=== PATIENT | male | born 1965 | race Caucasian/White ===

== ENCOUNTER → 2016-07-02 | Outpatient (CLI) | payer OTHER ==
--- NOTE | 2016-07-02 11:35 | XR ---
EXAMINATION TYPE: XR chest 2V DATE OF EXAM: 07/02/2016 11:11 AM COMPARISON: Prior chest x-ray June 19, 2014. HISTORY: Chest tightness and pain for 3 days. TECHNIQUE: Frontal and lateral views of the chest are obtained. FINDINGS: There is no focal air space opacity, pleural effusion, or pneumothorax seen. The cardiac silhouette size is within normal limits. The osseous structures are intact. IMPRESSION: No acute process. No significant change from prior.
--- NOTE | 2016-07-02 12:15 | ECHOS ---
DATE OF SERVICE: 07/02/2016 AGE: 50Y SEX: M HT: 73" WT: 234 lbs. Protocol Rolan: Others: Stage: Dur. of Exercise: 10 minutes *Heart Rate Blood Pressure *Rest: 70 Rest: 113/86 * *Max. Achieved: 154 Maximum BP: 158/99 85% PMHR: 100% PMHR: *METS: 10.8 INDICATIONS: MEDICATIONS: See list. CLINICAL INFORMATION: Chest pain, family history of coronary artery disease. Resting ECG shows sinus rhythm, rate of 70 beats per minute. CO interval of 0.16, QRS 0.08, repolarization changes are noted in the inferior leads. Utilizing a standard Rolan protocol, a symptom limited treadmill test was performed. Patient exercised for total of 10 minutes, attained a peak heart rate of 154 per minute which is approximately 90% predicted heart rate without any chest pain or pressure or ST segment deviations indicative of ischemia. Repolarization changes have resolved. Baseline images shows normal thickening and contractility. Post exercise images showed improved contractibility and thickening consistent with normal stress echocardiogram. The patient did not report any symptoms throughout the study. HIRED HELP IMPRESSION: 1. Normal stress echocardiogram. 2. Patient has an average level of cardiopulmonary fitness as indicated by O2 max and METs. 3. Patient attained peak metabolic activity equivalent to his 11 METS. 4. Patient did not report any symptoms throughout the study.
== END ==
LOC: RADNMMAIN 10:53
PROVIDERS: ATTEND Physician Assistant
DX: R07.9 Chest pain, unspecified (principal)
CPT/HCPCS: 71020; 93017; 93350

== ENCOUNTER → 2017-12-16 | Outpatient (CLI) | payer OTHER ==
--- NOTE | 2017-12-16 18:23 | XR ---
EXAMINATION TYPE: XR thoracic spine complete DATE OF EXAM: 12/16/2017 COMPARISON: Chest x-ray 07/02/2016 HISTORY: Back pain TECHNIQUE: 3 views FINDINGS: Thoracic vertebra have fairly normal spacing and alignment. Posterior element are intact. I see no compression fracture. There is no paraspinal mass. There is mild spurring of the endplates. IMPRESSION: Mild spurring. No fracture. No change.
== END | disposition home or self-care (01) ==
LOC: RADXRMAIN 17:06
PROVIDERS: ATTEND Physician Assistant
DX: M46.04 Spinal enthesopathy, thoracic region (principal)
CPT/HCPCS: 72072

== ENCOUNTER 2018-07-24 09:57 | Emergency (ER) | payer OTHER ==
[2018-07-24 10:04] VITALS: RESP 18
[2018-07-24] MEDS ORDERED: SODIUM CHLORIDE 0.9% 2,000 ML IV ONE (10:26)
--- NOTE | 2018-07-24 10:31 | ED ---
General Adult HPI - General Chief complaint: Neuro Symptoms/Deficit Stated complaint: Visual disturbance Time Seen by Provider: 07/24/18 10:08 Source: patient, family Mode of arrival: ambulatory Limitations: no limitations - History of Present Illness Initial comments: Patient is a 52-year-old male who presents with a chief complaint of dizziness, headache, blurry vision. Patient states his symptoms started about 7 this morning while at work. He did not identify an inciting incident. There are no aggravating or alleviating factors. Patient says his headache is in the right parietal part of his head, it is rated 6 out of 10, not the worst headache he has ever had, onset was gradual. Patient states that the time he has been constant since onset. - Related Data Home Medications Medication Instructions Recorded Confirmed Ibuprofen [Motrin] 800 mg PO TID PRN 07/24/18 07/24/18 Allergies Allergy/AdvReac Type Severity Reaction Status Date / Time No Known Allergies Allergy Verified 07/24/18 10:31 Review of Systems ROS Statement: Those systems with pertinent positive or pertinent negative responses have been documented in the HPI. ROS Other: All systems not noted in ROS Statement are negative. Constitutional: Reports: weakness Eyes: Reports: vision change Neurological: Reports: headache Past Medical History Past Medical History: Chest Pain / Angina, Hyperlipidemia, Osteoarthritis (OA) Additional Past Medical History / Comment(s): migraines, lt heel spur, forgetfullness History of Any Multi-Drug Resistant Organisms: None Reported Past Surgical History: Heart Catheterization, Orthopedic Surgery Additional Past Surgical History / Comment(s): sinus sx, rt knee arthroscopy,vasectomy,heart cath 2011 clear Past Anesthesia/Blood Transfusion Reactions: No Reported Reaction Past Psychological History: No Psychological Hx Reported Smoking Status: Never smoker Past Alcohol Use History: Rare Past Drug Use History: None Reported - Past Family History Mother Family Medical History: No Reported History General Exam Limitations: no limitations General appearance: alert, in no apparent distress Head exam: Present: atraumatic, normocephalic Eye exam: Present: normal appearance, PERRL, EOMI ENT exam: Present: mucous membranes dry Neck exam: Present: normal inspection Respiratory exam: Present: normal lung sounds bilaterally. Absent: respiratory distress, wheezes Cardiovascular Exam: Present: regular rate, normal rhythm, other (Patient resting heart rate is in the low 70s, when patient was asked to stand up, his heart rate elevated to the low 90s. Patient is orthostatic positive) GI/Abdominal exam: Present: soft, tenderness (Patient mild tenderness in the suprapubic region). Absent: distended Rectal exam: Present: deferred Extremities exam: Present: normal inspection Back exam: Present: normal inspection Neurological exam: Present: alert, oriented X3, CN II-XII intact, other (Patient is neurovascularly intact, and a stroke scale of 0, patient is a little unsteady when he stands up, Romberg negative) Psychiatric exam: Present: normal affect, normal mood Skin exam: Present: warm, dry, intact Course Vital Signs 07/24/18 07/24/18 10:01 11:38 Temperature 98.3 F Pulse Rate 74 62 Respiratory 18 18 Rate Blood Pressure 161/82 126/89 O2 Sat by Pulse 96 98 Oximetry Medical Decision Making - Medical Decision Making Patient presents with a chief complaint of dizziness and headache. On initial evaluation, vitals are stable, patient is in no acute distress. Patient noted to be orthostatic on exam. He will be evaluated with EKG, basic labs including cardiac enzymes, and computed tomography scan of the head without contrast and computed tomography scan of the head and neck with contrast. Patient given 2 L of IV fluid. We'll hold aspirin until computed tomography scan is back. Doubt subarachnoid hemorrhage given presentation, considered CVA no fever or dehydration at this time. EKG performed at 10:43 AM shows normal sinus rhythm with a rate of 60 bpm, segments are within normal limits, no acute signs of ischemia present. 1:05 PM Evaluation of this patient is unremarkable. Computed tomography scan without contrast are unremarkable. Reevaluation, patient's headache is now 2 out of 10, his symptoms have improved with 2 L of IV fluid, he is no longer orthostatic on exam. Repeat neuro exam is stable, at age stroke scale remains at 0. At this time, patient feeling well enough to go home. Patient was instructed to continue hydrating himself orally. Follow up with primary care 1-2 days, return to the ED if symptoms worsen or change. - Lab Data Result diagrams: 07/24/18 10:25 07/24/18 10:25 Lab Results 07/24/18 07/24/18 07/24/18 Range/Units 10:25 10:25 10:25 WBC 6.9 (3.8-10.6) k/uL RBC 5.49 (4.30-5.90) m/uL Hgb 16.6 (13.0-17.5) gm/dL Hct 49.5 (39.0-53.0) % MCV 90.2 (80.0-100.0) fL MCH 30.3 (25.0-35.0) pg MCHC 33.6 (31.0-37.0) g/dL RDW 12.3 (11.5-15.5) % Plt Count 259 (150-450) k/uL Neutrophils % 67 % Lymphocytes % 24 % Monocytes % 5 % Eosinophils % 2 % Basophils % 0 % Neutrophils # 4.7 (1.3-7.7) k/uL Lymphocytes # 1.7 (1.0-4.8) k/uL Monocytes # 0.3 (0-1.0) k/uL Eosinophils # 0.2 (0-0.7) k/uL Basophils # 0.0 (0-0.2) k/uL VBG pH 7.40 (7.31-7.41) VBG pCO2 35 L (37-51) mmHg VBG HCO3 21 L (24-28) mmol/L Carbon Monoxide, Quant 1.6 (<10.0) % Sodium (137-145) mmol/L Potassium (3.5-5.1) mmol/L Chloride (98-107) mmol/L Carbon Dioxide (22-30) mmol/L Anion Gap mmol/L BUN (9-20) mg/dL Creatinine (0.66-1.25) mg/dL Est GFR (CKD-EPI)AfAm (>60 ml/min/1.73 sqM) Est GFR (CKD-EPI)NonAf (>60 ml/min/1.73 sqM) Glucose (74-99) mg/dL Calcium (8.4-10.2) mg/dL Total Bilirubin (0.2-1.3) mg/dL AST (17-59) U/L ALT (21-72) U/L Alkaline Phosphatase (38-126) U/L Troponin I (0.000-0.034) ng/mL NT-Pro-B Natriuret Pep pg/mL Total Protein (6.3-8.2) g/dL Albumin (3.5-5.0) g/dL Lipase (23-300) U/L Urine Color Urine Appearance (Clear) Urine pH (5.0-8.0) Ur Specific [place] (1.001-1.035) Urine Protein (Negative) Urine Glucose (UA) (Negative) Urine Ketones (Negative) Urine Blood (Negative) Urine Nitrite (Negative) Urine Bilirubin (Negative) Urine Urobilinogen (<2.0) mg/dL Ur Leukocyte Esterase (Negative) Urine Opiates Screen (NotDetected) Ur Oxycodone Screen (NotDetected) Urine Methadone Screen (NotDetected) Ur Propoxyphene Screen (NotDetected) Ur Barbiturates Screen (NotDetected) U Tricyclic Antidepress (NotDetected) Ur Phencyclidine Scrn (NotDetected) Ur Amphetamines Screen (NotDetected) U Methamphetamines Scrn (NotDetected) U Benzodiazepines Scrn (NotDetected) Urine Cocaine Screen (NotDetected) U Marijuana (THC) Screen (NotDetected) 07/24/18 07/24/18 07/24/18 Range/Units 10:25 10:25 10:25 WBC (3.8-10.6) k/uL RBC (4.30-5.90) m/uL Hgb (13.0-17.5) gm/dL Hct (39.0-53.0) % MCV (80.0-100.0) fL MCH (25.0-35.0) pg MCHC (31.0-37.0) g/dL RDW (11.5-15.5) % Plt Count (150-450) k/uL Neutrophils % % Lymphocytes % % Monocytes % % Eosinophils % % Basophils % % Neutrophils # (1.3-7.7) k/uL Lymphocytes # (1.0-4.8) k/uL Monocytes # (0-1.0) k/uL Eosinophils # (0-0.7) k/uL Basophils # (0-0.2) k/uL VBG pH (7.31-7.41) VBG pCO2 (37-51) mmHg VBG HCO3 (24-28) mmol/L Carbon Monoxide, Quant (<10.0) % Sodium 140 (137-145) mmol/L Potassium 4.7 (3.5-5.1) mmol/L Chloride 109 H (98-107) mmol/L Carbon Dioxide 24 (22-30) mmol/L Anion Gap 7 mmol/L BUN 18 (9-20) mg/dL Creatinine 0.98 (0.66-1.25) mg/dL Est GFR (CKD-EPI)AfAm >90 (>60 ml/min/1.73 sqM) Est GFR (CKD-EPI)NonAf 90 (>60 ml/min/1.73 sqM) Glucose 90 (74-99) mg/dL Calcium 9.7 (8.4-10.2) mg/dL Total Bilirubin 1.2 (0.2-1.3) mg/dL AST 33 (17-59) U/L ALT 41 (21-72) U/L Alkaline Phosphatase 84 (38-126) U/L Troponin I <0.012 (0.000-0.034) ng/mL NT-Pro-B Natriuret Pep 88 pg/mL Total Protein 7.6 (6.3-8.2) g/dL Albumin 4.5 (3.5-5.0) g/dL Lipase 103 (23-300) U/L Urine Color Urine Appearance (Clear) Urine pH (5.0-8.0) Ur Specific [place] (1.001-1.035) Urine Protein (Negative) Urine Glucose (UA) (Negative) Urine Ketones (Negative) Urine Blood (Negative) Urine Nitrite (Negative) Urine Bilirubin (Negative) Urine Urobilinogen (<2.0) mg/dL Ur Leukocyte Esterase (Negative) Urine Opiates Screen (NotDetected) Ur Oxycodone Screen (NotDetected) Urine Methadone Screen (NotDetected) Ur Propoxyphene Screen (NotDetected) Ur Barbiturates Screen (NotDetected) U Tricyclic Antidepress (NotDetected) Ur Phencyclidine Scrn (NotDetected) Ur Amphetamines Screen (NotDetected) U Methamphetamines Scrn (NotDetected) U Benzodiazepines Scrn (NotDetected) Urine Cocaine Screen (NotDetected) U Marijuana (THC) Screen (NotDetected) 07/24/18 Range/Units 10:38 WBC (3.8-10.6) k/uL RBC (4.30-5.90) m/uL Hgb (13.0-17.5) gm/dL Hct (39.0-53.0) % MCV (80.0-100.0) fL MCH (25.0-35.0) pg MCHC (31.0-37.0) g/dL RDW (11.5-15.5) % Plt Count (150-450) k/uL Neutrophils % % Lymphocytes % % Monocytes % % Eosinophils % % Basophils % % Neutrophils # (1.3-7.7) k/uL Lymphocytes # (1.0-4.8) k/uL Monocytes # (0-1.0) k/uL Eosinophils # (0-0.7) k/uL Basophils # (0-0.2) k/uL VBG pH (7.31-7.41) VBG pCO2 (37-51) mmHg VBG HCO3 (24-28) mmol/L Carbon Monoxide, Quant (<10.0) % Sodium (137-145) mmol/L Potassium (3.5-5.1) mmol/L Chloride (98-107) mmol/L Carbon Dioxide (22-30) mmol/L Anion Gap mmol/L BUN (9-20) mg/dL Creatinine (0.66-1.25) mg/dL Est GFR (CKD-EPI)AfAm (>60 ml/min/1.73 sqM) Est GFR (CKD-EPI)NonAf (>60 ml/min/1.73 sqM) Glucose (74-99) mg/dL Calcium (8.4-10.2) mg/dL Total Bilirubin (0.2-1.3) mg/dL AST (17-59) U/L ALT (21-72) U/L Alkaline Phosphatase (38-126) U/L Troponin I (0.000-0.034) ng/mL NT-Pro-B Natriuret Pep pg/mL Total Protein (6.3-8.2) g/dL Albumin (3.5-5.0) g/dL Lipase (23-300) U/L Urine Color Light Yellow Urine Appearance Clear (Clear) Urine pH 6.0 (5.0-8.0) Ur Specific [place] 1.009 (1.001-1.035) Urine Protein Negative (Negative) Urine Glucose (UA) Negative (Negative) Urine Ketones Negative (Negative) Urine Blood Negative (Negative) Urine Nitrite Negative (Negative) Urine Bilirubin Negative (Negative) Urine Urobilinogen <2.0 (<2.0) mg/dL Ur Leukocyte Esterase Negative (Negative) Urine Opiates Screen Not Detected (NotDetected) Ur Oxycodone Screen Not Detected (NotDetected) Urine Methadone Screen Not Detected (NotDetected) Ur Propoxyphene Screen Not Detected (NotDetected) Ur Barbiturates Screen Not Detected (NotDetected) U Tricyclic Antidepress Not Detected (NotDetected) Ur Phencyclidine Scrn Not Detected (NotDetected) Ur Amphetamines Screen Not Detected (NotDetected) U Methamphetamines Scrn Not Detected (NotDetected) U Benzodiazepines Scrn Not Detected (NotDetected) Urine Cocaine Screen Not Detected (NotDetected) U Marijuana (THC) Screen Not Detected (NotDetected) Disposition Clinical Impression: Dehydration, Dizziness Disposition: HOME SELF-CARE Condition: Good Is patient prescribed a controlled substance at d/c from ED?: No Referrals: Edward Bahena MD [Primary Care Provider] - 1-2 days
[2018-07-24 10:44] LABS: VBG PH 7.4 (7.31-7.41)
[2018-07-24 10:46] LABS: Basophils % (A) 0 %; Eosinophils # (A) 0.2 k/uL (0-0.7); Eosinophils % (A) 2 %; HCT 49.5 % (39.0-53.0); HGB 16.6 gm/dL (13.0-17.5); Lymphocytes # (A) 1.7 k/uL (1.0-4.8); Lymphocytes % (A) 24 %; MCH 30.3 pg (25.0-35.0); MCHC 33.6 g/dL (31.0-37.0); MCV 90.2 fL (80.0-100.0); Mean Platelet Volume 7.2; Monocytes # (A) 0.3 k/uL (0-1.0); Monocytes % (A) 5 %; Neutrophils # (A) 4.7 k/uL (1.3-7.7); Neutrophils % (A) 67 %; Platelet Count 259 k/uL (150-450); RBC 5.49 m/uL (4.30-5.90); RDW 12.3 % (11.5-15.5); WBC 6.9 k/uL (3.8-10.6)
[2018-07-24 10:53] LABS: Appearance,Urine Clear (Clear); Bilirubin,Urine Negative (Negative); Blood,Urine Negative (Negative); Color,Urine Light Yellow; Glucose,Urine (UA) Negative (Negative); Ketones,Urine Negative (Negative); Leukocyte Esterase,Urine Negative (Negative); Nitrite,Urine Negative (Negative); Protein,Urine Negative (Negative); Specific Gravity,Urine 1.009 (1.001-1.035); Urobilinogen,Urine <2.0 mg/dL (<2.0)
[2018-07-24 10:59] LABS: ALT 41 U/L (21-72); AST 33 U/L (17-59); Albumin 4.5 g/dL (3.5-5.0); Alkaline Phosphatase 84 U/L (38-126); Anion Gap 7 mmol/L; Blood Urea Nitrogen 18 mg/dL (9-20); Calcium 9.7 mg/dL (8.4-10.2); Carbon Dioxide 24 mmol/L (22-30); Chloride 109 mmol/L (98-107); Glucose 90 mg/dL (74-99); Lipase 103 U/L (23-300); Potassium 4.7 mmol/L (3.5-5.1); Sodium 140 mmol/L (137-145); Total Bilirubin 1.2 mg/dL (0.2-1.3); Total Protein 7.6 g/dL (6.3-8.2)
[2018-07-24 11:16] LABS: Amphetamine Screen,Urine Not Detected (NotDetected); Barbiturate Screen,Urine Not Detected (NotDetected); Benzodiazepines Screen,Urine Not Detected (NotDetected); Cocaine Screen,Urine Not Detected (NotDetected); Methadone Screen, Urine Not Detected (NotDetected); Opiate Screen,Urine Not Detected (NotDetected); Oxycodone Screen, Urine Not Detected (NotDetected); Phencyclidine Screen,Urine Not Detected (NotDetected); Tricyclic Antidepressant,Urine Not Detected (NotDetected); Urn Cannabinoid Scrn Not Detected (NotDetected)
--- NOTE | 2018-07-24 11:20 | CT ---
EXAMINATION TYPE: CT brain wo con DATE OF EXAM: 07/24/2018 COMPARISON: None INDICATION: visual disturbance DLP: 1183 mGycm, Automated exposure control for dose reduction was used. CONTRAST: None CT of the brain is performed utilizing 3 mm thick sections through the posterior fossa and 3 mm thick sections through the remaining calvarium. Study is performed within 24 hours of arrival to the hosp [facility]. No abnormal hyperdensity is present to suggest an acute intracranial hemorrhage. No mass lesion is evident. No acute infarcts are evident. Ventricles and sulci are appropriate for the patient age. Mucosal thickening is within scattered ethmoid air cells. Remaining paranasal sinuses and mastoid air cells are clear. IMPRESSIONS: 1. No acute intracranial process. 2. Mucosal thickening within scattered ethmoid air cells
[2018-07-24] MEDS ORDERED: KETOROLAC 30 MG/ML 1 ML VIAL IVP STA (11:31)
[2018-07-24] MEDS ORDERED: ASPIRIN 81 MG PO STA (11:31)
--- NOTE | 2018-07-24 11:44 | CT ---
EXAMINATION TYPE: CT angio head neck DATE OF EXAM: 07/24/2018 HISTORY: visual disturbance COMPARISON: None CT DLP: 536.4 mGycm. Automated Exposure Control for Dose Reduction was Utilized. TECHNIQUE: CTA scan of the neck is performed with IV Contrast, patient injected with 50 mL of Isovue 370, axial images are obtained, coronal and sagittal reformatted images are reviewed. Three-D recons tructed images are created on an independent workstation and reviewed. FINDINGS: Carotid/Vascular Structures: There is a three-vessel arch. Left vertebral artery is more prominent th an the right and may be dominant. The common carotid arteries bifurcate normally into internal and ex ternal carotid arteries. The internal carotid arteries are patent to the skull base. No stenosis at t he internal carotid arterial origins are evident. [place]: Internal carotid arteries bifurcate into A1 and M1 segments. Middle cerebral artery branches and A2 segments appear normal. Anterior communicating artery is patent. Left posterior communicating artery appears patent. Right po sterior communicating artery may be absent. Other: Portions of the neck within the [id number] appear normal. Subglottic airway is normal. Port ion of the thyroid visualized is normal. Some minimal compressive atelectasis within the dependent po rtions of the lung apices. IMPRESSION: 1. No carotid bifurcation stenosis is noted. 2. [place] appears within normal limits.
[2018-07-24 13:32] VITALS: BP 120/89; PULSE 70; TEMP 98.1
== END 2018-07-24 13:45 | disposition home or self-care (01) ==
LOC: EC 09:57
DX: E86.0 Dehydration (principal); M19.90 Unspecified osteoarthritis, unspecified site; Z95.818 Presence of other cardiac implants and grafts
CPT/HCPCS: 99284; 96374; 96361 ×2; 36415; 93005; 83880; 80053; 82375; 82803; 83690; 84484; 85025; 81003; 80306; 70496; 70450; 70498; J1885; Q9967

== ENCOUNTER → 2019-05-04 | Outpatient (CLI) | payer OTHER ==
--- NOTE | 2019-05-04 10:14 | XR ---
EXAMINATION TYPE: XR foot complete RT DATE OF EXAM: 05/04/2019 CLINICAL HISTORY: Lateral right fifth digit pain for 3 weeks with no known injury TECHNIQUE: Frontal, lateral, and oblique images of the right foot are obtained. COMPARISON: None FINDINGS: There is no acute fracture/dislocation evident in the right foot. There is very mild corti willow thickening that is subtly seen on the frontal view of the lateral cortex of the proximal fifth me tatarsal. There is a small plantar heel spur. Few calcifications are incidentally noted along the rik eus. These could relate to tendinopathy or prior injury. The joint spaces in the right foot appear al igned. Osseous proliferative change and subchondral cystic formation with joint space narrowing of op posing surface sclerosis are seen of the first metatarsal phalangeal joint. The overlying soft tissue appears unremarkable. IMPRESSION: 1. Minimal cortical thickening of the proximal fifth metatarsal could relate to stress injury/stress reaction. MRI could evaluate for bone marrow edema. 2. Moderate arthropathy of the first metatarsophalangeal joint.
== END | disposition home or self-care (01) ==
LOC: RADXRMAIN 09:46
PROVIDERS: ATTEND Nurse Practitioner Family
DX: M12.871 Other specific arthropathies, not elsewhere classified, right ankle and foot (principal); M89.371 Hypertrophy of bone, right ankle and foot

== ENCOUNTER 2019-05-14 10:01 | Observation (INO) | payer OTHER ==
[2019-05-14] MEDS ORDERED: NITROGLYCERIN SL TABS 0.4 MG TAB SUBLINGUAL STA ×2 (10:23)
[2019-05-14] MEDS ORDERED: ASPIRIN 81 MG PO STA (10:23)
--- NOTE | 2019-05-14 10:27 | ED ---
Chest Pain HPI - General Chief Complaint: Chest Pain Stated Complaint: chest pain Time Seen by Provider: 05/14/19 10:14 Source: patient Mode of arrival: ambulatory Limitations: no limitations - History of Present Illness Initial Comments: Patient is a 53-year-old male with history of anxiety and acid reflux presenting to emergency Department with a chief complaint of chest pain. Patient states he developed sudden shortness of breath about 3 hours prior to arrival. Patient states he went to his primary care immediately and developed low, midsternal, epigastric chest pain without any radiation to the neck or left shoulder.. States the chest pain is not related to exertion. States the chest pain is not reproducible with palpation. Does report some lightheadedness prior to ED arrival. Denies any dizziness, blurry vision, nausea, vomiting or diaphoretic episodes. Does report feeling sweaty more usual about a week ago but nothing since. Patient is a smoker. He is a borderline hypertensive but no medications. Denies dyslipidemia. Denies family history of early cardiac related . White states they currently have a lot going on in her family which could be exacerbating his anxiety symptoms. Patient does not take any psychiatric medications. - Related Data Home Medications Medication Instructions Recorded Confirmed Celecoxib [CeleBREX] 200 mg PO HS 05/14/19 05/14/19 Allergies Allergy/AdvReac Type Severity Reaction Status Date / Time No Known Allergies Allergy Verified 05/14/19 11:37 Review of Systems ROS Statement: Those systems with pertinent positive or pertinent negative responses have been documented in the HPI. ROS Other: All systems not noted in ROS Statement are negative. EKG Findings - EKG Comments: EKG Findings:: Sinus bradycardia. Ventricular rate 54, RI 172, QRS 96, QTC 396. Past Medical History Past Medical History: Chest Pain / Angina, Hyperlipidemia, Osteoarthritis (OA) Additional Past Medical History / Comment(s): migraines, lt heel spur,forgetfullness History of Any Multi-Drug Resistant Organisms: None Reported Past Surgical History: Heart Catheterization, Orthopedic Surgery Additional Past Surgical History / Comment(s): sinus sx, rt knee arthro scopy,vasectomy,heart cath 2011 clear plantar fascitis Past Anesthesia/Blood Transfusion Reactions: No Reported Reaction Past Psychological History: No Psychological Hx Reported Smoking Status: Never smoker Past Alcohol Use History: Rare Past Drug Use History: None Reported - Past Family History Mother Family Medical History: No Reported History General Exam Limitations: no limitations General appearance: alert, anxious Head exam: Present: atraumatic, normocephalic, normal inspection Eye exam: Present: normal appearance, PERRL, EOMI Pupils: Present: normal accommodation ENT exam: Present: normal exam Neck exam: Present: normal inspection, full ROM Respiratory exam: Present: normal lung sounds bilaterally. Absent: wheezes, rales, decreased breath sounds Cardiovascular Exam: Present: regular rate, normal rhythm, normal heart sounds GI/Abdominal exam: Present: soft, tenderness (Mild epigastric tenderness with palpation.). Absent: distended Extremities exam: Present: normal inspection, full ROM, normal capillary refill, other (+2 ulnar and radial pulses bilaterally.) Back exam: Present: normal inspection, full ROM Neurological exam: Present: alert, oriented X3 Psychiatric exam: Present: normal affect, anxious Skin exam: Present: warm, dry, intact, normal color Course Vital Signs 05/14/19 05/14/19 05/14/19 10:06 10:47 11:12 Temperature 98.1 F Pulse Rate 63 56 L 70 Pulse Rate [ 67 Bilateral [place] ] Respiratory 18 16 16 Rate Blood Pressure 137/63 138/95 127/72 O2 Sat by Pulse 98 97 100 Oximetry 05/14/19 12:17 Temperature Pulse Rate 72 Pulse Rate [ Bilateral [place] ] Respiratory 14 Rate Blood Pressure 121/70 O2 Sat by Pulse 100 Oximetry Chest Pain MDM - Differential Diagnosis ACS - MDM Patient is 53-year-old male with history of GERD and anxiety presenting to emergency with a chief complaint of chest pain. Initially started with shortness of breath and which later developed to chest pain. On exam patient does appear to have reproducible epigastric abdominal pain. Patient does use chewing tobacco, borderline hypertensive but no dyslipidemia. EKG shows sinus bradycardia. Initial troponins are unremarkable. She was given nitro and aspirin the ED with no significant improvement in symptoms. Patient will be admitted for serial troponins. I spoke with Nuvia MARS for Dr. Bahena who will accept the patient. Case discussed with Dr. Gatica. Cardiology consult. Disposition Clinical Impression: Chest pain, Shortness of breath Disposition: ADMITTED IP TO THIS [facility] Condition: Stable Instructions (If sedation given, give patient instructions): Chest Pain (ED) Additional Instructions: Patient will be admitted Is patient prescribed a controlled substance at d/c from ED?: No Referrals: Edward Bahena MD [Primary Care Provider] - 1-2 days Time of Disposition: 13:22
[2019-05-14 10:53] LABS: Basophils % (A) 0 %; Eosinophils # (A) 0.1 k/uL (0-0.7); Eosinophils % (A) 2 %; HCT 45.3 % (39.0-53.0); HGB 15.6 gm/dL (13.0-17.5); Lymphocytes # (A) 1.7 k/uL (1.0-4.8); Lymphocytes % (A) 25 %; MCHC 34.4 g/dL (31.0-37.0); Mean Platelet Volume 8.3; Monocytes # (A) 0.3 k/uL (0-1.0); Monocytes % (A) 5 %; Neutrophils # (A) 4.3 k/uL (1.3-7.7); Neutrophils % (A) 66 %; Platelet Count 251 k/uL (150-450); RBC 5.03 m/uL (4.30-5.90); RDW 11.9 % (11.5-15.5); WBC 6.5 k/uL (3.8-10.6)
[2019-05-14 10:57] LABS: ALT 35 U/L (4-49); AST 35 U/L (17-59); African American GFR (CKD) >90 (>60 ml/min/1.73 sqM); Albumin 4.4 g/dL (3.5-5.0); Alkaline Phosphatase 84 U/L (38-126); Anion Gap 8 mmol/L; Blood Urea Nitrogen 19 mg/dL (9-20); Calcium 9.8 mg/dL (8.4-10.2); Carbon Dioxide 22 mmol/L (22-30); Chloride 107 mmol/L (98-107); Glucose 97 mg/dL (74-99); Non-African American GFR(CKD) >90 (>60 ml/min/1.73 sqM); Sodium 137 mmol/L (137-145); Total Bilirubin 1.4 mg/dL (0.2-1.3); Total Protein 7.5 g/dL (6.3-8.2)
[2019-05-14 11:03] LABS: INR 0.9 (<1.2); Partial Thromboplastin Time 24.7 sec (22.0-30.0); Prothrombin Time 9.9 sec (9.0-12.0)
[2019-05-14] MEDS ORDERED: NITROGLYCERIN SL TABS 0.4 MG TAB SUBLINGUAL PRN (13:22)
--- NOTE | 2019-05-14 16:14 | P.HPIM ---
History of Present Illness A 53-year-old pleasant male patient presented to his primary care facility complaining of chest pain with shortness of breath, he states he started having palpitations approximately 4 days ago which resolved on its own, he reports mild palpitations last night, and while he was driving his work he did experience some chest tightness accompanied with shortness of breath the provider instructed him to go to the emergency department to have a cardiac workup. He presented to the emergency department with ongoing complaints of shortness of breath and chest pain denied radiation, he is admitted to the hospital for cardiac workup and cardiology consult. He currently is resting in bed with eyes closed is arouse to verbal command, states the chest pain still continues as pressure at times. Review of Systems Cardiovascular: Reports chest pain, Reports dyspnea on exertion, Reports palpitations Musculoskeletal: right: foot pain (Ongoing wears a brace ) Past Medical History Past Medical History: Chest Pain / Angina, Hyperlipidemia, Osteoarthritis (OA) Additional Past Medical History / Comment(s): migraines, lt heel spur, brace for right foot d/t tendon damage History of Any Multi-Drug Resistant Organisms: None Reported Past Surgical History: Heart Catheterization, Orthopedic Surgery Additional Past Surgical History / Comment(s): sinus sx, rt knee arthroscopy,vasectomy,heart cath 2012 clear, plantar fascitis sx Past Anesthesia/Blood Transfusion Reactions: No Reported Reaction Past Psychological History: Anxiety Smoking Status: Never smoker Past Alcohol Use History: Rare Additional Past Alcohol Use History / Comment(s): has chewed tobacco since age 14, Past Drug Use History: None Reported - Past Family History Mother Family Medical History: No Reported History Medications and Allergies Home Medications Medication Instructions Recorded Confirmed Type Celecoxib [CeleBREX] 200 mg PO HS 05/14/19 05/14/19 History Allergies Allergy/AdvReac Type Severity Reaction Status Date / Time No Known Allergies Allergy Verified 05/14/19 11:37 Physical Exam Vitals: Vital Signs Temp Pulse Pulse Pulse Resp BP BP 05/14/19 14:30 98.2 F 58 L 14 151/90 05/14/19 14:00 62 20 146/93 05/14/19 13:00 60 23 132/94 05/14/19 12:17 72 14 121/70 05/14/19 12:00 56 L 20 124/91 05/14/19 11:12 70 16 127/72 05/14/19 11:00 79 20 138/95 05/14/19 10:47 56 L 67 16 138/95 05/14/19 10:20 60 20 05/14/19 10:06 98.1 F 63 18 137/63 Pulse Ox 05/14/19 14:30 99 05/14/19 14:00 99 05/14/19 13:00 99 05/14/19 12:17 100 05/14/19 12:00 98 05/14/19 11:12 100 05/14/19 11:00 94 L 05/14/19 10:47 97 05/14/19 10:20 98 05/14/19 10:06 98 Intake and Output 05/14/19 05/14/19 05/14/19 06:59 14:59 22:59 Other: Weight 104.326 kg - Constitutional General appearance: mild distress - EENT Eyes: EOMI, PERRLA - Neck Neck: normal ROM - Respiratory Respiratory: bilateral: CTA - Cardiovascular Rhythm: regular - Gastrointestinal General gastrointestinal: normal bowel sounds, soft - Psychiatric Psychiatric: A&O x's 3, appropriate affect, intact judgment & insight Results CBC & Chem 7: 05/14/19 10:28 05/14/19 10:28 Labs: Abnormal Lab Results - Last 24 Hours (Table) 05/14/19 Range/Units 10:28 Total Bilirubin 1.4 H (0.2-1.3) mg/dL Thrombosis Risk Factor Assmnt - Choose All That Apply Each Factor Represents 1 point: Age 41-60 years, Obesity (BMI >25) Other Risk Factors: No Thrombosis Risk Factor Assessment Total Risk Factor Score: 2 Thrombosis Risk Factor Assessment Level: Low Risk Assessment and Plan Plan: Assessment: Chest pain possible unstable angina History of anxiety History of osteoarthritis Plan: Continue cardiology consultation and recommendations Continue continuous cardiac monitoring
[2019-05-14] MEDS ORDERED: MELOXICAM 7.5 MG TAB PO SCH (21:00)
--- NOTE | 2019-05-15 00:10 | CONS ---
CONSULTATION CHIEF COMPLAINT: Chest pain. This is a 53-year-old gentleman with no significant past medical history who presented to hospital complaining of chest discomfort. His chest discomfort has been going on for the last 4 days and is associated with palpitations last night. He is under a lot of stress. Chest discomfort is mild intensity and related to exertion and unassociated with diaphoresis. An EKG did not reveal ischemic changes. 2 sets of cardiac enzymes have been negative. The patient appears comfortable at rest and at the time of my evaluation is free of cardiac symptoms. PAST MEDICAL HISTORY: Negative for hypertension, diabetes or dyslipidemia. MEDICATIONS: Include aspirin, Mobic. ALLERGIES: There are no known drug allergies. FAMILY HISTORY: Negative for premature coronary artery disease. SOCIAL HISTORY: Negative for smoking, EtOH abuse or drug abuse. REVIEW OF SYSTEMS: HEENT is unremarkable. Cardiac as described above. Respiratory negative. GI negative. GENITOURINARY negative. Allergy/Immunology: None. Skin negative. Musculoskeletal negative. Endocrine negative. Constitutional negative. Oncological negative. TELEPHONE COIN BOX COLLECTOR negative. Rest of the system review is not relevant. EXAM: Comfortable at rest. Vital signs are stable. There is no jugular venous distention. Carotid upstroke is normal. There is no bruit. Chest exam reveals good air entry bilaterally. Heart exam reveals first and second heart sounds. No gallop. No murmur. No rub. Abdomen is soft, nontender. Exam of extremities did not reveal any edema. Peripheral pulses are felt. EKG does not reveal ischemic changes and cardiac enzymes have been negative. ASSESSMENT: 1. Precordial chest pain. 2. Palpitations. PLAN: Patient's chest discomfort is atypical. I will obtain a stress echo and echocardiogram tomorrow morning. If this workup is negative, he can be discharged home and outpatient followup arranged through my office MMODL / IJN: [id number] /
[2019-05-15 08:35] LABS: Cholesterol 164 mg/dL (<200); HDL Cholesterol 53 mg/dL (40-60); LDL Cholesterol,Calculated 98 mg/dL (0-99); Triglycerides 66 mg/dL (<150)
--- NOTE | 2019-05-15 08:45 | XR ---
EXAMINATION TYPE: XR chest 2V DATE OF EXAM: 05/14/2019 COMPARISON: 07/02/2016 HISTORY: Chest pain TECHNIQUE: Frontal and lateral views of the chest are obtained. FINDINGS: New platelike left basilar subsegmental atelectasis. There is no focal air space opacity, pleural effusion, or pneumothorax seen. The cardiac silhouette size is within normal limits. The o sseous structures are intact. Mild multilevel degenerative change of the spine. IMPRESSION: New platelike left basilar subsegmental atelectasis, otherwise no acute cardiopulmonary process.
[2019-05-15] MEDS ORDERED: ASPIRIN 325 MG TAB PO SCH (09:00)
--- NOTE | 2019-05-15 11:00 | ECHOF ---
Referral Reason:cp MEASUREMENTS -------- HEIGHT: 180.3 cm WEIGHT: 104.3 kg BP: 110/70 RVIDd: 3.2 cm (< 3.3) IVSd: 1.3 cm (0.6 - 1.1) LVIDd: 5.1 cm (3.9 - 5.3) LVPWd: 1.2 cm (0.6 - 1.1) IVSs: 1.5 cm LVIDs: 3.4 cm LVPWs: 1.7 cm LAESV Index (A-L): 23.93 ml/m Ao Diam: 4.1 cm (2.0 - 3.7) AV Cusp: 2.4 cm (1.5 - 2.6) LA Diam: 3.1 cm (2.7 - 3.8) MV EXCURSION: 14.924 mm (> 18.000) MV EF SLOPE: 92 mm/s (70 - 150) EPSS: 1.4 cm MV E [place]: 0.79 m/s MV DecT: 258 ms MV A [place]: 0.58 m/s MV E/A Ratio: 1.37 AR PHT: 449 ms RAP: 5.00 mmHg RVSP: 19.65 mmHg TAPSE: 23.60 mm FINDINGS -------- Resting bradycardia (HR<60bpm). This was a technically adequate study. The left ventricular size is normal. There is mild concentric left ventricular hypertrophy. Overa ll left ventricular systolic function is low-normal with, an EF between 50 - 55 %. The diastolic fi lling pattern is normal for the age of the patient 9.05. The right ventricle is normal in size. The right ventricular systolic function is normal. The left atrial size is normal. Normal LA size by volume 22+/-6 ml/m2. The right atrial size is normal. The aortic valve is trileaflet and appears structurally normal. Trace amount of aortic regurgitatio n. The mitral valve is normal. The mitral valve leaflets are mildly thickened. There is trace mitral regurgitation. The tricuspid valve appears structurally normal. Mild tricuspid regurgitation present. Right vent ricular systolic pressure is normal at < 35 mmHg. There is no pulmonic regurgitation present. The aortic root is dilated measuring 4.1 cm. Normal inferior vena cava with normal inspiratory collapse consistent with estimated right atrial pre ssure of 5 mmHg. There is no pericardial effusion. CONCLUSIONS -------- 1. Resting bradycardia (HR<60bpm). 2. This was a technically adequate study. 3. The left ventricular size is normal. 4. There is mild concentric left ventricular hypertrophy. 5. Overall left ventricular systolic function is low-normal with, an EF between 50 - 55 %. 6. The diastolic filling pattern is normal for the age of the patient 9.05 7. The right ventricle is normal in size. 8. The right ventricular systolic function is normal. 9. The left atrial size is normal. 10. Normal LA size by volume 22+/-6 ml/m2. 11. The right atrial size is normal. 12. The aortic valve is trileaflet and appears structurally normal. 13. Trace amount of aortic regurgitation. 14. The mitral valve is normal. 15. The mitral valve leaflets are mildly thickened. 16. There is trace mitral regurgitation. 17. The tricuspid valve appears structurally normal. 18. Mild tricuspid regurgitation present. 19. Right ventricular systolic pressure is normal at < 35 mmHg. 20. There is no pulmonic regurgitation present. 21. The aortic root is dilated measuring 4.1 cm. 22. Normal inferior vena cava with normal inspiratory collapse consistent with estimated right atrial pressure of 5 mmHg. 23. There is no pericardial effusion. BREAD SUPERVISOR: Gloria Feliz RDCS
--- NOTE | 2019-05-15 11:37 | P.PN ---
Subjective This is a pleasant 53-year-old male with no significant past medical history. He underwent stress echocardiogram today that was negative for stress- induced ischemia. Echocardiogram reveals preserved LV systolic function with ejection fraction 50-55%. Blood pressure 138/83 heart rate 63 afebrile maintaining oxygen saturation on room air. Laboratory data reviewed, CBC unremarkable, cardiac enzymes negative 3, LDL 98. Telemetry tracings unremarkable. No arrhythmia. GENERAL: Well-appearing, well-nourished and in no acute distress. NECK: Supple without JVD or thyromegaly. LUNGS: Breath sounds clear to auscultation bilaterally. Respiration equal and unlabored. No wheezes, rales or rhonchi. HEART: Regular rate and rhythm without murmurs, rubs or gallops. S1 and S2 heard. EXTREMITIES: Normal range of motion, no edema. No clubbing or cyanosis. Peripheral pulses intact. ASSESSMENT Chest pain, atypical for angina. Palpitations PLAN Stable for discharge from a cardiac perspective. Follow-up in the office with Dr. Coates in 2 weeks. Nurse Practitioner note has been reviewed, I agree with a documented findings and plan of care. Patient was seen and examined. Objective - Vital Signs Vital signs: Vital Signs Temp 97.8 F 05/15/19 08:45 Pulse 53 L 05/15/19 08:45 Resp 16 05/15/19 08:45 BP 138/83 05/15/19 08:45 Pulse Ox 99 05/15/19 08:45 Intake & Output 05/14/19 05/15/19 05/15/19 18:59 06:59 18:59 Weight 104.326 kg 104.33 kg Other: Voiding Method Toilet Toilet # Voids 1 - Labs CBC & Chem 7: 05/14/19 10:28 05/14/19 10:28
--- NOTE | 2019-05-15 11:44 | ECHOS ---
STRESS ECHOCARDIOGRAM INDICATIONS: Chest pain. MEDICATIONS: Celebrex. BASELINE HEART RATE: 52 BASELINE BLOOD PRESSURE: 130/85 MAXIMUM HEART RATE: 174 MAXIMUM BLOOD PRESSURE: 165/107 85% MPHR: 143 100% MPHR: 168 METS: 12.1 MAXIMUM STAGE REACHED: IV TOTAL EXERCISE TIME: 10:58 CLINICAL INFORMATION: Baseline EKG shows sinus rhythm, normal axis, normal intervals. Patient exercised on Rolan protocol for a total of 11 minutes, achieving 12 METS; 100% of predicted maximal heart rate without chest pain or diagnostic ST-segment depression. Baseline echo shows normal left ventricular size, wall motion and systolic function. Post-exercise there are normal hyperdynamic response of all segments of myocardium noted. CONCLUSION: 1. Good exercise tolerance. 2. Negative stress test by EKG criteria. 3. Negative stress echo. MMODL / IJN: [id number] /
--- NOTE | 2019-05-15 12:28 | P.DS ---
Providers Date of admission: 05/14/19 13:19 Expected date of discharge: 05/15/19 Attending physician: Edward Bahena Consults: 05/14/19 13:22 Consult Physician Urgent Consulting Provider: Malcolm Grewal Consult Reason/Comments: Chest pain, shortness of breath, MA rule out Do you want consulting provider notified?: Yes Primary care physician: Edward Bahena Hospital Course: This pleasant 53-year-old male with having increased shortness of breath and chest pain was sent to the emergency department after seeing primary care physician, consultation by cardiology, stress echo and echocardiogram reviewed, clear to cardiology for discharge home with follow-up in 2 weeks. Assessment: Chest pain atypical for angina Palpitations History of anxiety History of osteoarthritis Plan: Discharge home Follow up with Dr. Edward Bahena in 1-2 days Follow-up with Dr. Coates in 2 weeks Patient Condition at Discharge: Stable Plan - Discharge Summary Discharge Rx Participant: No New Discharge Prescriptions: Continue Celecoxib [CeleBREX] 200 mg PO HS Discharge Medication List Celecoxib [CeleBREX] 200 mg PO HS 05/14/19 [History] Follow up Appointment(s)/Referral(s): Edward Bahena MD [Primary Care Provider] - 1-2 days Patient Instructions/Handouts: Chest Pain (ED) Activity/Diet/Wound Care/Special Instructions: Patient will be admitted
[2019-05-15 12:45] VITALS: BP 129/79; PULSE 71; RESP 19; TEMP 98
== END 2019-05-15 14:25 | disposition home or self-care (01) ==
LOC: EC 10:01 → 1SOBS 13:19
PROVIDERS: ADMIT Family Medicine; ATTEND Family Medicine
DX: R07.89 Other chest pain (principal); R06.02 Shortness of breath; R10.13 Epigastric pain; R00.2 Palpitations; R42 Dizziness and giddiness; K21.9 Gastro-esophageal reflux disease without esophagitis; F41.9 Anxiety disorder, unspecified; F17.220 Nicotine dependence, chewing tobacco, uncomplicated; R03.0 Elevated blood-pressure reading, without diagnosis of hypertension; E78.5 Hyperlipidemia, unspecified; M19.90 Unspecified osteoarthritis, unspecified site; R00.1 Bradycardia, unspecified; Z79.899 Other long term (current) drug therapy
CPT/HCPCS: 99285; 36415; 93005; 93306; 93351; 85379; 80061; 80053; 83735; 84484; 85025; 85610; 85730; 71046; G0378 ×2

== ENCOUNTER → 2020-03-12 | Outpatient (CLI) | payer OTHER | END | disposition home or self-care (01) | LOC: LABWHC1 16:25 | PROVIDERS: ATTEND Otolaryngology | DX: Z53.9 Procedure and treatment not carried out, unspecified reason (principal) ==

== ENCOUNTER → 2020-03-12 | Outpatient (CLI) | payer OTHER ==
--- NOTE | 2020-03-13 04:59 | CT ---
EXAMINATION TYPE: CT sinus w con DATE OF EXAM: 03/12/2020 COMPARISON: None HISTORY: 54-year-old male Chronic sinusitis, anosmia. CT DLP: 697.6 mGycm Automated exposure control for dose reduction was used. TECHNIQUE: Postcontrast axial views of the paranasal sinuses were obtained after administration of 10 0 mL Isovue 300 IV contrast. Coronal reconstructions performed. FINDINGS: PARANASAL SINUSES: There is moderate mucosal thickening throughout the ethmoid air cells. Small 7 mm polyp or mucosal retention cyst along the anterior wall of the right sphenoid sinus. Sphen oid sinuses otherwise well pneumatized. Frontal sinuses are clear. There is mild to moderate mucosal thickening along the floors of the maxillary sinuses but with a lar ge 2.7 cm polyp or mucosal retention cyst along the floor the right maxillary sinus. There is no air-fluid level. Reactive nadia- osteogenesis is not seen. There is no destruction of the osseous howard of the paranasal sinuses. THE NASAL CAVITY: There is mucosal thickening at the right maxillary infundibulum. The left osteomeatal complex is miller nt. No abnormal opacification seen extending into the olfactory recesses. Slightly undulating nasal septum. Possible 1 cm extra-axial lesion along the left side of the anterior falx on axial image 70 and coron al image 35. Dominant left vertebral artery. Visualized mastoid air cells and middle ear cavities are clear. Reformatted images confirm above findings. IMPRESSION: 1. Mild to moderate mucosal thickening along the floors of the maxillary sinuses along with a 2.7 cm polyp or mucosal retention cyst along the floor of the right maxillary sinus. 2. Moderate mucosal thickening throughout the ethmoid air cells. 3. Incidental: Possible 1 cm extra-axial lesion along the left side of the anterior falx, possible me ningioma. MRI brain without and with contrast can further evaluate.
== END | disposition home or self-care (01) ==
LOC: RADCTMAIN 16:01
PROVIDERS: ATTEND Otolaryngology
DX: J34.89 Other specified disorders of nose and nasal sinuses (principal)
CPT/HCPCS: 70487; Q9967

== ENCOUNTER 2020-05-15 06:45 | Day surgery (SDC) | payer OTHER ==
[2020-05-12 08:43] VITALS: BMI 30.3
[~2020-05-15 06:45] MED LIST: DEXAMETHASONE SOD PHOSPHATE 4 MG/ML 1 ML VIAL IV ONE; DEXAMETHASONE SOD PHOSPHATE 4 MG/ML 1 ML VIAL IV PRN; FAMOTIDINE 20 MG/2 ML VIAL IV PRN; LACTATED RINGERS 1,000 ML IV SCH; LIDOCAINE 1% (10MG/ML) FOR IV START INTRADERMA PRN; ONDANSETRON 4 MG/2 ML VIAL IVP ONE; ONDANSETRON 4 MG/2 ML VIAL IVP PRN; OXYMETAZOLINE 0.05% NASL SPRAY 1 SPRAY BOTTLE EA NOSTRIL PRN
[2020-05-15 07:28] VITALS: RESP 16
[2020-05-15] MEDS ORDERED: NEOSTIGMINE 1 MG/ML 10 ML VIAL ONE (08:33)
[2020-05-15] MEDS ORDERED: GLYCOPYRROLATE 0.2 MG/ML 2 ML VIAL ONE (08:33)
[2020-05-15] MEDS ORDERED: MIDAZOLAM 2 MG/2 ML VIAL ONE (08:33)
[2020-05-15] MEDS ORDERED: PROPOFOL 10 MG/ML 20 ML VIAL IV ONE (08:33)
[2020-05-15] MEDS ORDERED: ROCURONIUM 10 MG/ML (5 ML VIAL) IV ONE (08:33)
[2020-05-15] MEDS ORDERED: HYDROmorphone (PF) 1 MG/ML ONE (08:33)
[2020-05-15] MEDS ORDERED: SUCCINYLCHOLINE CHLORIDE VIAL 200 MG/10 ML VIAL IV ONE (08:33)
[2020-05-15] MEDS ORDERED: LIDOCAINE 1% INJ 10MG/ML (20 ML MDV) ONE (08:33)
[2020-05-15] MEDS ORDERED: ePHEDrine SULFATE/0.9% NACL/PF 50 MG/5 ML SYRINGE IV ONE (08:33)
[2020-05-15] MEDS ORDERED: fentaNYL (PF) 50 MCG/ML 2 ML AMP ONE (08:33)
[2020-05-15] MEDS ORDERED: WATER FOR INJECTION, STERILE 10 ML VIAL IV ONE (08:33)
[2020-05-15] MEDS ORDERED: DEXAMETHASONE SOD PHOSPHATE 10 MG/ML 1 ML VIAL ONE (08:33)
[2020-05-15] MEDS ORDERED: LIDOCAINE 1%-EPI 1:100,000 20 ML VIAL SUBMUCOSAL ONE ×2 (09:05)
[2020-05-15] MEDS ORDERED: BACITRACIN ZINC 500 UNIT/GM OINT 28.4 GM TUBE TOPICAL ONE (09:06)
[2020-05-15] MEDS ORDERED: EPINEPHrine 1 MG/ML (MDV) 30 ML VIAL TOPICAL ONE ×3 (09:06)
[2020-05-15] MEDS ORDERED: BUPIVACAIN-EPI 0.5%-1:200,000 30 ML VIAL SQ ONE ×2 (09:06)
[2020-05-15] MEDS ORDERED: FLUORESCEIN STRIPS 1 MG STRIP MISCELLANE ONE (09:06)
[2020-05-15 10:19] VITALS: TEMP 98.1
[2020-05-15] MEDS ORDERED: ONDANSETRON 4 MG/2 ML VIAL IVP ONE (10:40)
--- NOTE | 2020-05-15 10:42 | P.OP ---
Date of Procedure: 05/15/20 Preoperative Diagnosis: Chronic maxillary and ethmoid sinusitis with maxillary sinus cysts and polyps Hypertrophy of inferior nasal turbinates Deviated nasal septum Postoperative Diagnosis: Same Procedure(s) Performed: Septoplasty Bilateral submucosal resection of the inferior nasal turbinates with outfracturing compression Bilateral functional endoscopic sinus surgery with total ethmoidectomy and maxillary antrostomies with removal of diseased tissue Anesthesia: YELENA Surgeon: Sammy Johnston Estimated Blood Loss (ml): 20 Pathology: other (Sinonasal) Condition: stable Disposition: PACU Indications for Procedure: Is patient is had chronic sinusitis along with persistent nasal obstruction constant postnasal drainage facial pain and pressure and anosmia. He has failed medical therapy. CAT scan evaluation shows chronic maxillary and ethmoid sinusitis with cysts and or polyps of the maxillary sinuses along with a deviated nasal septum and left septal spur and large obstructive inferior turbinates. All risks, benefits, and alternative therapies were discussed. Consent was obtained and all questions were answered. Operative Findings: Patient had a deviated nasal septum with a large left septal spur that was removed patient also had chronic maxillary and ethmoid sinusitis with cysts and or polypoid material in the maxillary sinuses and ethmoid sinuses. Sammy pus was removed from the ethmoid and maxillary sinuses bilaterally. Description of Procedure: This patient was taken to the operative room and placed in the supine position. A general inhalation anesthetic was administered to the patient by the department of anesthesia with a functioning IV line in place. The patient was monitored throughout the entire case by the department of anesthesia. The eyes were taped shut for protection. The patient was placed in a slight reverse Trendelenburg position. The patient had previously utilize Afrin nasal spray preoperatively. The nose was evaluated and the septum lateral nasal wall and inferior turbinates were injected with lidocaine 1% with epinephrine 1 100,000 bilaterally. Approximately 10 minutes were allowed wait for full vasoconstrictive effects to take place. At this point a caudal incision was made over the caudal portion of the left septum down to the mucoperichondrium. A mucoperichondrial flap was elevated on the left side and dissection was carried with use of tunnels posteriorly. We then made a crossover incision through the cartilage to the contralateral side and for the mucoperichondrial flap development was performed to the extent of visualization on the contralateral side. After the cartilage was freed with use of several crosshatching incisions and removal of some redundant strips of septal cartilage, the septum was straightened and placed back in the midline. The septum was sutured fixated to the ovarian groove. Excellent straightening occurred and the septum was visibly straight. Incision was closed with a 40 rapid Vicryl. We utilized a running nonlocking fashion for closure of the incision. A quilting stitch was used to reapproximate the septal flaps with use of a 40 rapid Vicryl. We then entered the nose with a 0 and 30 Bass kaylan endoscope. Previous to this we did inject the lateral nasal wall and middle turbinate and uncinate process with lidocaine 1% with epinephrine 1 100,000. Approximately 10 minutes were allowed wait for full vasoconstrictive effects to take place. With use of a microdebrider and a pediatric backbiter, we took down the uncinate process bilaterally. We then opened the maxillary sinuses bilaterally. We utilized a microdebrider for this and entered the maxillary sinuses and removed diseased tissue. This was done bilaterally. After the maxillary sinuses were opened and the diseased tissue was removed . We removed bilateral maxillary sinus polyps and cysts, after the maxillary sinuses were opened and all diseased tissue removed, we entered the ethmoid bulla and with use of a microdebrider and up- biting boss and Andrew, we followed the fovea frontalis through the basal lamella and into the posterior ethmoid air cells and did a total ethmoidectomy. We removed the anterior ethmoid air cells with use of a microdebrider and up- biting boss. After all the anterior ethmoid air cells were removed we did the same in the posterior ethmoid. A total ethmoidectomy was completed in that fashion with removal of all the anterior and posterior ethmoid air cells and diseased tissue. I'll ethmoid septations were removed both anteriorly and posteriorly. Ethmoid sinuses were opened totally. Xerogel was inserted and minimal bleeding was encountered. We reinspected the skull base there is no signs of any orbital penetration or signs of any intracranial penetration. The sugical site was reinspected after the xerogel was placed and no bleeding was seen. Intranasal splints were inserted and fixated at the end of the case. We utilized Paige nasal splints. There will be removed and the patient returns to the office. Attention was then paid to the inferior turbinates. The bilateral inferior turbinates were hypertrophic and obstructive. We entered the anterior portion of the inferior turbinates with use of a microdebrider. We remove bone and submucosal elements with use of a microdebrider bilaterally. The inferior turbinates underwent a submucosal resection with removal of submucosal tissue and bone. We obtained a much better and normal in size for breathing. The inferior turbinates were then outfractured and compressed with a Boyes nasal elevator. Excellent airway was obtained and was symmetric bilaterally. No bleeding was encountered.
[2020-05-15] MEDS ORDERED: HYDROmorphone 0.5 MG/0.5 ML SYRINGE IVP ONE (10:43)
[2020-05-15] MEDS ORDERED: KETOROLAC 15 MG/ML 1 ML VIAL IVP ONE (10:55)
[2020-05-15 12:18] VITALS: BP 127/75; PULSE 64
== END 2020-05-15 12:18 | disposition home or self-care (01) ==
LOC: OR 06:45
PROVIDERS: ATTEND Otolaryngology
DX: J32.0 Chronic maxillary sinusitis (principal); J32.2 Chronic ethmoidal sinusitis; J33.8 Other polyp of sinus; J34.1 Cyst and mucocele of nose and nasal sinus; J34.89 Other specified disorders of nose and nasal sinuses; J34.2 Deviated nasal septum; J34.3 Hypertrophy of nasal turbinates; Z83.49 Family history of other endocrine, nutritional and metabolic diseases; Z98.890 Other specified postprocedural states; Z82.49 Family history of ischemic heart disease and other diseases of the circulatory system; Z84.89 Family history of other specified conditions; Z91.048 Other nonmedicinal substance allergy status; Z79.1 Long term (current) use of non-steroidal anti-inflammatories (NSAID); Z79.899 Other long term (current) drug therapy; F17.290 Nicotine dependence, other tobacco product, uncomplicated
CPT/HCPCS: 30520; 31267; 31255; 30140; 88305; 88300; J0171; J2250; J0330; J1100 ×2; J2710; J2405; J0690; J2001; J3010; J1170 ×2; J1885; J2704

== ENCOUNTER 2020-05-15 20:07 | Emergency (ER) | payer OTHER ==
[2020-05-15 20:13] VITALS: RESP 18
[2020-05-15] MEDS ORDERED: ONDANSETRON ODT 4 MG TAB PO STA (21:21)
--- NOTE | 2020-05-15 21:26 | ED ---
ENT HPI - General Chief complaint: ENT Stated complaint: High BP post op Time Seen by Provider: 05/15/20 21:11 Source: patient Mode of arrival: ambulatory Limitations: no limitations - History of Present Illness Initial comments: 54-year-old male presents to emergency Department with a chief complaint of bleeding. Patient states Dr. Abdi performed repair his septum about 12 hours today. Patient reports after she was discharged, he continues to have epistaxis. States he contacted the physician again who increased his dose of pain medication. Patient reports she continues to have the epistaxis. He also reports swallowing and spitting out quite a bit of blood. He does report some hypertensive nauseous and lightheaded at the same time. He reports the pain is not getting any better. He denies any chest pain or shortness of breath. - Related Data Home Medications Medication Instructions Recorded Confirmed Allergy Pill (Unk Name) 1 tab PO DAILY 05/12/20 05/15/20 Cholecalciferol [Vitamin D3 (25 50 mcg PO DAILY 05/12/20 05/15/20 Mcg = 1000 Iu)] Rx Nasal [place] (Unk. Name) 1 dose NASAL DAILY 05/12/20 05/15/20 Previous Rx's Medication Instructions Recorded Amoxicillin/Potassium Clav 1 each PO Q12HR #20 tab 05/15/20 [Augmentin 875-125 Tablet] Meloxicam [Mobic] 15 mg PO DAILY #10 tab 05/15/20 Ondansetron Odt [Zofran Odt] 4 mg PO Q8HR PRN #14 tab 05/15/20 amLODIPine [Norvasc] 10 mg PO DAILY #7 tablet 05/15/20 oxyCODONE-APAP 5-325MG [Percocet 1 - 2 each PO Q6HR PRN #24 tab 05/15/20 5-325 mg] predniSONE [Deltasone] 20 mg PO DIRECTED #5 tab 05/15/20 Allergies Allergy/AdvReac Type Severity Reaction Status Date / Time No Known Allergies Allergy Verified 05/15/20 07:24 Review of Systems ROS Statement: Those systems with pertinent positive or pertinent negative responses have been documented in the HPI. ROS Other: All systems not noted in ROS Statement are negative. Past Medical History Past Medical History: Chest Pain / Angina, Hyperlipidemia, Osteoarthritis (OA) Additional Past Medical History / Comment(s): migraines, lt heel spur, environmental allergies History of Any Multi-Drug Resistant Organisms: None Reported Past Surgical History: Heart Catheterization, Orthopedic Surgery Additional Past Surgical History / Comment(s): sinus sx, rt knee arthroscopy,vasectomy,heart cath 2012 clear, plantar fascitis sx Past Anesthesia/Blood Transfusion Reactions: No Reported Reaction Past Psychological History: Anxiety Smoking Status: Never smoker Past Alcohol Use History: None Reported Past Drug Use History: None Reported - Past Family History Mother Family Medical History: No Reported History General Exam Limitations: no limitations General appearance: alert, in no apparent distress Head exam: Present: atraumatic, normocephalic, normal inspection Eye exam: Present: normal appearance, PERRL, EOMI Pupils: Present: normal accommodation ENT exam: Present: normal exam, mucous membranes moist, TM's normal bilaterally, normal external ear exam. Absent: normal oropharynx (Bleeding noted from bilateral nares. Residual blood noted in the posterior pharynx.) Neck exam: Present: normal inspection, full ROM. Absent: tenderness Respiratory exam: Present: normal lung sounds bilaterally. Absent: respiratory distress Cardiovascular Exam: Present: regular rate, normal rhythm, normal heart sounds Extremities exam: Present: normal inspection, full ROM. Absent: tenderness Back exam: Present: normal inspection, full ROM. Absent: tenderness Neurological exam: Present: alert, oriented X3 Psychiatric exam: Present: normal affect, normal mood Skin exam: Present: warm, dry, intact, normal color Course Vital Signs 05/15/20 05/15/20 05/15/20 20:08 21:40 22:20 Temperature 97.5 F L Pulse Rate 89 Respiratory 18 Rate Blood Pressure 146/105 174/104 145/90 O2 Sat by Pulse 94 L Oximetry 05/15/20 05/15/20 22:40 23:07 Temperature Pulse Rate Respiratory Rate Blood Pressure 130/78 129/83 O2 Sat by Pulse Oximetry Medical Decision Making - Medical Decision Making 54-year-old male presents to emergency Department with a chief complaint of nose bleed. On physical examination, residual blood in the posterior pharynx. He has bilateral epistaxis. Patient has profuse bleeding from the nostrils. He was initially slightly hypertensive. This appeared to increase throughout the hospital stay. Patient does report whitecoat syndrome. I spoke with who suggested we bring her blood pressure down before doing anything else. Dr. Abdi then called the nurse, Manuela, and advised the patient can be started on nitro paste and Norvasc. Patient will be discharged with 7 days of 10 mg of Norvasc daily. Patient will see Dr. Abdi over the next few days. Patient was also given analgesics and antiemetics. On reevaluation, patient does report improvement of symptoms. Dr. minaya who recommended discharge if systolic is under 130. He'll be discharged with an outpatient follow-up. Return parameters discussed the patient was understanding and agreeable. Case discussed with Disposition Clinical Impression: Postsurgical epistaxis Disposition: HOME SELF-CARE Condition: Stable Instructions (If sedation given, give patient instructions): Nosebleed (ED) Additional Instructions: Please return to the Emergency Department if symptoms worsen or any other concerns. Prescriptions: amLODIPine [Norvasc] 10 mg PO DAILY #7 tablet Ondansetron Odt [Zofran Odt] 4 mg PO Q8HR PRN #14 tab PRN Reason: Nausea Is patient prescribed a controlled substance at d/c from ED?: No Referrals: Edward Bahena MD [Primary Care Provider] - 1-2 days Time of Disposition: 23:26
[2020-05-15] MEDS ORDERED: cloNIDine HCL 0.1 MG TAB PO STA (21:46)
[2020-05-15] MEDS ORDERED: NITROGLYCERIN OINT 1 INCH/GM PACKET TOPICAL STA (21:51)
[2020-05-15] MEDS ORDERED: HYDROmorphone 1 MG/ML 1 ML SYRINGE IM STA (22:05)
[2020-05-15] MEDS ORDERED: amLODIPine 10 MG TAB PO STA (23:18)
[2020-05-15] MEDS ORDERED: ONDANSETRON 4 MG ODT STARTER PACK 2 TAB BTL PO STA (23:19)
[2020-05-16 00:13] VITALS: BP 112/70; PULSE 76; TEMP 97.9
== END 2020-05-16 00:07 | disposition home or self-care (01) ==
LOC: EC 20:07
DX: R04.0 Epistaxis (principal); E78.5 Hyperlipidemia, unspecified; I10 Essential (primary) hypertension; M19.90 Unspecified osteoarthritis, unspecified site; F41.9 Anxiety disorder, unspecified; Z79.1 Long term (current) use of non-steroidal anti-inflammatories (NSAID); Z79.52 Long term (current) use of systemic steroids; Z79.899 Other long term (current) drug therapy
CPT/HCPCS: 99283; 96372; J1170; S0119

== ENCOUNTER → 2020-08-28 | Outpatient (CLI) | payer BC ==
--- NOTE | 2020-08-28 16:05 | XR ---
EXAMINATION TYPE: XR knee complete RT DATE OF EXAM: 08/28/2020 CLINICAL HISTORY: Knee pain TECHNIQUE: Three views of the right knee are obtained. COMPARISON: None. FINDINGS: There is no acute fracture/dislocation evident in right knee. There is mild osteophytosis of the medial and patellofemoral compartments. Knee joint effusion is seen. IMPRESSION: 1. Bipartite patella. 2. Medial and patellofemoral compartment osteophytosis.
== END | disposition home or self-care (01) ==
LOC: RADXRMAIN 15:18
PROVIDERS: ATTEND Nurse Practitioner
DX: Q74.1 Congenital malformation of knee (principal); Q78.9 Osteochondrodysplasia, unspecified

== ENCOUNTER 2020-12-02 21:52 | Emergency (ER) | payer BC ==
--- NOTE | 2020-12-02 22:54 | XR ---
EXAMINATION TYPE: XR knee complete LT DATE OF EXAM: 12/02/2020 COMPARISON: NONE HISTORY: Knee pain TECHNIQUE: 3 views FINDINGS: I see no fracture nor dislocation. There is mild spurring of the femoral and tibial condyle s. There is no definite joint effusion. There is some fragmentation at the tibial tubercle. IMPRESSION: Mild osteoarthritis. 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 No acute bony abnormal ity.
[2020-12-02] MEDS ORDERED: KETOROLAC 15 MG/ML 1 ML VIAL IM STA (23:06)
--- NOTE | 2020-12-02 23:08 | ED ---
General Adult HPI - General Chief complaint: Extremity Injury, Lower Stated complaint: Left Knee pain Time Seen by Provider: 12/02/20 22:40 Source: patient, RN notes reviewed Mode of arrival: wheelchair Limitations: no limitations - History of Present Illness Initial comments: 55-year-old male presents to the emergency room for chief complaint of left knee pain. Patient reports that he was walking to his barn earlier today and he felt a pop in his left knee. States his knee gave out. CT has been painful ever since. It has been painful to bear weight on. He has been using crutches. He called his orthopedic physician as this happened around 4:00 PM and they recommended he come to the emergency room for evaluation rather than follow-up in the office.Patient has no other complaints at this time including shortness of breath, chest pain, abdominal pain, nausea or vomiting, headache, or visual changes. - Related Data Home Medications Medication Instructions Recorded Confirmed Allergy Pill (Unk Name) 1 tab PO DAILY 05/12/20 05/15/20 Cholecalciferol [Vitamin D3 (25 50 mcg PO DAILY 05/12/20 05/15/20 Mcg = 1000 Iu)] Rx Nasal [place] (Unk. Name) 1 dose NASAL DAILY 05/12/20 05/15/20 Previous Rx's Medication Instructions Recorded Amoxicillin/Potassium Clav 1 each PO Q12HR #20 tab 05/15/20 [Augmentin 875-125 Tablet] Meloxicam [Mobic] 15 mg PO DAILY #10 tab 05/15/20 Ondansetron Odt [Zofran Odt] 4 mg PO Q8HR PRN #14 tab 05/15/20 amLODIPine [Norvasc] 10 mg PO DAILY #7 tablet 05/15/20 oxyCODONE-APAP 5-325MG [Percocet 1 - 2 each PO Q6HR PRN #24 tab 05/15/20 5-325 mg] predniSONE [Deltasone] 20 mg PO DIRECTED #5 tab 05/15/20 Allergies Allergy/AdvReac Type Severity Reaction Status Date / Time No Known Allergies Allergy Verified 12/02/20 22:37 Review of Systems ROS Statement: Those systems with pertinent positive or pertinent negative responses have been documented in the HPI. ROS Other: All systems not noted in ROS Statement are negative. Past Medical History Past Medical History: Chest Pain / Angina, Hyperlipidemia, Osteoarthritis (OA) Additional Past Medical History / Comment(s): migraines, lt heel spur, environmental allergies History of Any Multi-Drug Resistant Organisms: None Reported Past Surgical History: Heart Catheterization, Orthopedic Surgery Additional Past Surgical History / Comment(s): sinus sx, rt knee arthroscopy,vasectomy,heart cath 2011 clear, plantar fascitis sx Past Anesthesia/Blood Transfusion Reactions: No Reported Reaction Past Psychological History: Anxiety Smoking Status: Never smoker Past Alcohol Use History: None Reported Past Drug Use History: None Reported - Past Family History Mother Family Medical History: No Reported History General Exam Limitations: no limitations General appearance: alert, in no apparent distress Head exam: Present: atraumatic Eye exam: Present: normal appearance, PERRL, EOMI. Absent: scleral icterus, conjunctival injection ENT exam: Present: normal exam, mucous membranes moist Neck exam: Present: normal inspection, full ROM. Absent: tenderness Respiratory exam: Present: normal lung sounds bilaterally. Absent: respiratory distress, wheezes Cardiovascular Exam: Present: regular rate, normal rhythm, normal heart sounds Extremities exam: Present: tenderness (Generalized tenderness of the left knee), normal capillary refill (Capillary refill less than 2 seconds, DP pulse 2+ left lower extremity). Absent: full ROM (90 flexion of the left knee, extension to neutral position), joint swelling (No significant edema of the left knee) Course Vital Signs 12/02/20 22:33 Temperature 98.2 F Pulse Rate 72 Respiratory 18 Rate Blood Pressure 136/85 O2 Sat by Pulse 98 Oximetry Medical Decision Making - Medical Decision Making Vitals are stable. Patient is well-appearing. Patient presents for pain after he felt a pop in his knee. Neurovascular status intact. Knee x-ray reveals mild osteoarthritis with old tibial tubercle cold osteochondrosis. No acute bony abnormality. Knee immobilizer applied. Patient already has crutches. He is established with an orthopedic surgeon whom he will follow up with. Will likely require an MRI. He will return here for any worsening symptoms. Disposition Clinical Impression: Knee pain, left Disposition: HOME SELF-CARE Condition: Good Instructions (If sedation given, give patient instructions): Knee Pain (ED) Additional Instructions: Alternate Motrin and Tylenol for pain. Rest ice and elevate the left knee. Please follow-up with your doctor in one to 2 days. Return to the emergency room for any worsening symptoms. Is patient prescribed a controlled substance at d/c from ED?: No Referrals: Edward Bahena MD [Primary Care Provider] - 1-2 days Irvin Duarte MD [STAFF PHYSICIAN] - 1-2 days Time of Disposition: 23:09
[2020-12-02 23:30] VITALS: BP 140/86; PULSE 82; RESP 20; TEMP 98.4
== END 2020-12-02 23:29 | disposition home or self-care (01) ==
LOC: EC 21:52
DX: M25.562 Pain in left knee (principal); E78.5 Hyperlipidemia, unspecified; G43.909 Migraine, unspecified, not intractable, without status migrainosus; F41.9 Anxiety disorder, unspecified
CPT/HCPCS: 73562; 99283; 96372; L1830 ×2; J1885

== ENCOUNTER → 2020-12-12 | Outpatient (CLI) | payer BC ==
--- NOTE | 2020-12-13 04:53 | MR ---
EXAMINATION TYPE: MR knee LT wo con DATE OF EXAM: 12/12/2020 COMPARISON: 04/05/2013 HISTORY: Chronic left knee pain, recently getting worse. Multiplanar multiecho imaging of the left knee without contrast. There is mild knee joint effusion. Patella is intact. The anterior posterior cruciate ligaments are i ntact. Collateral ligaments are intact. There is large horizontal tear through the posterior horn of the medial meniscus extending to the inf erior surface. There is horizontal tear of the anterior horn of the lateral meniscus extending to the inferior surface. There is popliteal cyst measuring 4 x 1 cm. There is no evidence of a fracture. I see no focal bone destruction. There is some spurring of the fe moral and tibial condyles. IMPRESSION: There is tear in the anterior horn of the lateral meniscus and posterior horn of the medial meniscus also present on old exam and not significantly progressed. Knee joint effusion increased slightly compared to old exam.
== END | disposition home or self-care (01) ==
LOC: RADMRIMAIN 18:55
PROVIDERS: ATTEND Orthopaedic Surgery
DX: M23.322 Other meniscus derangements, posterior horn of medial meniscus, left knee (principal); M23.342 Other meniscus derangements, anterior horn of lateral meniscus, left knee

== ENCOUNTER 2020-12-31 11:12 | Day surgery (SDC) | payer BC ==
--- NOTE | 2020-12-29 09:36 | HP ---
HISTORY AND PHYSICAL CHIEF COMPLAINT: Left knee pain. HISTORY OF PRESENT ILLNESS: The patient is a 55-year-old male who presents with left knee pain after a recent twisting injury at home. He notes diffuse left knee pain along with swelling and giving out ever since. He has been wearing a knee immobilizer and using crutches. Initially he was evaluated in the emergency room for this. Currently he has off work because of his knee pain. PAST MEDICAL HISTORY: Negative. PAST SURGICAL HISTORY: Negative. CURRENT MEDICATIONS: Ibuprofen and Tylenol. ALLERGIES: HE DENIES DRUG ALLERGIES. FAMILY HISTORY: Significant for heart disease, cancer and hypertension. SOCIAL HISTORY: Significant for previous tobacco use and social alcohol use. REVIEW OF SYSTEMS: Sixteen-point review of systems otherwise reviewed and is noncontributory. PHYSICAL EXAMINATION: The patient is approximately 6 feet 1 inch, 230 pounds of endomorphic habitus. HEENT exam is nonfocal. Neck is supple. He has painless passive motion of the left hip. Straight-leg raise is negative. Active motion of the left knee minus 16 to 118 degrees of flexion. He has a moderate effusion. He is tender about the medial joint line. Collaterals are stable. Steven is negative. Marlo's elicits medial pain. His distal neurovascular exam appears intact in the left lower extremity. MRI report 12/12/2020 of the left knee shows evidence of a posteromedial meniscal tear in addition to anterolateral meniscal tear. IMPRESSION: Left knee symptomatic medial meniscal tear. RECOMMENDATIONS: I talked to the patient at length regarding his condition and treatment options. At this point he is having significant pain and mechanical symptoms after this acute injury despite attempted initial conservative measures. After thorough discussion, he opted to proceed with surgery. We will plan to proceed with left knee arthroscopy with probable partial medial meniscectomy. We will likely perform that as an outpatient procedure. Risks and benefits were discussed at length in layman's terms. MMODL / IJN: [id number] /
[2020-12-29 15:43] VITALS: BMI 31.5
[~2020-12-31 11:12] MED LIST changes: -DEXAMETHASONE SOD PHOSPHATE 4 MG/ML 1 ML VIAL IV ONE; -DEXAMETHASONE SOD PHOSPHATE 4 MG/ML 1 ML VIAL IV PRN; -FAMOTIDINE 20 MG/2 ML VIAL IV PRN; -ONDANSETRON 4 MG/2 ML VIAL IVP ONE; -ONDANSETRON 4 MG/2 ML VIAL IVP PRN; -OXYMETAZOLINE 0.05% NASL SPRAY 1 SPRAY BOTTLE EA NOSTRIL PRN
[2020-12-31] MEDS ORDERED: ONDANSETRON 4 MG/2 ML VIAL ONE (12:12)
[2020-12-31] MEDS ORDERED: DEXAMETHASONE SOD PHOSPHATE 4 MG/ML 1 ML VIAL IVP ONE (12:15)
[2020-12-31] MEDS ORDERED: ONDANSETRON 4 MG/2 ML VIAL IVP ONE (12:16)
[2020-12-31] MEDS ORDERED: LIDOCAINE 1% INJ 10MG/ML (20 ML MDV) ONE (13:00)
[2020-12-31] MEDS ORDERED: PROPOFOL 10 MG/ML 20 ML VIAL IV ONE (13:00)
[2020-12-31] MEDS ORDERED: SUCCINYLCHOLINE CHLORIDE VIAL 200 MG/10 ML VIAL IV ONE (13:00)
[2020-12-31] MEDS ORDERED: HYDROmorphone (PF) 1 MG/ML ONE (13:00)
[2020-12-31] MEDS ORDERED: KETOROLAC 15 MG/ML 1 ML VIAL ONE (13:00)
[2020-12-31] MEDS ORDERED: MIDAZOLAM 2 MG/2 ML VIAL ONE (13:00)
[2020-12-31] MEDS ORDERED: fentaNYL (PF) 50 MCG/ML 2 ML AMP ONE (13:00)
[2020-12-31] MEDS ORDERED: EPINEPHrine (PF) 1 ML in SODIUM CHLORIDE 0.9% IRRIGATIO 3,000 ML IRRIGATION ONE ×4 (13:27)
[2020-12-31] MEDS ORDERED: LACTATED RINGERS 1,000 ML IV ONE (13:44)
--- NOTE | 2020-12-31 14:00 | P.OP ---
Date of Procedure: 12/31/20 Preoperative Diagnosis: Left knee internal derangement Postoperative Diagnosis: Left knee posterior medial meniscal tear/grade 34 chondral injury lateral patella facet with 1 x 1 cm loose body Procedure(s) Performed: Left knee arthroscopic partial medial meniscectomy/lateral patellar chondrectomy/loose body removal 1 x 1 cm Anesthesia: YELENA Surgeon: Irvin Duarte Estimated Blood Loss (ml): 10 Pathology: none sent Condition: stable Disposition: PACU Indications for Procedure: The patient's a 55-year-old male who presents with progressive left knee pain and mechanical symptoms after previous twisting injury despite conservative measures. A discussion of the risks and benefits of operative intervention versus continued conservative measures was made with patient. He opted proceed with surgery. Operative risks to include infection, neurovascular injury, development of blood clots, possible incomplete resolution of symptoms, possible worsening symptoms and need for subsequent procedures was discussed. Informed consent was obtained. Operative Findings: As below Description of Procedure: The patient was brought to the operating room, and after induction of general anesthesia examined the left knee. Collaterals were stable, Steven was negative, and posterior drawer was negative. The left lower extremity was prepped and draped in a normal fashion. A superior lateral portal was made through a 3 mm skin incision superior and lateral to the patella. This was used for outflow. A lateral portal was made through a 5 mm vertical skin incision lateral to the patella tendon above the joint line. Diagnostic arthroscopy was performed. On inspection of the medial compartment, and oblique tear involving the posterior most aspect the medial meniscus was noted in the white-red junction. This was debrided back to stable base with straight baskets and a motorized shaver. Corresponding grade 2 chondral changes were noted involving the lateral distal portion of the medial femoral condyle. On inspection of the notch, the anterior cruciate ligament appeared to be intact. On inspection of the lateral compartment, no significant meniscal or cartilage pathology was noted. On inspection of the patellofemoral articulation, there was grade 3-4 chondral changes diffusely involving the femoral trochlea and lateral patellar facet. There was a large chondral fragment that was attached to the lateral patella and was loose. This was removed with a grasper and this measured 1 x 1 cm. The chondral surface was contoured with a motorized shaver.. The gutters were clear debris. The knee was then thoroughly irrigated. The portals were closed with Steri-Strips. A sterile dressing was applied in addition to a compression stocking. The patient was awoken from general anesthesia and transferred to recovery room in good condition. Blood loss was estimated at 10 mL. No complications were incurred.
[2020-12-31 14:10] VITALS: TEMP 96.8
[2020-12-31 14:19] VITALS: RESP 16
[2020-12-31] MEDS: HYDROmorphone 0.5 MG/0.5 ML SYRINGE IVP PRN ×2 (14:24→14:39)
[2020-12-31 15:36] VITALS: BP 121/84; PULSE 64
== END 2020-12-31 16:07 | disposition home or self-care (01) ==
LOC: OR 11:12
PROVIDERS: ATTEND Orthopaedic Surgery
DX: M23.204 Derangement of unspecified medial meniscus due to old tear or injury, left knee (principal); M23.42 Loose body in knee, left knee; S83.32XA Tear of articular cartilage of left knee, current, initial encounter; X58.XXXA Exposure to other specified factors, initial encounter; Z82.49 Family history of ischemic heart disease and other diseases of the circulatory system; Z80.9 Family history of malignant neoplasm, unspecified; Z87.891 Personal history of nicotine dependence; F17.220 Nicotine dependence, chewing tobacco, uncomplicated; Z98.890 Other specified postprocedural states; Z79.1 Long term (current) use of non-steroidal anti-inflammatories (NSAID); Z79.899 Other long term (current) drug therapy
CPT/HCPCS: 29881; J2250; J0330; J1100; J0690; J2405; J0171; J2001; J3010; J1170 ×2; J1885; J2704

== ENCOUNTER → 2021-11-24 | Outpatient (CLI) | payer BC ==
--- NOTE | 2021-11-24 16:26 | US ---
EXAMINATION TYPE: US venous doppler duplex LE DATE OF EXAM: 11/24/2021 3:54 PM COMPARISON: NONE CLINICAL HISTORY: M79.605 PAIN IN LEFT LEG. Left leg pain. No redness. No swelling. SIDE PERFORMED: Bilateral TECHNIQUE: The lower extremity deep venous system is examined utilizing real time linear array sonog armen with graded compression, doppler sonography and color-flow sonography. VESSELS IMAGED: Common Femoral Vein Deep Femoral Vein Greater Saphenous Vein * Femoral Vein Popliteal Vein Small Saphenous Vein * Proximal Calf Veins (* superficial vessels) There is normal flow, compressibility, vascular waveforms. Right Leg: Negative for DVT Left Leg: Negative for DVT IMPRESSION: No evident deep venous thrombosis within the lower extremities from the level of the knee s centrally
== END | disposition home or self-care (01) ==
LOC: RADUSWWP 14:58
PROVIDERS: ATTEND Family Medicine
DX: M79.605 Pain in left leg (principal)
CPT/HCPCS: 93970

== ENCOUNTER 2022-01-13 11:52 | Observation (INO) | payer BC ==
[2022-01-13] MEDS ORDERED: SODIUM CHLORIDE 0.9% 1,000 ML IV STA (12:03)
[2022-01-13] MEDS ORDERED: KETOROLAC 15 MG/ML 1 ML VIAL IVP STA (12:04)
[2022-01-13] MEDS ORDERED: LORazepam 2 MG/ML INJ IV STA (12:04)
[2022-01-13] MEDS ORDERED: NITROGLYCERIN OINT 1 INCH/GM PACKET TOPICAL STA (12:22)
[2022-01-13] MEDS ORDERED: ASPIRIN 81 MG PO STA (12:22)
[2022-01-13 12:35] LABS: Basophils % (A) 0 %; Eosinophils # (A) 0.3 k/uL (0-0.7); Eosinophils % (A) 4 %; HCT 42.3 % (39.0-53.0); HGB 15.2 gm/dL (13.0-17.5); Lymphocytes # (A) 1.6 k/uL (1.0-4.8); Lymphocytes % (A) 23 %; MCH 32.5 pg (25.0-35.0); MCHC 35.9 g/dL (31.0-37.0); MCV 90.5 fL (80.0-100.0); Mean Platelet Volume 8.6; Monocytes # (A) 0.3 k/uL (0-1.0); Monocytes % (A) 4 %; Neutrophils # (A) 4.7 k/uL (1.3-7.7); Neutrophils % (A) 67 %; Platelet Count 224 k/uL (150-450); RBC 4.68 m/uL (4.30-5.90); RDW 12.5 % (11.5-15.5); WBC 6.9 k/uL (3.8-10.6)
--- NOTE | 2022-01-13 12:43 | ED ---
General Adult HPI - General Chief complaint: Chest Pain Stated complaint: sob, chest pain Time Seen by Provider: 01/13/22 12:10 Source: patient, RN notes reviewed, old records reviewed Mode of arrival: wheelchair Limitations: no limitations - History of Present Illness Initial comments: This is a 56-year-old male who presents emergency Department complaining of chest pain. Patient states it started 8:30 this morning. Patient states heart rates 145 beats a minute that time. Patient states she has a history of atrial fibrillation but is not on any thinners. Patient states at about 11:30 became diaphoretic and very short of breath. Patient states remains short of breath with some chest pain not as bad as it was earlier. Patient states she does not feel like he has any palpitations currently. Patient denies any fever chills or cough per patient denies any abdominal pain patient denies any nausea vomiting diarrhea. Patient denies any radiation of the pain. Patient denies lightheadedness dizziness or near syncopal episode. Patient denies headache patient denies numbness weakness. Patient denies any swelling to his legs and does complain of some soreness in the right However he had ultrasound done recently of both calves and they were negative. - Related Data Home Medications Medication Instructions Recorded Confirmed Amoxic-Pot Clav 875-125Mg 1 tab PO BID 01/13/22 01/13/22 [Augmentin 875-125] Aspirin EC [Ecotrin Low Dose] 81 mg PO DAILY 01/13/22 01/13/22 Cholecalciferol [Vitamin D3 (25 25 mcg PO DAILY 01/13/22 01/13/22 Mcg = 1000 Iu)] Fexofenadine HCl [Lorri Allergy] 180 mg PO DAILY 01/13/22 01/13/22 Fluticasone Nasal [place] [Flonase 2 spray EA NOSTRIL DAILY 01/13/22 01/13/22 Nasal [place]] Multivitamins, Thera [Multivitamin 1 tab PO DAILY 01/13/22 01/13/22 (formulary)] Previous Rx's Medication Instructions Recorded Metoprolol Tartrate [Lopressor] 25 mg PO BID 30 Days #60 tab 04/20/21 Allergies Allergy/AdvReac Type Severity Reaction Status Date / Time No Known Allergies Allergy Verified 01/13/22 14:09 Review of Systems ROS Statement: Those systems with pertinent positive or pertinent negative responses have been documented in the HPI. ROS Other: All systems not noted in ROS Statement are negative. Past Medical History Past Medical History: Atrial Fibrillation Additional Past Medical History / Comment(s): migraines, lt heel spur, environmental allergies History of Any Multi-Drug Resistant Organisms: None Reported Past Surgical History: Heart Catheterization, Orthopedic Surgery Additional Past Surgical History / Comment(s): sinus sx, rt knee arthroscopy,vasectomy,heart cath 2011 clear, plantar fascitis sx Past Anesthesia/Blood Transfusion Reactions: No Reported Reaction Past Psychological History: Anxiety Smoking Status: Light tobacco smoker Past Alcohol Use History: Occasional Past Drug Use History: None Reported - Past Family History Mother Family Medical History: No Reported History Father Family Medical History: Myocardial Infarction ([place]) Additional Family Medical History / Comment(s): Enlarged heart, silent [place] General Exam - General Exam Comments Initial Comments: GENERAL: Patient is well-developed and well-nourished. Patient is nontoxic and well- hydrated and is in mild distress. ENT: Neck is soft and supple. No significant lymphadenopathy is noted. Oropharynx is clear. Moist mucous membranes. Neck has full range of motion without eliciting any pain. EYES: The sclera were anicteric and conjunctiva were pink and moist. Extraocular movements were intact and pupils were equal round and reactive to light. Eyelids were unremarkable. PULMONARY: Unlabored respirations. Good breath sounds bilaterally. No audible rales rhonchi or wheezing was noted. CARDIOVASCULAR: There is a regular rate and rhythm without any murmurs gallops or rubs. ABDOMEN: Soft and nontender with normal bowel sounds. SKIN: Skin is clear with no lesions or rashes and otherwise unremarkable. NEUROLOGIC: Patient is alert and oriented x3. Cranial nerves II through XII are grossly intact. Motor and sensory are also intact. Normal speech, volume and content. Symmetrical smile. MUSCULOSKELETAL: Normal extremities with adequate strength and full range of motion. Right calf tenderness mild LYMPHATICS: No significant lymphadenopathy is noted PSYCHIATRIC: Normal psychiatric evaluation. Limitations: no limitations Course Vital Signs 01/13/22 01/13/22 01/13/22 11:53 12:36 13:43 Temperature 97.2 F L Pulse Rate 73 63 54 L Respiratory 16 12 22 Rate Blood Pressure 131/93 120/83 135/96 O2 Sat by Pulse 99 96 98 Oximetry 11/09/22 15:12 Temperature Pulse Rate 55 L Respiratory 21 Rate Blood Pressure 130/91 O2 Sat by Pulse 97 Oximetry Medical Decision Making - Medical Decision Making I interpreted the EKG. EKG shows sinus rhythm with occasional PVC at 61 bpm AR interval is 170 QRS is 105 Q-T intervals 3-4 QTC is 387. Patient's EKG shows no ST segment elevation or depression. She has an occasional PVC. Chest x-ray was interpreted by myself. Chest x-ray shows no acute abnormality. I will back and reevaluated the patient he states he had very slight chest pain at this time about a 2 out of 10 and is difficult to breathing had resolved. I spoke with the [facility] and they agreed to accept the patient I admitted the patient wrote admitting orders. - Lab Data Result diagrams: 01/13/22 19:32 01/13/22 12:21 Lab Results 01/13/22 01/13/22 01/13/22 Range/Units 12:21 12:21 12:21 WBC 6.9 (3.8-10.6) k/uL RBC 4.68 (4.30-5.90) m/uL Hgb 15.2 (13.0-17.5) gm/dL Hct 42.3 (39.0-53.0) % MCV 90.5 (80.0-100.0) fL MCH 32.5 (25.0-35.0) pg MCHC 35.9 (31.0-37.0) g/dL RDW 12.5 (11.5-15.5) % Plt Count 224 (150-450) k/uL MPV 8.6 Neutrophils % 67 % Lymphocytes % 23 % Monocytes % 4 % Eosinophils % 4 % Basophils % 0 % Neutrophils # 4.7 (1.3-7.7) k/uL Lymphocytes # 1.6 (1.0-4.8) k/uL Monocytes # 0.3 (0-1.0) k/uL Eosinophils # 0.3 (0-0.7) k/uL Basophils # 0.0 (0-0.2) k/uL PT 10.2 (9.0-12.0) sec INR 0.9 (<1.2) APTT 25.4 (22.0-30.0) sec D-Dimer 0.19 (<0.60) mg/L FEU Sodium 138 (137-145) mmol/L Potassium 4.0 (3.5-5.1) mmol/L Chloride 109 H (98-107) mmol/L Carbon Dioxide 23 (22-30) mmol/L Anion Gap 6 mmol/L BUN 18 (9-20) mg/dL Creatinine 0.99 (0.66-1.25) mg/dL Est GFR (CKD-EPI)AfAm >90 (>60 ml/min/1.73 sqM) Est GFR (CKD-EPI)NonAf 85 (>60 ml/min/1.73 sqM) Glucose 112 H (74-99) mg/dL Calcium 8.8 (8.4-10.2) mg/dL Magnesium 1.9 (1.6-2.3) mg/dL Total Bilirubin 1.4 H (0.2-1.3) mg/dL AST 35 (17-59) U/L ALT 46 (4-49) U/L Alkaline Phosphatase 90 (38-126) U/L Troponin I (0.000-0.034) ng/mL NT-Pro-B Natriuret Pep pg/mL Total Protein 6.7 (6.3-8.2) g/dL Albumin 4.1 (3.5-5.0) g/dL Lipase 172 (23-300) U/L 01/13/22 01/13/22 Range/Units 12:21 12:21 WBC (3.8-10.6) k/uL RBC (4.30-5.90) m/uL Hgb (13.0-17.5) gm/dL Hct (39.0-53.0) % MCV (80.0-100.0) fL MCH (25.0-35.0) pg MCHC (31.0-37.0) g/dL RDW (11.5-15.5) % Plt Count (150-450) k/uL MPV Neutrophils % % Lymphocytes % % Monocytes % % Eosinophils % % Basophils % % Neutrophils # (1.3-7.7) k/uL Lymphocytes # (1.0-4.8) k/uL Monocytes # (0-1.0) k/uL Eosinophils # (0-0.7) k/uL Basophils # (0-0.2) k/uL PT (9.0-12.0) sec INR (<1.2) APTT (22.0-30.0) sec D-Dimer (<0.60) mg/L FEU Sodium (137-145) mmol/L Potassium (3.5-5.1) mmol/L Chloride (98-107) mmol/L Carbon Dioxide (22-30) mmol/L Anion Gap mmol/L BUN (9-20) mg/dL Creatinine (0.66-1.25) mg/dL Est GFR (CKD-EPI)AfAm (>60 ml/min/1.73 sqM) Est GFR (CKD-EPI)NonAf (>60 ml/min/1.73 sqM) Glucose (74-99) mg/dL Calcium (8.4-10.2) mg/dL Magnesium (1.6-2.3) mg/dL Total Bilirubin (0.2-1.3) mg/dL AST (17-59) U/L ALT (4-49) U/L Alkaline Phosphatase (38-126) U/L Troponin I <0.012 (0.000-0.034) ng/mL NT-Pro-B Natriuret Pep 69 pg/mL Total Protein (6.3-8.2) g/dL Albumin (3.5-5.0) g/dL Lipase (23-300) U/L Disposition Clinical Impression: Chest pain Disposition: ADMITTED IP TO THIS [facility] Time of Disposition: 13:28
[2022-01-13 12:49] LABS: ALT 46 U/L (4-49); AST 35 U/L (17-59); African American GFR (CKD) >90 (>60 ml/min/1.73 sqM); Albumin 4.1 g/dL (3.5-5.0); Alkaline Phosphatase 90 U/L (38-126); Anion Gap 6 mmol/L; Blood Urea Nitrogen 18 mg/dL (9-20); Calcium 8.8 mg/dL (8.4-10.2); Carbon Dioxide 23 mmol/L (22-30); Chloride 109 mmol/L (98-107); Glucose 112 mg/dL (74-99); Lipase 172 U/L (23-300); Magnesium 1.9 mg/dL (1.6-2.3); Non-African American GFR(CKD) 85 (>60 ml/min/1.73 sqM); Sodium 138 mmol/L (137-145); Total Bilirubin 1.4 mg/dL (0.2-1.3); Total Protein 6.7 g/dL (6.3-8.2)
--- NOTE | 2022-01-13 12:55 | XR ---
EXAMINATION TYPE: XR chest 2V DATE OF EXAM: 01/13/2022 COMPARISON: Chest x-ray April 20, 2021 HISTORY: Chest pain. TECHNIQUE: Frontal and lateral views of the chest are obtained. FINDINGS: There is no suspicious focal air space opacity, pleural effusion, or pneumothorax seen. T he cardiac silhouette size is stable and within normal limits. The osseous structures are intact. O verlying EKG leads redemonstrated. IMPRESSION: No acute process. No significant change from prior.
[2022-01-13 13:03] LABS: INR 0.9 (<1.2); Partial Thromboplastin Time 25.4 sec (22.0-30.0); Prothrombin Time 10.2 sec (9.0-12.0)
[2022-01-13] MEDS ORDERED: NITROGLYCERIN SL TABS 0.4 MG TAB SUBLINGUAL PRN (13:28)
[2022-01-13] MEDS ORDERED: DILTIAZEM DRIP BOLUS FROM BAG 1 MG SOLN IV ONE (17:43)
[2022-01-13] MEDS ORDERED: DILTIAZEM 125 MG in SODIUM CHLORIDE 0.9% 100 ML IV SCH (17:45)
[2022-01-13] MEDS ORDERED: HEPARIN SODIUM 1,000 UN/ML (10ML VL) IV PRN (17:53)
[2022-01-13] MEDS ORDERED: HEPARIN SODIUM 1,000 UN/ML (10ML VL) IV ONE (17:53)
[2022-01-13] MEDS: HEPARIN SOD,PORK IN 0.45% NACL 25,000 UNIT in 0.45% NACL 1 250ML.BAG IV SCH (18:16)
[2022-01-13] MEDS: NITROGLYCERIN OINT 1 INCH/GM PACKET TOPICAL SCH ×2 (18:24→23:55)
[2022-01-13 20:04] LABS: Basophils % (A) 1 %; Eosinophils # (A) 0.4 k/uL (0-0.7); Eosinophils % (A) 5 %; HCT 43.7 % (39.0-53.0); HGB 15.2 gm/dL (13.0-17.5); Lymphocytes # (A) 2.1 k/uL (1.0-4.8); Lymphocytes % (A) 29 %; MCH 31.9 pg (25.0-35.0); MCHC 34.8 g/dL (31.0-37.0); MCV 91.8 fL (80.0-100.0); Monocytes # (A) 0.3 k/uL (0-1.0); Monocytes % (A) 5 %; Neutrophils # (A) 4.2 k/uL (1.3-7.7); Neutrophils % (A) 58 %; Platelet Count 218 k/uL (150-450); RBC 4.76 m/uL (4.30-5.90); RDW 12.5 % (11.5-15.5); WBC 7.2 k/uL (3.8-10.6)
[2022-01-13 20:09] LABS: Partial Thromboplastin Time 71.9 sec (22.0-30.0); Prothrombin Time 10.6 sec (9.0-12.0)
[2022-01-13] MEDS: ACETAMINOPHEN TAB 325 MG TAB PO PRN (20:33)
[2022-01-13] MEDS: METOPROLOL TARTRATE 25 MG TAB PO SCH (20:34)
[2022-01-14] MEDS: NITROGLYCERIN OINT 1 INCH/GM PACKET TOPICAL SCH (06:06)
[2022-01-14 06:28] LABS: Partial Thromboplastin Time 43.2 sec (22.0-30.0); Prothrombin Time 10.7 sec (9.0-12.0)
[2022-01-14 08:52] LABS: Basophils # (A) 0.03 X 10*3/uL (0.00-0.10); Basophils % (A) 0.5 %; Eosinophils % (A) 3.3 %; HCT 41.3 % (39.6-50.0); HGB 14.3 g/dL (13.0-17.0); Immature Grans, Automated 0.7 %; Lymphocytes # (A) 1.77 X 10*3/uL (0.90-5.00); Lymphocytes % (A) 29.2 %; MCH 31.1 pg (27.0-32.0); MCHC 34.6 g/dL (32.0-37.0); MCV 89.8 fL (80.0-97.0); Monocytes # (A) 0.48 X 10*3/uL (0.20-1.00); Monocytes % (A) 7.9 %; NRBC Per 100 WBC 0 /100 WBCS (0.0-0.0); Neutrophils # (A) 3.55 X 10*3/uL (1.80-7.70); Neutrophils % (A) 58.4 %; Platelet Count 241 X 10*3/uL (140-440); RDW 12.5 % (11.5-14.5); WBC 6.07 X 10*3/uL (4.50-10.00)
[2022-01-14] MEDS ORDERED: ASPIRIN 325 MG TAB PO SCH (09:00)
[2022-01-14 09:20] LABS: LDL Cholesterol,Calculated 86.4 mg/dL (0.0-131.0); VLDL Calculation 13.32 mg/dL (5.00-40.00)
--- NOTE | 2022-01-14 09:35 | P.CRDCN ---
History of Present Illness Consult date: 01/14/22 History of present illness: HISTORY OF PRESENT ILLNESS: This is a 56-year-old male with a past medical history significant for paroxysmal atrial fibrillation. Patient follows in the office with Dr. Coates. We have been asked to see the patient in consultation for chest pain. Patient examined at the bedside. Patient presented to the hospital with a chief complaint of chest pain and palpitations. The patient was found to be in A. fib with RVR. He was started on IV Cardizem. He has since converted to sinus mechanism. He states his chest pain has since resolved once his heart went back into a normal rhythm. He does complain of a headache this morning. The patient did have a Lexiscan stress test performed in the office in June 2021 which was negative for ischemia but revealed an ejection fraction 45% * EKG reveals A. fib with RVR. * Chest xray negative for acute process * Laboratory data: WBC 6.07. Hemoglobin 14.3. Platelet count 241. D-dimer 0.19. Sodium 138. Potassium 4.0. BUN 18. Creatinine 0.99. Troponin negative 3 * Current home cardiac medications include aspirin 81 mg daily and metoprolol tartrate 25 mg twice a day * Most recent echocardiogram obtained in April 2021 revealed ejection fraction 50-55%, trace MR, trace TR REVIEW OF SYSTEMS: At the time of my exam: CONSTITUTIONAL: Denies fever or chills. HEENT: Denies blurred vision, vision changes, or eye pain. Denies hemoptysis CARDIOVASCULAR: Denies chest pain. Denies orthopnea. Denies PND. Denies palpitations RESPIRATORY: Denies shortness of breath. GASTROINTESTINAL: Denies abdominal pain. Denies nausea or vomiting. HEMATOLOGIC: Denies bleeding disorders. GENITOURINARY: Denies any blood in urine. SKIN: Denies pruitis. Denies rash. PHYSICAL EXAM: VITAL SIGNS: Reviewed. GENERAL: Well-developed in no acute distress. HEENT: Head is normocephalic. Pupils are equal, round. Sclerae anicteric. Mucous membranes of the mouth are moist. Neck supple. No JVD or thyromegaly LUNGS: Respirations even and unlabored. Lungs essentially clear to auscultation bilaterally. HEART: Regular rate and rhythm. S1 and S2 heard. ABDOMEN: Soft. Nondistended. Nontender. EXTREMITIES: Normal range of motion. No clubbing or cyanosis. Peripheral pulses intact. No lower extremity edema NEUROLOGIC: Awake and alert. Oriented x 3. ASSESSMENT: Chest pain, troponins negative 3 Paroxysmal atrial fibrillation with RVR, currently maintaining sinus mechanism PLAN: An acute coronary event has been ruled out Continue current dose of metoprolol Continue IV heparin Await results of 2-D echo. If patient has a cardiomyopathy present, we will transition to oral anticoagulation, otherwise patient may continue with aspirin 81 mg daily Further recommendations pending patient's course Nurse practitioner note has been reviewed by physician. Signing provider agrees with the documented findings, assessment, and plan of care. Past Medical History Past Medical History: Atrial Fibrillation Additional Past Medical History / Comment(s): migraines, lt heel spur, environmental allergies History of Any Multi-Drug Resistant Organisms: None Reported Past Surgical History: Heart Catheterization, Orthopedic Surgery Additional Past Surgical History / Comment(s): sinus sx, rt knee arthroscopy,vasectomy,heart cath 2011 clear, plantar fascitis sx Past Anesthesia/Blood Transfusion Reactions: No Reported Reaction Past Psychological History: Anxiety Smoking Status: Light tobacco smoker Past Alcohol Use History: Occasional Past Drug Use History: None Reported - Past Family History Father Family Medical History: Myocardial Infarction ([place]) Additional Family Medical History / Comment(s): Enlarged heart, silent [place] Mother Family Medical History: No Reported History Additional Family Medical History / Comment(s): Depression Medications and Allergies Home Medications Medication Instructions Recorded Confirmed Type Metoprolol Tartrate [Lopressor] 25 mg PO BID 30 Days #60 tab 04/20/21 01/13/22 Rx Amoxic-Pot Clav 875-125Mg 1 tab PO BID 01/13/22 01/13/22 History [Augmentin 875-125] Aspirin EC [Ecotrin Low Dose] 81 mg PO DAILY 01/13/22 01/13/22 History Cholecalciferol [Vitamin D3 (25 25 mcg PO DAILY 01/13/22 01/13/22 History Mcg = 1000 Iu)] Fexofenadine HCl [Lorri Allergy] 180 mg PO DAILY 01/13/22 01/13/22 History Fluticasone Nasal [place] [Flonase 2 spray EA NOSTRIL DAILY 01/13/22 01/13/22 History Nasal [place]] Multivitamins, Thera [Multivitamin 1 tab PO DAILY 01/13/22 01/13/22 History (formulary)] Allergies Allergy/AdvReac Type Severity Reaction Status Date / Time No Known Allergies Allergy Verified 01/13/22 14:09 Physical Exam Vitals: Vital Signs Temp Pulse Pulse Pulse Pulse Resp BP 01/14/22 07:50 97.8 F 50 L 17 01/14/22 00:09 97.8 F 49 L 16 01/13/22 18:55 97.8 F 94 16 01/13/22 18:30 119 H 01/13/22 18:20 109 H 01/13/22 18:15 112 H 01/13/22 18:10 142 H 01/13/22 18:05 136 H 01/13/22 16:42 97.8 F 51 L 18 01/13/22 15:12 55 L 21 130/91 01/13/22 13:43 54 L 22 135/96 01/13/22 12:36 63 12 120/83 01/13/22 11:53 97.2 F L 73 16 131/93 BP Pulse Ox 01/14/22 07:50 113/76 98 01/14/22 00:09 98/65 95 01/13/22 18:55 154/91 95 01/13/22 18:30 142/98 01/13/22 18:20 128/82 01/13/22 18:15 130/95 01/13/22 18:10 123/85 01/13/22 18:05 128/92 01/13/22 16:42 137/80 97 01/13/22 15:12 97 01/13/22 13:43 98 01/13/22 12:36 96 01/13/22 11:53 99 Intake and Output 01/13/22 01/14/22 01/14/22 22:59 06:59 14:59 Intake Total 240 153.241 Balance 240 153.241 Intake: Intake, IV Titration 153.241 Amount Heparin Sod,Pork in 0.45% 153.241 NaCl 25,000 unit In 0.45 % NaCl 1 250ml.bag @ 12 UNITS/KG/HR 13.608 mls/hr IV .[id number] [facility] Rx#: [id number] Oral 240 Other: # Voids 1 1 Weight 113.398 kg Results 01/14/22 05:59 01/13/22 12:21 Cardiac Enzymes 01/13/22 01/13/22 01/13/22 Range/Units 12:21 12:21 14:42 AST 35 (17-59) U/L Troponin I <0.012 <0.012 (0.000-0.034) ng/mL 01/13/22 Range/Units 17:20 AST (17-59) U/L Troponin I <0.012 (0.000-0.034) ng/mL Coagulation 01/13/22 01/13/22 01/14/22 Range/Units 12:21 19:32 05:59 PT 10.2 10.6 10.7 (9.0-12.0) sec APTT 25.4 71.9 H 43.2 H (22.0-30.0) sec Lipids 01/14/22 Range/Units 05:59 Triglycerides 66.60 (0.00-149.00) mg/dL Cholesterol 143.00 (0.00-200.00) mg/dL HDL Cholesterol 43.30 (40.00-60.00) mg/dL Cholesterol/HDL Ratio 3.30 Ratio CBC 01/13/22 01/13/22 01/14/22 Range/Units 12:21 19:32 05:59 WBC 6.9 7.2 6.07 (3.8-10.6) k/uL RBC 4.68 4.76 4.60 (4.30-5.90) m/uL Hgb 15.2 15.2 14.3 (13.0-17.5) gm/dL Hct 42.3 43.7 41.3 (39.0-53.0) % Plt Count 224 218 241 (150-450) k/uL Comprehensive Metabolic Panel 01/13/22 Range/Units 12:21 Sodium 138 (137-145) mmol/L Potassium 4.0 (3.5-5.1) mmol/L Chloride 109 H (98-107) mmol/L Carbon Dioxide 23 (22-30) mmol/L BUN 18 (9-20) mg/dL Creatinine 0.99 (0.66-1.25) mg/dL Glucose 112 H (74-99) mg/dL Calcium 8.8 (8.4-10.2) mg/dL AST 35 (17-59) U/L ALT 46 (4-49) U/L Alkaline Phosphatase 90 (38-126) U/L Total Protein 6.7 (6.3-8.2) g/dL Albumin 4.1 (3.5-5.0) g/dL Current Medications Generic Name Dose Route Start Last Admin Trade Name Ervin PRN Reason Stop Dose Admin Acetaminophen 650 mg 01/13/22 20:09 01/13/22 20:33 Acetaminophen Tab 325 Mg Tab PO 650 mg Q4HR PRN Administration Fever and/ or Mild Pain Heparin Sodium (Porcine) 0 unit 01/13/22 17:53 01/14/22 06:39 Heparin Sodium 1,000 Un/Ml (10ml Vl) IV 2,800 unit PER PROTOCOL PRN Administration Low PTT Protocol Heparin Sodium/Sodium Chloride 250 mls @ 13.608 mls/hr 01/13/22 18:00 01/14/22 06:38 25,000 unit/ Sodium Chloride IV 12 units/kg/hr .[id number] DAHLIA 13.608 mls/hr Titration Protocol 12 UNITS/KG/HR Metoprolol Tartrate 25 mg 01/13/22 21:00 01/13/22 20:34 Metoprolol Tartrate 25 Mg Tab PO 25 mg BID DAHLIA Administration Nitroglycerin 0.4 mg 01/13/22 13:28 Nitroglycerin Sl Tabs 0.4 Mg Tab SUBLINGUAL Q5M PRN Chest Pain Intake and Output 01/13/22 01/14/22 01/14/22 22:59 06:59 14:59 Intake Total 240 153.241 Balance 240 153.241 Intake: Intake, IV Titration 153.241 Amount Heparin Sod,Pork in 0.45% 153.241 NaCl 25,000 unit In 0.45 % NaCl 1 250ml.bag @ 12 UNITS/KG/HR 13.608 mls/hr IV .[id number] [facility] Rx#: [id number] Oral 240 Other: # Voids 1 1 Weight 113.398 kg 01/14/22 05:59 01/13/22 12:21
[2022-01-14] MEDS: METOPROLOL TARTRATE 25 MG TAB PO SCH ×2 (11:12→20:17)
--- NOTE | 2022-01-14 12:03 | CA ---
Transthoracic Echo Report Name: Gabriele Noaln Age: 56 Gender: M : 1965 Exam Date: 01/14/2022 07:40 Exam Location: [facility] Ht (in): 73 Wt (lb): 250 Ordering Physician: Evy Chandra Attending/Referring Phys: [id number], Corazon Patternmaker Sample Adelaide Acuña RDCS Procedure CPT: Indications: LV function, CP Cardiac Hx: Technical Quality: Contrast 1: Total Dose (mL): Contrast 2: Total Dose (mL): MEASUREMENTS (Male / Female) Normal Values 2D ECHO LV Diastolic Diameter PLAX 5.0 cm 4.2 - 5.9 / 3.9 - 5.3 cm LV Systolic Diameter PLAX 3.5 cm IVS Diastolic Thickness 1.3 cm 0.6 - 1.0 / 0.6 - 0.9 cm LVPW Diastolic Thickness 1.4 cm 0.6 - 1.0 / 0.6 - 0.9 cm LV Relative Wall Thickness 0.5 RV Internal Dim ED PLAX 4.0 cm LA Volume 61.5 cm??? 18 - 58 / 22 - 52 cm??? M-MODE Aortic Root Diameter MM 3.4 cm LA Systolic Diameter MM 3.6 cm LA Ao Ratio MM 1.1 AV Cusp Separation MM 2.5 cm DOPPLER AV Peak Velocity 168.1 cm/s AV Peak Gradient 11.3 mmHg AV Mean Velocity 114.2 cm/s AV Mean Gradient 5.9 mmHg AV Velocity Time Integral 37.4 cm LVOT Peak Velocity 92.8 cm/s LVOT Peak Gradient 3.4 mmHg LVOT Velocity Time Integral 21.9 cm MV Area PHT 2.9 cm??? Mitral E Point Velocity 90.1 cm/s Mitral A Point Velocity 47.1 cm/s Mitral E to A Ratio 1.9 MV Deceleration Time 263.6 ms MV E' Velocity 10.3 cm/s Mitral E to MV E' Ratio 8.7 TR Peak Velocity 218.2 cm/s TR Peak Gradient 19.0 mmHg Right Ventricular Systolic Press 22.9 mmHg FINDINGS Left Ventricle Mildly increased left ventricular wall thickness. Mildly impaired LV function was EF between 45-50% Right Ventricle Moderate right ventricular dilatation. Right ventricular systolic pressure within normal limits. Right Atrium Moderate right atrial dilatation. Left Atrium Mildly increased left atrial volume. Mitral Valve Structurally normal mitral valve. Mild mitral regurgitation. Aortic Valve No aortic valve stenosis or regurgitation. Tricuspid Valve Structurally normal tricuspid valve. Mild tricuspid regurgitation. Pulmonic Valve Trace pulmonic regurgitation. Pericardium No pericardial effusion. Aorta Normal size aortic root and proximal ascending aorta. CONCLUSIONS Mildly impaired LV systolic function was EF between 45-50% Previewed by: Dr. Jhonathan Barroso MD (Electronically Signed) Final Date: 14 January 2022 12:03
[2022-01-14] MEDS: HEPARIN SOD,PORK IN 0.45% NACL 25,000 UNIT in 0.45% NACL 1 250ML.BAG IV SCH (13:47)
[2022-01-14] MEDS: ACETAMINOPHEN TAB 325 MG TAB PO PRN (13:50)
[2022-01-14] MEDS: APIXABAN 5 MG TAB PO SCH (20:17)
--- NOTE | 2022-01-14 22:38 | P.HPIM ---
History of Present Illness H&P Date: 01/13/22 Chief Complaint: Chest pain Patient is a 56-year-old male with a known history of paroxysmal atrial fibrillation diagnosed in April 2021, migraine headaches, history of cardiac catheterization and anxiety and light tobacco smoker presents to ER with complaints of chest pain/tightness. Patient states that his symptoms started about 815 today morning and has been worsening. Pain is 7 out of 10 in severity. Mid retrosternal. No radiation of the pain. Patient also noted that his smart watch showing his heart rate is beating at 145. Currently on 15 he has been having shortness of breath and clammy skin and felt dizzy. Called ambulance and was brought to the hospital. However is denied any cough or sputum production. No fever no chills. No recent illnesses. Denied any leg swelling. Patient had lower extremity pain and recently duplex scan showed negative for DVT. Chest x-ray showed no acute process. No significant change from prior. EKG showed atrial fibrillation with rapid regular rate. Lab data WC 6.9 hemoglobin 15.1 platelets 224 D-dimer 0.19 Sodium 138 potassium 4.0 chloride 109 bicarb is 23 BUN 18 and creatinine 0.99 and blood sugar is 112 and total bilirubin level is 1.4 [place] is not elevated and troponin x3 negative and proBNP 69. Lipase level is 172. Review of Systems Constitutional: Patient denies any fever or chills . no Generalized weakness. Abdomen: Patient denied any nausea or vomiting or abd. pain Cardiovascular: Patient does complain of chest pain/tightness and shortness of breath. Palpitations and dizziness. No leg swelling.. Respiratory: patient denied any cough . no sputum production. No shortness of breath Neurologic: Patient denied any numbness or tingling headache. Musculoskeletal: Patient denies any complaints of joint swelling or deformity. Skin: Negative Psychiatric: Negative Endocrine: No heat or cold intolerance. No recent weight gain. Genitourinary: No dysuria or hematuria. All other 14 point ROS negative except the above Past Medical History Past Medical History: Atrial Fibrillation Additional Past Medical History / Comment(s): migraines, lt heel spur, environmental allergies History of Any Multi-Drug Resistant Organisms: None Reported Past Surgical History: Heart Catheterization, Orthopedic Surgery Additional Past Surgical History / Comment(s): sinus sx, rt knee arthroscopy,vasectomy,heart cath 2011 clear, plantar fascitis sx Past Anesthesia/Blood Transfusion Reactions: No Reported Reaction Past Psychological History: Anxiety Smoking Status: Light tobacco smoker Past Alcohol Use History: Occasional Past Drug Use History: None Reported - Past Family History Father Family Medical History: Myocardial Infarction ([place]) Additional Family Medical History / Comment(s): Enlarged heart, silent [place] Mother Family Medical History: No Reported History Additional Family Medical History / Comment(s): Depression Medications and Allergies Home Medications Medication Instructions Recorded Confirmed Type Metoprolol Tartrate [Lopressor] 25 mg PO BID 30 Days #60 tab 04/20/21 01/13/22 Rx Cholecalciferol [Vitamin D3 (25 25 mcg PO DAILY 01/13/22 01/13/22 History Mcg = 1000 Iu)] Fluticasone Nasal [place] [Flonase 2 spray EA NOSTRIL DAILY 01/13/22 01/13/22 History Nasal [place]] Multivitamins, Thera [Multivitamin 1 tab PO DAILY 01/13/22 01/13/22 History (formulary)] Apixaban [Eliquis] 5 mg PO BID #60 tab 01/14/22 Rx Allergies Allergy/AdvReac Type Severity Reaction Status Date / Time No Known Allergies Allergy Verified 01/13/22 14:09 Physical Exam Vitals: Vital Signs Temp Pulse Pulse Pulse Resp BP BP 01/13/22 18:55 97.8 F 94 16 154/91 01/13/22 18:30 119 H 142/98 01/13/22 18:20 109 H 128/82 01/13/22 18:15 112 H 130/95 01/13/22 18:10 142 H 123/85 01/13/22 18:05 136 H 128/92 01/13/22 16:42 97.8 F 51 L 18 137/80 01/13/22 15:12 55 L 21 130/91 01/13/22 13:43 54 L 22 135/96 01/13/22 12:36 63 12 120/83 01/13/22 11:53 97.2 F L 73 16 131/93 Pulse Ox 01/13/22 18:55 95 01/13/22 18:30 01/13/22 18:20 01/13/22 18:15 01/13/22 18:10 01/13/22 18:05 01/13/22 16:42 97 01/13/22 15:12 97 01/13/22 13:43 98 01/13/22 12:36 96 01/13/22 11:53 99 Intake and Output 01/13/22 01/13/22 01/14/22 14:59 22:59 06:59 Intake Total 240 78.019 Balance 240 78.019 Intake: Intake, IV Titration 78.019 Amount Heparin Sod,Pork in 0.45% 78.019 NaCl 25,000 unit In 0.45 % NaCl 1 250ml.bag @ 12 UNITS/KG/HR 13.608 mls/hr IV .[id number] DAHLIA Rx#: [id number] Oral 240 Other: # Voids 1 Weight 113.398 kg 113.398 kg PHYSICAL EXAMINATION: Patient is lying in the bed comfortably, no acute distress, awake alert and oriented.. HEENT: Normocephalic. Neck is supple. Pupils reactive. Nostrils clear. Oral cavity is moist. Neck reveals no JVD, carotid bruits, or thyromegaly. CHEST EXAMINATION: Trachea is central. Symmetrical expansion. Lung cortés clear to auscultation and percussion. CARDIAC: Normal S1, S2 with no gallops. No murmurs, irregularly irregular rhythm. ABDOMEN: Soft. Bowel sounds present. Nontender. No organomegaly. No abdominal bruits. Extremities: reveal no edema. No clubbing or cyanosis Neurologically awake, alert, oriented x3 with well-coordinated movements. No focal deficits noted Skin: No rash or skin lesions. Psychiatric: Coperative. Nonsuicidal, Musculoskeletal: No joint swelling or deformity. Normal range of motion. Results CBC & Chem 7: 01/14/22 05:59 01/13/22 12:21 Labs: Abnormal Lab Results - Last 24 Hours (Table) 01/13/22 01/13/22 Range/Units 12:21 19:32 APTT 71.9 H (22.0-30.0) sec Chloride 109 H (98-107) mmol/L Glucose 112 H (74-99) mg/dL Total Bilirubin 1.4 H (0.2-1.3) mg/dL Thrombosis Risk Factor Assmnt - DVT/VTE Prophylaxis DVT/VTE Prophylaxis: Pharmacologic Prophylaxis ordered - Choose All That Apply Any of the Below Risk Factors Present?: Yes Each Factor Represents 1 point: Age 41-60 years, Obesity (BMI >25) Other Risk Factors: No Other congenital or acquired thrombophilia - If yes, enter type in comment: No Thrombosis Risk Factor Assessment Total Risk Factor Score: 2 Thrombosis Risk Factor Assessment Level: Low Risk Assessment and Plan Assessment: Paroxysmal atrial fibrillation with rapid ventricular rate. Chest tightness and dizziness likely secondary to above. Rule out ACS. History of migraine headaches Anxiety Light tobacco use/chewing DVT prophylaxis Plan: Patient will be continued on telemetry monitoring. Troponin x2 negative. Started on Cardizem drip and will be started back on metoprolol 25 mg twice daily. Cardiology was consulted. Continue to follow closely. Time with Patient: Greater than 30
--- NOTE | 2022-01-14 22:42 | P.PN ---
Subjective Progress Note Date: 01/14/22 Patient is a 56-year-old male with a known history of paroxysmal atrial fibrillation diagnosed in April 2021, migraine headaches, history of cardiac catheterization and anxiety and light tobacco smoker presents to ER with complaints of chest pain/tightness. Patient states that his symptoms started about 815 today morning and has been worsening. Pain is 7 out of 10 in severity. Mid retrosternal. No radiation of the pain. Patient also noted that his smart watch showing his heart rate is beating at 145. Currently on 15 he has been having shortness of breath and clammy skin and felt dizzy. Called ambulance and was brought to the hospital. However is denied any cough or sputum production. No fever no chills. No recent illnesses. Denied any leg swelling. Patient had lower extremity pain and recently duplex scan showed negative for DVT. Chest x-ray showed no acute process. No significant change from prior. EKG showed atrial fibrillation with rapid regular rate. Lab data WC 6.9 hemoglobin 15.1 platelets 224 D-dimer 0.19 Sodium 138 potassium 4.0 chloride 109 bicarb is 23 BUN 18 and creatinine 0.99 and blood sugar is 112 and total bilirubin level is 1.4 [place] is not elevated and troponin x3 negative and proBNP 69. Lipase level is 172. 01/14/2022 Patient is currently resting in bed. Awake alert and oriented x3. No complaints of chest pain or shortness of breath. Clinically improved. Currently maintaining sinus rhythm. No nausea vomiting abdominal pain or diarrhea. Pat ient was continued on heparin drip. Cardizem drip has been discontinued. Currently on metoprolol 25 mg twice daily. 2D echocardiogram showed mildly reduced left ventricular function with ejection fraction 45 to 50%. Right ventricle is moderately dilated with retroantral systolic pressure within normal limits. Laboratory data showed WBC 6.0 hemoglobin 14.3 and platelets 241 LDL 86.4 total cholesterol 143 and HDL 43.3. Current medications reviewed. Objective - Vital Signs Vital signs: Vital Signs Temp 98.1 F 01/14/22 19:13 Pulse 64 01/14/22 19:13 Resp 18 01/14/22 19:13 BP 117/70 01/14/22 19:13 Pulse Ox 97 01/14/22 19:13 FiO2 Intake & Output 01/14/22 01/14/22 01/15/22 06:59 18:59 06:59 Intake Total 153.241 332.759 Balance 153.241 332.759 Intake: Intake, IV Titration 153.241 96.759 Amount Heparin Sod,Pork in 0.45% 153.241 96.759 NaCl 25,000 unit In 0.45 % NaCl 1 250ml.bag @ 12 UNITS/KG/HR 13.608 mls/hr IV .[id number] DAHLIA Rx#: [id number] Oral 236 Other: # Voids 1 1 - Exam PHYSICAL EXAMINATION: Patient is lying in the bed comfortably, no acute distress, awake alert and oriented.. HEENT: Normocephalic. Neck is supple. Pupils reactive. Nostrils clear. Oral cavi ty is moist. Neck reveals no JVD, carotid bruits, or thyromegaly. CHEST EXAMINATION: Trachea is central. Symmetrical expansion. Lung cortés clear to auscultation and percussion. CARDIAC: Normal S1, S2 with no gallops. No murmurs ABDOMEN: Soft. Bowel sounds present. Nontender. No organomegaly. No abdominal bruits. Extremities: reveal no edema. No clubbing or cyanosis Neurologically awake, alert, oriented x3 with well-coordinated movements. No focal deficits noted Skin: No rash or skin lesions. Psychiatric: Coperative. Nonsuicidal, Musculoskeletal: No joint swelling or deformity. Normal range of motion. - Labs CBC & Chem 7: 01/14/22 05:59 01/13/22 12:21 Labs: Abnormal Lab Results - Last 24 Hours (Table) 01/14/22 01/14/22 Range/Units 05:59 11:51 APTT 43.2 H 60.7 H (22.0-30.0) sec Assessment and Plan Assessment: Paroxysmal atrial fibrillation with rapid ventricular rate. Chest tightness and dizziness likely secondary to above. Ruled out ACS. History of migraine headaches Anxiety Light tobacco use/chewing DVT prophylaxis Plan: Patient is being continued on telemetry monitoring. Serial EKG and troponin x3 negative. ACS ruled out. Patient was initially on heparin drip and Cardizem drip which has been discontinued. Patient was started on metoprolol and heart rate is controlled now. 2D echocardiogram showed slightly impaired (pulm function. Ejection fraction 45 to 50%. Patient was started on anticoagulation with Eliquis. Cardiology is on board. Time with Patient: Greater than 30
[2022-01-15 07:41] VITALS: BP 137/81; PULSE 52; RESP 18; TEMP 97.7
--- NOTE | 2022-01-15 09:42 | P.PN ---
Subjective Progress Note Date: 01/15/22 HISTORY OF PRESENT ILLNESS: This is a 56-year-old male with a past medical history significant for paroxysmal atrial fibrillation. Patient follows in the office with Dr. Coates. We have been asked to see the patient in consultation for chest pain. Patient examined at the bedside. Patient presented to the hospital with a chief complaint of chest pain and palpitations. The patient was found to be in A. fib with RVR. He was started on IV Cardizem. He has since converted to sinus mechanism. He states his chest pain has since resolved once his heart went back into a normal rhythm. He does complain of a headache this morning. The patient did have a Lexiscan stress test performed in the office in June 2021 which was negative for ischemia but revealed an ejection fraction 45% * EKG reveals A. fib with RVR. * Chest xray negative for acute process * Laboratory data: WBC 6.07. Hemoglobin 14.3. Platelet count 241. D-dimer 0.19. Sodium 138. Potassium 4.0. BUN 18. Creatinine 0.99. Troponin negative 3 * Current home cardiac medications include aspirin 81 mg daily and metoprolol tartrate 25 mg twice a day * Most recent echocardiogram obtained in April 2021 revealed ejection fraction 50-55%, trace MR, trace TR Addendum entered and electronically signed by Evy Chandra NP-C 01/14/22 14:07: Echo completed revealing EF 45-50% Discussed with Dr. Barroso. Will add Eliquis 5mg BID and discontinue IV heparin Case management consulted for insurance copay Continue to monitor patient until tomorrow. Anticipate discharge tomorrow 01/15/2022 Patient examined this morning. He is sitting up in the chair. Patient denies chest pain or pressure. He denies shortness of breath. Vital signs are stable. Telemetry revealed sinus mechanism. PHYSICAL EXAM: VITAL SIGNS: Reviewed. GENERAL: Well-developed in no acute distress. HEENT: Head is normocephalic. Pupils are equal, round. Sclerae anicteric. Mucous membranes of the mouth are moist. Neck supple. No JVD or thyromegaly LUNGS: Respirations even and unlabored. Lungs essentially clear to auscultation bilaterally. HEART: Regular rate and rhythm. S1 and S2 heard. ABDOMEN: Soft. Nondistended. Nontender. EXTREMITIES: Normal range of motion. No clubbing or cyanosis. Peripheral pulses intact. No lower extremity edema NEUROLOGIC: Awake and alert. Oriented x 3. ASSESSMENT: Chest pain, troponins negative 3 Paroxysmal atrial fibrillation with RVR, currently maintaining sinus mechanism PLAN: Continue current cardiac medications Patient is stable for discharge home today from a cardiac standpoint He is to follow up on an outpatient basis with Dr. Coates Nurse practitioner note has been reviewed by physician. Signing provider agrees with the documented findings, assessment, and plan of care. Objective - Vital Signs Vital signs: Vital Signs Temp 97.7 F 01/15/22 07:10 Pulse 52 L 01/15/22 07:10 Resp 18 01/15/22 07:10 BP 137/81 01/15/22 07:10 Pulse Ox 97 01/15/22 07:10 FiO2 Intake & Output 01/14/22 01/15/22 01/15/22 18:59 06:59 18:59 Intake Total 332.759 480 Balance 332.759 480 Intake: Intake, IV Titration 96.759 Amount Heparin Sod,Pork in 0.45% 96.759 NaCl 25,000 unit In 0.45 % NaCl 1 250ml.bag @ 12 UNITS/KG/HR 13.608 mls/hr IV .[id number] DAHLIA Rx#: [id number] Oral 236 480 Other: Voiding Method Toilet # Voids 1 1 - Labs CBC & Chem 7: 01/14/22 05:59 01/13/22 12:21 Labs: Abnormal Lab Results - Last 24 Hours (Table) 01/14/22 Range/Units 11:51 APTT 60.7 H (22.0-30.0) sec
[2022-01-15] MEDS: APIXABAN 5 MG TAB PO SCH (11:02)
[2022-01-15] MEDS: METOPROLOL TARTRATE 25 MG TAB PO SCH (11:02)
== END 2022-01-15 11:09 | disposition home or self-care (01) ==
LOC: EC 11:52 → 6NMEDSUR 13:33
PROVIDERS: ADMIT Internal Medicine; ATTEND Internal Medicine
DX: R07.89 Other chest pain (principal); I48.0 Paroxysmal atrial fibrillation; F41.9 Anxiety disorder, unspecified; F17.200 Nicotine dependence, unspecified, uncomplicated; I08.1 Rheumatic disorders of both mitral and tricuspid valves; I37.1 Nonrheumatic pulmonary valve insufficiency; Z79.82 Long term (current) use of aspirin; Z79.899 Other long term (current) drug therapy; Z98.52 Vasectomy status; Z82.49 Family history of ischemic heart disease and other diseases of the circulatory system; Z81.8 Family history of other mental and behavioral disorders; Z79.01 Long term (current) use of anticoagulants
CPT/HCPCS: 96376 ×2; 96365; 96375; 99285; 36415; 93005; 93306; 85379; 83880; 80061; 80053; 83690; 83735; 84484; 85025 ×2; 85610 ×2; 85730 ×2; 71046; G0378 ×3; J1644 ×4

== ENCOUNTER 2023-01-07 19:06 | Emergency (ER) | payer BC ==
[2023-01-07 19:24] VITALS: TEMP 98.2
[2023-01-07] MEDS ORDERED: DILTIAZEM DRIP BOLUS FROM BAG 1 MG SOLN IV ONE (19:29)
[2023-01-07] MEDS ORDERED: METOPROLOL TARTRATE 5 MG/5 ML VIAL IVP STA (19:29)
[2023-01-07] MEDS ORDERED: SODIUM CHLORIDE 0.9% 1,000 ML IV STA (19:29)
[2023-01-07] MEDS ORDERED: DILTIAZEM 125 MG in SODIUM CHLORIDE 0.9% 100 ML IV SCH (19:30)
--- NOTE | 2023-01-07 19:31 | ED ---
Chest Pain HPI - General Chief Complaint: Chest Pain Stated Complaint: abd ekg,afib,vomiting Time Seen by Provider: 01/07/23 19:28 Source: patient, RN notes reviewed, old records reviewed Mode of arrival: wheelchair Limitations: no limitations - History of Present Illness Initial Comments: This is a 57-year-old male to the emergency room today for evaluation. Patient Dese for evaluation regards to some chest pain shortness of breath. Patient sent in by his primary care for evaluation of persistent chest pain shortness of breath with known history of A. fib and current history of atrial fibrillation. Patient is in A. fib with RVR known at his family doctor's office and known here in the ER. Patient states he feels like his heart is racing with palpitations, patient did recently increase home medication for rate control MD Complaint: chest pain, other (Atrial fibrillation with elevated heart rate) -: month(s) Onset: during rest, during exertion Pain Location: substernal, left chest Pain Radiation: LUE Severity: moderate Severity scale (1-10): 4 Quality: tightness, heaviness Consistency: constant Improves With: nothing Worsens With: nothing Context: recent illness Anginal Symptoms: nausea, vomiting Other Symptoms: palpitations Treatments Prior to Arrival: none - Related Data Home Medications Medication Instructions Recorded Confirmed Cholecalciferol [Vitamin D3 (25 50 mcg PO DAILY 01/13/22 01/08/23 Mcg = 1000 Iu)] Fluticasone Nasal [place] [Flonase 2 spray EA NOSTRIL DAILY 01/13/22 01/08/23 Nasal [place]] Aspirin EC [Ecotrin Low Dose] 81 mg PO DAILY 01/07/23 01/08/23 Loratadine [Claritin] 10 mg PO DAILY 01/07/23 01/08/23 Multivitamin [Multivitamins Adult 2 tab PO DAILY 01/07/23 01/08/23 Gummies] Metoprolol Tartrate [Lopressor] 50 mg PO BID 01/08/23 01/08/23 Allergies Allergy/AdvReac Type Severity Reaction Status Date / Time No Known Allergies Allergy Verified 01/08/23 12:26 Review of Systems ROS Statement: Those systems with pertinent positive or pertinent negative responses have been documented in the HPI. ROS Other: All systems not noted in ROS Statement are negative. EKG Findings - EKG Comments: EKG Findings:: EKG is A. fib with RVR 133 QRS 90 QTC 391 - EKG Results: EKG: interpreted by ARIANA Past Medical History Past Medical History: Atrial Fibrillation Additional Past Medical History / Comment(s): migraines, lt heel spur, environmental allergies History of Any Multi-Drug Resistant Organisms: None Reported Past Surgical History: Heart Catheterization, Orthopedic Surgery Additional Past Surgical History / Comment(s): sinus sx, rt knee arthroscopy,vasectomy,heart cath 2012 clear, plantar fascitis sx Past Anesthesia/Blood Transfusion Reactions: No Reported Reaction Past Psychological History: Anxiety Smoking Status: Light tobacco smoker Past Alcohol Use History: Occasional Past Drug Use History: None Reported - Past Family History Father Family Medical History: Myocardial Infarction ([place]) Additional Family Medical History / Comment(s): Enlarged heart, silent [place] Mother Family Medical History: No Reported History Additional Family Medical History / Comment(s): Depression General Exam Limitations: no limitations General appearance: alert, in no apparent distress, anxious Head exam: Present: atraumatic, normocephalic, normal inspection Eye exam: Present: normal appearance, PERRL, EOMI. Absent: scleral icterus, conjunctival injection, periorbital swelling ENT exam: Present: normal exam, mucous membranes moist Neck exam: Present: normal inspection. Absent: tenderness, meningismus, lymphad enopathy Respiratory exam: Present: normal lung sounds bilaterally. Absent: respiratory distress, wheezes, rales, rhonchi, stridor Cardiovascular Exam: Present: tachycardia, irregular rhythm, normal heart sounds. Absent: systolic murmur, diastolic murmur, rubs, gallop, clicks GI/Abdominal exam: Present: soft, normal bowel sounds. Absent: distended, tenderness, guarding, rebound, rigid Extremities exam: Present: normal inspection, full ROM, normal capillary refill. Absent: tenderness, pedal edema, joint swelling, calf tenderness Back exam: Present: normal inspection Neurological exam: Present: alert, oriented X3, CN II-XII intact Psychiatric exam: Present: normal affect, normal mood Skin exam: Present: warm, dry, intact, normal color. Absent: rash Course Vital Signs 01/07/23 01/07/23 01/07/23 19:14 19:30 20:30 Temperature 98.2 F Pulse Rate 122 H 140 H 71 Respiratory 16 18 18 Rate Blood Pressure 127/90 116/68 122/92 O2 Sat by Pulse 98 98 98 Oximetry 01/07/23 21:30 Temperature Pulse Rate 93 Respiratory 18 Rate Blood Pressure 115/98 O2 Sat by Pulse 98 Oximetry - Reevaluation(s) Reevaluation #1: 01/07/23 20:53 Medical records reviewed Reevaluation #2: 01/07/23 20:53 Symptoms are improving Reevaluation #3: 01/07/23 20:53 Patient informed of results questions answered Reevaluation #4: 01/07/23 20:53 Was pt. sent in by a medical professional or institution ([facility], [employer], urgent care, hospital, or [facility]...) When possible be specific @ -no Did you speak to anyone other than the patient for history (EMS, parent, family, police, friend...)? What history was obtained from this source @ -no Did you review nursing and triage notes (agree or disagree)? Why? @ -agree Are old charts reviewed (outside hosp., previous admission, EMS record, old EKG, old radiological studies, urgent care reports/EKG's, [facility] records)? Report findings @ -yes Differential Diagnosis (chest pain, altered mental status, abdominal pain women, abdominal pain men, vaginal bleeding, weakness, fever, dyspnea, syncope, headache, dizziness, GI bleed, back pain, seizure, CVA, palpatations, mental health, musculoskeletal)? @ -prior EKG interpreted by me (3pts min.). @ -yes X-rays interpreted by me (1pt min.). @ -yes CT interpreted by me (1pt min.). @ -no U/S interpreted by me (1pt. min.). @ -no What testing was considered but not performed or refused? (CT, X-rays, U/S, labs)? Why? @ -none What meds were considered but not given or refused? Why? @ -none Did you discuss the management of the patient with other professionals (professionals i.e. [facility], [employer], lab, RT, psych nurse, social work professor, retail product demo specialist, teacher, light armored reconnaissance officer, behavioral health case manager)? Give summary @ -no Was smoking cessation discussed for >3mins.? @ -no Was critical care preformed (if so, how long)? @ -yes31 Were there social determinants of health that impacted care today? How? (Homelessness, low income, unemployed, alcoholism, drug addiction, transportation, low edu. Level, literacy, decrease access to med. care, prison, rehab)? @ -none Was there de-escalation of care discussed even if they declined (Discuss DNR or withdrawal of care, Hospice)? DNR status @ -no What co-morbidities impacted this encounter? (DM, HTN, Smoking, COPD, CAD, Cancer, CVA, ARF, Chemo, Hep., AIDS, mental health diagnosis, sleep apnea, morbid obesity)? @ -none Was patient admitted / discharged? Hospital course, mention meds given and route, prescriptions, significant lab abnormalities, going to OR and other pertinent info. @ - 37 male to the emergency department for evaluation of an of postconcussive symptoms and persistent dizziness after head injury. They have no acute findings are patient's symptoms aside from concussion here in the ER. Patient given symptomatic therapy feels improved and can be discharged home Discharge Undiagnosed new problem with uncertain prognosis? @ -no Drug Therapy requiring intensive monitoring for toxicity (Heparin, Nitro, Insulin, Cardizem)? @ -no Were any procedures done? @ -no Diagnosis/symptom? @ -Chest pain, H a fibrillation with RVR Acute, or Chronic, or Acute on Chronic? @ -Acute Uncomplicated (without systemic symptoms) or Complicated (systemic symptoms)? @ -Complicated Side effects of treatment? @ -no Exacerbation, Progression, or Severe Exacerbation? @ -exacerbation Poses a threat to life or bodily function? How? (Chest pain, [place], [place], pneumonia, PE, COPD, DKA, ARF, appy, cholecystitis, CVA, Diverticulitis, Homicidal, Suicidal, threat to staff... and all critical care pts) @ -yes with arrhythmia and chest pain Reevaluation #5: Differential Chest Pain: Stable Angina, Unstable Angina, STEMI, NSTEMI Aortic Dissection, Pneumothorax, Musculoskeletal, Esophageal Spasm GERD, Cholecystitis, Pancreatitis, Zoster, this is not meant to be an all-inclusive list. Differential Palpitations Ventricular arrhythmias, atrial arrhythmias, myocardial infarction, anemia, thyrotoxicosis, electrolyte imbalance, hypokalemia, pulmonary embolism, pulmonary disease, drugs, alcohol, anxiety, stress.... This is not meant to be an all-inclusive list. Chest Pain MDM - MDM 57 male with A. fib with RVR and chest pain. Symptoms are resolved here in the ER he does feel improved now prefers discharged home Disposition Clinical Impression: Atrial fibrillation with RVR, Chest pain Disposition: HOME SELF-CARE Condition: Good Instructions (If sedation given, give patient instructions): A-fib (Atrial Fibrillation) (ED) Is patient prescribed a controlled substance at d/c from ED?: No Referrals: Edward Bahena MD [Primary Care Provider] - 1-2 days Time of Disposition: 21:30
[2023-01-07 20:26] LABS: Partial Thromboplastin Time 24.9 sec (22.0-30.0); Prothrombin Time 10.7 sec (10.0-12.5)
[2023-01-07 20:28] LABS: Basophils % (A) 0 %; Eosinophils # (A) 0.2 k/uL (0-0.7); Eosinophils % (A) 2 %; HCT 47.2 % (39.0-53.0); HGB 16.1 gm/dL (13.0-17.5); Lymphocytes # (A) 2.4 k/uL (1.0-4.8); Lymphocytes % (A) 25 %; MCH 32.5 pg (25.0-35.0); MCHC 34.1 g/dL (31.0-37.0); MCV 95.4 fL (80.0-100.0); Mean Platelet Volume 8.8; Monocytes # (A) 0.5 k/uL (0-1.0); Monocytes % (A) 6 %; Neutrophils # (A) 6.1 k/uL (1.3-7.7); Neutrophils % (A) 65 %; Platelet Count 245 k/uL (150-450); RBC 4.95 m/uL (4.30-5.90); RDW 12.4 % (11.5-15.5); WBC 9.3 k/uL (3.8-10.6)
--- NOTE | 2023-01-07 20:36 | XR ---
EXAMINATION TYPE: XR chest 2V DATE OF EXAM: 01/07/2023 8:18 PM CLINICAL INDICATION:Male, 57 years old with history of Weakness; COMPARISON: Chest radiographs from 01/13/2022. TECHNIQUE: XR chest 2V Frontal and lateral views of the chest. FINDINGS: Lungs/Pleura: There is no evidence of pleural effusion, focal consolidation, or pneumothorax. Pulmonary vascularity: Unremarkable. Heart/mediastinum: Cardiomediastinal silhouette is unremarkable. Musculoskeletal: No acute osseous pathology. IMPRESSION: No acute cardiopulmonary disease/process.
[2023-01-07 20:57] LABS: ALT 76 U/L (4-49); AST 42 U/L (17-59); African American GFR (CKD) 82 (>60 ml/min/1.73 sqM); Albumin 4.4 g/dL (3.5-5.0); Alkaline Phosphatase 103 U/L (38-126); Anion Gap 13 mmol/L; Blood Urea Nitrogen 20 mg/dL (9-20); Calcium 9.6 mg/dL (8.4-10.2); Carbon Dioxide 19 mmol/L (22-30); Chloride 107 mmol/L (98-107); Glucose 91 mg/dL (74-99); Non-African American GFR(CKD) 71 (>60 ml/min/1.73 sqM); Phosphorus 4.2 mg/dL (2.5-4.5); Potassium 4.5 mmol/L (3.5-5.1); Sodium 139 mmol/L (137-145); Total Bilirubin 1.6 mg/dL (0.2-1.3); Total Protein 7.2 g/dL (6.3-8.2)
[2023-01-07 21:05] LABS: NT-Pro-B-Type Natriuretic Pept 2170 pg/mL
[2023-01-07 21:47] VITALS: BP 115/98; PULSE 93; RESP 18
== END 2023-01-07 21:45 | disposition home or self-care (01) ==
LOC: EC 19:06
DX: I48.20 Chronic atrial fibrillation, unspecified (principal); F17.200 Nicotine dependence, unspecified, uncomplicated; Z86.59 Personal history of other mental and behavioral disorders; Z79.82 Long term (current) use of aspirin
CPT/HCPCS: 36415; 71046; 80053; 83735; 83880; 84100; 84484; 85025; 85610; 85730; 93005; 96365; 96366; 96375; 99291

== ENCOUNTER 2023-01-08 06:08 | Inpatient (IN) | payer BC ==
[2023-01-08] MEDS ORDERED: DILTIAZEM DRIP BOLUS FROM BAG 1 MG SOLN IV ONE (06:38)
--- NOTE | 2023-01-08 06:55 | XR ---
EXAMINATION TYPE: XR chest 2V DATE OF EXAM: 01/08/2023 COMPARISON: Chest x-ray one day earlier. HISTORY: Chest pain. TECHNIQUE: Frontal and lateral views of the chest are obtained. FINDINGS: There is no suspicious new focal air space opacity, pleural effusion, or pneumothorax seen . The cardiac silhouette size is stable and upper limits of normal. The osseous structures are int act. Overlying EKG leads are redemonstrated. IMPRESSION: No acute process. No significant change from prior.
--- NOTE | 2023-01-08 06:57 | ED ---
Chest Pain HPI - General Chief Complaint: Chest Pain Stated Complaint: Chest Pain, SOB Time Seen by Provider: 01/08/23 06:17 Source: patient, family, RN notes reviewed Mode of arrival: wheelchair Limitations: no limitations - History of Present Illness Initial Comments: 57 show male presents emergency Department with chief complaint of chest pain, palpitations. Patient was here yesterday for age fibrillation he was given medications and improved. Went home Home and took his metoprolol but states that he is now developed worsening symptoms. She denies any fevers or chills no history of PE or DVT denies any anticoagulants he states he takes aspirin. - Related Data Home Medications Medication Instructions Recorded Confirmed Cholecalciferol [Vitamin D3 (25 50 mcg PO DAILY 01/13/22 01/07/23 Mcg = 1000 Iu)] Fluticasone Nasal [place] [Flonase 2 spray EA NOSTRIL DAILY 01/13/22 01/07/23 Nasal [place]] Aspirin EC [Ecotrin Low Dose] 81 mg PO DAILY 01/07/23 01/07/23 Loratadine [Claritin] 10 mg PO DAILY 01/07/23 01/07/23 Multivitamin [Multivitamins Adult 2 tab PO DAILY 01/07/23 01/07/23 Gummies] Previous Rx's Medication Instructions Recorded Metoprolol Tartrate [Lopressor] 25 mg PO BID 30 Days #60 tab 04/20/21 Allergies Allergy/AdvReac Type Severity Reaction Status Date / Time No Known Allergies Allergy Verified 01/08/23 06:13 Review of Systems ROS Statement: Those systems with pertinent positive or pertinent negative responses have been documented in the HPI. ROS Other: All systems not noted in ROS Statement are negative. EKG Findings - EKG Comments: EKG Findings:: EKG performed at 6:23 A. fib with RVR rate of 117 QRS 97 QT/QTC 350/419 Past Medical History Past Medical History: Atrial Fibrillation Additional Past Medical History / Comment(s): migraines, lt heel spur, environmental allergies History of Any Multi-Drug Resistant Organisms: None Reported Past Surgical History: Heart Catheterization, Orthopedic Surgery Additional Past Surgical History / Comment(s): sinus sx, rt knee arthroscopy,vasectomy,heart cath 2011 clear, plantar fascitis sx Past Anesthesia/Blood Transfusion Reactions: No Reported Reaction Past Psychological History: Anxiety Smoking Status: Light tobacco smoker Past Alcohol Use History: Occasional Past Drug Use History: None Reported - Past Family History Father Family Medical History: Myocardial Infarction (DC) Additional Family Medical History / Comment(s): Enlarged heart, silent DC Mother Family Medical History: No Reported History Additional Family Medical History / Comment(s): Depression General Exam Limitations: no limitations General appearance: alert, in no apparent distress Head exam: Present: atraumatic, normocephalic, normal inspection Eye exam: Present: normal appearance, PERRL, EOMI. Absent: scleral icterus, conjunctival injection, periorbital swelling ENT exam: Present: normal exam, normal oropharynx, mucous membranes moist Neck exam: Present: normal inspection, full ROM. Absent: tenderness, meningismus, lymphadenopathy Respiratory exam: Present: normal lung sounds bilaterally. Absent: respiratory distress, wheezes, rales, rhonchi, stridor Cardiovascular Exam: Present: tachycardia, irregular rhythm, normal heart sounds. Absent: normal rhythm, systolic murmur, diastolic murmur, rubs, gallop, clicks GI/Abdominal exam: Present: soft, normal bowel sounds. Absent: distended, tenderness, guarding, rebound, rigid Course Vital Signs 01/08/23 01/08/23 01/08/23 06:13 07:12 07:59 Temperature 98.4 F Pulse Rate 115 H 117 H 95 Respiratory 18 18 18 Rate Blood Pressure 129/98 118/95 131/59 O2 Sat by Pulse 98 94 L 93 L Oximetry Chest Pain MDM - MDM Was pt. sent in by a medical professional or institution (, PA, ADULT LITERACY INSTRUCTOR, urgent care, hospital, or snf...) When possible be specific @ -no Did you speak to anyone other than the patient for history (EMS, parent, family, police, friend...)? What history was obtained from this source @ -No Did you review nursing and triage notes (agree or disagree)? Why? @ -I reviewed and agree with nursing and triage notes Were old charts reviewed (outside hosp., previous admission, EMS record, old EKG, old radiological studies, urgent care reports/EKG's, snf records)? Report findings @ -Review laboratory studies from yesterday Differential Diagnosis (chest pain, altered mental status, abdominal pain women, abdominal pain men, vaginal bleeding, weakness, fever, dyspnea, syncope, headache, dizziness, GI bleed, back pain, seizure, CVA, palpatations, mental health, musculoskeletal)? @ -Differential Chest Pain: Stable Angina, Unstable Angina, STEMI, NSTEMI Aortic Dissection, Pneumothorax, Musculoskeletal, Esophageal Spasm GERD, Cholecystitis, Pancreatitis, Zoster, this is not meant to be an all-inclusive list. le EKG interpreted by me (3pts min.). @ -As above X-rays interpreted by me (1pt min.). @ -[Chest x-ray shows no acute cardiopulmonary process CT interpreted by me (1pt min.). @ -None done U/S interpreted by me (1pt. min.). @ -None done What testing was considered but not performed or refused? (CT, X-rays, U/S, labs)? Why? @ -None What meds were considered but not given or refused? Why? @ -None Did you discuss the management of the patient with other professionals (professionals i.e. , PA, ADULT LITERACY INSTRUCTOR, lab, RT, psych nurse, social economist, estimating manager, teacher, investment officer, corrections caseworker)? Give summary @ -Dr. Kelly for admission for A. fib, chest pain Was smoking cessation discussed for >3mins.? @ -No Was critical care preformed (if so, how long)? @ -35 minutes Were there social determinants of health that impacted care today? How? (Homelessness, low income, unemployed, alcoholism, drug addiction, transportation, low edu. Level, literacy, decrease access to med. care, residential, rehab)? @ -No Was there de-escalation of care discussed even if they declined (Discuss DNR or withdrawal of care, Hospice)? DNR status @ -No What co-morbidities impacted this encounter? (DM, HTN, Smoking, COPD, CAD, Cancer, CVA, ARF, Chemo, Hep., AIDS, mental health diagnosis, sleep apnea, morbid obesity)? @ -A. fib Was patient admitted / discharged? Hospital course, mention meds given and route, prescriptions, significant lab abnormalities, going to OR and other pertinent info. @ -[Admitted the patient found to be in A. fib, RVR, chest pain patient's initial troponin is negative. Patient was started on Cardizem, given aspirin. Patient is not on any anticoagulants or started on heparin. Patient will be admitted for cardiology evaluation, repeat troponin Undiagnosed new problem with uncertain prognosis? @ -No Drug Therapy requiring intensive monitoring for toxicity (Heparin, Nitro, Insulin, Cardizem)? @ -Burn, Cardizem Were any procedures done? @ -No Diagnosis/symptom? @ -Chest pain, A. fib RVR Acute, or Chronic, or Acute on Chronic? @ -Acute Uncomplicated (without systemic symptoms) or Complicated (systemic symptoms)? @ -Complicated Side effects of treatment? @ -No Exacerbation, Progression, or Severe Exacerbation? @ -No Poses a threat to life or bodily function? How? (Chest pain, [place], DC, pneumonia, PE, COPD, DKA, ARF, appy, cholecystitis, CVA, Diverticulitis, Homicidal, Suicidal, threat to staff... and all critical care pts) @ -[yes patient has chest pain concerning for ACS Critical Care Time Critical Care Time: Yes Total Critical Care Time: 35 Disposition Clinical Impression: Atrial fibrillation with RVR, Chest pain Disposition: ADMITTED IP TO THIS HOSP Condition: Fair Referrals: Edward Bahena MD [Primary Care Provider] - 1-2 days Time of Disposition: 09:45
[2023-01-08 07:03] LABS: Basophils % (A) 0 %; Eosinophils # (A) 0.2 k/uL (0-0.7); Eosinophils % (A) 3 %; HCT 43.5 % (39.0-53.0); HGB 14.7 gm/dL (13.0-17.5); Lymphocytes # (A) 1.5 k/uL (1.0-4.8); Lymphocytes % (A) 22 %; MCH 31.8 pg (25.0-35.0); MCHC 33.8 g/dL (31.0-37.0); MCV 94.1 fL (80.0-100.0); Monocytes # (A) 0.4 k/uL (0-1.0); Monocytes % (A) 5 %; Neutrophils # (A) 4.9 k/uL (1.3-7.7); Neutrophils % (A) 69 %; Platelet Count 240 k/uL (150-450); RBC 4.63 m/uL (4.30-5.90); RDW 12.8 % (11.5-15.5); WBC 7.1 k/uL (3.8-10.6)
[2023-01-08] MEDS: DILTIAZEM 125 MG in SODIUM CHLORIDE 0.9% 100 ML IV SCH (07:09)
[2023-01-08 07:17] LABS: Partial Thromboplastin Time 25.2 sec (22.0-30.0)
[2023-01-08 08:57] LABS: ALT 75 U/L (4-49); AST 50 U/L (17-59); African American GFR (CKD) >90 (>60 ml/min/1.73 sqM); Albumin 3.8 g/dL (3.5-5.0); Alkaline Phosphatase 77 U/L (38-126); Anion Gap 10 mmol/L; Blood Urea Nitrogen 16 mg/dL (9-20); Calcium 9.2 mg/dL (8.4-10.2); Carbon Dioxide 20 mmol/L (22-30); Chloride 107 mmol/L (98-107); Glucose 99 mg/dL (74-99); Magnesium 1.9 mg/dL (1.6-2.3); Non-African American GFR(CKD) 89 (>60 ml/min/1.73 sqM); Potassium 4.4 mmol/L (3.5-5.1); Sodium 137 mmol/L (137-145); Total Protein 6.7 g/dL (6.3-8.2)
[2023-01-08 09:04] LABS: NT-Pro-B-Type Natriuretic Pept 1930 pg/mL
[2023-01-08] MEDS ORDERED: ASPIRIN 81 MG PO STA (10:11)
[2023-01-08] MEDS ORDERED: HEPARIN SODIUM 1,000 UN/ML (10ML VL) IV PRN (10:11)
[2023-01-08] MEDS ORDERED: HEPARIN SODIUM 1,000 UN/ML (10ML VL) IV ONE (10:11)
[2023-01-08] MEDS ORDERED: HEPARIN SOD,PORK IN 0.45% NACL 25,000 UNIT in 0.45% NACL 1 250ML.BAG IV SCH (10:30)
--- NOTE | 2023-01-08 13:04 | P.HPIM ---
History of Present Illness H&P Date: 01/08/23 History of present illness; patient is a 57-year-old gentleman with past medical history significant for atrial fibrillation who presented to the ER for palpitation. Patient was seen yesterday for similar complaint at this time he was found to have A. fib with RVR, patient was given IV Cardizem push and his heart rate improved and was discharged on increased dose of Lopressor. Patient stated that overnight he was woken up again with complaint of chest pressure and palpitation. Chest pressure was central location, nonradiating, no aggravating or relieving factors associated with chest pain. Patient was complaining of palpitation or shortness of breath. Denies any nausea or vomiting. Because of these complaints he came back to the ER and was found to be in A. fib with RVR. Initial lab work done in the ER showed WBC 7.1, hemoglobin 14.7, platelet count 240, sodium 137 potassium 4.4, BUN 16, creatinine 0.96, AST 50, ALT 75, troponin 0.012 proBNP 1930 EKG done in the ER heart rate 117, QRS 97, no P waves seen, no T-wave inversion, no ST segment elevation or depression patient was admitted to medicine service REVIEW OF SYSTEMS: CONSTITUTIONAL: No fever, no malaise, no fatigue. HEENT: No recent visual problems or hearing problems. Denied any sore throat. CARDIOVASCULAR: As mentioned above PULMONARY: As mentioned above GASTROINTESTINAL: No diarrhea, no nausea, no vomiting, no abdominal pain. NEUROLOGICAL: No headaches, no weakness, no numbness. HEMATOLOGICAL: Denies any bleeding or petechiae. GENITOURINARY: Denies any burning micturition, frequency, or urgency. MUSCULOSKELETAL/RHEUMATOLOGICAL: Denies any joint pain, swelling, or any muscle pain. ENDOCRINE: Denies any polyuria or polydipsia. The rest of the 14-point review of systems is negative. PHYSICAL EXAMINATION: GENERAL: The patient is alert and oriented x3, not in any acute distress. Well developed, well nourished. HEENT: Pupils are round and equally reacting to light. EOMI. No scleral icterus. No conjunctival pallor. Normocephalic, atraumatic. No pharyngeal erythema. No thyromegaly. CARDIOVASCULAR: S1 and S2 present. No murmurs, rubs, or gallops. Tachycardia, irregular in rate and rhythm PULMONARY: Chest is clear to auscultation, no wheezing or crackles. ABDOMEN: Soft, nontender, nondistended, normoactive bowel sounds. No palpable organomegaly. MUSCULOSKELETAL: No joint swelling or deformity. EXTREMITIES: No cyanosis, clubbing, or pedal edema. NEUROLOGICAL: Gross neurological examination did not reveal any focal deficits. SKIN: No rashes. Assessment and plan A. fib with RVR Chest pain Monitor vital signs Monitor CBC Monitor CMP Continue telemetry monitoring Trend troponin Continue IV Cardizem drip Continue pharmacy dose heparin Ordered 2-D echo Consult cardiology Labs and medication were reviewed.. Continue same treatment. Continue with symptomatic treatment. Resume home medication. Monitor labs and vitals. DVT and GI prophylaxis. Further recommendations as per clinical course of the patient Dictation was produced using [employer] dictation software. please excuse any grammatical, word or spelling errors. Past Medical History Past Medical History: Atrial Fibrillation Additional Past Medical History / Comment(s): migraines, lt heel spur, environmental allergies History of Any Multi-Drug Resistant Organisms: None Reported Past Surgical History: Heart Catheterization, Orthopedic Surgery Additional Past Surgical History / Comment(s): sinus sx, rt knee arthroscopy,vasectomy,heart cath 2011 clear, plantar fascitis sx Past Anesthesia/Blood Transfusion Reactions: No Reported Reaction Past Psychological History: Anxiety Smoking Status: Light tobacco smoker Past Alcohol Use History: Occasional Past Drug Use History: None Reported - Past Family History Father Family Medical History: Myocardial Infarction (DC) Additional Family Medical History / Comment(s): Enlarged heart, silent DC Mother Family Medical History: No Reported History Additional Family Medical History / Comment(s): Depression Medications and Allergies Home Medications Medication Instructions Recorded Confirmed Type Cholecalciferol [Vitamin D3 (25 50 mcg PO DAILY 01/13/22 01/08/23 History Mcg = 1000 Iu)] Fluticasone Nasal [place] [Flonase 2 spray EA NOSTRIL DAILY 01/13/22 01/08/23 History Nasal [place]] Aspirin EC [Ecotrin Low Dose] 81 mg PO DAILY 01/07/23 01/08/23 History Loratadine [Claritin] 10 mg PO DAILY 01/07/23 01/08/23 History Multivitamin [Multivitamins Adult 2 tab PO DAILY 01/07/23 01/08/23 History Gummies] Metoprolol Tartrate [Lopressor] 50 mg PO BID 01/08/23 01/08/23 History Allergies Allergy/AdvReac Type Severity Reaction Status Date / Time No Known Allergies Allergy Verified 01/08/23 12:26 Physical Exam Vitals: Vital Signs Temp Pulse Resp BP Pulse Ox 01/08/23 12:50 98.6 F 126 H 18 117/87 95 01/08/23 10:55 98 18 120/94 96 01/08/23 07:59 95 18 131/59 93 L 01/08/23 07:12 117 H 18 118/95 94 L 01/08/23 06:13 98.4 F 115 H 18 129/98 98 Intake and Output 01/07/23 01/08/23 01/08/23 22:59 06:59 14:59 Other: Weight 113.398 kg Results CBC & Chem 7: 01/08/23 06:45 01/08/23 06:45 Labs: Abnormal Lab Results - Last 24 Hours (Table) 01/08/23 Range/Units 06:45 Carbon Dioxide 20 L (22-30) mmol/L Total Bilirubin 2.0 H (0.2-1.3) mg/dL ALT 75 H (4-49) U/L
--- NOTE | 2023-01-08 13:39 | P.CRDCN ---
History of Present Illness Consult date: 01/08/23 History of present illness: History of Present Illness: The patient is a 57-year-old male with a known history of paroxysmal atrial fibrillation who presented with symptoms of weakness, chest tightness and worsening dyspnea. He has been having no symptoms for few weeks, was seen in the emergency room recently and was in atrial fibrillation subsequently returned to the hospital again with the same symptoms. He does not feel the palpitations on a regular basis. He has been followed by Dr. Coates in the past. He has not been very active physically. He has no clear PND, orthopnea or peripheral edema. He has a history of obstructive sleep apnea but has not been using his CPAP. He drinks alcohol couple times a week but probably more recently. He has rare palpitations. He chews tobacco. He has no history of hypertension or diabetes. He has missed some of his beta [place] according to him. He has underwent an MPI in the past and according to him he had no evidence of ischemic findings. His left ventricle systolic function has been preserved. Medications: Metoprolol 50 mg twice a day, aspirin Review of Systems: Respiratory: He has dyspnea on exertion but no recent wheezing GI: No nausea or vomiting . No history of peptic ulcer disease. No recent GI bleed. : No hematuria or dysuria. Nervous System: No stroke or seizure. Physical Examination: 57-year-old male, alert and oriented no apparent distress,Blood pressure 120/90, Heart rate 9 he Head: Normocephalic. Eyes: Sclerae nonicteric. Neck: Good carotid upstroke, no bruit, no jugular venous distention. Lungs: Clear to auscultation. Heart: Irregular rate and rhythm, S1-S2, no S3, no rub. No murmur. Abdomen: Soft nontender, positive bowel sounds no organomegaly. Extremities: No edema, intact distal pulses. Labs: Troponin less than 0.0123. BUN 16, creatinine 0.96. Potassium 4.4. NT proBNP 1930. EKG: Atrial fibrillation with nonspecific ST-T wave changes Impression: 1. Atrial fibrillation, [id number] score is 0, it appears to be more permanent at this time. The patient does not feel the arrhythmia. It was paroxysmal in the past. 2. Chronic tobacco use 3. Alcohol intake 4. Questionable compliance 5. History of obstructive sleep apnea not using CPAP 6. Symptoms of chest discomfort but no evidence to suggest acute coronary syndrome Plan: 1. Add anticoagulation for now 2. Obtain an echocardiogram with Doppler 3. IV Lasix 1 4. Continue beta [place] 5. Smoking and alcohol cessation 6. Depending on his progress further recommendations will be made. Past Medical History Past Medical History: Atrial Fibrillation Additional Past Medical History / Comment(s): migraines, lt heel spur, enviro nmental allergies History of Any Multi-Drug Resistant Organisms: None Reported Past Surgical History: Heart Catheterization, Orthopedic Surgery Additional Past Surgical History / Comment(s): sinus sx, rt knee arthroscopy,vasectomy,heart cath 2011 clear, plantar fascitis sx Past Anesthesia/Blood Transfusion Reactions: No Reported Reaction Past Psychological History: Anxiety Smoking Status: Light tobacco smoker Past Alcohol Use History: Occasional Past Drug Use History: None Reported - Past Family History Father Family Medical History: Myocardial Infarction (MS) Additional Family Medical History / Comment(s): Enlarged heart, silent [place] Mother Family Medical History: No Reported History Additional Family Medical History / Comment(s): Depression Medications and Allergies Home Medications Medication Instructions Recorded Confirmed Type Cholecalciferol [Vitamin D3 (25 50 mcg PO DAILY 01/13/22 01/08/23 History Mcg = 1000 Iu)] Fluticasone Nasal [place] [Flonase 2 spray EA NOSTRIL DAILY 01/13/22 01/08/23 History Nasal [place]] Aspirin EC [Ecotrin Low Dose] 81 mg PO DAILY 01/07/23 01/08/23 History Loratadine [Claritin] 10 mg PO DAILY 01/07/23 01/08/23 History Multivitamin [Multivitamins Adult 2 tab PO DAILY 01/07/23 01/08/23 History Gummies] Metoprolol Tartrate [Lopressor] 50 mg PO BID 01/08/23 01/08/23 History Allergies Allergy/AdvReac Type Severity Reaction Status Date / Time No Known Allergies Allergy Verified 01/08/23 12:26 Physical Exam Vitals: Vital Signs Temp Pulse Resp BP Pulse Ox 01/08/23 12:50 98.6 F 126 H 18 117/87 95 01/08/23 10:55 98 18 120/94 96 01/08/23 07:59 95 18 131/59 93 L 01/08/23 07:12 117 H 18 118/95 94 L 01/08/23 06:13 98.4 F 115 H 18 129/98 98 Intake and Output 01/07/23 01/08/23 01/08/23 22:59 06:59 14:59 Other: Weight 113.398 kg Results 01/08/23 06:45 01/08/23 06:45 Cardiac Enzymes 01/08/23 01/08/23 01/08/23 Range/Units 06:45 06:45 10:51 AST 50 (17-59) U/L Troponin I <0.012 <0.012 (0.000-0.034) ng/mL Coagulation 01/08/23 Range/Units 06:45 PT 11.0 (10.0-12.5) sec APTT 25.2 (22.0-30.0) sec CBC 01/08/23 Range/Units 06:45 WBC 7.1 (3.8-10.6) k/uL RBC 4.63 (4.30-5.90) m/uL Hgb 14.7 (13.0-17.5) gm/dL Hct 43.5 (39.0-53.0) % Plt Count 240 (150-450) k/uL Comprehensive Metabolic Panel 01/08/23 Range/Units 06:45 Sodium 137 (137-145) mmol/L Potassium 4.4 (3.5-5.1) mmol/L Chloride 107 (98-107) mmol/L Carbon Dioxide 20 L (22-30) mmol/L BUN 16 (9-20) mg/dL Creatinine 0.96 (0.66-1.25) mg/dL Glucose 99 (74-99) mg/dL Calcium 9.2 (8.4-10.2) mg/dL AST 50 (17-59) U/L ALT 75 H (4-49) U/L Alkaline Phosphatase 77 (38-126) U/L Total Protein 6.7 (6.3-8.2) g/dL Albumin 3.8 (3.5-5.0) g/dL Current Medications Generic Name Dose Route Start Last Admin Trade Name Freq PRN Reason Stop Dose Admin Aspirin 81 mg 01/09/23 09:00 Aspirin 81 Mg PO DAILY DAHLIA Cholecalciferol 50 mcg 01/09/23 09:00 Cholecalciferol 25 Mcg (1000 Iu) Tablet PO DAILY DAHLIA Fluticasone Propionate 2 spray 01/09/23 09:00 Fluticasone 50mcg/[place] Nasal 16gm EA NOSTRIL DAILY DAHLIA Heparin Sodium (Porcine) 0 unit 01/08/23 10:11 Heparin Sodium 1,000 Un/Ml (10ml Vl) IV Q6HR PRN Low PTT Protocol Diltiazem HCl 125 mg/ Sodium 125 mls @ 5 mls/hr 01/08/23 07:00 01/08/23 07:09 Chloride IV 5 mg/hr .Q24H DAHLIA 5 mls/hr Administration 5 MG/HR Heparin Sodium/Sodium Chloride 250 mls @ 10.001 mls/hr 01/08/23 10:30 01/08/23 10:52 25,000 unit/ Sodium Chloride IV 8.819 units/kg/hr .Q24H DAHLIA 10.001 mls/hr Administration Protocol 8.819 UNITS/KG/HR Loratadine 10 mg 01/09/23 09:00 Loratadine 10 Mg Tab PO DAILY DAHLIA Metoprolol Tartrate 50 mg 01/08/23 21:00 Metoprolol Tartrate 50 Mg Tab PO BID DAHLIA Nitroglycerin 0.4 mg 01/08/23 10:11 Nitroglycerin Sl Tabs 0.4 Mg Tab SUBLINGUAL Q5M PRN Chest Pain Intake and Output 01/07/23 01/08/23 01/08/23 22:59 06:59 14:59 Other: Weight 113.398 kg 01/08/23 06:45 01/08/23 06:45
[2023-01-08] MEDS ORDERED: FUROSEMIDE 10 MG/ML 2 ML VIAL IV ONE (14:00)
[2023-01-08] MEDS: APIXABAN 5 MG TAB PO SCH ×2 (14:17→19:56)
[2023-01-08] MEDS: ACETAMINOPHEN TAB 325 MG TAB PO PRN ×2 (16:34→23:47)
[2023-01-08] MEDS: NITROGLYCERIN SL TABS 0.4 MG TAB SUBLINGUAL PRN (16:34)
[2023-01-08] MEDS: METOPROLOL TARTRATE 50 MG TAB PO SCH (19:56)
--- NOTE | 2023-01-09 00:51 | CA ---
Transthoracic Echo Report Name: Gabriele Nolan Age: 57 Gender: M : 1965 Exam Date: 01/08/2023 16:38 Exam Location: [facility] Ht (in): 73 Wt (lb): 250 Ordering Physician: Syed Kelly MD Attending/Referring Phys: [employer] Specialist Adelaide Acuña RDCS Procedure CPT: Indications: palpitations Cardiac Hx: Technical Quality: Fair Contrast 1: Total Dose (mL): Contrast 2: Total Dose (mL): MEASUREMENTS (Male / Female) Normal Values 2D ECHO LV Diastolic Diameter PLAX 5.3 cm 4.2 - 5.9 / 3.9 - 5.3 cm LV Systolic Diameter PLAX 3.6 cm IVS Diastolic Thickness 1.3 cm 0.6 - 1.0 / 0.6 - 0.9 cm LVPW Diastolic Thickness 1.3 cm 0.6 - 1.0 / 0.6 - 0.9 cm LV Relative Wall Thickness 0.5 RV Internal Dim ED PLAX 3.5 cm LA Volume 80.1 cm??? 18 - 58 / 22 - 52 cm??? LA Volume Index 32.7 cm???/m??? 16 - 28 cm???/m??? M-MODE Aortic Root Diameter MM 4.0 cm LA Systolic Diameter MM 4.2 cm LA Ao Ratio MM 1.0 AV Cusp Separation MM 2.3 cm DOPPLER AV Peak Velocity 130.1 cm/s AV Peak Gradient 6.8 mmHg AV Mean Velocity 103.7 cm/s AV Mean Gradient 4.6 mmHg AV Velocity Time Integral 22.9 cm LVOT Peak Velocity 101.0 cm/s LVOT Peak Gradient 4.1 mmHg LVOT Velocity Time Integral 18.7 cm MV E' Velocity 8.5 cm/s FINDINGS Left Ventricle Mildly increased left ventricular wall thickness. Left ventricular cavity size normal. Reduced global left ventricular systolic function. Left ventricular ejection fraction is estimated at 40-45 %. Right Ventricle Mild right ventricular dilatation. Right ventricular systolic pressure within normal limits. Right Atrium Mild right atrial dilatation. Left Atrium Mildly increased left atrial volume. Mildly increased left atrial area. Mitral Valve Structurally normal mitral valve. Mild mitral regurgitation. Aortic Valve Trileaflet aortic valve. No aortic valve stenosis or regurgitation. Tricuspid Valve Structurally normal tricuspid valve. Trace tricuspid regurgitation. Pulmonic Valve Structurally normal pulmonic valve. Pericardium No pericardial effusion. Aorta Normal size aortic root and proximal ascending aorta. CONCLUSIONS 1. Moderately impaired left ventricular systolic function with global hypokinesis 2. Mild mitral regurgitation Previewed by: Dr. Kodi Metzger MD (Electronically Signed) Final Date: 09 January 2023 00:51
[2023-01-09 05:25] LABS: HCT 42.5 % (39.0-53.0); HGB 14.2 gm/dL (13.0-17.5); MCH 31.9 pg (25.0-35.0); MCHC 33.4 g/dL (31.0-37.0); MCV 95.2 fL (80.0-100.0); Mean Platelet Volume 8.4; Platelet Count 221 k/uL (150-450); RBC 4.46 m/uL (4.30-5.90); RDW 12.4 % (11.5-15.5); WBC 5.9 k/uL (3.8-10.6)
[2023-01-09 05:31] LABS: ALT 61 U/L (4-49); AST 31 U/L (17-59); African American GFR (CKD) >90 (>60 ml/min/1.73 sqM); Albumin 3.5 g/dL (3.5-5.0); Alkaline Phosphatase 74 U/L (38-126); Anion Gap 8 mmol/L; Blood Urea Nitrogen 18 mg/dL (9-20); Calcium 8.8 mg/dL (8.4-10.2); Carbon Dioxide 22 mmol/L (22-30); Chloride 107 mmol/L (98-107); Glucose 92 mg/dL (74-99); Non-African American GFR(CKD) 90 (>60 ml/min/1.73 sqM); Potassium 4.1 mmol/L (3.5-5.1); Sodium 137 mmol/L (137-145); Total Bilirubin 1.4 mg/dL (0.2-1.3); Total Protein 6.2 g/dL (6.3-8.2)
[2023-01-09] MEDS: DILTIAZEM 125 MG in SODIUM CHLORIDE 0.9% 100 ML IV SCH (06:16)
[2023-01-09] MEDS: METOPROLOL TARTRATE 50 MG TAB PO SCH ×2 (08:48→20:03)
[2023-01-09] MEDS: CHOLECALCIFEROL 25 MCG (1000 IU) TABLET PO SCH (08:48)
[2023-01-09] MEDS: ASPIRIN 81 MG PO SCH (08:48)
[2023-01-09] MEDS: LORATADINE 10 MG TAB PO SCH (08:48)
[2023-01-09] MEDS: APIXABAN 5 MG TAB PO SCH ×2 (08:48→20:03)
[2023-01-09] MEDS: ACETAMINOPHEN TAB 325 MG TAB PO PRN (08:49)
[2023-01-09] MEDS: NITROGLYCERIN SL TABS 0.4 MG TAB SUBLINGUAL PRN (08:50)
[2023-01-09] MEDS ORDERED: ASPIRIN 325 MG TAB PO SCH (09:00)
[2023-01-09] MEDS: FLUTICASONE 50MCG/SPRAY NASAL 16GM EA NOSTRIL SCH (12:09)
--- NOTE | 2023-01-09 13:01 | P.PN ---
Subjective Progress Note Date: 01/09/23 PROGRESS NOTE The patient is a 57-year-old male with a known history of paroxysmal atrial fibrillation who presented with symptoms of weakness, chest tightness and worsening dyspnea. He has been having no symptoms for few weeks, was seen in the emergency room recently and was in atrial fibrillation subsequently returned to the hospital again with the same symptoms. He does not feel the palpitations on a regular basis. He has been followed by Dr. Coates in the past. He has not been very active physically. He has no clear PND, orthopnea or peripheral edema. He has a history of obstructive sleep apnea but has not been using his CPAP. He drinks alcohol couple times a week but probably more recently. He has rare palpitations. He chews tobacco. He has no history of hypertension or diabetes. He has missed some of his beta [place]in according to him. He has underwent an MPI in the past and according to him he had no evidence of ischemic findings. His left ventricle systolic function has been preserved. January 09: The patient feels better today his breathing is better. He denies any chest discomfort, dizziness or palpitations. He continues to be in atrial fibrillation with better ventricular rate. He denies any nausea or vomiting. His echocardiogram showed a moderately impaired systolic function. He had an MPI in June 2021 that reported an ejection fraction of 45% with no ischemia. Medications: IV Cardizem, metoprolol 50 mg twice a day, Eliquis 5 mg twice a day PHYSICAL EXAMINATION: Blood pressure 123/80 heart rate 70 LUNGS: Clear to auscultation HEART: Irregular rate and rhythm, S1, S2. No S3. No systolic murmur ABDOMEN: Soft, nontender, no organomegaly EXTREMETIES: No edema LAB: Troponin less than 0.0123, potassium 4.1, BUN 18, creatinine 0.95. TSH 1.22 IMPRESSION: 1. Atrial fibrillation, rate under better control, risk score of 1 2. Cardiomyopathy, no evidence of acute ischemia 3. Prior history of tobacco use PLAN: 1. Stop IV Cardizem 2. Add low dose JUAN PABLO inhibitor 3. Increase physical activity 4. Continue anticoagulation 5. If stable probable discharge home tomorrow and if he remains in atrial fibrillation evaluate for rhythm control with cardioversion. Objective - Vital Signs Vital signs: Vital Signs Temp 98.1 F 01/09/23 11:35 Pulse 78 01/09/23 11:35 Resp 18 01/09/23 11:35 BP 102/75 01/09/23 11:35 Pulse Ox 95 01/09/23 11:35 FiO2 Intake & Output 01/08/23 01/09/23 01/09/23 19:59 06:59 18:59 Intake Total 426 Output Total 700 Balance -274 Weight Intake: IV 10 Invasive Line 1 10 Intake, IV Titration Amount Diltiazem 125 mg In Sodium Chloride 0.9% 100 ml @ 5 MG/HR 5 mls/hr IV .Q24H [facility] Rx#:[id number] Heparin Sod,Pork in 0.45% NaCl 25,000 unit In 0.45 % NaCl 1 250ml.bag @ 8. 819 UNITS/KG/HR 10.001 mls/hr IV .Q24H [facility] Rx#: [id number] Oral 416 Output: Urine 700 Other: Voiding Method Urinal # Voids 1 # Bowel Movements - Labs CBC & Chem 7: 01/09/23 04:58 01/09/23 04:58 Labs: Abnormal Lab Results - Last 24 Hours (Table) 01/09/23 Range/Units 04:58 Total Bilirubin 1.4 H (0.2-1.3) mg/dL ALT 61 H (4-49) U/L Total Protein 6.2 L (6.3-8.2) g/dL
[2023-01-09 13:34] LABS: Chol/HDL Ratio 2.84 Ratio; LDL Cholesterol,Calculated 78.5 mg/dL (0.0-131.0)
--- NOTE | 2023-01-09 13:44 | P.PN ---
Subjective Progress Note Date: 01/09/23 patient is a 57-year-old gentleman with past medical history significant for atrial fibrillation who presented to the ER for palpitation. Patient was seen yesterday for similar complaint at this time he was found to have A. fib with RVR, patient was given IV Cardizem push and his heart rate improved and was discharged on increased dose of Lopressor. Patient stated that overnight he was woken up again with complaint of chest pressure and palpitation. Chest pressure was central location, nonradiating, no aggravating or relieving factors associated with chest pain. Patient was complaining of palpitation or shortness of breath. Denies any nausea or vomiting. Because of these complaints he came back to the ER and was found to be in A. fib with RVR. Initial lab work done in the ER showed WBC 7.1, hemoglobin 14.7, platelet count 240, sodium 137 potassium 4.4, BUN 16, creatinine 0.96, AST 50, ALT 75, troponin 0.012 proBNP 1930 EKG done in the ER heart rate 117, QRS 97, no P waves seen, no T-wave inversion, no ST segment elevation or depression patient was admitted to medicine service 01/09. Patient seen and examined. Denies any palpitations. No further episodes of shortness of breath. Does complain of chest pain on and off. Vital signs stable REVIEW OF SYSTEMS: CONSTITUTIONAL: No fever, no malaise,. CARDIOVASCULAR: No chest pain, no palpitations, no syncope. PULMONARY: No shortness of breath, no cough, GASTROINTESTINAL: No diarrhea, no nausea, no vomiting, no abdominal pain. NEUROLOGICAL: No headaches, no weakness, PHYSICAL EXAMINATION: GENERAL: The patient is alert and oriented x3, not in any acute distress. Well developed, well nourished. HEENT: Pupils are round and equally reacting to light. EOMI. No scleral icterus. No conjunctival pallor. Normocephalic, atraumatic. No pharyngeal erythema. No thyromegaly. CARDIOVASCULAR: S1 and S2 present. No murmurs, rubs, or gallops. PULMONARY: Chest is clear to auscultation, no wheezing or crackles. ABDOMEN: Soft, nontender, nondistended, normoactive bowel sounds. No palpable organomegaly. MUSCULOSKELETAL: No joint swelling or deformity. EXTREMITIES: No cyanosis, clubbing, or pedal edema. NEUROLOGICAL: Gross neurological examination did not reveal any focal deficits. SKIN: No rashes. Assessment and plan A. fib with RVR Chest pain Chronic tobacco use Alcohol intake Questionable compliance History of obstructive sleep apnea not using CPAP Monitor vital signs Monitor CBC Monitor CMP Continue telemetry monitoring Trend troponin DC Cardizem Continue Eliquis Ordered 2-D echo Continue Lopressor Cardiology following Labs and medication were reviewed.. Continue same treatment. Continue with symptomatic treatment. Resume home medication. Monitor labs and vitals. DVT and GI prophylaxis. Further recommendations as per clinical course of the patient Dictation was produced using [employer] dictation software. please excuse any grammatical, word or spelling errors. Objective - Vital Signs Vital signs: Vital Signs Temp 98.0 F 01/09/23 08:39 Pulse 98 01/09/23 08:39 Resp 18 01/09/23 08:39 BP 123/80 01/09/23 08:39 Pulse Ox 94 L 01/09/23 08:39 FiO2 Intake & Output 01/08/23 01/09/23 01/09/23 19:59 06:59 18:59 Intake Total 426 Output Total Balance 426 Weight Intake: IV 10 Invasive Line 1 10 Intake, IV Titration Amount Diltiazem 125 mg In Sodium Chloride 0.9% 100 ml @ 5 MG/HR 5 mls/hr IV .Q24H [facility] Rx#:[id number] Heparin Sod,Pork in 0.45% NaCl 25,000 unit In 0.45 % NaCl 1 250ml.bag @ 8. 819 UNITS/KG/HR 10.001 mls/hr IV .Q24H [facility] Rx#: [id number] Oral 416 Output: Urine Other: Voiding Method # Bowel Movements - Labs CBC & Chem 7: 01/09/23 04:58 01/09/23 04:58 Labs: Abnormal Lab Results - Last 24 Hours (Table) 01/09/23 Range/Units 04:58 Total Bilirubin 1.4 H (0.2-1.3) mg/dL ALT 61 H (4-49) U/L Total Protein 6.2 L (6.3-8.2) g/dL
[2023-01-10] MEDS: CHOLECALCIFEROL 25 MCG (1000 IU) TABLET PO SCH (09:06)
[2023-01-10] MEDS: ASPIRIN 81 MG PO SCH (09:06)
[2023-01-10] MEDS: METOPROLOL TARTRATE 50 MG TAB PO SCH ×3 (09:07→21:01)
[2023-01-10] MEDS: FLUTICASONE 50MCG/SPRAY NASAL 16GM EA NOSTRIL SCH (09:07)
[2023-01-10] MEDS: APIXABAN 5 MG TAB PO SCH (09:07)
[2023-01-10] MEDS: LORATADINE 10 MG TAB PO SCH (09:07)
--- NOTE | 2023-01-10 12:06 | P.PN ---
Subjective Progress Note Date: 01/10/23 patient is a 57-year-old gentleman with past medical history significant for atrial fibrillation who presented to the ER for palpitation. Patient was seen yesterday for similar complaint at this time he was found to have A. fib with RVR, patient was given IV Cardizem push and his heart rate improved and was discharged on increased dose of Lopressor. Patient stated that overnight he was woken up again with complaint of chest pressure and palpitation. Chest pressure was central location, nonradiating, no aggravating or relieving factors associated with chest pain. Patient was complaining of palpitation or shortness of breath. Denies any nausea or vomiting. Because of these complaints he came back to the ER and was found to be in A. fib with RVR. Initial lab work done in the ER showed WBC 7.1, hemoglobin 14.7, platelet count 240, sodium 137 potassium 4.4, BUN 16, creatinine 0.96, AST 50, ALT 75, troponin 0.012 proBNP 1930 EKG done in the ER heart rate 117, QRS 97, no P waves seen, no T-wave inversion, no ST segment elevation or depression patient was admitted to medicine service 01/09. Patient seen and examined. Denies any palpitations. No further episodes of shortness of breath. Does complain of chest pain on and off. Vital signs stable 01/10. Patient seen and examined. Still having shortness of breath on exertion. Complaining of palpitations. REVIEW OF SYSTEMS: CONSTITUTIONAL: No fever, no malaise,. CARDIOVASCULAR: No chest pain, no palpitations, no syncope. PULMONARY: No shortness of breath, no cough, GASTROINTESTINAL: No diarrhea, no nausea, no vomiting, no abdominal pain. NEUROLOGICAL: No headaches, no weakness, PHYSICAL EXAMINATION: GENERAL: The patient is alert and oriented x3, not in any acute distress. Well developed, well nourished. HEENT: Pupils are round and equally reacting to light. EOMI. No scleral icterus. No conjunctival pallor. Normocephalic, atraumatic. No pharyngeal erythema. No thyromegaly. CARDIOVASCULAR: S1 and S2 present. No murmurs, rubs, or gallops. PULMONARY: Chest is clear to auscultation, no wheezing or crackles. ABDOMEN: Soft, nontender, nondistended, normoactive bowel sounds. No palpable organomegaly. MUSCULOSKELETAL: No joint swelling or deformity. EXTREMITIES: No cyanosis, clubbing, or pedal edema. NEUROLOGICAL: Gross neurological examination did not reveal any focal deficits. SKIN: No rashes. Assessment and plan A. fib with RVR Chest pain Chronic tobacco use Alcohol intake Questionable compliance History of obstructive sleep apnea not using CPAP Monitor vital signs Monitor CBC Monitor CMP Continue telemetry monitoring Trend troponin Continue Eliquis and Lopressor Ordered 2-D echo Cardiology following Labs and medication were reviewed.. Continue same treatment. Continue with symptomatic treatment. Resume home medication. Monitor labs and vitals. DVT and GI prophylaxis. Further recommendations as per clinical course of the benedict carrizalse Dictation was produced using [employer] dictation software. please excuse any grammatical, word or spelling errors. Objective - Vital Signs Vital signs: Vital Signs Temp 97.8 F 01/10/23 04:10 Pulse 90 01/10/23 04:10 Resp 16 01/10/23 04:10 BP 117/74 01/10/23 04:10 Pulse Ox 98 01/10/23 04:10 FiO2 Intake & Output 01/09/23 01/10/23 01/10/23 18:59 06:59 18:59 Intake Total 941 240 Output Total 1750 1775 Balance -809 -1775 240 Intake: IV 10 Invasive Line 1 10 Intake, IV Titration 35 Amount Diltiazem 125 mg In 35 Sodium Chloride 0.9% 100 ml @ 5 MG/HR 5 mls/hr IV .Q24H [facility] Rx#:[id number] Oral 896 240 Output: Urine 1750 1775 Other: Voiding Method Urinal Urinal # Voids 1 2 - Labs CBC & Chem 7: 01/09/23 04:58 01/09/23 04:58
--- NOTE | 2023-01-10 13:36 | CDI ---
Documentation Clarification Form Date: From: Smiley Morin Phone: [phone] Admit Date: 01/08/2023 11:28:00 AM Patient Name: Gabriele Nolan Visit Number: [id number] Discharge Date: ATTENTION: The Clinical Documentation Specialists (CDI) and [facility] Coding Staff appreciate your assistance in clarifying documentation. Please respond to the clarification below the line at the bottom and electronically sign. The CDI & [facility] Coding staff will review the response and follow-up if needed. Please note: Queries are made part of the Legal Health Record. If you have any questions, please contact the author of this message via ITS. Dr. Syed Kelly Your patient has chest pressure, shortness of breath and impaired left ventricular systolic function. Based on this information and the findings below, is there an additional diagnosis that is clinically appropriate for this patient? Patient history/risk factors: "57-year-old gentleman with past medical history significant for atrial fibrillation who presented to the ER for palpitation. Patient was seen yesterday for similar complaint at this time he was found to have A. fib with RVR, patient was given IV Cardizem push and his heart rate improved and was discharged on increased dose of Lopressor. Patient stated that overnight he was woken up again with complaint of chest pressure and palpitation." - Per H&P on 01/08 Clinical Indicators: "His left ventricle systolic function has been preserved." "Extremities: No edema, intact distal pulses." - Per Cardiology Note on 01/08 BNP: 1930 01/08 Echocardiogram Results: 01/08 "CONCLUSIONS 1.Moderately impaired left ventricular systolic function with global hypokinesis" Treatment: Per Cardiology Note on 01/08 "1. Add anticoagulation for now 2. Obtain an echocardiogram with Doppler 3. IV Lasix 1 4. Continue beta austin" Is there an additional diagnosis that is clinically appropriate for this patient? [ ] Chronic Systolic Heart Failure (reduced EF) [ ] Acute on Chronic Systolic Heart Failure (reduced EF) [ ] No additional diagnosis/Not clinically significant [ ] Other, please specify [ ] Unable to determine MTDD
--- NOTE | 2023-01-10 13:46 | P.PN ---
Subjective Progress Note Date: 01/10/23 PROGRESS NOTE The patient is a 57-year-old male with a known history of paroxysmal atrial fibrillation who presented with symptoms of weakness, chest tightness and worsening dyspnea. He has been having no symptoms for few weeks, was seen in the emergency room recently and was in atrial fibrillation subsequently returned to the hospital again with the same symptoms. He does not feel the palpitations on a regular basis. He has been followed by Dr. Coates in the past. He has not been very active physically. He has no clear PND, orthopnea or peripheral edema. He has a history of obstructive sleep apnea but has not been using his CPAP. He drinks alcohol couple times a week but probably more recently. He has rare palpitations. He chews tobacco. He has no history of hypertension or diabetes. He has missed some of his beta [place] according to him. He has underwent an MPI in the past and according to him he had no evidence of ischemic findings. His left ventricle systolic function has been preserved. January 09: The patient feels better today his breathing is better. He denies any chest discomfort, dizziness or palpitations. He continues to be in atrial fibrillation with better ventricular rate. He denies any nausea or vomiting. His echocardiogram showed a moderately impaired systolic function. He had an MPI in June 2021 that reported an ejection fraction of 45% with no ischemia. Medications: IV Cardizem, metoprolol 50 mg twice a day, Eliquis 5 mg twice a day 01/10 Patient is seen today in follow-up. He states he has not been using his CPAP as it has not been working for the past 2 months. Patient remains in atrial fibrillation at a rate of 7790s, blood pressure 117/74. He is maintained on eliquis 5 mg twice daily and Lopressor 50 mg twice daily. Also lisinopril has been added on this hospitalization. PHYSICAL EXAMINATION: LUNGS: Clear to auscultation HEART: Irregular rate and rhythm, S1, S2. No S3. No systolic murmur ABDOMEN: Soft, nontender, no organomegaly EXTREMETIES: No edema IMPRESSION: 1. Atrial fibrillation, rate under better control, risk score of 1 2. Cardiomyopathy, no evidence of acute ischemia 3. Prior history of tobacco use PLAN: Continue current cardiac medications Continue eliquis Plan to continue anticoagulation and if he remains in atrial fibrillation evaluate for rhythm control with cardioversion as an outpatient. Nurse practitioner note has been reviewed, I agree with the documented findings and plan of care. Patient was seen and examined. Objective - Vital Signs Vital signs: Vital Signs Temp 98.0 F 01/10/23 08:00 Pulse 76 01/10/23 08:00 Resp 16 01/10/23 08:00 BP 103/59 01/10/23 08:00 Pulse Ox 95 01/10/23 08:00 FiO2 Intake & Output 01/09/23 01/10/23 01/10/23 18:59 06:59 18:59 Intake Total 941 240 Output Total 1750 1775 1000 Balance -217 -5132 -976 Intake: IV 10 Invasive Line 1 10 Intake, IV Titration 35 Amount Diltiazem 125 mg In 35 Sodium Chloride 0.9% 100 ml @ 5 MG/HR 5 mls/hr IV .Q24H [facility] Rx#:[id number] Oral 896 240 Output: Urine 1750 1775 1000 Other: Voiding Method Urinal Urinal Urinal # Voids 1 2 - Labs CBC & Chem 7: 01/09/23 04:58 01/09/23 04:58
[2023-01-10 15:41] VITALS: BMI 33.0
[2023-01-11] MEDS: LORATADINE 10 MG TAB PO SCH (08:19)
[2023-01-11] MEDS: CHOLECALCIFEROL 25 MCG (1000 IU) TABLET PO SCH (08:19)
[2023-01-11] MEDS: METOPROLOL TARTRATE 50 MG TAB PO SCH ×3 (08:19→20:25)
[2023-01-11] MEDS: FLUTICASONE 50MCG/SPRAY NASAL 16GM EA NOSTRIL SCH (08:19)
[2023-01-11] MEDS: ASPIRIN 81 MG PO SCH (08:20)
[2023-01-11] MEDS ORDERED: NITROGLYCERIN SL TABS 0.4 MG TAB SUBLINGUAL PRN (12:20)
[2023-01-11] MEDS ORDERED: ASPIRIN 325 MG TAB PO STA (12:20)
[2023-01-11] MEDS ORDERED: ALPRAZolam 0.25 MG TAB PO PRN (12:20)
[2023-01-11] MEDS ORDERED: ALPRAZolam 0.5 MG TAB PO PRN (12:20)
[2023-01-11] MEDS ORDERED: ATORVASTATIN 80 MG TAB PO STA (12:20)
[2023-01-11] MEDS ORDERED: HEPARIN SODIUM 1,000 UN/ML (10ML VL) IV ONE (12:55)
[2023-01-11] MEDS ORDERED: HEPARIN SODIUM 1,000 UN/ML (10ML VL) IV PRN (12:55)
[2023-01-11] MEDS ORDERED: HEPARIN SOD,PORK IN 0.45% NACL 25,000 UNIT in 0.45% NACL 1 250ML.BAG IV SCH (13:30)
--- NOTE | 2023-01-11 13:58 | P.PN ---
Subjective Progress Note Date: 01/11/23 PROGRESS NOTE The patient is a 57-year-old male with a known history of paroxysmal atrial fibrillation who presented with symptoms of weakness, chest tightness and worsening dyspnea. He has been having no symptoms for few weeks, was seen in the emergency room recently and was in atrial fibrillation subsequently returned to the hospital again with the same symptoms. He does not feel the palpitations on a regular basis. He has been followed by Dr. Coates in the past. He has not been very active physically. He has no clear PND, orthopnea or peripheral edema. He has a history of obstructive sleep apnea but has not been using his CPAP. He drinks alcohol couple times a week but probably more recently. He has rare palpitations. He chews tobacco. He has no history of hypertension or diabetes. He has missed some of his beta [place]in according to him. He has underwent an MPI in the past and according to him he had no evidence of ischemic findings. His left ventricle systolic function has been preserved. January 09: The patient feels better today his breathing is better. He denies any chest discomfort, dizziness or palpitations. He continues to be in atrial fibrillation with better ventricular rate. He denies any nausea or vomiting. His echocardiogram showed a moderately impaired systolic function. He had an MPI in June 2021 that reported an ejection fraction of 45% with no ischemia. Medications: IV Cardizem, metoprolol 50 mg twice a day, Eliquis 5 mg twice a day 01/10 Patient is seen today in follow-up. He states he has not been using his CPAP as it has not been working for the past 2 months. Patient remains in atrial fibrillation at a rate of 7790s, blood pressure 117/74. He is maintained on eliquis 5 mg twice daily and Lopressor 50 mg twice daily. Also lisinopril has been added on this hospitalization. 01/11 Patient had episode of chest pain #2/3. This occurred early this morning with some movement in bed. He didn't want take any nitroglycerin due to causing headache in the past. Patient remains in atrial fibrillation and heart rate is between 59 and 73. Blood pressure 109/72, pulse ox 96% on 3 L nasal cannula. Patient last received eliquis yesterday morning. Unclear why this was discontinued. We'll plan to start the patient on heparin drip and scheduled for cardiac catheterization tomorrow. PHYSICAL EXAMINATION: LUNGS: Clear to auscultation HEART: Irregular rate and rhythm, S1, S2. No S3. No systolic murmur ABDOMEN: Soft, nontender, no organomegaly EXTREMETIES: No edema IMPRESSION: 1. Atrial fibrillation, rate under better control, risk score of 1 2. Cardiomyopathy, no evidence of acute ischemia 3. Prior history of tobacco use PLAN: Continue current cardiac medications Start patient on heparin drip Schedule patient for cardiac catheterization tomorrow with Dr. Sara Moraes will be resumed following procedure Plan to continue anticoagulation and if he remains in atrial fibrillation evaluate for rhythm control with cardioversion as an outpatient. Nurse practitioner note has been reviewed, I agree with the documented findings and plan of care. Patient was seen and examined. Objective - Vital Signs Vital signs: Vital Signs Temp 98.1 F 01/11/23 11:15 Pulse 73 01/11/23 11:15 Resp 18 01/11/23 11:15 BP 109/72 01/11/23 11:15 Pulse Ox 96 01/11/23 11:15 FiO2 Intake & Output 01/10/23 01/11/23 01/11/23 18:59 06:59 18:59 Intake Total 838 120 Output Total 1000 900 900 Balance -162 -900 -780 Weight 113.398 kg Intake: Oral 838 120 Output: Urine 1000 900 900 Other: Voiding Method Urinal Urinal # Voids 3 - Labs CBC & Chem 7: 01/09/23 04:58 01/09/23 04:58
--- NOTE | 2023-01-11 15:02 | P.PN ---
Subjective Progress Note Date: 01/11/23 Stage LVI gentleman who has a two-year history of atrial fibrillation was anticoagulated and on metoprolol patient however due to insurance issues he had not been taking his medication over the last 90 days. He recently obtained health insurance and was reestablished with a PCP in to see Dr. Bahena who felt patient had EKG changes and sent him in for evaluation. Came in with atrial fibrillation with rapid ventricular rate on admission he was treated with IV Cardizem currently now on oral metoprolol. He remains in A. fib however his heart rate is well-controlled in the 50s to 70s. He does report episode of chest pain overnight states that it was midsternal and had shortness of breath while lying flat. He states that the oxygen did help his chest pain was not given nitro as this has caused a headache in the past. Echocardiogram showing an EF of 40-45% with global hypokinesis. Mild MR. Review of Systems Constitutional: Denied any fatigue denied any fever. Cardio vascular: denied any chest pain, palpitations Gastrointestinal: denied any nausea, vomiting, diarrhea Pulmonary: Denied any shortness of breath cough Neurologic denied any new focal deficits All inpatient medications were reviewed and appropriate changes in these medications as dictated in the interval history and assessment and plan. PHYSICAL EXAMINATION: GENERAL: The patient is alert and oriented x3, not in any acute distress. Well developed, well nourished. On 2 L of oxygen HEENT: Pupils are round and equally reacting to light. EOMI. No scleral icterus. No conjunctival pallor. Normocephalic, atraumatic. No pharyngeal erythema. No thyromegaly. CARDIOVASCULAR: S1 and S2 present. No murmurs, rubs, or gallops. PULMONARY: Chest is clear to auscultation, no wheezing or crackles. ABDOMEN: Soft, nontender, nondistended, normoactive bowel sounds. No palpable organomegaly. MUSCULOSKELETAL: No joint swelling or deformity. EXTREMITIES: No cyanosis, clubbing, or pedal edema. NEUROLOGICAL: Gross neurological examination did not reveal any focal deficits. SKIN: No rashes. Assessment Fibrillation with rapid ventricular rate now rate controlled anticoagulated with eliquis Chest pain concern for ACS Cardiomyopathy felt nonischemic with EF 40-45%. Chronic tobacco use Alcohol use disorder Medication noncompliance due to insurance issues History of obstructive sleep apnea not using CPAP GI prophylaxis DVT prophylaxis Plan Cardiology planning for cardiac catheterization, IV heparin started will resume eliquis after procedure tomorrow Possible cardioversion outpatient. The impression and plan of care has been dictated by Misty Cunningham, Nurse Practitioner as directed. Dr. Helen MD I have performed a history and physical examination and medical decision making of this patient, discussed the same with the dictator, and agree with the dictators assessment and plan as written, documented as a scribe. Based on total visit time, I have performed more than 50% of this visit. Objective - Vital Signs Vital signs: Vital Signs Temp 98.1 F 01/11/23 11:15 Pulse 73 01/11/23 14:10 Resp 18 01/11/23 11:15 BP 109/72 01/11/23 11:15 Pulse Ox 96 01/11/23 11:15 FiO2 Intake & Output 01/10/23 01/11/23 01/11/23 18:59 06:59 18:59 Intake Total 838 120 Output Total 1000 900 900 Balance -162 -900 -780 Weight 113.398 kg Intake: Oral 838 120 Output: Urine 1000 900 900 Other: Voiding Method Urinal Urinal # Voids 3 - Labs CBC & Chem 7: 01/09/23 04:58 01/09/23 04:58 Assessment and Plan Time with Patient: Less than 30
[2023-01-11 16:45] VITALS: RESP 16
[2023-01-12] MEDS ORDERED: ATORVASTATIN 80 MG TAB PO ONE (06:00)
[2023-01-12] MEDS: FLUTICASONE 50MCG/SPRAY NASAL 16GM EA NOSTRIL SCH (06:40)
[2023-01-12] MEDS: CHOLECALCIFEROL 25 MCG (1000 IU) TABLET PO SCH (06:40)
[2023-01-12] MEDS: METOPROLOL TARTRATE 50 MG TAB PO SCH ×2 (06:42→16:28)
[2023-01-12] MEDS: LORATADINE 10 MG TAB PO SCH (06:42)
[2023-01-12] MEDS: ASPIRIN 81 MG PO SCH (06:42)
[2023-01-12] MEDS ORDERED: HEPARIN SODIUM,PORCINE 10,000 UNIT in SODIUM CHLORIDE 0.9% 1,000 ML IRRIGATION PRN (07:00)
[2023-01-12] MEDS ORDERED: HEPARIN SODIUM,PORCINE (1 ML) 2,500 UNIT in SODIUM CHLORIDE 0.9% 250 ML IRRIGATION PRN (07:00)
[2023-01-12] MEDS ORDERED: ASPIRIN 325 MG TAB PO ONE (08:00)
[2023-01-12] MEDS ORDERED: ASPIRIN 325 MG TAB PO STA (08:42)
[2023-01-12] MEDS ORDERED: ATORVASTATIN 80 MG TAB PO STA ×2 (08:42→09:17)
[2023-01-12] MEDS ORDERED: IV FLUID CONTINUATION 1,000 ML IV ONE (10:00)
[2023-01-12] MEDS ORDERED: fentaNYL (PF) 50 MCG/ML 2 ML AMP IVP ONE (10:03)
[2023-01-12] MEDS ORDERED: MIDAZOLAM 2 MG/2 ML VIAL IVP ONE (10:03)
[2023-01-12] MEDS ORDERED: LIDOCAINE 1% INJ 10MG/ML (30 ML VIAL-PF) SQ ONE (10:03)
[2023-01-12] MEDS: VERAPAMIL SYRINGE (5 MG/10 ML) INTRAARTER ONE ×2 (10:10→10:26)
[2023-01-12] MEDS ORDERED: HEPARIN SODIUM 1,000 UN/ML (10ML VL) IV ONE (10:16)
[2023-01-12] MEDS ORDERED: IOPAMIDOL-370 100ML BTL INJ ONE (10:32)
[2023-01-12 10:41] VITALS: TEMP 97.8
--- NOTE | 2023-01-12 10:55 | CC ---
CARDIAC CATHETERIZATION REPORT INDICATIONS: Unstable angina. PROCEDURE NOTE: After obtaining informed consent, left heart catheterization and coronary angiogram were performed via the right radial artery using standard Roney catheters. The patient tolerated the procedure well without any obvious immediate complications. The patient received verapamil and heparin per protocol. Right radial artery access was obtained using Seldinger technique. A 6-Hungarian sheath was placed. Catheters and wires were floated into the ascending aorta under fluoroscopic guidance. The patient received moderate conscious sedation. Total sedation time was 28 minutes. FINDINGS: 1. Central aortic pressure 100/70 mm. 2. Left ventriculogram: Left ventriculogram is not performed. ANGIOGRAPHIC DATA: 1. Right coronary artery: Right coronary artery is a nondominant vessel and is free of significant stenosis. 2. Left main coronary artery is a normal-sized vessel and is free of disease. It divides into left anterior descending coronary artery and circumflex coronary artery, LAD, and its branches. 3. Circumflex coronary artery and its branches are free of significant stenosis. CONCLUSIONS: Normal coronary arteries. PLAN: The patient's chest discomfort is probably noncardiac in origin and his management is going to be in the form of risk factor modification and optimal medical therapy. The patient is in atrial fibrillation and we will anticoagulate him for the next 3 weeks and cardiovert him after that. MMODL / IJN: [id number] /
[2023-01-12] MEDS ORDERED: RX INFO: IV CONTRAST WAS GIVEN 1 EACH MISC MISCELLANE PRN (11:55)
[2023-01-12] MEDS ORDERED: APIXABAN 5 MG TAB PO SCH (12:00)
[2023-01-12 17:11] VITALS: BP 100/66; PULSE 65
--- NOTE | 2023-01-16 08:47 | P.DS ---
Providers Date of admission: 01/08/23 11:28 Attending physician: Syed Kelly MD Consults: 01/08/23 10:11 Consult Physician Urgent Consulting Provider: Jhonathan Barroso Consult Reason/Comments: afib, chest pain Do you want consulting provider notified?: Yes Primary care physician: Edward Bahena Hospital Course: Final Diagnosis Atrial Fibrillation with rapid ventricular rate now rate controlled anticoagulated with eliquis Chest pain likely due to the a.fib cardiac cath was clear. Cardiomyopathy felt nonischemic with EF 40-45%. Chronic tobacco use Alcohol use disorder Medication noncompliance due to insurance issues History of obstructive sleep apnea uses CPAP at HS. Full Code Discharge Disposition Patient is stable for discharge home has been cleared by cardiology. Patient can discharge home later today once recovered without incident from the TR band removal. Instructed to Avoid use of the right wrist for one week including lifting more than 5 lbs. NO driving for 3 days. Work note has been given ok to return to work Tuesday. Patient discharged on eliquis 5 mg BID. Hospital Course This is a 57 year old gentleman who has a two-year history of paroxysmal atrial fibrillation was anticoagulated and on metoprolol patient however due to insurance issues he had not been taking his medication over the last 90 days. He has been having symptoms for few weeks, was seen in the emergency room recently and was in atrial fibrillation subsequently returned to the hospital again with the same symptoms. He does not feel the palpitations on a regular basis. He has been followed by Dr. Coates in the past. He recently obtained health insurance and was reestablished with a PCP in to see Dr. Bahena who felt patient had EKG changes and sent him in for evaluation. Came in with atrial fibrillation with rapid ventricular rate on admission he was treated with IV Cardizem currently now on oral metoprolol. He remains in A. fib however his heart rate is well-controlled in the 50s to 70s. He does report episode of chest pain overnight states that it was midsternal and had shortness of breath while lying flat. He states that the oxygen did help his chest pain was not given nitro as this has caused a headache in the past. Echocardiogram showing an EF of 40-45% with global hypokinesis. Mild MR. He states he has not been using his CPAP as it has not been working for the past 2 months. Patient un derwent cardiac catheterization which reveals no blockages. He was cleared for discharge home after recovery from cardiac cath. No reports of chest pain, no shortness of breath. Lungs are clear, S1 S2 auscultated. Hemodynamically he is stable. Please see medication reconciliation for a list of current medications. Thank you for allowing us to participate in the care of this patient. The impression and plan of care has been dictated by Misty Cunningham, Nurse Practitioner as directed. Dr. Helen MD I have performed a history and physical examination and medical decision making of this patient, discussed the same with the dictator, and agree with the dictators assessment and plan as written, documented as a scribe. Based on total visit time, I have performed more than 50% of this visit. Patient Condition at Discharge: Fair Plan - Discharge Summary Discharge Rx Participant: No New Discharge Prescriptions: New Apixaban [Eliquis] 5 mg PO BID #180 tab lisinopriL [Zestril] 2.5 mg PO DAILY #90 tab Continue Cholecalciferol [Vitamin D3 (25 Mcg = 1000 Iu)] 50 mcg PO DAILY Multivitamin [Multivitamins Adult Gummies] 2 tab PO DAILY Metoprolol Tartrate [Lopressor] 50 mg PO BID Fluticasone Nasal [place] [Flonase Nasal [place]] 2 spray EA NOSTRIL DAILY Loratadine [Claritin] 10 mg PO DAILY Aspirin EC [Ecotrin Low Dose] 81 mg PO DAILY Discharge Medication List Cholecalciferol [Vitamin D3 (25 Mcg = 1000 Iu)] 50 mcg PO DAILY 01/13/22 [History] Fluticasone Nasal [place] [Flonase Nasal [place]] 2 spray EA NOSTRIL DAILY 01/13/22 [History] Aspirin EC [Ecotrin Low Dose] 81 mg PO DAILY 01/07/23 [History] Loratadine [Claritin] 10 mg PO DAILY 01/07/23 [History] Multivitamin [Multivitamins Adult Gummies] 2 tab PO DAILY 01/07/23 [History] Metoprolol Tartrate [Lopressor] 50 mg PO BID 01/08/23 [History] Apixaban [Eliquis] 5 mg PO BID #180 tab 01/12/23 [Rx] lisinopriL [Zestril] 2.5 mg PO DAILY #90 tab 01/12/23 [Rx] Follow up Appointment(s)/Referral(s): Edward Bahena MD [Primary Care Provider] - 01/14/23 11:20 am Best Coates MD [STAFF PHYSICIAN] - 3 Weeks (unable to reach office, will have patient call to make appointment tomorrow) Patient Instructions/Handouts: *Surgery [facility] - After Heart Catheterization - Screen Stretcher Instructions Activity/Diet/Wound Care/Special Instructions: Avoid use of the right wrist for one week Patient is cleared from cardiology to return to work on Tuesday. Discharge/Stand Alone Forms: Work/Release Restrictions Form, Work/School Release / Restrict Discharge Disposition: HOME SELF-CARE
--- NOTE | 2023-01-24 10:22 | CDI ---
Documentation Clarification Form Date: 01/10/2023 01:36:00 PM From: Smiley Morin Phone: [phone] Admit Date: 01/08/2023 11:28:00 AM Patient Name: Gabriele Nolan Visit Number: [id number] Discharge Date: 01/12/2023 04:58:00 PM ATTENTION: The Clinical Documentation Specialists (CDI) and [facility] Coding Staff appreciate your assistance in clarifying documentation. Please respond to the clarification below the line at the bottom and electronically sign. The CDI & [facility] Coding staff will review the response and follow-up if needed. Please note: Queries are made part of the Legal Health Record. If you have any questions, please contact the author of this message via ITS. Dr. Syed Kelly Your patient has chest pressure, shortness of breath and impaired left ventricular systolic function. Based on this information and the findings below, is there an additional diagnosis that is clinically appropriate for this patient? Patient history/risk factors: "57-year-old gentleman with past medical history significant for atrial fibrillation who presented to the ER for palpitation. Patient was seen yesterday for similar complaint at this time he was found to have A. fib with RVR, patient was given IV Cardizem push and his heart rate improved and was discharged on increased dose of Lopressor. Patient stated that overnight he was woken up again with complaint of chest pressure and palpitation." - Per H&P on 01/08 Clinical Indicators: "His left ventricle systolic function has been preserved." "Extremities: No edema, intact distal pulses." - Per Cardiology Note on 01/08 BNP: 1930 01/08 Echocardiogram Results: 01/08 "CONCLUSIONS 1.Moderately impaired left ventricular systolic function with global hypokinesis" Treatment: Per Cardiology Note on 01/08 "1. Add anticoagulation for now 2. Obtain an echocardiogram with Doppler 3. IV Lasix 1 4. Continue beta [place]" Is there an additional diagnosis that is clinically appropriate for this patient? [ ] Chronic Systolic Heart Failure (reduced EF) [x ] Acute on Chronic Systolic Heart Failure (reduced EF) [ ] No additional diagnosis/Not clinically significant [ ] Other, please specify [ ] Unable to determine MTDD
== END 2023-01-12 16:58 | disposition home or self-care (01) | DRG 286 ==
LOC: EC 06:08 → 3SCARD 11:28
PROVIDERS: ADMIT Internal Medicine; ATTEND Internal Medicine
PROC: B2111ZZ Fluoroscopy of Multiple Coronary Arteries using Low Osmolar Contrast (ICD-10-PCS; principal; 2023-01-12 09:00)
PROC: 4A023N7 Measurement of Cardiac Sampling and Pressure, Left Heart, Percutaneous Approach (ICD-10-PCS; principal; 2023-01-12 09:00)
DX: I48.0 Paroxysmal atrial fibrillation (principal); I50.23 Acute on chronic systolic (congestive) heart failure; I20.0 Unstable angina; F41.9 Anxiety disorder, unspecified; F17.200 Nicotine dependence, unspecified, uncomplicated; I42.8 Other cardiomyopathies; F17.220 Nicotine dependence, chewing tobacco, uncomplicated; F10.10 Alcohol abuse, uncomplicated; G47.33 Obstructive sleep apnea (adult) (pediatric); T44.7X6A Underdosing of beta-adrenoreceptor antagonists, initial encounter; Z91.199 Patient's noncompliance with other medical treatment and regimen due to unspecified reason; Z91.148 Patient's other noncompliance with medication regimen for other reason; Z79.899 Other long term (current) drug therapy; Z79.82 Long term (current) use of aspirin; Z71.41 Alcohol abuse counseling and surveillance of alcoholic; Z71.6 Tobacco abuse counseling
CPT/HCPCS: 36415; 71046; 80053; 80061; 83735; 83880; 84443; 84484; 85025; 85027; 85379; 85610; 85730; 93005; 93306; 93454; 94760; 96365; 96366; 96368; 99291

== ENCOUNTER 2023-02-10 05:57 | Day surgery (SDC) | payer BC ==
[2023-02-09 09:07] VITALS: BMI 33.0
[2023-02-10] MEDS ORDERED: DEXAMETHASONE SOD PHOSPHATE 4 MG/ML 1 ML VIAL IV ONE (06:18)
[2023-02-10] MEDS ORDERED: HYDROmorphone 0.5 MG/0.5 ML SYRINGE IVP PRN (06:18)
[2023-02-10] MEDS ORDERED: ONDANSETRON 4 MG/2 ML VIAL IVP ONE (06:18)
[2023-02-10] MEDS ORDERED: LACTATED RINGERS 1,000 ML IV SCH (06:18)
[2023-02-10] MEDS ORDERED: SODIUM CHLORIDE 0.9% 500 ML 500 ML IV ONE (06:42)
[2023-02-10] MEDS ORDERED: LIDOCAINE 1% INJ 10MG/ML (20 ML MDV) ONE (07:08)
[2023-02-10] MEDS ORDERED: PROPOFOL 10 MG/ML 20 ML VIAL IV ONE (07:08)
[2023-02-10 07:31] LABS: African American GFR (CKD) >90 (>60 ml/min/1.73 sqM); Anion Gap 11 mmol/L; Blood Urea Nitrogen 26 mg/dL (9-20); Calcium 9.1 mg/dL (8.4-10.2); Carbon Dioxide 19 mmol/L (22-30); Chloride 106 mmol/L (98-107); Glucose 101 mg/dL (74-99); Non-African American GFR(CKD) >90 (>60 ml/min/1.73 sqM); Sodium 136 mmol/L (137-145)
[2023-02-10 07:34] LABS: Potassium 4.7 mmol/L (3.5-5.1)
[2023-02-10 07:48] VITALS: TEMP 98
[2023-02-10] MEDS ORDERED: SODIUM CHLORIDE 0.9% 1,000 ML IV SCH (08:15)
--- NOTE | 2023-02-10 08:55 | ECHOT ---
TRANSESOPHAGEAL ECHOCARDIOGRAM INDICATIONS: Persistent atrial fibrillation to rule out intracardiac thrombus. PROCEDURE NOTE: After obtaining informed consent, transesophageal echocardiogram is performed in left lateral position using an Omniplane probe. Local and IV sedation were obtained by the bath solution maker. The patient tolerated the procedure well without any obvious immediate complications. FINDINGS: 1. There is no intracardiac thrombus within the left atrial appendage, left atrium, right atrium, right ventricle. 2. There is moderate biatrial enlargement. 3. Left ventricle appears dilated with diffuse global hypokinesis with severe LV systolic dysfunction with an ejection fraction of around 30%. Mitral valve is anatomically normal. There is mild central mitral regurgitation noted. 4. Aortic valve is a 3-leaflet valve. There is no evidence of regurgitation. There is mild tricuspid regurgitation. 5. Aortic root measures within normal limits. CONCLUSIONS: 1. Severe LV systolic dysfunction. 2. No intracardiac thrombus. 3. There is no evidence of [id number] shunt by color-flow Doppler or [id number] shunt by agitated saline contrast study. MMODL / IJN: [id number] /
[2023-02-10 09:00] VITALS: RESP 18
--- NOTE | 2023-02-10 09:14 | PCN ---
PROCEDURE NOTE CARDIOVERSION NOTE: INDICATIONS: Persistent atrial fibrillation. FINDINGS: After making sure that the patient does not have any intracardiac thrombus adequate anticoagulation with Eliquis, the patient underwent cardioversion with synchronized DC current of 150 joules. He converted to sinus rhythm following a single shock, reverted back into atrial fibrillation. We will make another attempt with 200 joules. RUSSELL / JEOVANNY: [id number] /
[2023-02-10 09:25] VITALS: PULSE 59
[2023-02-10 09:26] VITALS: BP 104/79
== END 2023-02-10 09:41 | disposition home or self-care (01) ==
LOC: OR 05:57
PROVIDERS: ATTEND Internal Medicine Cardiovascular Disease
DX: I08.1 Rheumatic disorders of both mitral and tricuspid valves (principal); I48.11 Longstanding persistent atrial fibrillation; E78.5 Hyperlipidemia, unspecified; G47.33 Obstructive sleep apnea (adult) (pediatric); F17.210 Nicotine dependence, cigarettes, uncomplicated; Z79.01 Long term (current) use of anticoagulants; Z79.899 Other long term (current) drug therapy
CPT/HCPCS: 93312; 93320; 93325; 92960; 80048; J2001; J2704

== ENCOUNTER → 2023-02-25 | Outpatient (CLI) | payer BC ==
[2023-02-25 15:55] LABS: HCT 48.8 % (39.6-50.0); HGB 16.4 g/dL (13.0-17.0); MCH 31.1 pg (27.0-32.0); MCHC 33.6 g/dL (32.0-37.0); MCV 92.6 FL (80.0-97.0); Mean Platelet Volume 11.2 FL (9.5-12.2); NRBC Per 100 WBC 0 X 10*3/uL (0.00-0.01); Platelet Count 307 X 10*3/uL (140-440); RBC 5.27 X 10*6/uL (4.40-5.60); WBC 6.83 X 10*3/uL (4.50-10.00)
[2023-02-25 16:32] LABS: BUN/Creat Ratio 19.17 Ratio (12.00-20.00); Chloride 106 mmol/L (96-109); Glucose 99 mg/dL (70-110); Potassium 5.2 mmol/L (3.5-5.5); Sodium 140 mmol/L (135-145)
[2023-02-25 16:33] LABS: ALT 73 U/L (10-49); AST 36 U/L (14-35); Albumin 4.5 g/dL (3.8-4.9); Albumin/Globulin Ratio 1.55 Ratio (1.60-3.17); Alkaline Phosphatase 105 U/L (41-126); Calcium 9.6 mg/dL (8.7-10.3); Carbon Dioxide 21.5 mmol/L (21.6-31.8); Globulin 2.9 g/dL (1.6-3.3); Total Bilirubin 1.1 mg/dL (0.3-1.2); Total Protein 7.4 g/dL (6.2-8.2)
== END | disposition home or self-care (01) ==
LOC: LABWHC1 09:46
PROVIDERS: ATTEND Internal Medicine Clinical Cardiac Electrophysiology
DX: I48.91 Unspecified atrial fibrillation (principal); I42.9 Cardiomyopathy, unspecified
CPT/HCPCS: 36415; 80053; 84443; 84481; 85027

== ENCOUNTER → 2023-03-24 | Outpatient (CLI) | payer BC ==
[2023-03-24 18:17] LABS: HGB 15.7 g/dL (13.0-17.0); MCH 31.1 pg (27.0-32.0); MCHC 34.1 g/dL (32.0-37.0); MCV 91.1 FL (80.0-97.0); Mean Platelet Volume 11.3 FL (9.5-12.2); NRBC Per 100 WBC 0 X 10*3/uL (0.00-0.01); Platelet Count 281 X 10*3/uL (140-440); RBC 5.05 X 10*6/uL (4.40-5.60); RDW 12.3 % (11.5-14.5); WBC 8.23 X 10*3/uL (4.50-10.00)
[2023-03-24 18:30] LABS: Blood Urea Nitrogen 20.9 mg/dL (9.0-27.0); Carbon Dioxide 22.4 mmol/L (21.6-31.8); Chloride 106 mmol/L (96-109); Potassium 4.4 mmol/L (3.5-5.5); Sodium 138 mmol/L (135-145)
== END | disposition home or self-care (01) ==
LOC: LABPAT 15:25
PROVIDERS: ATTEND Internal Medicine Clinical Cardiac Electrophysiology
DX: Z01.812 Encounter for preprocedural laboratory examination (principal); I42.9 Cardiomyopathy, unspecified; I48.19 Other persistent atrial fibrillation
CPT/HCPCS: 80051; 82565; 84520; 85027

== ENCOUNTER 2023-03-31 08:35 | Day surgery (SDC) | payer BC ==
[~2023-03-31 08:35] MED LIST changes: +HYDROmorphone 0.5 MG/0.5 ML SYRINGE IVP PRN; -LIDOCAINE 1% (10MG/ML) FOR IV START INTRADERMA PRN; +MIDAZOLAM 2 MG/2 ML VIAL IV PRN; +SODIUM CHLORIDE 0.9% 1,000 ML IV SCH
[2023-03-31] MEDS ORDERED: SODIUM CHLORIDE 0.9% 1,000 ML IV ONE ×2 (08:54→11:49)
[2023-03-31] MEDS ORDERED: ONDANSETRON 4 MG/2 ML VIAL ONE (11:49)
[2023-03-31] MEDS ORDERED: ETOMIDATE 2 MG/ML 10 ML VIAL ONE (11:49)
[2023-03-31] MEDS ORDERED: PROPOFOL 10 MG/ML 20 ML VIAL IV ONE (11:49)
[2023-03-31] MEDS ORDERED: SUCCINYLCHOLINE CHLORIDE 200 MG/10 ML VIAL IV ONE (11:49)
[2023-03-31] MEDS ORDERED: LIDOCAINE 1% INJ 10MG/ML (20 ML MDV) ONE ×2 (11:49→12:15)
[2023-03-31] MEDS ORDERED: fentaNYL (PF) 50 MCG/ML 2 ML AMP ONE (11:49)
[2023-03-31] MEDS ORDERED: MIDAZOLAM 2 MG/2 ML VIAL ONE (11:49)
[2023-03-31] MEDS ORDERED: HYDROmorphone (PF) 1 MG/ML ONE (11:49)
[2023-03-31] MEDS ORDERED: HEPARIN SODIUM,PORCINE 10,000 UNIT/ML 1 ML VIAL ONE (11:49)
[2023-03-31] MEDS ORDERED: PHENYLEPHRINE-0.9% NACL SYG 1,000 MCG/10 ML SYRINGE ONE (11:49)
[2023-03-31] MEDS ORDERED: HEPARIN SOD,PORK IN 0.45% NACL 25,000 UNIT in 0.45% NACL 1 250ML.BAG IV ONE (12:50)
[2023-03-31] MEDS ORDERED: LIDOCAINE 1% INJ 10MG/ML (20 ML MDV) SQ ONE (12:53)
[2023-03-31] MEDS ORDERED: IOPAMIDOL-370 100ML BTL INJ ONE (14:52)
[2023-03-31] MEDS ORDERED: ACETAMINOPHEN TAB 325 MG TAB PO PRN (15:01)
[2023-03-31] MEDS ORDERED: ACETAMINOPHEN IV (For NPO) 1,000 MG in EMPTY BAG 1 BAG IVPB ONE (15:01)
--- NOTE | 2023-03-31 15:25 | P.HPCAR ---
History of Present Illness This is Dr. Kate dictating an H/P on this patient The patient was interviewed and examined IMPRESSION / ASSESSMENT: Persistent symptomatic atrial fibrillation Failed medical treatment, immediate recurrence of atrial fibrillation following cardioversion Worsening congestive heart failure symptoms Progressive cardiomyopathy-nonischemic nature during atrial fibrillation Normal coronary arteries Normal TSH PLAN: Proceed with A-fib ablation with pulm vein isolation and linear ablation in the left atrium Continue Eliquis and heart failure medications HPI Patient continues to complain of shortness of breath tiredness and fatigue despite medical treatment for heart failure and atrial fibrillation He remains appropriately anticoagulated He has had no recent chest pain syncope loss of consciousness orthopnea PND He is able to lie flat in bed comfortably ROS: No fever chills or rigors, no cough, phlegm or expectoration, no nausea, vomiting or diarrhea, no hematuria, dysuria, no musculoskeletal complaints, no strokes or seizures, no skin lesions. EXAMINATION: Heart sounds are normal but irregular Breath sounds are clear no rhonchi no crackles Abdomen is soft No JVD No lower extremity edema No S3 gallop REVIEW OF LABS, ECG & MEDICAL DATA Medications reviewed heart failure medications reviewed Patient is on Eliquis Physical Exam Vitals: Vital Signs Temp 03/31/23 08:57 98.2 F Intake and Output 03/31/23 03/31/23 03/31/23 06:59 14:59 22:59 Intake Total 1481 Balance 1481 Intake: IV 1481 Other: Weight 113.1 kg Past Medical History Past Medical History: Atrial Fibrillation, GERD/Reflux, Hearing Disorder / Deafness, Osteoarthritis (OA), Sleep Apnea/CPAP/BIPAP Additional Past Medical History / Comment(s): PLEASE SEE DR. KATE'S H&P. SOB with exertion, migraines, environmental allergies, CPAP use, some hearing loss. History of Any Multi-Drug Resistant Organisms: None Reported Past Surgical History: Heart Catheterization, Orthopedic Surgery Additional Past Surgical History / Comment(s): Sinus surgery, right knee arthroscopy,vasectomy, left plantar fascitis surgery, CVN with TABITHA Past Anesthesia/Blood Transfusion Reactions: No Reported Reaction Smoking Status: Never smoker - Past Family History Father Family Medical History: AFIB, Myocardial Infarction (OR) Additional Family Medical History / Comment(s): Enlarged heart, silent OR. Mother Family Medical History: Osteoarthritis (OA) Additional Family Medical History / Comment(s): Depression. Physical Examination Vital Signs Temp 03/31/23 08:57 98.2 F Intake and Output 03/31/23 03/31/23 03/31/23 06:59 14:59 22:59 Intake Total 1481 Balance 1481 Intake: IV 1481 Other: Weight 113.1 kg Results Current Medications Generic Name Dose Route Start Last Admin Trade Name Freq PRN Reason Stop Dose Admin Acetaminophen 650 mg 03/31/23 15:01 Acetaminophen Tab 325 Mg Tab PO 04/30/23 15:02 Q6HR PRN Mild Pain (Scale 1 to 3) Apixaban 5 mg 03/31/23 21:00 Apixaban 5 Mg Tab PO 04/30/23 21:01 BID DAHLIA Protocol Hydromorphone HCl 0.5 mg 03/31/23 07:00 Hydromorphone 0.5 Mg/0.5 Ml Syringe IVP 03/31/23 23:00 Q5M PRN Phase 1 or 2 - Pain Control Acetaminophen 1,000 mg/ IV 100 mls @ 400 mls/hr 03/31/23 15:01 Solution IVPB 03/31/23 15:15 ONCE ONE Lisinopril 2.5 mg 04/01/23 09:00 Lisinopril 2.5 Mg Tab PO 05/01/23 09:01 QAM DAHLIA Metoprolol Succinate 50 mg 04/01/23 09:00 Metoprolol Succinate (Er) 50 Mg Tab.Er.24h PO 05/01/23 09:01 DAILY DAHLIA Midazolam HCl 2 mg 03/31/23 07:00 Midazolam 2 Mg/2 Ml Vial IV 03/31/23 23:00 ONCE PRN Pre-Op Anxiety Sodium Chloride 12 ml 03/31/23 15:01 Sodium Chloride 0.9% Flush 10 Ml Syringe IV 04/30/23 15:02 Q12HR PRN Line Flush Intake and Output 03/31/23 03/31/23 03/31/23 06:59 14:59 22:59 Intake Total 1481 Balance 1481 Intake: IV 1481 Other: Weight 113.1 kg Patient Weight 04/01/23 06:59 Weight 113.1 kg
--- NOTE | 2023-03-31 15:45 | P.EPPROC ---
- EP Procedure Note Electrophysiology Procedure Note: PROCEDURE A. fib ablation with PVI, limited ablation of the left atrial roof, ablation of the left atrial septum DIAGNOSIS Persistent atrial fibrillation, symptomatic, refractory to therapy, immediate recurrence of atrial fibrillation following cardioversion Symptoms of congestive heart failure with associated progressive cardiomyopathy of nonischemic nature RESULT No left atrial appendage mass seen on intracardiac echo Mildly thickened pericardium Left ventricular systolic dysfunction Left atrial enlargement with very large pulmonary veins with proximal branching pattern Successful A. fib ablation/pulmonary vein isolation of all veins using cryo- ablation Complete entrance block in all 4 veins confirmed No evidence for phrenic nerve injury Esophageal deflection YES, left-sided esophagus Very long left atrial roof ablation Very large left-sided veins greater than 28 mm in diameter requiring cryoablation along the antrum, Left atrial septal ablation Electrical cardioversion with a synchronized shock across the chest YES PROCEDURE DETAILS Written informed consent prior to procedure. Patient brought to the EP lab. General anesthesia given. Heparin administered. A city maintained above 300 seconds Both groins prepped and draped per protocol and venous sheaths placed. Esophagus intubated, circa catheter for temperature monitoring an endoscope for possible esophageal deflection. Phrenic nerve monitoring performed. Esophageal temperature monitoring performed. Esophageal deflection performed if circa catheter overlapping with the balloon or circa temperature less than 27.5C Intracardiac echocardiography performed. Pericardium evaluated. Left atrial appendage evaluated. Left atrium evaluated along with pulmonary veins Transseptal catheterization performed under fluoroscopic guidance and intracardiac echo guidance Cryoablation sheath exchanged, balloon catheter along with achieve catheter placed in the left atrium. Pulmonary veins isolated in the following sequence: Left superior pulmonary vein followed by left inferior pulmonary vein, followed by right inferior pulmonary vein and lastly right superior pulmonary vein. Phrenic nerve stimulation along with capture thresholds within the SVC and right superior pulmonary vein to identify the phrenic nerve proximity to the cryo- balloon. Pulmonary veins isolated and confirmed with entrance and exit block. Phrenic nerve integrity confirmed at the end of the procedure All 4 pulmonary veins were of large diameter. Each pulmonary vein had a proximal branching pattern and 2 lesions were delivered per vein In addition the septum was ablated separately The left-sided veins were particularly large and greater than 28 mm in diameter The cryoablation catheter had to be moved around in a roving fashion around the antrum outside the os of these veins for complete antral level ablation The patient had a very enlarged left atrium and the roofline that was made was very long but successful ablation was performed Ablation of the left atrial roof performed with sequential lesions from the left superior to the right superior pulmonary veins. Ablation of the electrograms confirmed Ablation of the left atrial septum performed with cannulation of the superior branch of the right inferior or the inferior branch of the right superior vein to achieve ablation of the posterior septum of the left atrium. Ablation of electrograms confirmed Electrical cardioversion performed for persistence of atrial fibrillation despite successful ablation. Diagnostic catheters for the high right atrium, His bundle, coronary sinus placed. LA and RA pressures recorded RA pressure: 20/12/12 LA pressure: 29/11/16 Diagnostic EP study with coronary sinus pacing and recording Baseline measurements: AH 80, HV 37 OK 146, QT 438 ms and QRS 116 ms After cardioversion patient's sinus cycle length was 921 ms with an AH of 80 ms and HV interval of 37 ms Venous sheaths were removed and hemostasis assured with a closure device. Patient extubated and transferred to recovery Increase procedural time During ablation multiple attempts had to be made to move the esophagus a safe distance of the from the pulmonary vein draining cryoablation, to avoid excessive thermal cooling of the esophagus This took extra time and effort to keep the esophagus a safe distance away from the cryoablation balloon. This was a particularly long case since each pulmonary vein required 2 separate ablations. To complete ablation anterolateral level The left-sided veins required even more ablations around the antrum, also to the os because of the size The roofline was particularly long given the size of the left atrium The superior pulmonary veins were difficult to isolate as well as the right inferior pulmonary vein, thick pulmonary venous pedicles Multiple attempts needed for successful cryoablation isolation of the pulmonary vein PROCEDURES PERFORMED Diagnostic EP study CS pacing and recording Left and right transseptal catheterization Catheter the mapping of the tachycardia Intracardiac echocardiography Pulmonary vein isolation with transseptal and comprehensive EPS, [id number] Extended procedure duration Left atrial roof line, +[id number] Linear ablation, left atrium, +[id number] Electrical cardioversion with a synchronized shock across the chest [id number]
[2023-03-31] MEDS: APIXABAN 5 MG TAB PO SCH (20:43)
[2023-04-01 01:40] VITALS: RESP 16
[2023-04-01] MEDS ORDERED: PANTOPRAZOLE 40 MG TABLET PO SCH (08:00)
--- NOTE | 2023-04-01 08:17 | P.DS ---
Providers Attending physician: Nick Kate Primary care physician: Edward Bahena [facility] Course: Patient is resting comfortably in bed. Yesterday he had some heartburn and chest discomfort but this has completely resolved He has no pleuritic chest pain no dizziness no lightheadedness he has been ambulating around the room and to the bathroom Mildly tender groins but no hematoma no swelling Heart sounds are normal no murmurs or gallop Breath sounds are clear Blood pressure 99/63 mmHg pulse rate in the 80s Heart sounds are normal breath sounds are clear Impression Persistent atrial fibrillation Nonischemic cardiomyopathy Status post A-fib ablation with PVI, left atrial septal ablation and left atrial roof ablation Enlarged left atrium with large pulmonary veins Evidence of pericardial thickening and small amount of exudate consistent with old, chronic pericarditis Suggest Discharge home today Continue anticoagulation lifelong Switch from short acting metoprolol to long-acting metoprolol 100 mg XL Sleep apnea assessment Follow-up with Dr. Nails in 1 week Detailed discussion with the patient and his regarding the do's and don'ts for the next 3 to 4 days Complete cessation from alcohol use Plan - Discharge Summary Discharge Rx Participant: No New Discharge Prescriptions: New Metoprolol Succinate [Toprol XL] 50 mg PO DAILY #90 tab Discontinued Metoprolol Tartrate [Lopressor] 50 mg PO TID No Action Cholecalciferol [Vitamin D3 (25 Mcg = 1000 Iu)] 50 mcg PO QAM Multivitamin [Multivitamins Adult Gummies] 2 tab PO QAM Apixaban [Eliquis] 5 mg PO BID #180 tab lisinopriL [Zestril] 2.5 mg PO QAM Fluticasone Nasal [place] [Flonase Nasal [place]] 2 spray EA NOSTRIL DAILY Loratadine [Claritin] 10 mg PO QAM Discharge Medication List Cholecalciferol [Vitamin D3 (25 Mcg = 1000 Iu)] 50 mcg PO QAM 01/13/22 [History] Fluticasone Nasal [place] [Flonase Nasal [place]] 2 spray EA NOSTRIL DAILY 01/13/22 [History] Loratadine [Claritin] 10 mg PO QAM 01/07/23 [History] Multivitamin [Multivitamins Adult Gummies] 2 tab PO QAM 01/07/23 [History] Apixaban [Eliquis] 5 mg PO BID #180 tab 01/12/23 [Rx] lisinopriL [Zestril] 2.5 mg PO QAM 03/23/23 [History] Metoprolol Succinate [Toprol XL] 50 mg PO DAILY #90 tab 03/31/23 [Rx] Follow up Appointment(s)/Referral(s): Best Coates MD [STAFF PHYSICIAN] - 1 Week Activity/Diet/Wound Care/Special Instructions: Post EP study - Ablation instructions 1. Keep access sites dry for 2 days. 2. No heavy lifting or straining for 2 days. 3. Avoid bending the hips repeatedly for 2 days. 4. You may go up and down stairs slowly Call if the following is noted 1. Bleeding, increasing swelling or pain at the access sites. 2. Increasing chest discomfort, especially upon taking a deep breath. 3. Increasing shortness of breath, at rest or with exertion. 4. Undue cough / phlegm 5. Difficulty or pain while swallowing. 6. Pain or change in color in the extremities. 7. Fever, chills, rigors. 8. Increasing headache or neurologic symptoms. 9. Dizziness, fainting, palpitations Discharge Disposition: HOME SELF-CARE
[2023-04-01 08:40] VITALS: TEMP 97.9
[2023-04-01] MEDS ORDERED: METOPROLOL SUCCINATE (ER) 100 MG TAB.ER.24H PO SCH (09:00)
[2023-04-01] MEDS ORDERED: METOPROLOL SUCCINATE (ER) 50 MG TAB.ER.24H PO SCH (09:00)
[2023-04-01] MEDS: APIXABAN 5 MG TAB PO SCH (10:09)
[2023-04-01 10:27] VITALS: BP 123/85; PULSE 95
== END 2023-04-01 13:50 | disposition home or self-care (01) ==
LOC: CATHEP 08:35 → 6NMEDSUR 14:52 → CATHEP 04-01 13:50
PROVIDERS: ATTEND Internal Medicine Clinical Cardiac Electrophysiology
DX: I48.19 Other persistent atrial fibrillation (principal); I50.9 Heart failure, unspecified; I42.8 Other cardiomyopathies; K21.9 Gastro-esophageal reflux disease without esophagitis; H91.90 Unspecified hearing loss, unspecified ear; M19.90 Unspecified osteoarthritis, unspecified site; G47.33 Obstructive sleep apnea (adult) (pediatric); G43.909 Migraine, unspecified, not intractable, without status migrainosus; Z96.651 Presence of right artificial knee joint; Z98.890 Other specified postprocedural states; Z82.49 Family history of ischemic heart disease and other diseases of the circulatory system; Z82.61 Family history of arthritis; Z79.01 Long term (current) use of anticoagulants; Z79.899 Other long term (current) drug therapy
CPT/HCPCS: 92960; 93656; 93657; 86900; 86901; 86850; C1894 ×2; C1769 ×3; C1760; C1730 ×2; C1759; C1893; C1733; C1766; J2250; J0330; J1644 ×2; J2405; J2001; J3010; J1170 ×2; J2704; Q9967; J2371

== ENCOUNTER 2023-04-06 08:06 | Observation (INO) | payer BC ==
[2023-04-06 08:54] LABS: Basophils % (A) 0 %; Eosinophils # (A) 0.2 k/uL (0-0.7); Eosinophils % (A) 3 %; HCT 46.2 % (39.0-53.0); HGB 15.8 gm/dL (13.0-17.5); Lymphocytes # (A) 1.9 k/uL (1.0-4.8); Lymphocytes % (A) 25 %; MCH 31.3 pg (25.0-35.0); MCHC 34.2 g/dL (31.0-37.0); MCV 91.6 fL (80.0-100.0); Monocytes # (A) 0.4 k/uL (0-1.0); Monocytes % (A) 5 %; Neutrophils # (A) 4.8 k/uL (1.3-7.7); Neutrophils % (A) 64 %; Platelet Count 232 k/uL (150-450); RBC 5.04 m/uL (4.30-5.90); RDW 12.6 % (11.5-15.5); WBC 7.5 k/uL (3.8-10.6)
--- NOTE | 2023-04-06 08:55 | ED ---
General Adult HPI - General Chief complaint: Shortness of Breath Stated complaint: SOB post op Time Seen by Provider: 04/06/23 08:13 Source: patient, RN notes reviewed Mode of arrival: ambulatory Limitations: no limitations - History of Present Illness Initial comments: This is a 57-year-old male presents emergency department chief complaint shortness of breath, left groin pain. Patient states he had an ablation on Tuesday. Patient states that he has a history of A-fib he is on blood thinners. Patient states he has increased pain to his left groin, swelling and bruising. Patient states he also been having increasing shortness of breath, left arm numbness. Patient denies any history of congestive heart failure. - Related Data Home Medications Medication Instructions Recorded Confirmed Cholecalciferol [Vitamin D3 (25 50 mcg PO DAILY 01/13/22 04/06/23 Mcg = 1000 Iu)] Fluticasone Nasal [place] [Flonase 2 spray EA NOSTRIL DAILY 01/13/22 04/06/23 Nasal [place]] Loratadine [Claritin] 10 mg PO DAILY 01/07/23 04/06/23 Multivitamin [Multivitamins Adult 2 tab PO DAILY 01/07/23 04/06/23 Gummies] lisinopriL [Zestril] 2.5 mg PO DAILY 03/23/23 04/06/23 Previous Rx's Medication Instructions Recorded Apixaban [Eliquis] 5 mg PO BID #180 tab 01/12/23 Metoprolol Succinate [Toprol XL] 50 mg PO DAILY #90 tab 03/31/23 Allergies Allergy/AdvReac Type Severity Reaction Status Date / Time environmental Allergy congestion Uncoded 04/06/23 13:11 Review of Systems ROS Statement: Those systems with pertinent positive or pertinent negative responses have been documented in the HPI. ROS Other: All systems not noted in ROS Statement are negative. Past Medical History Past Medical History: Atrial Fibrillation, GERD/Reflux, Hearing Disorder / Deafness, Osteoarthritis (OA), Sleep Apnea/CPAP/BIPAP Additional Past Medical History / Comment(s): PLEASE SEE DR. RUSS'S H&P. SOB with exertion, migraines, environmental allergies, CPAP use, some hearing loss. History of Any Multi-Drug Resistant Organisms: None Reported Past Surgical History: Heart Catheterization, Orthopedic Surgery Additional Past Surgical History / Comment(s): Sinus surgery, right knee arthroscopy,vasectomy, left plantar fascitis surgery, CVN with TABITHA Past Anesthesia/Blood Transfusion Reactions: No Reported Reaction Past Psychological History: No Psychological Hx Reported Smoking Status: Never smoker Past Alcohol Use History: Occasional Past Drug Use History: None Reported - Past Family History Father Family Medical History: AFIB, Myocardial Infarction ([place]) Additional Family Medical History / Comment(s): Enlarged heart, silent [place]. Mother Family Medical History: Osteoarthritis ([place]) Additional Family Medical History / Comment(s): Depression. General Exam - General Exam Comments Initial Comments: Visual Physical Exam Vital signs reviewed General: Well-appearing, nontoxic, no acute distress. Head: Normocephalic, atraumatic Eyes: PERRLA, EOMI ENT: Airway patent Chest: Nonlabored breathing Skin: No visual rash, normal skin tone Neuro: Alert and oriented 3 Musculoskeletal: No gross abnormalities Limitations: no limitations General appearance: alert, in no apparent distress Head exam: Present: atraumatic, normocephalic, normal inspection Eye exam: Present: normal appearance, PERRL, EOMI. Absent: scleral icterus, conjunctival injection, periorbital swelling ENT exam: Present: normal exam, mucous membranes moist Neck exam: Present: normal inspection. Absent: tenderness, meningismus, lymphadenopathy Respiratory exam: Present: normal lung sounds bilaterally. Absent: respiratory distress, wheezes, rales, rhonchi, stridor Cardiovascular Exam: Present: regular rate, normal rhythm, normal heart sounds. Absent: systolic murmur, diastolic murmur, rubs, gallop, clicks Extremities exam: Present: other (groin tendernesss, ecchymosis) Course Vital Signs 04/06/23 04/06/23 04/06/23 08:24 12:00 12:16 Temperature 98.6 F Pulse Rate 80 77 68 Respiratory 16 18 16 Rate Blood Pressure 133/95 142/105 125/68 O2 Sat by Pulse 97 97 98 Oximetry 04/06/23 13:00 Temperature Pulse Rate Respiratory 20 Rate Blood Pressure O2 Sat by Pulse Oximetry EKG Findings - EKG Comments: EKG Findings:: EKG performed at 8: 42 sinus rhythm with a rate of 78 NE 192 QRS 102 QT/QTc 385/418. EKG performed at 11: 54 sinus rhythm rate of 77 NE 194 QRS 102 QT/QTc 385/[address] elevation or depression. - EKG Results: EKG: interpreted by ARIANA Medical Decision Making - Medical Decision Making I completed the quick note portion of this chart signed Uriah Garcia PA-C Was pt. sent in by a medical professional or institution ([facility] Omalley, DYE RANGE OPERATOR, urgent care, hospital, or fdc...) When possible be specific @ -No Did you speak to anyone other than the patient for history (EMS, parent, family, police, friend...)? What history was obtained from this source @ -No Did you review nursing and triage notes (agree or disagree)? Why? @ -I reviewed and agree with nursing and triage notes Were old charts reviewed (outside hosp., previous admission, EMS record, old EKG, old radiological studies, urgent care reports/EKG's, fdc records)? Report findings @ -[Reviewed recent cardiology notes, laboratory studies Differential Diagnosis (chest pain, altered mental status, abdominal pain women, abdominal pain men, vaginal bleeding, weakness, fever, dyspnea, syncope, headache, dizziness, GI bleed, back pain, seizure, CVA, palpatations, mental he alth, musculoskeletal)? @ -Differential Dyspnea: Coronary syndrome, arrhythmia, tamponade, asthma, COPD, pulmonary embolism, pneumonia, pneumothorax, pulmonary effusion, anaphylaxis, diabetic ketoacidosis, flailed chest, pulmonary contusion, diaphragmatic rupture, anemia, neuromuscular, this is not meant to be an all-inclusive list. EKG interpreted by me (3pts min.). @ -As above X-rays interpreted by me (1pt min.). @ -Chest shows no acute cardiopulmonary process. CT interpreted by me (1pt min.). @ -None done U/S interpreted by me (1pt. min.). @ -[All Left Groin for Pseudoaneurysm Show Small Less Than 1 Cm Pseudoaneurysm What testing was considered but not performed or refused? (CT, X-rays, U/S, labs)? Why? @ -None What meds were considered but not given or refused? Why? @ -None Did you discuss the management of the patient with other professionals (professionals i.e. SINA Omalley, DYE RANGE OPERATOR, lab, RT, psych nurse, social services analyst, shrinker, teacher, safety and security officer, piano case maker)? Give summary @ -EMH for admission with cardiology consult Was smoking cessation discussed for >3mins.? @ -No Was critical care preformed (if so, how long)? @ -No Were there social determinants of health that impacted care today? How? (Homelessness, low income, unemployed, alcoholism, drug addiction, transportation, low edu. Level, literacy, decrease access to med. care, halfway, rehab)? @ -No Was there de-escalation of care discussed even if they declined (Discuss DNR or withdrawal of care, Hospice)? DNR status @ -No What co-morbidities impacted this encounter? (DM, HTN, Smoking, COPD, CAD, Cancer, CVA, ARF, Chemo, Hep., AIDS, mental health diagnosis, sleep apnea, morbid obesity)? @ -A-fib Was patient admitted / discharged? Hospital course, mention meds given and route, prescriptions, significant lab abnormalities, going to OR and other pertinent info. @ -[Admitted patient does have mildly elevated troponin this may be related to recent ablation. Patient is currently anticoagulated. Patient will have repeat troponin, evaluation by cardiology for pseudoaneurysm of left groin, elevated troponin and shortness of breath. Undiagnosed new problem with uncertain prognosis? @ -No Drug Therapy requiring intensive monitoring for toxicity (Heparin, Nitro, Insulin, Cardizem)? @ -No Were any procedures done? @ -No Diagnosis/symptom? @ -[Elevated troponin, status post lesion, pseudoaneurysm Acute, or Chronic, or Acute on Chronic? @ -Acute Uncomplicated (without systemic symptoms) or Complicated (systemic symptoms)? @ -[complicated Side effects of treatment? @ -No Exacerbation, Progression, or Severe Exacerbation? @ -No Poses a threat to life or bodily function? How? (Chest pain, [place], [place], pneumonia, PE, COPD, DKA, ARF, appy, cholecystitis, CVA, Diverticulitis, Homicidal, Suicidal, threat to staff... and all critical care pts) @ -[Yes possible ACS - Lab Data Result diagrams: 04/06/23 08:43 04/06/23 08:43 Lab Results 04/06/23 04/06/23 04/06/23 Range/Units 08:43 08:43 08:43 WBC 7.5 (3.8-10.6) k/uL RBC 5.04 (4.30-5.90) m/uL Hgb 15.8 (13.0-17.5) gm/dL Hct 46.2 (39.0-53.0) % MCV 91.6 (80.0-100.0) fL MCH 31.3 (25.0-35.0) pg MCHC 34.2 (31.0-37.0) g/dL RDW 12.6 (11.5-15.5) % Plt Count 232 (150-450) k/uL MPV 8.0 Neutrophils % 64 % Lymphocytes % 25 % Monocytes % 5 % Eosinophils % 3 % Basophils % 0 % Neutrophils # 4.8 (1.3-7.7) k/uL Lymphocytes # 1.9 (1.0-4.8) k/uL Monocytes # 0.4 (0-1.0) k/uL Eosinophils # 0.2 (0-0.7) k/uL Basophils # 0.0 (0-0.2) k/uL Sodium 137 (137-145) mmol/L Potassium 4.6 (3.5-5.1) mmol/L Chloride 108 H (98-107) mmol/L Carbon Dioxide 20 L (22-30) mmol/L Anion Gap 9 mmol/L BUN 18 (9-20) mg/dL Creatinine 0.72 (0.66-1.25) mg/dL Est GFR (CKD-EPI)AfAm >90 (>60 ml/min/1.73 sqM) Est GFR (CKD-EPI)NonAf >90 (>60 ml/min/1.73 sqM) Glucose 96 (74-99) mg/dL Calcium 9.5 (8.4-10.2) mg/dL Total Bilirubin 1.2 (0.2-1.3) mg/dL AST 40 (17-59) U/L ALT 59 H (4-49) U/L Alkaline Phosphatase 90 (38-126) U/L Troponin I 0.371 H* (0.000-0.034) ng/mL NT-Pro-B Natriuret Pep 766 pg/mL Total Protein 7.4 (6.3-8.2) g/dL Albumin 4.2 (3.5-5.0) g/dL Disposition Clinical Impression: Chest pain, Shortness of breath, Pseudoaneurysm Disposition: ADMITTED IP TO THIS HOSP Condition: Fair Time of Disposition: 12:21
[2023-04-06 09:05] LABS: ALT 59 U/L (4-49); AST 40 U/L (17-59); African American GFR (CKD) >90 (>60 ml/min/1.73 sqM); Albumin 4.2 g/dL (3.5-5.0); Alkaline Phosphatase 90 U/L (38-126); Anion Gap 9 mmol/L; Blood Urea Nitrogen 18 mg/dL (9-20); Calcium 9.5 mg/dL (8.4-10.2); Carbon Dioxide 20 mmol/L (22-30); Chloride 108 mmol/L (98-107); Glucose 96 mg/dL (74-99); Non-African American GFR(CKD) >90 (>60 ml/min/1.73 sqM); Potassium 4.6 mmol/L (3.5-5.1); Sodium 137 mmol/L (137-145); Total Bilirubin 1.2 mg/dL (0.2-1.3); Total Protein 7.4 g/dL (6.3-8.2)
[2023-04-06 09:13] LABS: NT-Pro-B-Type Natriuretic Pept 766 pg/mL
--- NOTE | 2023-04-06 10:09 | US ---
EXAMINATION TYPE: US lower ext pseudo artery LT DATE OF EXAM: 04/06/2023 COMPARISON: NONE CLINICAL INDICATION: Male, 57 years old with history of pain; Cath done 03/31 pain and brusing EXAM PERFORMED: Grayscale and color Doppler duplex imaging performed of the groin, post cardiac rony ter to assess for pseudoaneurysm. SIDE PERFORMED: Left Color and Waveform Doppler performed to assess for the presence of pseudoaneurysm; Is there ultrasound evidence of a pseudoaneurysm: Yes Is there evidence of AV shunting: no Is there a fluid collection present: no 1.0x0.8x0.5cm partially resolved pseudoanuerysm arising from the Superficial Femoral Artery. Neck shu sures 0.2cm IMPRESSION: Pseudoaneurysm As noted above
--- NOTE | 2023-04-06 11:07 | XR ---
EXAMINATION TYPE: XR chest 2V DATE OF EXAM: 04/06/2023 10:41 AM COMPARISON: Chest radiographs from 01/08/2023 TECHNIQUE: XR chest 2V Frontal and lateral views of the chest. CLINICAL INDICATION:Male, 57 years old with history of dyspnea; FINDINGS: Lungs/Pleura: There is no evidence of pleural effusion, focal consolidation, or pneumothorax. Pulmonary vascularity: Unremarkable. Heart/mediastinum: Cardiomediastinal silhouette is unremarkable. Musculoskeletal: No acute osseous pathology. IMPRESSION: No acute cardiopulmonary disease/process.
[2023-04-06] MEDS ORDERED: NITROGLYCERIN SL TABS 0.4 MG TAB SUBLINGUAL PRN (12:15)
[2023-04-06] MEDS ORDERED: NALOXONE 0.4 MG/ML 1 ML VIAL IVP PRN (13:10)
[2023-04-06] MEDS ORDERED: ONDANSETRON 4 MG/2 ML VIAL IVP PRN (13:10)
--- NOTE | 2023-04-06 13:33 | P.HPIM ---
History of Present Illness H&P Date: 04/06/23 Chief Complaint: Chest pain * 57-year-old gentleman past medical history significant for persistent atrial fibrillation, nonischemic cardiomyopathy, s/p atrial fibrillation, left atrial septal ablation, left atrial roof ablation done on March 31, 2023, presents to the emergency department with complaints of shortness of breath, chest pressure and groin pain. Patient states that ever since his ablation he has noticed increased pain in the left groin, swelling and bruising. Patient also complained of increased shortness of breath and left arm paresthesia. * Workup Obtained in ER included a chest x-ray which was negative * Patient had ultrasound Doppler done left lower extremity which showed pseudoaneurysm from superficial femoral artery measuring 1 x 0.8 x 0.5 cm. Neck measures 0.2 cm * Initial workup in ER included CBC which were essentially negative, serum chemi stry showed sodium of 137 potassium 4.6, dioxide 20 BUN 18 creatinine 0.72, troponin 0.371 AST of 40 ALT 59 * Patient admitted to medical floor with consultation to be obtained from cardiology REVIEW OF SYSTEMS: Left groin pain, shortness of breath CONSTITUTIONAL: No fever, no malaise, no fatigue. HEENT: No recent visual problems or hearing problems. Denied any sore throat. CARDIOVASCULAR: Left groin pain, shortness of breath PULMONARY: No shortness of breath, no cough, no hemoptysis. GASTROINTESTINAL: No diarrhea, no nausea, no vomiting, no abdominal pain. NEUROLOGICAL: No headaches, no weakness, no numbness. HEMATOLOGICAL: Denies any bleeding or petechiae. GENITOURINARY: Denies any burning micturition, frequency, or urgency. MUSCULOSKELETAL/RHEUMATOLOGICAL: Denies any joint pain, swelling, or any muscle pain. ENDOCRINE: Denies any polyuria or polydipsia. PHYSICAL EXAMINATION: GENERAL: The patient is alert and oriented x3, not in any acute distress. Well developed, well nourished. HEENT: Pupils are round and equally reacting to light. EOMI. No scleral icterus. No conjunctival pallor. Normocephalic, atraumatic. No pharyngeal erythema. No thyromegaly. CARDIOVASCULAR: S1 and S2 present. Left groin bruising noted PULMONARY: Chest is clear to auscultation, no wheezing or crackles. ABDOMEN: Soft, nontender, nondistended, normoactive bowel sounds. No palpable organomegaly. MUSCULOSKELETAL: No joint swelling or deformity. EXTREMITIES: No cyanosis, clubbing, or pedal edema. NEUROLOGICAL: Gross neurological examination did not reveal any focal deficits. SKIN: No rashes. Past Medical History Past Medical History: Atrial Fibrillation, GERD/Reflux, Hearing Disorder / Deafn ess, Osteoarthritis (OA), Sleep Apnea/CPAP/BIPAP Additional Past Medical History / Comment(s): PLEASE SEE DR. RUSS'S H&P. SOB with exertion, migraines, environmental allergies, CPAP use, some hearing loss. History of Any Multi-Drug Resistant Organisms: None Reported Past Surgical History: Heart Catheterization, Orthopedic Surgery Additional Past Surgical History / Comment(s): Sinus surgery, right knee arthroscopy,vasectomy, left plantar fascitis surgery, CVN with TABITHA Past Anesthesia/Blood Transfusion Reactions: No Reported Reaction Past Psychological History: No Psychological Hx Reported Smoking Status: Never smoker Past Alcohol Use History: Occasional Past Drug Use History: None Reported - Past Family History Father Family Medical History: AFIB, Myocardial Infarction ([place]) Additional Family Medical History / Comment(s): Enlarged heart, silent [place]. Mother Family Medical History: Osteoarthritis (OA) Additional Family Medical History / Comment(s): Depression. Medications and Allergies Home Medications Medication Instructions Recorded Confirmed Type Cholecalciferol [Vitamin D3 (25 50 mcg PO DAILY 01/13/22 04/06/23 History Mcg = 1000 Iu)] Fluticasone Nasal [place] [Flonase 2 spray EA NOSTRIL DAILY 01/13/22 04/06/23 History Nasal [place]] Loratadine [Claritin] 10 mg PO DAILY 01/07/23 04/06/23 History Multivitamin [Multivitamins Adult 2 tab PO DAILY 01/07/23 04/06/23 History Gummies] Apixaban [Eliquis] 5 mg PO BID #180 tab 01/12/23 04/06/23 Rx lisinopriL [Zestril] 2.5 mg PO DAILY 03/23/23 04/06/23 History Metoprolol Succinate [Toprol XL] 50 mg PO DAILY #90 tab 03/31/23 04/06/23 Rx Allergies Allergy/AdvReac Type Severity Reaction Status Date / Time environmental Allergy congestion Uncoded 04/06/23 13:11 Physical Exam Vitals: Vital Signs Temp Pulse Resp BP Pulse Ox 04/06/23 12:00 77 18 142/105 97 04/06/23 08:24 98.6 F 80 16 133/95 97 Intake and Output 04/05/23 04/06/23 04/06/23 22:59 06:59 14:59 Other: Weight 112.491 kg Results CBC & Chem 7: 04/06/23 08:43 04/06/23 08:43 Labs: Abnormal Lab Results - Last 24 Hours (Table) 04/06/23 04/06/23 Range/Units 08:43 08:43 Chloride 108 H (98-107) mmol/L Carbon Dioxide 20 L (22-30) mmol/L ALT 59 H (4-49) U/L Troponin I 0.371 H* (0.000-0.034) ng/mL Thrombosis Risk Factor Assmnt - DVT/VTE Prophylaxis DVT/VTE Prophylaxis: Pharmacologic Prophylaxis ordered, Mechanical Prophylaxis ordered Assessment and Plan Assessment: Assessment and plan * History of atrial fibrillation s/p ablation * Left femoral artery pseudoaneurysm s/p catheterization * History of hypertension * Elevated troponin likely secondary to atrial fibrillation * In regards to elevated troponin, follow-up troponin ordered nonspecific's s/p ablation, will consult cardiology continue medical management * In regards to left femoral artery pseudoaneurysm, ultrasound reviewed, appreciate input from cardiology * Regards to history of hypertension Home medications to be continued including lisinopril and metoprolol * CODE STATUS is full code Time with Patient: Greater than 30
[2023-04-06] MEDS ORDERED: MORPHINE SULFATE 2 MG/ML SYRINGE IVP PRN (13:34)
[2023-04-06] MEDS: METOPROLOL SUCCINATE (ER) 50 MG TAB.ER.24H PO SCH (13:51)
[2023-04-06] MEDS: ASPIRIN 81 MG PO STA (13:53)
[2023-04-06] MEDS: SODIUM CHLORIDE 0.9% 1,000 ML IV SCH (13:54)
[2023-04-06] MEDS: APIXABAN 5 MG TAB PO SCH (22:19)
[2023-04-07 07:32] LABS: African American GFR (CKD) >90 (>60 ml/min/1.73 sqM); Anion Gap 5 mmol/L; Blood Urea Nitrogen 18 mg/dL (9-20); Calcium 9.2 mg/dL (8.4-10.2); Carbon Dioxide 25 mmol/L (22-30); Chloride 106 mmol/L (98-107); Glucose 85 mg/dL (74-99); Non-African American GFR(CKD) >90 (>60 ml/min/1.73 sqM); Potassium 4.3 mmol/L (3.5-5.1); Sodium 136 mmol/L (137-145)
[2023-04-07] MEDS ORDERED: ASPIRIN 325 MG TAB PO SCH (09:00)
[2023-04-07] MEDS: LORATADINE 10 MG TAB PO SCH (09:02)
[2023-04-07] MEDS: MULTIVITAMINS, THERA 1 EACH TAB PO SCH (09:03)
[2023-04-07] MEDS: METOPROLOL SUCCINATE (ER) 50 MG TAB.ER.24H PO SCH (09:03)
[2023-04-07] MEDS: CHOLECALCIFEROL 25 MCG (1000 IU) TABLET PO SCH (09:03)
[2023-04-07] MEDS: FLUTICASONE 50MCG/SPRAY NASAL 16GM EA NOSTRIL SCH (09:07)
[2023-04-07 11:20] LABS: Chol/HDL Ratio 3.87 Ratio; LDL Cholesterol,Calculated 105.2 mg/dL (0.0-131.0)
--- NOTE | 2023-04-07 13:13 | P.PN ---
Subjective Progress Note Date: 04/07/23 * 57-year-old gentleman past medical history significant for persistent atrial fibrillation, nonischemic cardiomyopathy, s/p atrial fibrillation, left atrial septal ablation, left atrial roof ablation done on March 31, 2023, presents to the emergency department with complaints of shortness of breath, chest pressure and groin pain. Patient states that ever since his ablation he has noticed increased pain in the left groin, swelling and bruising. Patient also complained of increased shortness of breath and left arm paresthesia. * Workup Obtained in ER included a chest x-ray which was negative * Patient had ultrasound Doppler done left lower extremity which showed pseudoaneurysm from superficial femoral artery measuring 1 x 0.8 x 0.5 cm. Neck measures 0.2 cm * Initial workup in ER included CBC which were essentially negative, serum chemistry showed sodium of 137 potassium 4.6, dioxide 20 BUN 18 creatinine 0.72, troponin 0.371 AST of 40 ALT 59 * Patient admitted to medical floor with consultation to be obtained from cardiology * 04/07/2023: Patient seen and evaluated bedside, troponins reviewed remain flat, patient does complain of intermittent chest pain. Serum chemistry reviewed, REVIEW OF SYSTEMS: Left groin pain, shortness of breath improved CONSTITUTIONAL: No fever, no malaise, no fatigue. HEENT: No recent visual problems or hearing problems. Denied any sore throat. CARDIOVASCULAR: Left groin pain, shortness of breath improved PULMONARY: No shortness of breath, no cough, no hemoptysis. GASTROINTESTINAL: No diarrhea, no nausea, no vomiting, no abdominal pain. NEUROLOGICAL: No headaches, no weakness, no numbness. HEMATOLOGICAL: Denies any bleeding or petechiae. GENITOURINARY: Denies any burning micturition, frequency, or urgency. MUSCULOSKELETAL/RHEUMATOLOGICAL: Denies any joint pain, swelling, or any muscle pain. ENDOCRINE: Denies any polyuria or polydipsia. PHYSICAL EXAMINATION: GENERAL: The patient is alert and oriented x3, not in any acute distress. Well developed, well nourished. HEENT: Pupils are round and equally reacting to light. EOMI. No scleral icterus. No conjunctival pallor. Normocephalic, atraumatic. No pharyngeal erythema. No thyromegaly. CARDIOVASCULAR: S1 and S2 present. Left groin bruising noted PULMONARY: Chest is clear to auscultation, no wheezing or crackles. ABDOMEN: Soft, nontender, nondistended, normoactive bowel sounds. No palpable organomegaly. MUSCULOSKELETAL: No joint swelling or deformity. EXTREMITIES: No cyanosis, clubbing, or pedal edema. NEUROLOGICAL: Gross neurological examination did not reveal any focal deficits. SKIN: Bruising noted left groin Objective - Vital Signs Vital signs: Vital Signs Temp 97.8 F 04/07/23 12:54 Pulse 80 04/07/23 12:54 Resp 16 04/07/23 12:54 BP 116/78 04/07/23 12:54 Pulse Ox 93 L 04/07/23 12:54 FiO2 Intake & Output 04/06/23 04/07/23 04/07/23 18:59 06:59 18:59 Intake Total 0 Balance 0 Weight 112.491 kg 112.491 kg Intake: Oral 0 - Labs CBC & Chem 7: 04/06/23 08:43 04/07/23 06:43 Labs: Abnormal Lab Results - Last 24 Hours (Table) 04/06/23 04/06/23 04/07/23 Range/Units 14:18 19:41 06:43 Sodium 136 L (137-145) mmol/L Troponin I 0.438 H* 0.413 H* (0.000-0.034) ng/mL Assessment and Plan Assessment: Assessment and plan * History of atrial fibrillation s/p ablation * Left femoral artery pseudoaneurysm s/p catheterization * History of hypertension * Elevated troponin likely secondary to atrial fibrillation ablation * In regards to elevated troponin, follow-up troponin ordered nonspecific's s/p ablation, will consult cardiology continue medical management * In regards to left femoral artery pseudoaneurysm, ultrasound reviewed, appreciate input from cardiology, follow-up on H&H * Regards to history of hypertension Home medications to be continued including lisinopril and metoprolol * CODE STATUS is full code
--- NOTE | 2023-04-07 16:56 | CT ---
EXAMINATION TYPE: CT brain wo con CT DLP: 1124.8 mGycm, Automated exposure control for dose reduction was used. DATE OF EXAM: 04/07/2023 4:35 PM COMPARISON: 07/24/2018. CLINICAL INDICATION:Male, 57 years old with history of re: left arm numbness, c/o left arm numbness TECHNIQUE: Brain: Axial CT images of the brain were obtained with coronal and sagittal reformats created and rev iewed. Contrast used: None. Oral contrast used: None. FINDINGS: Brain: Extra-axial spaces: No abnormal extra-axial fluid collections. Ventricular system: Within normal limits Cerebral parenchyma: No acute intraparenchymal hemorrhage or mass effect. The english-white junction is well differentiated. Cerebellum: Unremarkable. Mass effect: No evidence of midline shift. Intracranial vasculature: Atherosclerotic calcifications of the intracranial vessels. Soft tissues: Normal. Calvarium/osseous structures: No depressed skull fracture. Paranasal sinuses and mastoid air cells: Mild scattered paranasal sinus disease. Postsurgical changes with antrostomy changes. Visualized orbits: Orbital contents are intact. IMPRESSION: No acute intracranial process.
--- NOTE | 2023-04-07 16:58 | P.CRDCN ---
History of Present Illness Consult date: 04/07/23 Consult reason: chest pain, other (Pseudoaneurysm) Chief complaint: Chest pain and left groin pain History of present illness: History of present illness: Patient is a pleasant 57-year-old male with significant past medical history of paroxysmal atrial fibrillation, and recent A-fib ablation who presented with complaints of chest pain and left groin pain. He does follow with Dr. Nails. He did undergo left heart catheterization 01/08/2023 which revealed normal coronary arteries. He then underwent A-fib ablation with Dr. Kate on 03/31/2023. He was discharged home the following day and noticed he had a bruise on his left groin and that was getting bigger. He did have shortness of breath and some chest pain. Over the past 2 days his left groin pain got worse. He did have 1 episode where he had left arm tingling x 1 hour with a left-sided headache. He denies any specific weakness during this time. Denies any history of stroke. Patient does have speech that is slow however family member reports that his speech is at baseline for him. Ultrasound does show pseudoaneurysm of the left femoral artery. He reports compliance with his Eliquis and has not missed any doses. EKG shows sinus rhythm with occasional supraventricular premature complexes, nonspecific T wave abnormalities, 72 bpm. He does have mild chest pain that comes and goes that he rates a 2/10, EKG is not classic for pericarditis. REVIEW OF SYSTEMS: No fever or chills. No cough or expectoration. No diaphoresis. Patient denies headache, dizziness, blurred vision, double vision. Patient denies any stomach discomfort. No nausea, vomiting. No hematochezia. No hematemesis. Denies any black stools or blood in his stools. Denies dysuria or hematuria. No muscle weakness or numbness. No chest pain or pressure. Reports left groin pain PHYSICAL EXAMINATION: This is a 57-year-old male in no apparent distress at the time of my examination. HEENT: Head is atraumatic, normocephalic. Pupils are equal, round. Sclerae anicteric. Conjunctivae are clear. Mucous membranes of the mouth are moist. Neck is supple. There is no jugular venous distention. No carotid bruit is heard. CHEST EXAMINATION: Lungs are clear to auscultation. No chest wall tenderness is noted on palpation or with deep breathing. HEART EXAMINATION: Heart regular rate and rhythm. S1, S2 heard. No murmurs, gallops or rub. ABDOMEN: Soft, nontender. Bowel sounds are heard. EXTREMITIES: 2+ peripheral pulses with no evidence of peripheral edema and no calf tenderness noted. Left groin with bruising and mild edema, tender on exam. NEUROLOGIC EXAMINATION: Patient is awake, alert and oriented x3. IMPRESSION AND PLAN: Atrial fibrillation, persistent, status post ablation currently in sinus rhythm Chronic tobacco use Chest pain Left arm paresthesias Left femoral pseudoaneurysm NSTEMI likely type II related to inflammation from procedure, normal coronary arteries on heart cath 2 months ago. PLAN: We will consult interventional radiology to evaluate treatment of femoral pseudoaneurysm. Will check head CT noncontrast given possible TIA symptom. Continue current regimen. We will continue to monitor. I am dictating on behalf of Dr. Satya Allen's history/physical and assessment/plan. Past Medical History Past Medical History: Atrial Fibrillation, GERD/Reflux, Hearing Disorder / Deafness, Osteoarthritis (OA), Sleep Apnea/CPAP/BIPAP Additional Past Medical History / Comment(s): PLEASE SEE DR. KATE'S H&P. SOB with exertion, migraines, environmental allergies, CPAP use, some hearing loss. History of Any Multi-Drug Resistant Organisms: None Reported Past Surgical History: Heart Catheterization, Orthopedic Surgery Additional Past Surgical History / Comment(s): Sinus surgery, right knee arthroscopy,vasectomy, left plantar fascitis surgery, CVN with TABITHA Past Anesthesia/Blood Transfusion Reactions: No Reported Reaction Past Psychological History: No Psychological Hx Reported Additional Psychological History / Comment(s): Pt resides with his spouse. He is independent. Smoking Status: Never smoker Past Alcohol Use History: Occasional Additional Past Alcohol Use History / Comment(s): Has chewed tobacco since age 14. Past Drug Use History: None Reported - Past Family History Father Family Medical History: AFIB, Myocardial Infarction ([place]) Additional Family Medical History / Comment(s): Enlarged heart, silent [place]. Mother Family Medical History: Osteoarthritis (OA) Additional Family Medical History / Comment(s): Depression. Medications and Allergies Home Medications Medication Instructions Recorded Confirmed Type Cholecalciferol [Vitamin D3 (25 50 mcg PO DAILY 01/13/22 04/06/23 History Mcg = 1000 Iu)] Fluticasone Nasal [place] [Flonase 2 spray EA NOSTRIL DAILY 01/13/22 04/06/23 History Nasal [place]] Loratadine [Claritin] 10 mg PO DAILY 01/07/23 04/06/23 History Multivitamin [Multivitamins Adult 2 tab PO DAILY 01/07/23 04/06/23 History Gummies] Apixaban [Eliquis] 5 mg PO BID #180 tab 01/12/23 04/06/23 Rx lisinopriL [Zestril] 2.5 mg PO DAILY 03/23/23 04/06/23 History Metoprolol Succinate [Toprol XL] 50 mg PO DAILY #90 tab 03/31/23 04/06/23 Rx Allergies Allergy/AdvReac Type Severity Reaction Status Date / Time environmental Allergy congestion Uncoded 04/06/23 13:11 Physical Exam Vitals: Vital Signs Temp Pulse Pulse Resp BP BP Pulse Ox 04/07/23 16:23 77 20 04/07/23 16:21 97.7 F 77 20 127/83 97 04/07/23 12:54 97.8 F 80 16 116/78 93 L 04/07/23 08:10 97.9 F 80 16 134/91 95 04/07/23 06:00 71 18 125/92 96 04/07/23 03:37 71 16 122/92 97 04/07/23 01:42 71 16 142/81 97 04/06/23 22:00 68 20 140/98 98 04/06/23 21:00 69 20 133/98 98 04/06/23 20:00 70 22 126/93 96 04/06/23 19:00 68 20 125/82 95 04/06/23 18:00 69 18 132/94 96 04/06/23 17:00 71 20 130/93 98 04/06/23 16:57 98.3 F Intake and Output 04/07/23 04/07/23 04/07/23 06:59 14:59 22:59 Intake Total 120 Balance 120 Intake: Oral 120 Other: Voiding Method Toilet # Bowel Movements 0 Weight 112.491 kg Results 04/06/23 08:43 04/07/23 06:43 Cardiac Enzymes 04/06/23 Range/Units 19:41 Troponin I 0.413 H* (0.000-0.034) ng/mL Lipids 04/07/23 Range/Units 06:43 Triglycerides 123.00 (0.00-149.00) mg/dL Cholesterol 175.00 (0.00-200.00) mg/dL HDL Cholesterol 45.20 (40.00-60.00) mg/dL Cholesterol/HDL Ratio 3.87 Ratio Comprehensive Metabolic Panel 04/07/23 Range/Units 06:43 Sodium 136 L (137-145) mmol/L Potassium 4.3 (3.5-5.1) mmol/L Chloride 106 (98-107) mmol/L Carbon Dioxide 25 (22-30) mmol/L BUN 18 (9-20) mg/dL Creatinine 0.83 (0.66-1.25) mg/dL Glucose 85 (74-99) mg/dL Calcium 9.2 (8.4-10.2) mg/dL Current Medications Generic Name Dose Route Start Last Admin Trade Name Freq PRN Reason Stop Dose Admin Acetaminophen 650 mg 04/06/23 13:10 Acetaminophen Tab 325 Mg Tab PO Q6HR PRN Mild Pain or Fever > 100.5 Apixaban 5 mg 04/06/23 21:00 04/07/23 09:02 Apixaban 5 Mg Tab PO 5 mg BID DAHLIA Administration Protocol Cholecalciferol 50 mcg 04/07/23 09:00 04/07/23 09:03 Cholecalciferol 25 Mcg (1000 Iu) Tablet PO 50 mcg DAILY DAHLIA Administration Fluticasone Propionate 2 spray 04/07/23 09:00 04/07/23 09:07 Fluticasone 50mcg/[place] Nasal 16gm EA NOSTRIL Not Given DAILY DAHLIA Sodium Chloride 1,000 mls @ 75 mls/hr 04/06/23 13:15 04/07/23 01:37 Saline 0.9% IV Not Given .[id number] DAHLIA Lisinopril 2.5 mg 04/07/23 09:00 04/07/23 09:02 Lisinopril 2.5 Mg Tab PO 2.5 mg DAILY DAHLIA Administration Loratadine 10 mg 04/07/23 09:00 04/07/23 09:02 Loratadine 10 Mg Tab PO 10 mg DAILY DAHLIA Administration Metoprolol Succinate 50 mg 04/07/23 09:00 04/07/23 09:03 Metoprolol Succinate (Er) 50 Mg Tab.Er.24h PO 50 mg DAILY DAHLIA Administration Morphine Sulfate 2 mg 04/06/23 13:34 Morphine Sulfate 2 Mg/Ml Syringe IVP Q4HR PRN Pain/Discomfort Multivitamins 1 each 04/07/23 09:00 04/07/23 09:03 Multivitamins, Thera 1 Each Tab PO 1 each DAILY DAHLIA Administration Naloxone HCl 0.2 mg 04/06/23 13:10 Naloxone 0.4 Mg/Ml 1 Ml Vial IVP Q2M PRN Opioid Reversal Nitroglycerin 0.4 mg 04/06/23 12:15 Nitroglycerin Sl Tabs 0.4 Mg Tab SUBLINGUAL Q5M PRN Chest Pain Ondansetron HCl 4 mg 04/06/23 13:10 Ondansetron 4 Mg/2 Ml Vial IVP Q8HR PRN Nausea And Vomiting Intake and Output 04/07/23 04/07/23 04/07/23 06:59 14:59 22:59 Intake Total 120 Balance 120 Intake: Oral 120 Other: Voiding Method Toilet # Bowel Movements 0 Weight 112.491 kg Patient Weight 04/08/23 06:59 Weight 112.491 kg 04/06/23 08:43 04/07/23 06:43
[2023-04-07] MEDS: ACETAMINOPHEN TAB 325 MG TAB PO PRN (20:22)
[2023-04-08 08:53] LABS: HCT 46.6 % (39.0-53.0); HGB 15.4 gm/dL (13.0-17.5); MCH 30.8 pg (25.0-35.0); MCV 93.5 fL (80.0-100.0); Mean Platelet Volume 8.1; Platelet Count 246 k/uL (150-450); RBC 4.98 m/uL (4.30-5.90); RDW 12.1 % (11.5-15.5); WBC 7.2 k/uL (3.8-10.6)
[2023-04-08 09:29] LABS: African American GFR (CKD) >90 (>60 ml/min/1.73 sqM); Anion Gap 5 mmol/L; Blood Urea Nitrogen 19 mg/dL (9-20); Calcium 9.1 mg/dL (8.4-10.2); Carbon Dioxide 26 mmol/L (22-30); Chloride 105 mmol/L (98-107); Glucose 115 mg/dL (74-99); Non-African American GFR(CKD) >90 (>60 ml/min/1.73 sqM); Potassium 4.7 mmol/L (3.5-5.1); Sodium 136 mmol/L (137-145)
--- NOTE | 2023-04-08 11:50 | P.PN ---
Subjective Progress Note Date: 04/08/23 * 57-year-old gentleman past medical history significant for persistent atrial fibrillation, nonischemic cardiomyopathy, s/p atrial fibrillation, left atrial septal ablation, left atrial roof ablation done on March 31, 2023, presents to the emergency department with complaints of shortness of breath, chest pressure and groin pain. Patient states that ever since his ablation he has noticed increased pain in the left groin, swelling and bruising. Patient also complained of increased shortness of breath and left arm paresthesia. * Workup Obtained in ER included a chest x-ray which was negative * Patient had ultrasound Doppler done left lower extremity which showed pseudoaneurysm from superficial femoral artery measuring 1 x 0.8 x 0.5 cm. Neck measures 0.2 cm * Initial workup in ER included CBC which were essentially negative, serum chemistry showed sodium of 137 potassium 4.6, dioxide 20 BUN 18 creatinine 0.72, troponin 0.371 AST of 40 ALT 59 * Patient admitted to medical floor with consultation to be obtained from cardiology * 04/07/2023: Patient seen and evaluated bedside, troponins reviewed remain flat, patient does complain of intermittent chest pain. Serum chemistry reviewed, * 04/08/2023: Patient seen and evaluated bedside, left groin bruise remained stable, denies of paresthesia. CT head negative, waiting for IR evaluation REVIEW OF SYSTEMS: Left groin pain, shortness of breath improved CONSTITUTIONAL: No fever, no malaise, no fatigue. HEENT: No recent visual problems or hearing problems. Denied any sore throat. CARDIOVASCULAR: Left groin pain, shortness of breath improved PULMONARY: No shortness of breath, no cough, no hemoptysis. GASTROINTESTINAL: No diarrhea, no nausea, no vomiting, no abdominal pain. NEUROLOGICAL: No headaches, no weakness, no numbness. HEMATOLOGICAL: Denies any bleeding or petechiae. GENITOURINARY: Denies any burning micturition, frequency, or urgency. MUSCULOSKELETAL/RHEUMATOLOGICAL: Denies any joint pain, swelling, or any muscle pain. ENDOCRINE: Denies any polyuria or polydipsia. PHYSICAL EXAMINATION: GENERAL: The patient is alert and oriented x3, not in any acute distress. Well developed, well nourished. HEENT: Pupils are round and equally reacting to light. EOMI. No scleral icterus. No conjunctival pallor. Normocephalic, atraumatic. No pharyngeal erythema. No thyromegaly. CARDIOVASCULAR: S1 and S2 present. Left groin bruising noted PULMONARY: Chest is clear to auscultation, no wheezing or crackles. ABDOMEN: Soft, nontender, nondistended, normoactive bowel sounds. No palpable organomegaly. MUSCULOSKELETAL: No joint swelling or deformity. EXTREMITIES: No cyanosis, clubbing, or pedal edema. NEUROLOGICAL: Gross neurological examination did not reveal any focal deficits. SKIN: Bruising noted left groin Objective - Vital Signs Vital signs: Vital Signs Temp 97.7 F 04/07/23 19:29 Pulse 76 04/08/23 08:00 Resp 16 04/08/23 08:00 BP 124/84 04/08/23 08:00 Pulse Ox 94 L 04/08/23 08:00 FiO2 Intake & Output 04/07/23 04/08/23 04/08/23 18:59 06:59 18:59 Intake Total 240 540 0 Balance 240 540 0 Weight 112.491 kg Intake: Oral 240 540 0 Other: Voiding Method Toilet Toilet Toilet # Voids 1 # Bowel Movements 0 - Labs CBC & Chem 7: 04/08/23 08:17 04/08/23 08:17 Labs: Abnormal Lab Results - Last 24 Hours (Table) 04/08/23 Range/Units 08:17 Sodium 136 L (137-145) mmol/L Glucose 115 H (74-99) mg/dL Assessment and Plan Assessment: Assessment and plan * History of atrial fibrillation s/p ablation * Left femoral artery pseudoaneurysm s/p catheterization * History of hypertension * Elevated troponin likely secondary to atrial fibrillation ablation * In regards to elevated troponin, follow-up troponin ordered nonspecific's s/p ablation, will consult cardiology continue medical management * In regards to left femoral artery pseudoaneurysm, ultrasound reviewed, appreciate input from cardiology, follow-up on H&H, IR consulted * Regards to history of hypertension Home medications to be continued including lisinopril and metoprolol * CODE STATUS is full code
--- NOTE | 2023-04-08 14:34 | P.PN ---
Subjective Progress Note Date: 04/08/23 Consult reason: chest pain, other (Pseudoaneurysm) Chief complaint: Chest pain and left groin pain History of present illness: History of present illness: Patient is a pleasant 57-year-old male with significant past medical history of paroxysmal atrial fibrillation, and recent A-fib ablation who presented with complaints of chest pain and left groin pain. He does follow with Dr. Coates. He did undergo left heart catheterization 01/08/2023 which revealed normal coronary arteries. He then underwent A-fib ablation with Dr. Kate on 03/31/2023. He was discharged home the following day and noticed he had a bruise on his left groin and that was getting bigger. He did have shortness of breath and some chest pain. Over the past 2 days his left groin pain got worse. He did have 1 episode where he had left arm tingling x 1 hour with a left-sided headache. He denies any specific weakness during this time. Denies any history of stroke. Patient does have speech that is slow however family member reports that his speech is at baseline for him. Ultrasound does show pseudoaneurysm of the left femoral artery. He reports compliance with his Eliquis and has not missed any doses. EKG shows sinus rhythm with occasional supraventricular premature complexes, nonspecific T wave abnormalities, 72 bpm. He does have mild chest pain that comes and goes that he rates a 2/10, EKG is not classic for pericarditis. 2/2 Patient was to be seen by interventional radiology today for the pseudoaneurysm but it turns out that there is no radiologist available that can perform this procedure. The soonest this could be done by interventional radiology would be on Tuesday. Patient is complaining of some lower chest pain comes and goes sometimes at rest. He denies any upset stomach. Hemoglobin is 15.4, BUN 19 creatinine 0.87, sodium 136, potassium 4.7. Blood pressure 122/70, heart rate is in the 70s. Gets me all yes PHYSICAL EXAMINATION: This is a 57-year-old male in no apparent distress at the time of my examination. HEENT: Head is atraumatic, normocephalic. Pupils are equal, round. Sclerae anicteric. Conjunctivae are clear. Mucous membranes of the mouth are moist. Neck is supple. There is no jugular venous distention. No carotid bruit is heard. CHEST EXAMINATION: Lungs are clear to auscultation. No chest wall tenderness is noted on palpation or with deep breathing. HEART EXAMINATION: Heart regular rate and rhythm. S1, S2 heard. No murmurs, gallops or rub. ABDOMEN: Soft, nontender. Bowel sounds are heard. EXTREMITIES: 2+ peripheral pulses with no evidence of peripheral edema and no calf tenderness noted. Left groin with bruising and mild edema, tender on exam. NEUROLOGIC EXAMINATION: Patient is awake, alert and oriented x3. IMPRESSION AND PLAN: Atrial fibrillation, persistent, status post ablation currently in sinus rhythm Chronic tobacco use Chest pain Left arm paresthesias Left femoral pseudoaneurysm NSTEMI likely type II related to inflammation from procedure, normal coronary arteries on heart cath 2 months ago. PLAN: Interventional radiology is not available to assess pseudoaneurysm and consult will be changed to vascular surgery. No further cardiac workup at this time. Continue current cardiac medications I am dictating on behalf of Dr. Satya Allen's history/physical and assessment/plan. Objective - Vital Signs Vital signs: Vital Signs Temp 97.7 F 04/07/23 19:29 Pulse 76 04/08/23 08:00 Resp 16 04/08/23 08:00 BP 124/84 04/08/23 08:00 Pulse Ox 94 L 04/08/23 08:00 FiO2 Intake & Output 04/07/23 04/08/23 04/08/23 18:59 06:59 18:59 Intake Total 240 540 0 Balance 240 540 0 Weight 112.491 kg Intake: Oral 240 540 0 Other: Voiding Method Toilet Toilet Toilet # Voids 1 # Bowel Movements 0 - Labs CBC & Chem 7: 04/08/23 08:17 04/08/23 08:17 Labs: Abnormal Lab Results - Last 24 Hours (Table) 04/08/23 Range/Units 08:17 Sodium 136 L (137-145) mmol/L Glucose 115 H (74-99) mg/dL
--- NOTE | 2023-04-09 08:35 | P.PN ---
Subjective Progress Note Date: 04/09/23 Consult reason: chest pain, other (Pseudoaneurysm) Chief complaint: Chest pain and left groin pain History of present illness: History of present illness: Patient is a pleasant 57-year-old male with significant past medical history of paroxysmal atrial fibrillation, and recent A-fib ablation who presented with complaints of chest pain and left groin pain. He does follow with Dr. Coates. He did undergo left heart catheterization 01/08/2023 which revealed normal coronary arteries. He then underwent A-fib ablation with Dr. Kate on 03/31/2023. He was discharged home the following day and noticed he had a bruise on his left groin and that was getting bigger. He did have shortness of breath and some chest pain. Over the past 2 days his left groin pain got worse. He did have 1 episode where he had left arm tingling x 1 hour with a left-sided headache. He denies any specific weakness during this time. Denies any history of stroke. Patient does have speech that is slow however family member reports that his speech is at baseline for him. Ultrasound does show pseudoaneurysm of the left femoral artery. He reports compliance with his Eliquis and has not missed any doses. EKG shows sinus rhythm with occasional supraventricular premature complexes, nonspecific T wave abnormalities, 72 bpm. He does have mild chest pain that comes and goes that he rates a 2/10, EKG is not classic for pericarditis. 2/2 Patient was to be seen by interventional radiology today for the pseudoaneurysm but it turns out that there is no radiologist available that can perform this procedure. The soonest this could be done by interventional radiology would be on Tuesday. Patient is complaining of some lower chest pain comes and goes sometimes at rest. He denies any upset stomach. Hemoglobin is 15.4, BUN 19 creatinine 0.87, sodium 136, potassium 4.7. Blood pressure 122/70, heart rate is in the 70s. Gets me all yes 2/3 Patient remains in sinus rhythm running in the 70s. Blood pressure is 124/81. Pulse ox 97% on room air. Interventional radiology was not available to do pseudoaneurysm treatment and thus a consult was placed with vascular surgery. PHYSICAL EXAMINATION: This is a 57-year-old male in no apparent distress at the time of my examination. HEENT: Head is atraumatic, normocephalic. Pupils are equal, round. Sclerae anicteric. Conjunctivae are clear. Mucous membranes of the mouth are moist. Neck is supple. There is no jugular venous distention. No carotid bruit is heard. CHEST EXAMINATION: Lungs are clear to auscultation. No chest wall tenderness is noted on palpation or with deep breathing. HEART EXAMINATION: Heart regular rate and rhythm. S1, S2 heard. No murmurs, gallops or rub. ABDOMEN: Soft, nontender. Bowel sounds are heard. EXTREMITIES: 2+ peripheral pulses with no evidence of peripheral edema and no calf tenderness noted. Left groin with bruising and mild edema, tender on exam. NEUROLOGIC EXAMINATION: Patient is awake, alert and oriented x3. IMPRESSION AND PLAN: Atrial fibrillation, persistent, status post ablation currently in sinus rhythm Chronic tobacco use Chest pain Left arm paresthesias Left femoral pseudoaneurysm NSTEMI likely type II related to inflammation from procedure, normal coronary arteries on heart cath 2 months ago. PLAN: Interventional radiology is not available to assess pseudoaneurysm and consult to vascular surgery. No further cardiac workup at this time. Continue current cardiac medications Patient is cleared for discharge from cardiology once evaluated by vascular surgery and may follow-up with Dr. Sara Coates in 1 to 2 weeks. I am dictating on behalf of Dr. Satya Allen's history/physical and assessment/plan. Objective - Vital Signs Vital signs: Vital Signs Temp 98.0 F 04/08/23 20:00 Pulse 63 04/09/23 04:00 Resp 18 04/09/23 04:00 BP 124/81 04/09/23 04:00 Pulse Ox 97 04/09/23 04:00 FiO2 Intake & Output 04/08/23 04/09/23 04/09/23 18:59 06:59 18:59 Intake Total 240 780 Output Total 300 Balance -60 780 Intake: Oral 240 780 Output: Urine 300 Other: Voiding Method Toilet Toilet # Voids 1 - Labs CBC & Chem 7: 04/08/23 08:17 04/08/23 08:17 Labs: Abnormal Lab Results - Last 24 Hours (Table) 04/08/23 Range/Units 08:17 Sodium 136 L (137-145) mmol/L Glucose 115 H (74-99) mg/dL
--- NOTE | 2023-04-09 12:21 | P.GSCN ---
History of Present Illness Consult date: 04/09/23 History of present illness: Patient is a 57-year-old male with history of paroxysmal A. fib and recent ablation who presented with issues of chest pain and left groin pain. He underwent A. fib ablation with Dr. Kate on 03/31/2023 and with the pain in his groin presented back to the hospital. On workup and evaluation he was found to have a pseudoaneurysm measuring 1.0 x 0.8 x 0.5 cm. At this point he is having some pain in the groin but overall feels relatively fine. He denies any fevers, chills, nausea or vomiting. He denies any procedures down his leg. Past Medical History Past Medical History: Atrial Fibrillation, GERD/Reflux, Hearing Disorder / Deafness, Osteoarthritis (OA), Sleep Apnea/CPAP/BIPAP Additional Past Medical History / Comment(s): PLEASE SEE DR. KATE'S H&P. SOB with exertion, migraines, environmental allergies, CPAP use, some hearing loss. History of Any Multi-Drug Resistant Organisms: None Reported Past Surgical History: Heart Catheterization, Orthopedic Surgery Additional Past Surgical History / Comment(s): Sinus surgery, right knee arthroscopy,vasectomy, left plantar fascitis surgery, CVN with TABITHA Past Anesthesia/Blood Transfusion Reactions: No Reported Reaction Past Psychological History: No Psychological Hx Reported Additional Psychological History / Comment(s): Pt resides with his spouse. He is independent. Smoking Status: Never smoker Past Alcohol Use History: Occasional Additional Past Alcohol Use History / Comment(s): Has chewed tobacco since age 14. Past Drug Use History: None Reported - Past Family History Father Family Medical History: AFIB, Myocardial Infarction (AR) Additional Family Medical History / Comment(s): Enlarged heart, silent AR. Mother Family Medical History: Osteoarthritis (OA) Additional Family Medical History / Comment(s): Depression. Medications and Allergies Home Medications Medication Instructions Recorded Confirmed Type Cholecalciferol [Vitamin D3 (25 50 mcg PO DAILY 01/13/22 04/06/23 History Mcg = 1000 Iu)] Fluticasone Nasal Ennis [Flonase 2 spray EA NOSTRIL DAILY 01/13/22 04/06/23 History Nasal Ennis] Loratadine [Claritin] 10 mg PO DAILY 01/07/23 04/06/23 History Multivitamin [Multivitamins Adult 2 tab PO DAILY 01/07/23 04/06/23 History Gummies] Apixaban [Eliquis] 5 mg PO BID #180 tab 01/12/23 04/06/23 Rx lisinopriL [Zestril] 2.5 mg PO DAILY 03/23/23 04/06/23 History Metoprolol Succinate [Toprol XL] 50 mg PO DAILY #90 tab 03/31/23 04/06/23 Rx Allergies Allergy/AdvReac Type Severity Reaction Status Date / Time environmental Allergy congestion Uncoded 04/06/23 13:11 Surgical - Exam Vital Signs Temp Pulse Resp BP Pulse Ox 98.6 F 80 16 133/95 97 04/06/23 08:24 04/06/23 08:24 04/06/23 08:24 04/06/23 08:24 04/06/23 08:24 PHYSICAL EXAMINATION: This is a 57-year-old male in no apparent distress HEENT: Head is atraumatic, normocephalic. Pupils are equal, round. Sclerae anicteric. Conjunctivae are clear. Mucous membranes of the mouth are moist. Neck is supple. There is no jugular venous distention. CHEST EXAMINATION: No respiratory distress. ABDOMEN: Soft, nontender. Bowel sounds are heard. EXTREMITIES: 2+ peripheral pulses with no evidence of peripheral edema and no calf tenderness noted. Left groin with bruising and mild edema, tender on exam. Mild area of nodule, nonpulsatile NEUROLOGIC EXAMINATION: Patient is awake, alert and oriented x3. Results Ultrasound reviewed. small pseudoaneurysm - Labs 04/08/23 08:17 04/08/23 08:17 Assessment and Plan Assessment: Left groin pseudoaneurysm 1 x 0.8 x 0.5 centimeters and partially resolved. Plan: Placed pressure dressing at this point. The area is very small. Hopeful for no intervention continued monitoring with compression. We'll plan ultrasound tomorrow. Did discuss potential options of surgical versus injection versus no intervention monitoring. He seemingly understands and is willing to proceed.
--- NOTE | 2023-04-09 13:18 | P.PN ---
Subjective Progress Note Date: 04/09/23 * 57-year-old gentleman past medical history significant for persistent atrial fibrillation, nonischemic cardiomyopathy, s/p atrial fibrillation, left atrial septal ablation, left atrial roof ablation done on March 31, 2023, presents to the emergency department with complaints of shortness of breath, chest pressure and groin pain. Patient states that ever since his ablation he has noticed increased pain in the left groin, swelling and bruising. Patient also complained of increased shortness of breath and left arm paresthesia. * Workup Obtained in ER included a chest x-ray which was negative * Patient had ultrasound Doppler done left lower extremity which showed pseudoaneurysm from superficial femoral artery measuring 1 x 0.8 x 0.5 cm. Neck measures 0.2 cm * Initial workup in ER included CBC which were essentially negative, serum chemistry showed sodium of 137 potassium 4.6, dioxide 20 BUN 18 creatinine 0.72, troponin 0.371 AST of 40 ALT 59 * Patient admitted to medical floor with consultation to be obtained from cardiology * 04/07/2023: Patient seen and evaluated bedside, troponins reviewed remain flat, patient does complain of intermittent chest pain. Serum chemistry reviewed, * 04/08/2023: Patient seen and evaluated bedside, left groin bruise remained stable, denies of paresthesia. CT head negative, waiting for IR evaluation * 04/09/2023: Patient seen and evaluated bedside, pressure dressing applied on the left femoral area seen by vascular surgery. REVIEW OF SYSTEMS: Left groin pain, shortness of breath improved CONSTITUTIONAL: No fever, no malaise, no fatigue. HEENT: No recent visual problems or hearing problems. Denied any sore throat. CARDIOVASCULAR: Left groin pain, shortness of breath improved PULMONARY: No shortness of breath, no cough, no hemoptysis. GASTROINTESTINAL: No diarrhea, no nausea, no vomiting, no abdominal pain. NEUROLOGICAL: No headaches, no weakness, no numbness. HEMATOLOGICAL: Denies any bleeding or petechiae. GENITOURINARY: Denies any burning micturition, frequency, or urgency. MUSCULOSKELETAL/RHEUMATOLOGICAL: Denies any joint pain, swelling, or any muscle pain. ENDOCRINE: Denies any polyuria or polydipsia. PHYSICAL EXAMINATION: GENERAL: The patient is alert and oriented x3, not in any acute distress. Well developed, well nourished. HEENT: Pupils are round and equally reacting to light. EOMI. No scleral icterus. No conjunctival pallor. Normocephalic, atraumatic. No pharyngeal erythema. No thyromegaly. CARDIOVASCULAR: S1 and S2 present. Left groin bruising noted PULMONARY: Chest is clear to auscultation, no wheezing or crackles. ABDOMEN: Soft, nontender, nondistended, normoactive bowel sounds. No palpable organomegaly. MUSCULOSKELETAL: No joint swelling or deformity. EXTREMITIES: No cyanosis, clubbing, or pedal edema. NEUROLOGICAL: Gross neurological examination did not reveal any focal deficits. SKIN: Bruising noted left groin Objective - Vital Signs Vital signs: Vital Signs Temp 98.0 F 04/09/23 08:00 Pulse 75 04/09/23 12:00 Resp 18 04/09/23 08:00 BP 128/80 04/09/23 12:00 Pulse Ox 96 04/09/23 12:00 FiO2 Intake & Output 04/08/23 04/09/23 04/09/23 18:59 06:59 18:59 Intake Total 240 780 716 Output Total 300 Balance -60 780 716 Intake: Oral 240 780 716 Output: Urine 300 Other: Voiding Method Toilet Toilet Toilet # Voids 1 - Labs CBC & Chem 7: 04/08/23 08:17 04/08/23 08:17 Assessment and Plan Assessment: Assessment and plan * History of atrial fibrillation s/p ablation * Left femoral artery pseudoaneurysm s/p catheterization * History of hypertension * Elevated troponin likely secondary to atrial fibrillation ablation * In regards to elevated troponin, follow-up troponin ordered nonspecific's s/p ablation, will consult cardiology continue medical management * In regards to left femoral artery pseudoaneurysm, ultrasound reviewed, appreciate input from cardiology, follow-up on H&H, vascular surgery consulted, pressure dressing applied to left groin * history of hypertension Home medications to be continued including lisinopril and metoprolol * CODE STATUS is full code Time with Patient: Greater than 30
--- NOTE | 2023-04-10 09:34 | US ---
EXAMINATION TYPE: US lower ext pseudo artery LT DATE OF EXAM: 04/10/2023 COMPARISON: NONE CLINICAL INDICATION: Male, 57 years old with history of l fem psa; Left pseudo seen branching from le ft FA 04/06/2023 after 03/31/2023 cath, patient has remained in hospital and just had compression dress ing on the past day, no intervention was done, reassess today EXAM PERFORMED: Grayscale and color Doppler duplex imaging performed of the groin, post cardiac rony ter to assess for pseudoaneurysm. SIDE PERFORMED: Left Color and Waveform Doppler performed to assess for the presence of pseudoaneurysm; Is there ultrasound evidence of a pseudoaneurysm: yes, more like pseudo collaterals versus collectio n connecting to proximal FA, irregular high velocity flow noted within neck and beyond Is there evidence of AV shunting: no Is there a fluid collection present: yes, but appears clotted off just adjacent to neck IMPRESSION: As above
[2023-04-10 09:52] LABS: HCT 46.7 % (39.0-53.0); HGB 15.6 gm/dL (13.0-17.5); MCH 31.4 pg (25.0-35.0); MCHC 33.4 g/dL (31.0-37.0); MCV 93.9 fL (80.0-100.0); Mean Platelet Volume 7.6; Platelet Count 248 k/uL (150-450); RBC 4.97 m/uL (4.30-5.90); RDW 11.9 % (11.5-15.5); WBC 7.4 k/uL (3.8-10.6)
[2023-04-10 10:04] LABS: African American GFR (CKD) >90 (>60 ml/min/1.73 sqM); Anion Gap 7 mmol/L; Blood Urea Nitrogen 17 mg/dL (9-20); Calcium 9.3 mg/dL (8.4-10.2); Carbon Dioxide 26 mmol/L (22-30); Chloride 105 mmol/L (98-107); Glucose 91 mg/dL (74-99); Non-African American GFR(CKD) >90 (>60 ml/min/1.73 sqM); Potassium 4.6 mmol/L (3.5-5.1); Sodium 138 mmol/L (137-145)
--- NOTE | 2023-04-10 10:43 | P.PN ---
Subjective Progress Note Date: 04/10/23 Consult reason: chest pain, other (Pseudoaneurysm) Chief complaint: Chest pain and left groin pain History of present illness: History of present illness: Patient is a pleasant 57-year-old male with significant past medical history of paroxysmal atrial fibrillation, and recent A-fib ablation who presented with complaints of chest pain and left groin pain. He does follow with Dr. Coates. He did undergo left heart catheterization 01/08/2023 which revealed normal coronary arteries. He then underwent A-fib ablation with Dr. Kate on 03/31/2023. He was discharged home the following day and noticed he had a bruise on his left groin and that was getting bigger. He did have shortness of breath and some chest pain. Over the past 2 days his left groin pain got worse. He did have 1 episode where he had left arm tingling x 1 hour with a left-sided headache. He denies any specific weakness during this time. Denies any history of stroke. Patient does have speech that is slow however family member reports that his speech is at baseline for him. Ultrasound does show pseudoaneurysm of the left femoral artery. He reports compliance with his Eliquis and has not missed any doses. EKG shows sinus rhythm with occasional supraventricular premature complexes, nonspecific T wave abnormalities, 72 bpm. He does have mild chest pain that comes and goes that he rates a 2/10, EKG is not classic for pericarditis. 2/2 Patient was to be seen by interventional radiology today for the pseudoaneurysm but it turns out that there is no radiologist available that can perform this procedure. The soonest this could be done by interventional radiology would be on Tuesday. Patient is complaining of some lower chest pain comes and goes sometimes at rest. He denies any upset stomach. Hemoglobin is 15.4, BUN 19 creatinine 0.87, sodium 136, potassium 4.7. Blood pressure 122/70, heart rate is in the 70s. Gets me all yes 2/3 Patient remains in sinus rhythm running in the 70s. Blood pressure is 124/81. Pulse ox 97% on room air. Interventional radiology was not available to do pseudoaneurysm treatment and thus a consult was placed with vascular surgery. Patient states that this morning the groin area hurts with movement more so than it has. Area appears to be stable. No complaints of chest pain. No shortness of breath 2/4 Patient has been seen by vascular surgery with plan for compression and repeat ultrasound today which revealed suitable collateral versus fluid collection connecting to the proximal FA. No shunting. Fluid collection appears clotted just adjacent to the neck. Options given to the patient for surgical versus injection versus no intervention. Blood pressure 117/72, heart rate in the 60s and 70s. PHYSICAL EXAMINATION: This is a 57-year-old male in no apparent distress at the time of my examination. HEENT: Head is atraumatic, normocephalic. Pupils are equal, round. Sclerae anicteric. Conjunctivae are clear. Mucous membranes of the mouth are moist. Neck is supple. There is no jugular venous distention. No carotid bruit is heard. CHEST EXAMINATION: Lungs are clear to auscultation. No chest wall tenderness is noted on palpation or with deep breathing. HEART EXAMINATION: Heart regular rate and rhythm. S1, S2 heard. No murmurs, gallops or rub. ABDOMEN: Soft, nontender. Bowel sounds are heard. EXTREMITIES: 2+ peripheral pulses with no evidence of peripheral edema and no calf tenderness noted. Left groin with bruising and mild edema, tender on exam. NEUROLOGIC EXAMINATION: Patient is awake, alert and oriented x3. IMPRESSION AND PLAN: Atrial fibrillation, persistent, status post ablation currently in sinus rhythm Chronic tobacco use Chest pain Left arm paresthesias Left femoral pseudoaneurysm NSTEMI likely type II related to inflammation from procedure, normal coronary arteries on heart cath 2 months ago. PLAN: Interventional radiology is not available to assess pseudoaneurysm and consult to vascular surgery. No further cardiac workup at this time. Continue current cardiac medications Patient is cleared for discharge from cardiology once evaluated by vascular surgery and may follow-up with Dr. Sara Coates in 1 to 2 weeks. I am dictating on behalf of Dr. Satya Allen's history/physical and assessment/plan. Objective - Vital Signs Vital signs: Vital Signs Temp 98.0 F 04/09/23 08:00 Pulse 66 04/10/23 03:09 Resp 16 04/10/23 03:09 BP 117/72 04/10/23 03:09 Pulse Ox 94 L 04/10/23 03:09 FiO2 Intake & Output 04/09/23 04/10/23 04/10/23 18:59 06:59 18:59 Intake Total 1316 1320 354 Output Total 3050 Balance 1316 -1730 354 Intake: Intake, IV Titration 600 Amount Sodium Chloride 0.9% 1, 600 000 ml @ 75 mls/hr IV . [id number] [facility] Rx#:[id number] Oral 718 1320 354 Output: Urine 3050 Other: Voiding Method Toilet Toilet - Labs CBC & Chem 7: 04/10/23 09:19 04/10/23 09:19
--- NOTE | 2023-04-10 13:27 | P.PN ---
Subjective Progress Note Date: 04/10/23 * 57-year-old gentleman past medical history significant for persistent atrial fibrillation, nonischemic cardiomyopathy, s/p atrial fibrillation, left atrial septal ablation, left atrial roof ablation done on March 31, 2023, presents to the emergency department with complaints of shortness of breath, chest pressure and groin pain. Patient states that ever since his ablation he has noticed increased pain in the left groin, swelling and bruising. Patient also complained of increased shortness of breath and left arm paresthesia. * Workup Obtained in ER included a chest x-ray which was negative * Patient had ultrasound Doppler done left lower extremity which showed pseudoaneurysm from superficial femoral artery measuring 1 x 0.8 x 0.5 cm. Neck measures 0.2 cm * Initial workup in ER included CBC which were essentially negative, serum chemistry showed sodium of 137 potassium 4.6, dioxide 20 BUN 18 creatinine 0.72, troponin 0.371 AST of 40 ALT 59 * Patient admitted to medical floor with consultation to be obtained from cardiology * 04/07/2023: Patient seen and evaluated bedside, troponins reviewed remain flat, patient does complain of intermittent chest pain. Serum chemistry reviewed, * 04/08/2023: Patient seen and evaluated bedside, left groin bruise remained stable, denies of paresthesia. CT head negative, waiting for IR evaluation * 04/09/2023: Patient seen and evaluated bedside, pressure dressing applied on the left femoral area seen by vascular surgery. * 04/10/2023: Patient seen and evaluated bedside, at bedside as well. Patient does have ultrasound completed which does show pseudoaneurysm present. Waiting for vascular surgery evaluation. Globin remained stable REVIEW OF SYSTEMS: Left groin pain resolved, shortness of breath resolved CONSTITUTIONAL: No fever, no malaise, no fatigue. HEENT: No recent visual problems or hearing problems. Denied any sore throat. CARDIOVASCULAR: Left groin pain resolved, shortness of breath resolved PULMONARY: No shortness of breath, no cough, no hemoptysis. GASTROINTESTINAL: No diarrhea, no nausea, no vomiting, no abdominal pain. NEUROLOGICAL: No headaches, no weakness, no numbness. HEMATOLOGICAL: Denies any bleeding or petechiae. GENITOURINARY: Denies any burning micturition, frequency, or urgency. MUSCULOSKELETAL/RHEUMATOLOGICAL: Denies any joint pain, swelling, or any muscle pain. ENDOCRINE: Denies any polyuria or polydipsia. PHYSICAL EXAMINATION: GENERAL: The patient is alert and oriented x3, not in any acute distress. Well developed, well nourished. HEENT: Pupils are round and equally reacting to light. EOMI. No scleral icterus. No conjunctival pallor. Normocephalic, atraumatic. No pharyngeal erythema. No thyromegaly. CARDIOVASCULAR: S1 and S2 present. Left groin bruising noted PULMONARY: Chest is clear to auscultation, no wheezing or crackles. ABDOMEN: Soft, nontender, nondistended, normoactive bowel sounds. No palpable organomegaly. MUSCULOSKELETAL: No joint swelling or deformity. EXTREMITIES: No cyanosis, clubbing, or pedal edema. NEUROLOGICAL: Gross neurological examination did not reveal any focal deficits. SKIN: Bruising noted left groin, improved Objective - Vital Signs Vital signs: Vital Signs Temp 98.0 F 04/09/23 08:00 Pulse 66 04/10/23 03:09 Resp 16 04/10/23 03:09 BP 117/72 04/10/23 03:09 Pulse Ox 94 L 04/10/23 03:09 FiO2 Intake & Output 04/09/23 04/10/23 04/10/23 18:59 06:59 18:59 Intake Total 1316 1320 354 Output Total 3050 100 Balance 1316 -1730 254 Intake: Intake, IV Titration 600 Amount Sodium Chloride 0.9% 1, 600 000 ml @ 75 mls/hr IV . [id number] [facility] Rx#:[id number] Oral 716 1320 354 Output: Urine 3050 100 Other: Voiding Method Toilet Toilet - Labs CBC & Chem 7: 04/10/23 09:19 04/10/23 09:19 Assessment and Plan Assessment: Assessment and plan * History of atrial fibrillation s/p ablation * Left femoral artery pseudoaneurysm s/p catheterization * History of hypertension * Elevated troponin likely secondary to atrial fibrillation ablation * In regards to elevated troponin, follow-up troponin ordered nonspecific's s/p ablation, appreciate input from cardiology continue medical management * In regards to left femoral artery pseudoaneurysm, ultrasound reviewed, appreciate input from cardiology, follow-up on H&H, vascular surgery consulted, pressure dressing applied to left groin on 04/09, follow-up ul trasound does show presence of pseudoaneurysm * history of hypertension Home medications to be continued including lisinopril and metoprolol * CODE STATUS is full code
--- NOTE | 2023-04-10 15:40 | P.DS ---
Providers Date of admission: 04/06/23 13:12 Expected date of discharge: 04/10/23 Attending physician: Jon Daniels MD Consults: 04/06/23 12:16 Consult Physician Urgent Consulting Provider: Nick Kate Consult Reason/Comments: Elevated troponin status post ablation, chest pain, pseudoaneurysm Do you want consulting provider notified?: Yes 04/08/23 14:27 Consult Physician Urgent Consulting Provider: Ronna Noguera Consult Reason/Comments: pseudoaneursmym Left fem Do you want consulting provider notified?: Yes Primary care physician: Edward Bahena [facility] Course: * 57-year-old gentleman past medical history significant for persistent atrial fibrillation, nonischemic cardiomyopathy, s/p atrial fibrillation, left atrial septal ablation, left atrial roof ablation done on March 31, 2023, presents to the emergency department with complaints of shortness of breath, chest pressure and groin pain. Patient states that ever since his ablation he has noticed increased pain in the left groin, swelling and bruising. Patient also complained of increased shortness of breath and left arm paresthesia. * Workup Obtained in ER included a chest x-ray which was negative * Patient had ultrasound Doppler done left lower extremity which showed pseudoaneurysm from superficial femoral artery measuring 1 x 0.8 x 0.5 cm. Neck measures 0.2 cm * Initial workup in ER included CBC which were essentially negative, serum chemistry showed sodium of 137 potassium 4.6, dioxide 20 BUN 18 creatinine 0.72, troponin 0.371 AST of 40 ALT 59 * Patient admitted to medical floor with consultation to be obtained from cardiology * 04/07/2023: Patient seen and evaluated bedside, troponins reviewed remain flat, patient does complain of intermittent chest pain. Serum chemistry reviewed, * 04/08/2023: Patient seen and evaluated bedside, left groin bruise remained stable, denies of paresthesia. CT head negative, waiting for IR evaluation * 04/09/2023: Patient seen and evaluated bedside, pressure dressing applied on the left femoral area seen by vascular surgery. * 04/10/2023: Patient seen and evaluated bedside, at bedside as well. Patient does have ultrasound completed which does show pseudoaneurysm present. per vascular surgery Groin remained stable, cleared for DC Home. US reviewed by Dr Noguera REVIEW OF SYSTEMS: Left groin pain resolved, shortness of breath resolved CONSTITUTIONAL: No fever, no malaise, no fatigue. HEENT: No recent visual problems or hearing problems. Denied any sore throat. CARDIOVASCULAR: Left groin pain resolved, shortness of breath resolved PULMONARY: No shortness of breath, no cough, no hemoptysis. GASTROINTESTINAL: No diarrhea, no nausea, no vomiting, no abdominal pain. NEUROLOGICAL: No headaches, no weakness, no numbness. HEMATOLOGICAL: Denies any bleeding or petechiae. GENITOURINARY: Denies any burning micturition, frequency, or urgency. MUSCULOSKELETAL/RHEUMATOLOGICAL: Denies any joint pain, swelling, or any muscle pain. ENDOCRINE: Denies any polyuria or polydipsia. PHYSICAL EXAMINATION: GENERAL: The patient is alert and oriented x3, not in any acute distress. Well developed, well nourished. HEENT: Pupils are round and equally reacting to light. EOMI. No scleral icterus. No conjunctival pallor. Normocephalic, atraumatic. No pharyngeal erythema. No thyromegaly. CARDIOVASCULAR: S1 and S2 present. Left groin bruising noted PULMONARY: Chest is clear to auscultation, no wheezing or crackles. ABDOMEN: Soft, nontender, nondistended, normoactive bowel sounds. No palpable organomegaly. MUSCULOSKELETAL: No joint swelling or deformity. EXTREMITIES: No cyanosis, clubbing, or pedal edema. NEUROLOGICAL: Gross neurological examination did not reveal any focal deficits. SKIN: Bruising noted left groin, improved Assessment and plan * History of atrial fibrillation s/p ablation * Left femoral artery pseudoaneurysm s/p catheterization * History of hypertension * Elevated troponin likely secondary to atrial fibrillation ablation * In regards to elevated troponin, follow-up troponin ordered nonspecific's s/p ablation, appreciate input from cardiology continue medical management * In regards to left femoral artery pseudoaneurysm, ultrasound reviewed, appreciate input from cardiology, follow-up on H&H, vascular surgery consulted, pressure dressing applied to left groin on 04/09/23 , follow-up ultrasound noted by Vasc Surg, recommend DC home, with follow up in office * history of hypertension Home medications to be continued including lisinopril and metoprolol Patient Condition at Discharge: Fair Plan - Discharge Summary Discharge Rx Participant: No New Discharge Prescriptions: Continue Cholecalciferol [Vitamin D3 (25 Mcg = 1000 Iu)] 50 mcg PO DAILY Multivitamin [Multivitamins Adult Gummies] 2 tab PO DAILY Apixaban [Eliquis] 5 mg PO BID #180 tab lisinopriL [Zestril] 2.5 mg PO DAILY Fluticasone Nasal [place] [Flonase Nasal [place]] 2 spray EA NOSTRIL DAILY Loratadine [Claritin] 10 mg PO DAILY Metoprolol Succinate [Toprol XL] 50 mg PO DAILY #90 tab Discharge Medication List Cholecalciferol [Vitamin D3 (25 Mcg = 1000 Iu)] 50 mcg PO DAILY 01/13/22 [History] Fluticasone Nasal [place] [Flonase Nasal [place]] 2 spray EA NOSTRIL DAILY 01/13/22 [History] Loratadine [Claritin] 10 mg PO DAILY 01/07/23 [History] Multivitamin [Multivitamins Adult Gummies] 2 tab PO DAILY 01/07/23 [History] Apixaban [Eliquis] 5 mg PO BID #180 tab 01/12/23 [Rx] lisinopriL [Zestril] 2.5 mg PO DAILY 03/23/23 [History] Metoprolol Succinate [Toprol XL] 50 mg PO DAILY #90 tab 03/31/23 [Rx] Follow up Appointment(s)/Referral(s): Edward Bahena MD [Primary Care Provider] - 1-2 days Best Coates MD [Family Provider] - 2 Weeks A & D,Home Care [NON-STAFF] - 1 Week Ronna Noguera DO [STAFF PHYSICIAN] - 3 Days (Call to schedule appointment ) Activity/Diet/Wound Care/Special Instructions: Follow up with Dr Noguera outpatient Discharge Disposition: HOME SELF-CARE
--- NOTE | 2023-04-10 16:08 | P.PN ---
Progress Note - Text Progress Note Date: 04/10/23 Reviewed US report, States yes to PSA however also states clotted off adjacent to the neck. No measurements given which leads me to believe there is no active area visualized. Regardless it is very small in nature with this finding and should close on its own. Would be okay with pt discharge and short term follow up and outpt US vs continued monitoring in hospital. No current plans for intervention. This was discussed with the patient, his and nursing staff. Discussed when to return to hospital. Answered questions. No heavylifting, be albert with groin hold when needing to strain/cough. They seemingly understand.
[2023-04-10] MEDS: NYSTATIN 100,000UNIT/GM CREAM 30 GM TUBE TOPICAL SCH (17:59)
[2023-04-11] MEDS ORDERED: RX INFO: IV CONTRAST WAS GIVEN 1 EACH MISC MISCELLANE PRN (07:31)
[2023-04-11 08:49] VITALS: RESP 16; TEMP 98.2
--- NOTE | 2023-04-11 10:58 | P.PN ---
Subjective Progress Note Date: 04/11/23 Principal diagnosis: Pseudoaneurysm Patient is seen and examined today as a follow-up for pseudoaneurysm. Patient was initially cleared yesterday for discharge to follow-up with vascular surgery on an outpatient basis for ultrasound however patient started having some discomfort in the groin when he was sitting to go to the bathroom. He had no bleeding from the access site no increased ecchymosis and no hematoma. Today he states no pain in the groin still some discomfort when he goes to squat or sit. States that he was just really nervous to go home due to his lifestyle. No acute changes through the night. Hemoglobin has remained stable with last hemoglobin yesterday being 15.6. Objective - Vital Signs Vital signs: Vital Signs Temp 98.1 F 04/10/23 19:32 Pulse 70 04/11/23 04:36 Resp 18 04/11/23 04:36 BP 124/81 04/11/23 04:36 Pulse Ox 95 04/11/23 04:36 FiO2 Intake & Output 04/10/23 04/11/23 04/11/23 18:59 06:59 18:59 Intake Total 712 540 Output Total 2100 500 Balance -1388 40 Intake: Oral 712 540 Output: Urine 2100 500 Other: Voiding Method Toilet Toilet - Exam General appearance: The patient is alert, oriented, appears in no acute distress. HET: Head is normocephalic and atraumatic. Pupils are equal and reactive. Neck: Supple. Heart: Regular. Lungs: Equal expansion, normal respiratory effort. Abdomen: Soft, nondistended. Extremities: Normal skin color and turgor. Left groin and thigh with ecchymosis. Nodular area palpated, nonpulsatile. Marked groin/lower abdomen that has not increased in size. Good capillary refill. +2 peripheral pulses. Neurological: No focal deficits. Strength and sensation are grossly intact. - Labs CBC & Chem 7: 04/10/23 09:19 04/10/23 09:19 Assessment and Plan Assessment: Left groin pseudoaneurysm status post cardiac ablation Plan: CT angiogram left lower extremity ordered and reviewed independently by Dr. Noguera. Small area 6 mm off sidebranch and should close on its own. There is no indication for vascular surgical intervention at this time. Should close on its own. Patient is recommended to follow-up in the office next week for repeat ultrasound. Patient is instructed for no heavy lifting or strenuous activity, no lifting greater than 10 to 15 pounds. Monitor area for bleeding increased ecchymosis or swelling. Patient is cleared from vascular surgery for discharge. Thank you for this consultation, we will sign off at this time. The impression and plan of care has been dictated as directed. Dr. Noguera I performed a history and examination of this patient, discussed the same with the dictator. I agree with the dictator's note ,documented as a scribe. Any additional findings or plans will be noted.
--- NOTE | 2023-04-11 11:31 | CT ---
EXAMINATION TYPE: CT angio lower extremity LT DATE OF EXAM: 04/11/2023 COMPARISON: Recent ultrasound HISTORY: evaluate pseudoaneurysm, left groin pain CT DLP: 1657.7 mGycm Automated exposure control for dose reduction was used. CONTRAST: Performed with IV Contrast, patient injected with 100 mL of Isovue 300. Runoff was performed of the l eft lower extremity. FINDINGS: Proximal left superficial femoral artery demonstrates small pseudoaneurysm measuring 7.7 mm seen best on axial image 56 sequence 501 and coronal images 44 through 46 of 158. Small surrounding hematoma n oted. The remainder of the left superficial femoral artery unremarkable as is the profunda femoris. L eft popliteal artery and vessels below the knee are all patent. Common left femoral artery as visuali zed is unremarkable. No pelvic mass is seen. IMPRESSION: Proximal left superficial femoral artery demonstrates small pseudoaneurysm measuring 7.7 mm seen best on axial image 56 sequence 501 and coronal images 44 through 46 of 158. Small surrounding hematoma n oted.
[2023-04-11 11:44] VITALS: BP 129/86; PULSE 72
--- NOTE | 2023-04-11 12:06 | P.DS ---
Providers Date of admission: 04/11/23 07:53 Expected date of discharge: 04/11/23 Attending physician: Jon Daniels MD Consults: 04/06/23 12:16 Consult Physician Urgent Consulting Provider: Nick Kate Consult Reason/Comments: Elevated troponin status post ablation, chest pain, pseudoaneurysm Do you want consulting provider notified?: Yes 04/08/23 14:27 Consult Physician Urgent Consulting Provider: Ronna Noguera Consult Reason/Comments: pseudoaneursmym Left fem Do you want consulting provider notified?: Yes Primary care physician: Edward Bahena [facility] Course: * 57-year-old gentleman past medical history significant for persistent atrial fibrillation, nonischemic cardiomyopathy, s/p atrial fibrillation, left atrial septal ablation, left atrial roof ablation done on March 31, 2023, presents to the emergency department with complaints of shortness of breath, chest pressure and groin pain. Patient states that ever since his ablation he has noticed increased pain in the left groin, swelling and bruising. Patient also complained of increased shortness of breath and left arm paresthesia. * Workup Obtained in ER included a chest x-ray which was negative * Patient had ultrasound Doppler done left lower extremity which showed pseudoaneurysm from superficial femoral artery measuring 1 x 0.8 x 0.5 cm. Neck measures 0.2 cm * Initial workup in ER included CBC which were essentially negative, serum chemistry showed sodium of 137 potassium 4.6, dioxide 20 BUN 18 creatinine 0.72, troponin 0.371 AST of 40 ALT 59 * Patient admitted to medical floor with consultation to be obtained from cardiology * 04/07/2023: Patient seen and evaluated bedside, troponins reviewed remain flat, patient does complain of intermittent chest pain. Serum chemistry reviewed, * 04/08/2023: Patient seen and evaluated bedside, left groin bruise remained stable, denies of paresthesia. CT head negative, waiting for IR evaluation * 04/09/2023: Patient seen and evaluated bedside, pressure dressing applied on the left femoral area seen by vascular surgery. * 04/10/2023: Patient seen and evaluated bedside, at bedside as well. Patient does have ultrasound completed which does show pseudoaneurysm present. per vascular surgery Groin remained stable, cleared for DC Home. US reviewed by Dr Noguera * 04/11/2023: Patient was evaluated at bedside, care plan discussed, patient was cleared for discharge by vascular surgery and interventional cardiology. Plan of care explained to patient in detail. Patient was kept overnight secondary to discomfort in left groin. Patient remained stable pulses palpable, left lower extremity nontender on palpation left groin REVIEW OF SYSTEMS: Left groin pain resolved, shortness of breath resolved CONSTITUTIONAL: No fever, no malaise, no fatigue. HEENT: No recent visual problems or hearing problems. Denied any sore throat. CARDIOVASCULAR: Left groin pain resolved, shortness of breath resolved PULMONARY: No shortness of breath, no cough, no hemoptysis. GASTROINTESTINAL: No diarrhea, no nausea, no vomiting, no abdominal pain. NEUROLOGICAL: No headaches, no weakness, no numbness. HEMATOLOGICAL: Denies any bleeding or petechiae. GENITOURINARY: Denies any burning micturition, frequency, or urgency. MUSCULOSKELETAL/RHEUMATOLOGICAL: Denies any joint pain, swelling, or any muscle pain. ENDOCRINE: Denies any polyuria or polydipsia. PHYSICAL EXAMINATION: GENERAL: The patient is alert and oriented x3, not in any acute distress. Well developed, well nourished. HEENT: Pupils are round and equally reacting to light. EOMI. No scleral icterus. No conjunctival pallor. Normocephalic, atraumatic. No pharyngeal erythema. No thyromegaly. CARDIOVASCULAR: S1 and S2 present. Left groin bruising noted PULMONARY: Chest is clear to auscultation, no wheezing or crackles. ABDOMEN: Soft, nontender, nondistended, normoactive bowel sounds. No palpable organomegaly. MUSCULOSKELETAL: No joint swelling or deformity. EXTREMITIES: No cyanosis, clubbing, or pedal edema. NEUROLOGICAL: Gross neurological examination did not reveal any focal deficits. SKIN: Bruising noted left groin, improved Assessment and plan * History of atrial fibrillation s/p ablation * Left femoral artery pseudoaneurysm s/p catheterization * History of hypertension * Elevated troponin likely secondary to atrial fibrillation ablation * In regards to elevated troponin, follow-up troponin ordered nonspecific's s/p ablation, appreciate input from cardiology continue medical management * In regards to left femoral artery pseudoaneurysm, ultrasound reviewed, appreciate input from cardiology, follow-up on H&H, vascular surgery consulted, pressure dressing applied to left groin on 04/09/23 , follow-up ultrasound noted by Vasc Surg, recommend DC home, with follow up in office * history of hypertension Home medications to be continued including lisinopril and metoprolol Patient Condition at Discharge: Fair Plan - Discharge Summary Discharge Rx Participant: No New Discharge Prescriptions: New Nystatin 100,000Unit/gm Cream [Mycostatin Cream] 1 applic TOPICAL TID 5 Days #15 each Continue Cholecalciferol [Vitamin D3 (25 Mcg = 1000 Iu)] 50 mcg PO DAILY Multivitamin [Multivitamins Adult Gummies] 2 tab PO DAILY Apixaban [Eliquis] 5 mg PO BID #180 tab lisinopriL [Zestril] 2.5 mg PO DAILY Fluticasone Nasal [place] [Flonase Nasal [place]] 2 spray EA NOSTRIL DAILY Loratadine [Claritin] 10 mg PO DAILY Metoprolol Succinate [Toprol XL] 50 mg PO DAILY #90 tab Discharge Medication List Cholecalciferol [Vitamin D3 (25 Mcg = 1000 Iu)] 50 mcg PO DAILY 01/13/22 [History] Fluticasone Nasal [place] [Flonase Nasal [place]] 2 spray EA NOSTRIL DAILY 01/13/22 [History] Loratadine [Claritin] 10 mg PO DAILY 01/07/23 [History] Multivitamin [Multivitamins Adult Gummies] 2 tab PO DAILY 01/07/23 [History] Apixaban [Eliquis] 5 mg PO BID #180 tab 01/12/23 [Rx] lisinopriL [Zestril] 2.5 mg PO DAILY 03/23/23 [History] Metoprolol Succinate [Toprol XL] 50 mg PO DAILY #90 tab 03/31/23 [Rx] Nystatin 100,000Unit/gm Cream [Mycostatin Cream] 1 applic TOPICAL TID 5 Days #15 each 04/11/23 [Rx] Follow up Appointment(s)/Referral(s): Edward Bahena MD [Primary Care Provider] - 1-2 days A & D,Home Care [NON-STAFF] - 1 Week Ronna Noguera DO [STAFF PHYSICIAN] - 1 Week (Call to schedule appointment ) Best Coates MD [Family Provider] - 2 Weeks Activity/Diet/Wound Care/Special Instructions: Follow up with Dr Noguera outpatient No heavy lifting or strenuous activity greater than 10 to 15 pounds until cleared by vascular surgery Discharge Disposition: HOME SELF-CARE
--- NOTE | 2023-04-11 12:22 | P.PN ---
Subjective HISTORY OF PRESENT ILLNESS: Patient is a pleasant 57-year-old male with significant past medical history of paroxysmal atrial fibrillation, and recent A-fib ablation who presented with complaints of chest pain and left groin pain. He does follow with Dr. Coates. He did undergo left heart catheterization 01/08/2023 which revealed normal coronary arteries. He then underwent A-fib ablation with Dr. Kate on 03/31/2023. He was discharged home the following day and noticed he had a bruise on his left groin and that was getting bigger. He did have shortness of breath and some chest pain. Over the past 2 days his left groin pain got worse. He did have 1 episode where he had left arm tingling x 1 hour with a left-sided headache. He denies any specific weakness during this time. Denies any history of stroke. Patient does have speech that is slow however family member reports that his speech is at baseline for him. Ultrasound does show pseudoaneurysm of the left femoral artery. He reports compliance with his Eliquis and has not m issed any doses. EKG shows sinus rhythm with occasional supraventricular premature complexes, nonspecific T wave abnormalities, 72 bpm. He does have mild chest pain that comes and goes that he rates a 2/10, EKG is not classic for pericarditis. 2/ Patient was to be seen by interventional radiology today for the pseudoaneurysm but it turns out that there is no radiologist available that can perform this procedure. The soonest this could be done by interventional radiology would be on Tuesday. Patient is complaining of some lower chest pain comes and goes sometimes at rest. He denies any upset stomach. Hemoglobin is 15.4, BUN 19 creatinine 0.87, sodium 136, potassium 4.7. Blood pressure 122/70, heart rate is in the 70s. Gets me all yes 2/3 Patient remains in sinus rhythm running in the 70s. Blood pressure is 124/81. Pulse ox 97% on room air. Interventional radiology was not available to do pseudoaneurysm treatment and thus a consult was placed with vascular surgery. Patient states that this morning the groin area hurts with movement more so than it has. Area appears to be stable. No complaints of chest pain. No shortness of breath 04/10 Patient has been seen by vascular surgery with plan for compression and repeat ultrasound today which revealed suitable collateral versus fluid collection connecting to the proximal FA. No shunting. Fluid collection appears clotted just adjacent to the neck. Options given to the patient for surgical versus injection versus no intervention. Blood pressure 117/72, heart rate in the 60s and 70s. 04/11/2023 Patient examined this morning. Patient denies any chest pain or pressure. He denies shortness of breath. Patient has been up ambulating without difficulty. He underwent CT angio of the lower extremities today revealing proximal left superficial femoral artery demonstrating small pseudoaneurysm measuring 7.7 mm. Small surrounding hematoma noted. PHYSICAL EXAM: VITAL SIGNS: Reviewed. GENERAL: Well-developed in no acute distress. NECK: Supple. No JVD or thyromegaly LUNGS: Respirations even and unlabored. Lungs essentially clear to auscultation bilaterally. HEART: Regular rate and rhythm. S1 and S2 heard. EXTREMITIES: Normal range of motion. No clubbing or cyanosis. Peripheral pulses intact. No lower extremity edema. Bruising noted to left groin. ASSESSMENT: Atrial fibrillation, persistent, status post ablation currently in sinus rhythm Chronic tobacco use Chest pain Left arm paresthesias Left femoral pseudoaneurysm NSTEMI likely type II related to inflammation from procedure, normal coronary arteries on heart cath 2 months ago. PLAN: Continue current cardiac medications Patient has been cleared for discharge per vascular surgery Patient may be discharged home today from a cardiac standpoint He has to follow-up post discharge in the office with Dr. Coates Nurse practitioner note has been reviewed by physician. Signing provider agrees with the documented findings, assessment, and plan of care documented by DRAFTING TECHNICIAN as a scribe. Objective - Vital Signs Vital signs: Vital Signs Temp 98.2 F 04/11/23 08:25 Pulse 72 04/11/23 11:29 Resp 16 04/11/23 11:29 BP 129/86 04/11/23 11:29 Pulse Ox 97 04/11/23 11:29 FiO2 Intake & Output 04/10/23 04/11/23 04/11/23 18:59 06:59 18:59 Intake Total 712 540 Output Total 2100 500 Balance -1388 40 Intake: Oral 712 540 Output: Urine 2100 500 Other: Voiding Method Toilet Toilet Toilet - Labs CBC & Chem 7: 04/10/23 09:19 04/10/23 09:19
== END 2023-04-11 12:59 | disposition home or self-care (01) ==
LOC: EC 08:06 → 3SCARD 13:12 → INTOOBSV 04-11 07:53 → OBSVTOIN 04-11 07:53 → UNDODISIN 04-11 12:59
PROVIDERS: ADMIT Internal Medicine; ATTEND Internal Medicine
DX: I72.4 Aneurysm of artery of lower extremity (principal); R07.89 Other chest pain; R79.89 Other specified abnormal findings of blood chemistry; I48.19 Other persistent atrial fibrillation; I42.8 Other cardiomyopathies; I49.1 Atrial premature depolarization; I10 Essential (primary) hypertension; R20.2 Paresthesia of skin; R20.0 Anesthesia of skin; F17.220 Nicotine dependence, chewing tobacco, uncomplicated; Z79.01 Long term (current) use of anticoagulants; Z79.899 Other long term (current) drug therapy; Z91.09 Other allergy status, other than to drugs and biological substances
CPT/HCPCS: 96360; 96361 ×2; 99285; 36415; 93005 ×2; 83880; 80061; 80053; 80048 ×3; 84484; 85025; 85027 ×2; 71046; 93975 ×2; 93926 ×2; 70450; 73706; G0378 ×6; Q9967

== ENCOUNTER → 2023-06-22 | Outpatient (CLI) | payer BC ==
--- NOTE | 2023-06-22 21:15 | US ---
EXAMINATION TYPE: US abdomen complete DATE OF EXAM: 06/22/2023 COMPARISON: NONE CLINICAL INDICATION: Male, 57 years old with history of R10.13 EPIGASTRIC PAIN; Pain and diarrhea x 1 month, Hx HTN TECHNIQUE: Multiple sonographic images of the abdomen are obtained. FINDINGS: EXAM MEASUREMENTS: Liver Length: 13.5 cm Gallbladder Wall: 0.3 cm. This is at the upper limits. CBD: 0.2 cm Spleen: 10.5 cm Right Kidney: 11.0 x 5.9 x 6.4 cm Left Kidney: 10.1 x 6.8 x 5.5 cm EMBROIDERY WORKER NOTES: Difficult exam due to overlying bowel gas Pancreas: Tail obscured by overlying bowel gas Liver: wnl Gallbladder: Limited visualization due to bowel gas Evidence for sonographic Best's sign: No CBD: wnl Spleen: wnl Right Kidney: wnl Left Kidney: wnl Upper IVC: wnl Abd Aorta: wnl IMPRESSION: 1. No acute abdomen ultrasound abnormality
== END | disposition home or self-care (01) ==
LOC: RADUSWWP 15:54
PROVIDERS: ATTEND Family Medicine
DX: R10.13 Epigastric pain (principal)
CPT/HCPCS: 76700

== ENCOUNTER → 2024-01-12 | Outpatient (CLI) | payer BC ==
--- NOTE | 2024-01-12 17:42 | XR ---
EXAMINATION TYPE: XR knee complete LT DATE OF EXAM: 01/12/2024 5:29 PM COMPARISON: None. CLINICAL INDICATION: Male, 58 years old with history of M23.92, TECHNIQUE: XR knee complete LT view(s) obtained. FINDINGS: Lateral and medial tibial plateau spurring is noted. Some joint space narrowing is present. Posterior patellar spurring is present superiorly and inferiorly. Small joint effusion may be present. No acute fractures evident. Follow up exams can be performed as clinically indicated IMPRESSION: 1. Mild degenerative changes. No acute osseous abnormality evident. Follow-up can be performed as cl inically indicated. 2. Small joint effusion. [facility], , 01/12/2024 5:39 PM
== END | disposition home or self-care (01) ==
LOC: RADXRMAIN 17:09
PROVIDERS: ATTEND Family Medicine
DX: M17.12 Unilateral primary osteoarthritis, left knee (principal); M23.92 Unspecified internal derangement of left knee

== ENCOUNTER 2024-03-23 16:11 | Emergency (ER) | payer BC ==
[2024-03-23] MEDS: SODIUM CHLORIDE 0.9% 1,000 ML IV STA (18:11)
--- NOTE | 2024-03-23 18:26 | ED ---
General Adult HPI - General Chief complaint: Abdominal Pain Stated complaint: Abd pain,nausea Time Seen by Provider: 03/23/24 16:35 Source: patient, RN notes reviewed, old records reviewed Mode of arrival: ambulatory Limitations: no limitations - History of Present Illness Initial comments: This is a patient who is sent in by Dr. Bahena and I spoke with Dr. Bahena on the phone. This is a 58-year-old male who states he has been nauseous for about a week on and off. Patient states he is started vomiting yesterday and vomited again today. Patient complains of epigastric abdominal pain and some lower abdominal pain. Patient denies any diarrhea this last week. Patient states he has had no back pain. Patient denies dysuria hematuria urinary frequency. Patient states last few weeks has had some stress at work so has been drinking a little more at home but he states it is about 4-6 beers a day. Patient denies any fever chills or cough. Patient denies any sore throat or congestion. - Related Data Home Medications Medication Instructions Recorded Confirmed Cholecalciferol [Vitamin D3 (25 50 mcg PO DAILY 01/13/22 04/06/23 Mcg = 1000 Iu)] Fluticasone Nasal [place] [Flonase 2 spray EA NOSTRIL DAILY 01/13/22 04/06/23 Nasal [place]] Loratadine [Claritin] 10 mg PO DAILY 01/07/23 04/06/23 Multivitamin [Multivitamins Adult 2 tab PO DAILY 01/07/23 04/06/23 Gummies] lisinopriL [Zestril] 2.5 mg PO DAILY 03/23/23 04/06/23 Previous Rx's Medication Instructions Recorded Apixaban [Eliquis] 5 mg PO BID #180 tab 01/12/23 Metoprolol Succinate [Toprol XL] 50 mg PO DAILY #90 tab 03/31/23 Nystatin 100,000Unit/gm Cream 1 applic TOPICAL TID 5 Days #15 04/11/23 [Mycostatin Cream] each Tamsulosin [Flomax] 0.4 mg PO DAILY #30 cap 03/23/24 Allergies Allergy/AdvReac Type Severity Reaction Status Date / Time environmental Allergy congestion Uncoded 03/23/24 16:32 Review of Systems ROS Statement: Those systems with pertinent positive or pertinent negative responses have been documented in the HPI. ROS Other: All systems not noted in ROS Statement are negative. Past Medical History Past Medical History: Atrial Fibrillation, GERD/Reflux, Hearing Disorder / Deafness, Osteoarthritis (OA), Sleep Apnea/CPAP/BIPAP Additional Past Medical History / Comment(s): PLEASE SEE DR. RUSS'S H&P. SOB with exertion, migraines, environmental allergies, CPAP use, some hearing loss. History of Any Multi-Drug Resistant Organisms: None Reported Past Surgical History: Heart Catheterization, Orthopedic Surgery Additional Past Surgical History / Comment(s): Sinus surgery, right knee arthroscopy,vasectomy, left plantar fascitis surgery, CVN with TABITHA Past Anesthesia/Blood Transfusion Reactions: No Reported Reaction Past Psychological History: No Psychological Hx Reported Smoking Status: Heavy tobacco smoker Past Alcohol Use History: Occasional Past Drug Use History: None Reported - Past Family History Father Family Medical History: AFIB, Myocardial Infarction ([place]) Additional Family Medical History / Comment(s): Enlarged heart, silent [place]. Mother Family Medical History: Osteoarthritis (OA) Additional Family Medical History / Comment(s): Depression. General Exam - General Exam Comments Initial Comments: GENERAL: Patient is well-developed and well-nourished. Patient is nontoxic and well- hydrated and is in no acute distress. ENT: Neck is soft and supple. No significant lymphadenopathy is noted. Oropharynx is clear. Moist mucous membranes. Neck has full range of motion without eliciting any pain. EYES: The sclera were anicteric and conjunctiva were pink and moist. Extraocular movements were intact and pupils were equal round and reactive to light. Eyelids were unremarkable. PULMONARY: Unlabored respirations. Good breath sounds bilaterally. No audible rales rhonchi or wheezing was noted. CARDIOVASCULAR: There is a regular rate and rhythm without any murmurs gallops or rubs. ABDOMEN: Patient is got some epigastric abdominal pain and he also has some right and l eft of center of suprapubic pain SKIN: Skin is clear with no lesions or rashes and otherwise unremarkable. NEUROLOGIC: Patient is alert and oriented x3. Cranial nerves II through XII are grossly in tact. Motor and sensory are also intact. Normal speech, volume and content. Symmetrical smile. MUSCULOSKELETAL: Normal extremities with adequate strength and full range of motion. No lower extremity swelling or edema. No calf tenderness. LYMPHATICS: No significant lymphadenopathy is noted PSYCHIATRIC: Normal psychiatric evaluation. Limitations: no limitations Course Vital Signs 03/23/24 16:29 Temperature 98.6 F Pulse Rate 89 Respiratory 16 Rate Blood Pressure 137/86 O2 Sat by Pulse 99 Oximetry Medical Decision Making - Medical Decision Making Was pt. sent in by a medical professional or institution ([facility], [facility] [employer] [facility], urgent care, hospital, or half-way...) When possible be specific @ -No Did you speak to anyone other than the patient for history (EMS, parent, family, police, friend...)? What history was obtained from this source @ -No Did you review nursing and triage notes (agree or disagree)? Why? @ -I reviewed and agree with nursing and triage notes Were old charts reviewed (outside hosp., previous admission, EMS record, old E KG, old radiological studies, urgent care reports/EKG's, half-way records)? Report findings @ -No old charts were reviewed Differential Diagnosis? @ -Differential Abdominal Pain Men: Appendicitis, cholecystitis, diverticulosis, ischemic bowel, pancreatitis, hepatitis, UTI, gastroenteritis, AAA, incarcerated hernia, bowel obstruction, constipation, inflammatory bowel, hepatitis, peptic ulcer disease, splenic infarction, perforated viscus, testicular torsion, this is not meant to be an all-inclusive list EKG interpreted by me (3pts min.). @ -As above X-rays interpreted by me (1pt min.). @ -None done CT interpreted by me (1pt min.). @ -CT of the abdomen pelvis shows no acute abnormality however I noted enlarged bladder U/S interpreted by me (1pt. min.). @ -None done What testing was considered but not performed or refused? (CT, X-rays, U/S, labs)? Why? @ -None What meds were considered but not given or refused? Why? @ -None Did you discuss the management of the patient with other professionals (professionals i.e. [facility], [employer], lab, RT, psych nurse, rn social services, centerless grinder tender, teacher, intelligence officer, immigration case worker)? Give summary @ -No Was smoking cessation discussed for >3mins.? @ -No Was critical care preformed (if so, how long)? @ -No Were there social determinants of health that impacted care today? How? (Homelessness, low income, unemployed, alcoholism, drug addiction, transpo rtation, low edu. Level, literacy, decrease access to med. care, snf, rehab)? @ -No Was there de-escalation of care discussed even if they declined (Discuss DNR or withdrawal of care, Hospice)? DNR status @ -No What co-morbidities impacted this encounter? (DM, HTN, Smoking, COPD, CAD, Cancer, CVA, ARF, Chemo, Hep., AIDS, mental health diagnosis, sleep apnea, morbid obesity)? @ -None Was patient admitted / discharged? Hospital course, mention meds given and route, prescriptions, significant lab abnormalities, going to OR and other pertinent info. @ -Patient's bladder looked enlarged on the CAT scan to me so I had the patient urinate and then we did a bladder scan he had over 500 cc of urine in his bladder. Patient was given Flomax in the emergency department and had the catheter placed temporarily to drain the bladder and then sent home with Flomax. Has not had any issues urinating up into the last few weeks and he stated that he rather try without the catheter for now we will follow-up with urology the way Undiagnosed new problem with uncertain prognosis? @ -No Drug Therapy requiring intensive monitoring for toxicity (Heparin, Nitro, Insulin, Cardizem)? @ -No Were any procedures done? @ -No Diagnosis/symptom? @ -Urinary retention Acute, or Chronic, or Acute on Chronic? @ -Acute Uncomplicated (without systemic symptoms) or Complicated (systemic symptoms)? @ -Complicate Side effects of treatment? @ -No Exacerbation, Progression, or Severe Exacerbation? @ -No Poses a threat to life or bodily function? How? (Chest pain, [place], [place], pneumonia, PE, COPD, DKA, ARF, appy, cholecystitis, CVA, Diverticulitis, Homicidal, Suicidal, threat to staff... and all critical care pts) @ -No - Lab Data Result diagrams: 03/23/24 18:06 03/23/24 18:06 Lab Results 03/23/24 03/23/24 03/23/24 Range/Units 18:06 18:06 18:06 WBC 9.1 (3.8-10.6) k/uL RBC 5.03 (4.30-5.90) m/uL Hgb 16.1 (13.0-17.5) gm/dL Hct 48.0 (39.0-53.0) % MCV 95.3 (80.0-100.0) fL MCH 31.9 (25.0-35.0) pg MCHC 33.5 (31.0-37.0) g/dL RDW 12.6 (11.5-15.5) % Plt Count 287 (150-450) k/uL MPV 7.5 Neutrophils % 69 % Lymphocytes % 22 % Monocytes % 4 % Eosinophils % 2 % Basophils % 0 % Neutrophils # 6.3 (1.3-7.7) k/uL Lymphocytes # 2.0 (1.0-4.8) k/uL Monocytes # 0.4 (0-1.0) k/uL Eosinophils # 0.2 (0-0.7) k/uL Basophils # 0.0 (0-0.2) k/uL Sodium 137 (137-145) mmol/L Potassium 4.9 (3.5-5.1) mmol/L Chloride 103 (98-107) mmol/L Carbon Dioxide 27 (22-30) mmol/L Anion Gap 7 mmol/L BUN 16 (9-20) mg/dL Creatinine 0.81 (0.66-1.25) mg/dL Est GFR (CKD-EPI)AfAm >90 (>60 ml/min/1.73 sqM) Est GFR (CKD-EPI)NonAf >90 (>60 ml/min/1.73 sqM) Glucose 85 (74-99) mg/dL Plasma Lactic Acid [place] 0.9 (0.7-2.0) mmol/L Calcium 9.9 (8.4-10.2) mg/dL Magnesium 2.0 (1.6-2.3) mg/dL Total Bilirubin 1.0 (0.2-1.3) mg/dL AST 40 (17-59) U/L ALT 44 (4-49) U/L Alkaline Phosphatase 95 (38-126) U/L Total Protein 7.6 (6.3-8.2) g/dL Albumin 4.5 (3.5-5.0) g/dL Amylase 57 (30-110) U/L Lipase 108 (23-300) U/L Disposition Clinical Impression: Urinary retention Disposition: HOME SELF-CARE Condition: Good Additional Instructions: Patient should take Flomax as prescribed. Patient to follow-up with urology soon as possible. Patient to return to the emergency department if there is any suprapubic abdominal pain or inability urinate Prescriptions: Tamsulosin [Flomax] 0.4 mg PO DAILY #30 cap Referrals: Edward Bahena MD [Primary Care Provider] - 1-2 days Time of Disposition: 20:55
[2024-03-23] MEDS: ONDANSETRON 4 MG/2 ML VIAL IVP STA (18:39)
[2024-03-23 18:49] LABS: Basophils % (A) 0 %; Eosinophils # (A) 0.2 k/uL (0-0.7); Eosinophils % (A) 2 %; HGB 16.1 gm/dL (13.0-17.5); Lymphocytes % (A) 22 %; MCH 31.9 pg (25.0-35.0); MCHC 33.5 g/dL (31.0-37.0); MCV 95.3 fL (80.0-100.0); Mean Platelet Volume 7.5; Monocytes # (A) 0.4 k/uL (0-1.0); Monocytes % (A) 4 %; Neutrophils # (A) 6.3 k/uL (1.3-7.7); Neutrophils % (A) 69 %; Platelet Count 287 k/uL (150-450); RBC 5.03 m/uL (4.30-5.90); RDW 12.6 % (11.5-15.5); WBC 9.1 k/uL (3.8-10.6)
[2024-03-23 19:05] LABS: ALT 44 U/L (4-49); African American GFR (CKD) >90 (>60 ml/min/1.73 sqM); Albumin 4.5 g/dL (3.5-5.0); Amylase 57 U/L (30-110); Anion Gap 7 mmol/L; Blood Urea Nitrogen 16 mg/dL (9-20); Calcium 9.9 mg/dL (8.4-10.2); Carbon Dioxide 27 mmol/L (22-30); Chloride 103 mmol/L (98-107); Glucose 85 mg/dL (74-99); Lipase 108 U/L (23-300); Non-African American GFR(CKD) >90 (>60 ml/min/1.73 sqM); Sodium 137 mmol/L (137-145); Total Protein 7.6 g/dL (6.3-8.2)
[2024-03-23 19:15] LABS: AST 40 U/L (17-59); Alkaline Phosphatase 95 U/L (38-126); Potassium 4.9 mmol/L (3.5-5.1)
--- NOTE | 2024-03-23 20:35 | CT ---
EXAMINATION TYPE: CT abdomen pelvis w con DATE OF EXAM: 03/23/2024 8:18 PM COMPARISON: None. CLINICAL INDICATION: Male, 58 years old with history of Abdominal pain; Lower abd pain and nausea x 2 weeks. TECHNIQUE: Axial CT abdomen pelvis w con;Sagittal and coronal reformats were created on a separate w orkstation. Contrast used:100 ml mL of Isovue 300 with IV Contrast, (none if empty) Oral contrast used: without Oral Contrast (none if empty) CT DLP: 1533 mGycm, Automated exposure control for dose reduction was used. FINDINGS: LOWER CHEST: Unremarkable ABDOMEN LIVER: Unremarkable GALLBLADDER AND BILE DUCTS: Unremarkable. PANCREAS: Unremarkable. SPLEEN: Unremarkable. ADRENAL GLANDS: Unremarkable. KIDNEYS AND URETERS: No evidence of hydronephrosis or renal calculus. The ureters are unremarkable. PELVIS BLADDER: No evidence for wall thickening or mass given limitations of exam. REPRODUCTIVE: Unremarkable. ABDOMEN & PELVIS STOMACH AND BOWEL: No evidence of bowel obstruction. The appendix is visualized and normal. There is large amount stool throughout the right colon.. PERITONEUM/RETROPERITONEUM: No evidence of pneumoperitoneum or free fluid. VASCULATURE: No evidence of aortic aneurysm. MUSCULOSKELETAL: No acute osseous abnormalities LYMPH NODES: No gross evidence for lymphadenopathy. SOFT TISSUE/ABDOMINAL WALL: Fat-containing bilateral inguinal hernias. Fat-containing umbilical herni a. IMPRESSION: 1. No evidence for acute abdominal process. 2. Fat-containing inguinal hernias and umbilical hernia. Large stool in the right colon. 3. No obstructive uropathy or renal calculus. The appendix is normal. [facility], , 03/23/2024 8:32 PM
[2024-03-23] MEDS: TAMSULOSIN 0.4 MG CAP.ER.24H PO STA (21:48)
[2024-03-23 22:01] VITALS: BP 156/96; PULSE 72; RESP 18; TEMP 98.5
== END 2024-03-23 22:02 | disposition home or self-care (01) ==
LOC: EC 16:11
DX: R33.9 Retention of urine, unspecified (principal); F17.290 Nicotine dependence, other tobacco product, uncomplicated; Z88.8 Allergy status to other drugs, medicaments and biological substances
CPT/HCPCS: 51798; 36415; 80053; 82150; 83605; 83690; 83735; 85025; 74177; 99284; 96374; 96361; 51702; J2405; Q9967

== ENCOUNTER 2024-07-02 11:23 | Inpatient (IN) | payer BC ==
[2024-07-02 11:50] LABS: Glucose,Whole Blood 85 mg/dL (70-110)
--- NOTE | 2024-07-02 11:50 | ED ---
General Adult HPI - General Chief complaint: Neuro Symptoms/Deficit Stated complaint: Headache/L Arm Numbness Time Seen by Provider: 07/02/24 11:39 Source: patient Mode of arrival: ambulatory Limitations: no limitations - History of Present Illness Initial comments: Dictation was produced using [employer] dictation software. please excuse any grammatical, word or spelling errors. Chief Complaint: 58-year-old male presents with headache left-sided paresthesias History of Present Illness: Patient 58-year-old male with history of migraines. States that he has a headache. Started around 6:30 AM this morning. 30 minutes prior to arrival patient was having some increasing paresthesias to the left arm and left leg. Patient denies that this is the worst headache of his life. Does take anticoagulation medications. The ROS documented in this emergency department record has been reviewed and confirmed by me. Those systems with pertinent positive or negative responses have been documented in the HPI. All other systems are other negative and/or noncontributory. - Related Data Home Medications Medication Instructions Recorded Confirmed Cholecalciferol [Vitamin D3 (25 50 mcg PO DAILY 01/13/22 07/02/24 Mcg = 1000 Iu)] Fluticasone Nasal [place] [Flonase 1 spray EA NOSTRIL DAILY 01/13/22 07/02/24 Nasal [place]] lisinopriL [Zestril] 2.5 mg PO DAILY 03/23/23 07/02/24 Fexofenadine HCl [Lorri Allergy] 180 mg PO DAILY 07/02/24 07/02/24 Metoprolol Succinate [Toprol XL] 100 mg PO DAILY 07/02/24 07/02/24 Multivitamins, Thera [Multivitamin 1 tab PO DAILY 07/02/24 07/02/24 (formulary)] Pantoprazole Sodium [Protonix] 40 mg PO DAILY 07/02/24 07/02/24 Previous Rx's Medication Instructions Recorded Apixaban [Eliquis] 5 mg PO BID #180 tab 01/12/23 Tamsulosin [Flomax] 0.4 mg PO DAILY #30 cap 03/23/24 Allergies Allergy/AdvReac Type Severity Reaction Status Date / Time environmental Allergy congestion Uncoded 07/02/24 12:28 Review of Systems ROS Statement: Those systems with pertinent positive or pertinent negative responses have been documented in the HPI. ROS Other: All systems not noted in ROS Statement are negative. Past Medical History Past Medical History: Atrial Fibrillation, GERD/Reflux, Hearing Disorder / Deafness, Osteoarthritis (OA), Sleep Apnea/CPAP/BIPAP Additional Past Medical History / Comment(s): PLEASE SEE DR. RUSS'S H&P. SOB with exertion, migraines, environmental allergies, CPAP use, some hearing loss. History of Any Multi-Drug Resistant Organisms: None Reported Past Surgical History: Heart Catheterization, Orthopedic Surgery Additional Past Surgical History / Comment(s): Sinus surgery, right knee arthroscopy,vasectomy, left plantar fascitis surgery, CVN with TABITHA Past Anesthesia/Blood Transfusion Reactions: No Reported Reaction Past Psychological History: No Psychological Hx Reported Smoking Status: Heavy tobacco smoker Past Alcohol Use History: Occasional Past Drug Use History: None Reported - Past Family History Father Family Medical History: AFIB, Myocardial Infarction ([place]) Additional Family Medical History / Comment(s): Enlarged heart, silent [place]. Mother Family Medical History: Osteoarthritis (OA) Additional Family Medical History / Comment(s): Depression. General Exam - General Exam Comments Initial Comments: PHYSICAL EXAM: General Impression: Alert and oriented x3, not in acute distress HEENT: Normocephalic atraumatic, extra-ocular movements intact, pupils equal and reactive to light bilaterally, mucous membranes moist. Cardiovascular: Heart regular rate and rhythm Chest: Able to complete full sentences, no retractions, no tachypnea Abdomen: abdomen soft, non-tender, non-distended, no organomegaly Musculoskeletal: Pulses present and equal in all extremities, no peripheral edema Motor: no focal deficits noted Neurological: CN II-XII grossly intact, no focal motor deficits noted. Subjective diminished sensation to light touch of the left arm, left chest left leg Skin: Intact with no visualized rashes Psych: Normal affect and mood Limitations: no limitations Course Vital Signs 07/02/24 07/02/24 07/02/24 11:29 12:01 13:00 Temperature 98 F Pulse Rate 55 L 60 55 L Respiratory 18 20 20 Rate Blood Pressure 164/104 165/105 153/98 O2 Sat by Pulse 98 97 96 Oximetry Medical Decision Making - Medical Decision Making Was pt. sent in by a medical professional or institution (, PA, [facility], urgent care, hospital, or residential...) When possible be specific @ -No Did you speak to anyone other than the patient for history (EMS, parent, family, police, friend...)? What history was obtained from this source @ -No Did you review nursing and triage notes (agree or disagree)? Why? @ -I reviewed and agree with nursing and triage notes Were old charts reviewed (outside hosp., previous admission, EMS record, old EKG, old radiological studies, urgent care reports/EKG's, residential records)? Report findings @ -No old charts were reviewed Differential Diagnosis (chest pain, altered mental status, abdominal pain women, abdominal pain men, vaginal bleeding, musculoskeletal, weakness, fever, dyspnea, syncope, headache, dizziness, GI bleed, back pain, seizure, CVA, palpatations, mental health)? @ -Differential Headache: Migraine, tension, cluster, carbon monoxide, central venous thrombosis, pension karma temporal arteritis, acute closure glaucoma, intercranial hemorrhage, mastoiditis, sinusitis, head injury, this is not meant to be an all-inclusive list. EKG interpreted by me (3pts min.). @ -My EKG interpretation: Ventricular rate 71, sinus rhythm,. 185, QRS 97, QTc 411. No VA prolongation, no QTC prolongation, no ST or T-wave changes noted. Overall, this EKG is unremarkable X-rays interpreted by me (1pt min.). @ -Chest x-ray is nonacute CT interpreted by me (1pt min.). @ -CT brain shows stable falcine meningioma. CT angiography shows no large vessel occlusion U/S interpreted by me (1pt. min.). @ -None done What testing was considered but not performed or refused? (CT, X-rays, U/S, labs)? Why? @ -None What meds were considered but not given or refused? Why? @ -None Was smoking cessation discussed for >3mins.? @ -No Were there social determinants of health that impacted care today? How? (Homelessness, low income, unemployed, alcoholism, drug addiction, transportation, low edu. Level, literacy, decrease access to med. care, nursing home, rehab)? @ -No Was there de-escalation of care discussed even if they declined (Discuss DNR or withdrawal of care, Hospice)? DNR status @ -No What co-morbidities impacted this encounter? (DM, HTN, Smoking, COPD, CAD, Cancer, CVA, ARF, Chemo, Hep., AIDS, mental health diagnosis, sleep apnea, morbid obesity)? @ -None Was patient admitted / discharged? Hospital course, mention meds given and route, prescriptions, significant lab abnormalities, going to OR and other perti nent info. @ -58-year-old male presents to the emergency department headache and strokelike symptoms. Code stroke paged. Patient has low NIH score. Not a candidate for alteplase or thrombectomy. Patient discussed with Dr. Hidalgo who recommends medical management. Imaging studies are negative. Labs are unremarkable. Patient given headache cocktail. Suspect complex migraine. Patient be admitted consultation and neurology. Case discussed with hospitalist for admission Did you discuss the management of the patient with other professionals (professionals i.e. , PA, [employer]ER[employer] HELPER, lab, RT, psych nurse, social work faculty member, hat blocking machine operator, teacher, staff mine warfare officer, rn case mgr)? Give summary @ -See above Was critical care preformed (if so, how long)? @ -Yes, 33 minutes Undiagnosed new problem with uncertain prognosis? @ -No Drug Therapy requiring intensive monitoring for toxicity (Heparin, Nitro, In sulin, Cardizem)? @ -No Were any procedures done? @ -No Diagnosis/symptom? Acute, or Chronic, or Acute on Chronic? Uncomplicated (without systemic symptoms) or Complicated (systemic symptoms)? @ -Code stroke Side effects of treatment? @ -No Exacerbation, Progression, or Severe Exacerbation? @ -No Poses a threat to life or bodily function? How? (Chest pain, [place], [place], pneumonia, PE, COPD, DKA, ARF, appy, cholecystitis, CVA, Diverticulitis, Homicidal, Suicidal, threat to staff... and all critical care pts) @ -yes - Lab Data Result diagrams: 07/02/24 11:53 07/02/24 11:53 Lab Results 07/02/24 07/02/24 07/02/24 Range/Units 11:48 11:53 11:53 WBC 7.13 (4.50-10.00) 10*3/uL RBC 5.01 (4.40-5.60) 10*6/uL Hgb 16.0 (13.0-17.0) g/dL Hct 45.5 (39.6-50.0) % MCV 90.8 (80.0-97.0) fL MCH 31.9 (27.0-32.0) pg MCHC 35.2 (32.0-37.0) g/dL Plt Count 267 (140-440) 10*3/uL MPV 10.4 (9.5-12.2) fL Immature Gran % (Auto) 0.3 % Neutrophils % 67.0 % Lymphocytes % 24.7 % Monocytes % 6.3 % Eosinophils % 1.1 % Basophils % 0.6 % Immature Gran # 0.02 (0.00-0.04) 10*3/uL Neutrophils # 4.78 (1.80-7.70) 10*3/uL Lymphocytes # 1.76 (0.90-5.00) 10*3/uL Monocytes # 0.45 (0.20-1.00) 10*3/uL Eosinophils # 0.08 (0.04-0.35) 10*3/uL Basophils # 0.04 (0.00-0.10) 10*3/uL PT 10.7 (10.0-12.5) sec INR 1.0 (<1.2) APTT 27.6 (22.0-30.0) sec Sodium (137-145) mmol/L Potassium (3.5-5.1) mmol/L Chloride (98-107) mmol/L Carbon Dioxide (22-30) mmol/L Anion Gap mmol/L BUN (9-20) mg/dL Creatinine (0.66-1.25) mg/dL Est GFR (CKD-EPI)AfAm (>60 ml/min/1.73 sqM) Est GFR (CKD-EPI)NonAf (>60 ml/min/1.73 sqM) Glucose (74-99) mg/dL POC Glucose (mg/dL) 85 (70-110) mg/dL POC Glu Conduit Reamer Operator ID [place] Calcium (8.4-10.2) mg/dL Total Bilirubin (0.2-1.3) mg/dL AST (17-59) U/L ALT (4-49) U/L Alkaline Phosphatase (38-126) U/L Creatine Kinase (55-170) U/L Troponin I (0.000-0.034) ng/mL Total Protein (6.3-8.2) g/dL Albumin (3.5-5.0) g/dL 07/02/24 07/02/24 Range/Units 11:53 11:53 WBC (4.50-10.00) 10*3/uL RBC (4.40-5.60) 10*6/uL Hgb (13.0-17.0) g/dL Hct (39.6-50.0) % MCV (80.0-97.0) fL MCH (27.0-32.0) pg MCHC (32.0-37.0) g/dL Plt Count (140-440) 10*3/uL MPV (9.5-12.2) fL Immature Gran % (Auto) % Neutrophils % % Lymphocytes % % Monocytes % % Eosinophils % % Basophils % % Immature Gran # (0.00-0.04) 10*3/uL Neutrophils # (1.80-7.70) 10*3/uL Lymphocytes # (0.90-5.00) 10*3/uL Monocytes # (0.20-1.00) 10*3/uL Eosinophils # (0.04-0.35) 10*3/uL Basophils # (0.00-0.10) 10*3/uL PT (10.0-12.5) sec INR (<1.2) APTT (22.0-30.0) sec Sodium 138 (137-145) mmol/L Potassium 4.0 (3.5-5.1) mmol/L Chloride 105 (98-107) mmol/L Carbon Dioxide 24 (22-30) mmol/L Anion Gap 9 mmol/L BUN 14 (9-20) mg/dL Creatinine 0.85 (0.66-1.25) mg/dL Est GFR (CKD-EPI)AfAm >90 (>60 ml/min/1.73 sqM) Est GFR (CKD-EPI)NonAf >90 (>60 ml/min/1.73 sqM) Glucose 94 (74-99) mg/dL POC Glucose (mg/dL) (70-110) mg/dL POC Glu Conduit Reamer Operator ID Calcium 9.8 (8.4-10.2) mg/dL Total Bilirubin 1.5 H (0.2-1.3) mg/dL AST 32 (17-59) U/L ALT 39 (4-49) U/L Alkaline Phosphatase 102 (38-126) U/L Creatine Kinase 71 (55-170) U/L Troponin I <0.012 (0.000-0.034) ng/mL Total Protein 7.8 (6.3-8.2) g/dL Albumin 4.6 (3.5-5.0) g/dL Disposition Clinical Impression: Stroke Disposition: ADMITTED IP TO THIS HOSP Condition: Fair Referrals: Edward Bahena MD [Primary Care Provider] - 1-2 days Decision Time: 13:18
--- NOTE | 2024-07-02 12:07 | CT ---
EXAMINATION TYPE: CT brain wo con for TPA DATE OF EXAM: 07/02/2024 11:59 AM COMPARISON: 04/07/2023 CLINICAL INDICATION: Male, 58 years old with history of Neuro deficit, acute, stroke suspected, Lt ar m numbness, TECHNIQUE: Examination was done in axial plane without intravenous contrast. Coronal and sagittal r econstructions performed. CT DLP: 1190.6 mGycm, Automated exposure control for dose reduction was used. FINDINGS: Partially calcified 1 cm extra-axial lesion left paramedian falx remains unchanged compatible with a meningioma. Otherwise, there is no evidence of acute intracranial hemorrhage, acute ischemic changes, mass-effec t, or extra-axial fluid collection. There is no effacement of cerebral sulci or basal subarachnoid c isterns. There is no hydrocephalus. There is no midline shift. Hobbs-white matter distinction is pr eserved. Some reactive nadia osteoporosis of the right maxillary sinus wall suggesting long-standing sinus disea se. Trace mucosal thickening in the maxillary sinuses and ethmoid air cells. Mastoid air cells well p neumatized. Visualized orbits and globes are intact. IMPRESSION: Stable 1 cm left parafalcine meningioma. No acute intracranial abnormality seen. [facility], , 07/02/2024 12:05 PM
[2024-07-02 12:10] LABS: Basophils # (A) 0.04 10*3/uL (0.00-0.10); Basophils % (A) 0.6 %; Eosinophils # (A) 0.08 10*3/uL (0.04-0.35); Eosinophils % (A) 1.1 %; HCT 45.5 % (39.6-50.0); Lymphocytes # (A) 1.76 10*3/uL (0.90-5.00); Lymphocytes % (A) 24.7 %; MCH 31.9 pg (27.0-32.0); MCHC 35.2 g/dL (32.0-37.0); MCV 90.8 fL (80.0-97.0); Mean Platelet Volume 10.4 fL (9.5-12.2); Monocytes # (A) 0.45 10*3/uL (0.20-1.00); Monocytes % (A) 6.3 %; Neutrophils # (A) 4.78 10*3/uL (1.80-7.70); Platelet Count 267 10*3/uL (140-440); RBC 5.01 10*6/uL (4.40-5.60); RDW 11.7 % (11.5-14.5); WBC 7.13 10*3/uL (4.50-10.00)
--- NOTE | 2024-07-02 12:10 | XR ---
EXAMINATION TYPE: XR chest 2V DATE OF EXAM: 07/02/2024 12:06 PM COMPARISON: 04/06/2023 CLINICAL INDICATION: Male, 58 years old with history of altered mental status: Shortness of breath TECHNIQUE: XR chest 2V views of the chest are obtained. FINDINGS: Scattered senescent parenchymal changes noted. Hyperinflation compatible with COPD. No evidence for infiltrate. No evidence for atelectasis. Heart size is stable. Mediastinal structures are stable and grossly unremarkable. No evidence for hilar prominence. Degenerative changes dorsal spine. IMPRESSION: 1. No evidence for acute pulmonary disease. [facility], , 07/02/2024 12:08 PM
[2024-07-02 12:26] LABS: ALT 39 U/L (4-49); AST 32 U/L (17-59); African American GFR (CKD) >90 (>60 ml/min/1.73 sqM); Albumin 4.6 g/dL (3.5-5.0); Alkaline Phosphatase 102 U/L (38-126); Anion Gap 9 mmol/L; Blood Urea Nitrogen 14 mg/dL (9-20); Calcium 9.8 mg/dL (8.4-10.2); Carbon Dioxide 24 mmol/L (22-30); Chloride 105 mmol/L (98-107); Creatine Kinase 71 U/L (55-170); Glucose 94 mg/dL (74-99); Non-African American GFR(CKD) >90 (>60 ml/min/1.73 sqM); Sodium 138 mmol/L (137-145); Total Bilirubin 1.5 mg/dL (0.2-1.3); Total Protein 7.8 g/dL (6.3-8.2)
[2024-07-02 12:29] LABS: Partial Thromboplastin Time 27.6 sec (22.0-30.0); Prothrombin Time 10.7 sec (10.0-12.5)
--- NOTE | 2024-07-02 12:29 | CT ---
EXAMINATION TYPE: CT angio head neck DATE OF EXAM: 07/02/2024 12:19 PM COMPARISON: CT brain same day. CLINICAL INDICATION: Male, 58 years old with history of Neuro deficit, acute, stroke suspected; PHH, Lt arm numbness TECHNIQUE: Axially acquired helical CT angiogram of the head and neck was obtained with contrast. Axi al images are supplemented with 3D reconstructions and MIP images which were post-processed at an in dependent workstation. NASCET criteria used. Contrast used:65 ml mL of Isovue 370 with IV Contrast, Oral contrast used: None. CT DLP: 688.1 mGycm, Automated exposure control for dose reduction was used. FINDINGS: CTA HEAD: Hypoplastic V4 segment left vertebral artery. Otherwise, both vertebral and basilar arteries are miller nt. There is anatomic variation with persistent origin left posterior cerebral artery. Otherwise, t he posterior circulation is patent. The bilateral internal carotid arteries and remainder of the anterior circulation is patent. No aneurysmal change is seen. CTA NECK: Conventional arterial vessel branching anatomy. The right common carotid artery and right internal carotid artery are widely patent. The left common carotid artery and left internal carotid artery are widely patent. There is a dominant left vertebral artery. However, otherwise, both vertebral arteries are patent thr oughout their course. IMPRESSION: CTA HEAD: Anatomic variation with a hypoplastic V4 segment right vertebral artery. 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 No large vessel intracranial arterial occlusion, significant stenosis, or aneurysmal amanda ge is seen. CTA NECK: Widely patent carotid and vertebral arteries of the neck. Anatomic variation with a dominant left huy tebral artery. [facility], , 07/02/2024 12:26 PM
[2024-07-02] MEDS: diphenhydrAMINE 50 MG/ML 1 ML VIAL IVP STA (12:55)
[2024-07-02] MEDS: ONDANSETRON 4 MG/2 ML VIAL IVP STA (12:56)
[2024-07-02] MEDS: SODIUM CHLORIDE 0.9% 1,000 ML IV STA (12:59)
[2024-07-02] MEDS: KETOROLAC 15 MG/ML 1 ML VIAL IVP STA (12:59)
--- NOTE | 2024-07-02 14:07 | P.HPIM ---
History of Present Illness This is a pleasant 58 years old male with past medical history of A-fib on Eliquis. Presents with headache and left upper extremity weakness 6:00 in the morning while at work he had that headache about 5/10 but he continued to work, currently his headache improved down to 2/10. Around 11 AM he started having feeling weak and numbness in his left upper extremity " my arm felt sleepy" referring to his whole upper extremity from the shoulder to the hand. Currently states that improved but not completely however on exam there is no or only subtle weakness on the left hand. He denies weakness in the left leg although it was mentioned on admission papers. He has occasional little dizziness but nothing impressive. No slurred speech. No chest pain or dyspnea. No GI/ symptom He chews tobacco. He drinks a few days in a week but not every day. No illicit drugs. Patient states he was adherent to taking his Eliquis and he did not miss any doses Vital stable and afebrile Unremarkable labs, CBC BMP LFT INR troponin CT of the brain showing stable 1 cm left parafalcine meningioma. With no acute intracranial process CTA of the head and neck is showing no aneurysm dissection or any other acute injury. Chest x-ray showing no acute process Review of Systems Review of systems CONSTITUTIONAL: No fever, no malaise, no fatigue. HEENT: No recent visual problems or hearing problems. Denied any sore throat. CARDIOVASCULAR: No orthopnea, PND, no palpitations, no syncope. PULMONARY: No shortness of breath, no cough, no hemoptysis. GASTROINTESTINAL: No diarrhea, no nausea, no vomiting, no abdominal pain. Normoactive bowel sounds. NEUROLOGICAL: No headaches, no weakness, no numbness. HEMATOLOGICAL: Denies any bleeding or petechiae. GENITOURINARY: Denies any burning micturition, frequency, or urgency. MUSCULOSKELETAL/RHEUMATOLOGICAL: Denies any joint pain, swelling, or any muscle pain. ENDOCRINE: Denies any polyuria or polydipsia. Past Medical History Past Medical History: Atrial Fibrillation, GERD/Reflux, Hearing Disorder / Deafness, Osteoarthritis (OA), Sleep Apnea/CPAP/BIPAP Additional Past Medical History / Comment(s): PLEASE SEE DR. RUSS'S H&P. SOB with exertion, migraines, environmental allergies, CPAP use, some hearing loss. History of Any Multi-Drug Resistant Organisms: None Reported Past Surgical History: Heart Catheterization, Orthopedic Surgery Additional Past Surgical History / Comment(s): Sinus surgery, right knee arthroscopy,vasectomy, left plantar fascitis surgery, CVN with TABITHA Past Anesthesia/Blood Transfusion Reactions: No Reported Reaction Past Psychological History: No Psychological Hx Reported Smoking Status: Heavy tobacco smoker Past Alcohol Use History: Occasional Past Drug Use History: None Reported - Past Family History Father Family Medical History: AFIB, Myocardial Infarction ([place]) Additional Family Medical History / Comment(s): Enlarged heart, silent [place]. Mother Family Medical History: Osteoarthritis ([place]) Additional Family Medical History / Comment(s): Depression. Medications and Allergies Home Medications Medication Instructions Recorded Confirmed Type Cholecalciferol [Vitamin D3 (25 50 mcg PO DAILY 01/13/22 07/02/24 History Mcg = 1000 Iu)] Fluticasone Nasal [place] [Flonase 1 spray EA NOSTRIL DAILY 01/13/22 07/02/24 History Nasal [place]] Apixaban [Eliquis] 5 mg PO BID #180 tab 01/12/23 07/02/24 Rx lisinopriL [Zestril] 2.5 mg PO DAILY 03/23/23 07/02/24 History Tamsulosin [Flomax] 0.4 mg PO DAILY #30 cap 03/23/24 07/02/24 Rx Fexofenadine HCl [Lorri Allergy] 180 mg PO DAILY 07/02/24 07/02/24 History Metoprolol Succinate [Toprol XL] 100 mg PO DAILY 07/02/24 07/02/24 History Multivitamins, Thera [Multivitamin 1 tab PO DAILY 07/02/24 07/02/24 History (formulary)] Pantoprazole Sodium [Protonix] 40 mg PO DAILY 07/02/24 07/02/24 History Allergies Allergy/AdvReac Type Severity Reaction Status Date / Time environmental Allergy congestion Uncoded 07/02/24 12:28 Physical Exam Vitals: Vital Signs Temp Pulse Resp BP Pulse Ox 07/02/24 13:00 55 L 20 153/98 96 07/02/24 12:01 60 20 165/105 97 07/02/24 11:29 98 F 55 L 18 164/104 98 Intake and Output 07/01/24 07/02/24 07/02/24 22:59 06:59 14:59 Other: Weight 115.212 kg GENERAL: The patient is alert and oriented x3, not in any acute distress. Well developed, well nourished. HEENT: Pupils are round and equally reacting to light. EOMI. No scleral icterus. No conjunctival pallor. Normocephalic, atraumatic. No pharyngeal erythema. No thyromegaly. CARDIOVASCULAR: S1 and S2 present. No murmurs, rubs, or gallops. PULMONARY: Chest is clear to auscultation, no wheezing , no crackles. ABDOMEN: Soft, nontender, nondistended, normoactive bowel sounds. No palpable organomegaly. MUSCULOSKELETAL: No joint swelling or deformity. EXTREMITIES: No cyanosis, clubbing, or pedal edema. NEUROLOGICAL: Gross neurological examination did not reveal any focal deficits. SKIN: No rashes. no petechiae. Results CBC & Chem 7: 07/02/24 11:53 07/02/24 11:53 Labs: Abnormal Lab Results - Last 24 Hours (Table) 07/02/24 Range/Units 11:53 Total Bilirubin 1.5 H (0.2-1.3) mg/dL Assessment and Plan Assessment: Headache associated with left hand/upper extremity weakness and numbness suspicious for stroke/TIA 1 cm left parafalcine meningioma, stable A-fib with rate controlled on Eliquis at home GERD Sleep apnea Osteoarthritis Plan: Continue with Eliquis Consult neurology service Continue neurocheck Resume home medication Labs and medication were reviewed.. Continue same treatment. Continue with symptomatic treatment. Resume home medication. Monitor labs and vitals. DVT and GI prophylaxis. Further recommendations as per clinical course of the patient DVT prophylaxis: Eliquis GI Prophylaxis: Pepcid PT/OT: Pending Prognosis is guarded
[2024-07-02] MEDS: SODIUM CHLORIDE 0.9% 1,000 ML IV SCH (14:27)
[2024-07-02] MEDS: ASPIRIN 81 MG PO SCH (20:38)
[2024-07-02] MEDS: APIXABAN 5 MG TAB PO SCH (20:38)
--- NOTE | 2024-07-02 22:52 | P.CNNES ---
History of Present Illness Consult date: 07/02/24 Requesting physician: Dangelo Salas Reason for Consult: Code stroke History of Present Illness: Patient is a 58-year-old right-handed male with history of hypertension, atrial fibrillation on Eliquis, came to the hospital this morning at 11:23 AM for strokelike symptoms. Patient's fianc was also present at the bedside, who mentions that patient woke up this morning at 6 AM with a headache. He still went to work. At around 10:45 AM-11 AM while he was driving, using steering wheel with his right hand and his left arm was on the lap, when he noticed his left arm became numb all the way from shoulder to the hand. There was some numbness and tingling in the left arm. He could move the left arm but felt weak. There was no associated pain. There was no associated paresthesias of the left facial region or the left leg. No slurred speech or facial droop or visual disturbance dizziness or nausea or vomiting. Patient denies any shortness of breath, did have some slight chest pain when he came to the ER but went away shortly. Denies any previous history of strokes or TIA. Vital signs on arrival blood pressure 164/104, pulse rate 55, temperature 98.0. Blood test shows normal CBC, PT PTT, normal CMP. Troponin negative. CT head showed stable 1 cm left parafalcine meningioma. No acute intracranial abnormality seen. I personally reviewed CT head, agree with the findings. Chest x-ray showed no evidence for acute pulmonary disease. EKG showed sinus rhythm. Patient states he has history of migraines On arrival to the ER, stroke code was activated. ED staff discussed case with stroke neurologist , patient was considered not a candidate for TNK because of low NIH stroke scale of 1 and medical management was recommended. Patient states while he was in the ER, he went to sleep and when he woke up at around 5:30 PM, all symptoms have resolved. He still has some numbness of the fingertips of left hand. His headache also has gone after he woke up from sleep. For a long time, it is occasionally happened about once every 2 years and last for about half a day. The headache today was almost like his migraine headache. Patient has history of atrial fibrillation, for which he has undergone cardiac ablation. Patient chews tobacco since age 14. Denies any marijuana use, drinks alcohol occasionally. He has hypertension but no diabetes. Review of Systems All pertinent positive and negative review of systems mentioned in the HPI. Past Medical History Past Medical History: Atrial Fibrillation, GERD/Reflux, Hearing Disorder / Deafness, Osteoarthritis (OA), Sleep Apnea/CPAP/BIPAP Additional Past Medical History / Comment(s): PLEASE SEE DR. RUSS'S H&P. SOB with exertion, migraines, environmental allergies, CPAP use, some hearing loss. History of Any Multi-Drug Resistant Organisms: None Reported Past Surgical History: Heart Catheterization, Orthopedic Surgery Additional Past Surgical History / Comment(s): Sinus surgery, right knee arthroscopy,vasectomy, left plantar fascitis surgery, CVN with TABITHA Past Anesthesia/Blood Transfusion Reactions: No Reported Reaction Past Psychological History: No Psychological Hx Reported Smoking Status: Heavy tobacco smoker Past Alcohol Use History: Occasional Past Drug Use History: None Reported - Past Family History Father Family Medical History: AFIB, Myocardial Infarction ([place]) Additional Family Medical History / Comment(s): Enlarged heart, silent [place]. Mother Family Medical History: Osteoarthritis ([place]) Additional Family Medical History / Comment(s): Depression. Medications and Allergies Home Medications Medication Instructions Recorded Confirmed Type Cholecalciferol [Vitamin D3 (25 50 mcg PO DAILY 01/13/22 07/02/24 History Mcg = 1000 Iu)] Fluticasone Nasal [place] [Flonase 1 spray EA NOSTRIL DAILY 01/13/22 07/02/24 History Nasal [place]] Apixaban [Eliquis] 5 mg PO BID #180 tab 01/12/23 07/02/24 Rx lisinopriL [Zestril] 2.5 mg PO DAILY 03/23/23 07/02/24 History Tamsulosin [Flomax] 0.4 mg PO DAILY #30 cap 03/23/24 07/02/24 Rx Fexofenadine HCl [Lorri Allergy] 180 mg PO DAILY 07/02/24 07/02/24 History Metoprolol Succinate [Toprol XL] 100 mg PO DAILY 07/02/24 07/02/24 History Multivitamins, Thera [Multivitamin 1 tab PO DAILY 07/02/24 07/02/24 History (formulary)] Pantoprazole Sodium [Protonix] 40 mg PO DAILY 07/02/24 07/02/24 History Allergies Allergy/AdvReac Type Severity Reaction Status Date / Time environmental Allergy congestion Uncoded 07/02/24 12:28 Physical Examination - Vital Signs Vital Signs: Vital Signs Temp Pulse Resp BP Pulse Ox 07/02/24 18:40 62 20 134/95 96 07/02/24 17:00 55 L 20 132/90 96 07/02/24 15:56 56 L 20 119/84 96 07/02/24 14:14 56 L 20 135/91 95 07/02/24 13:00 55 L 20 153/98 96 07/02/24 12:01 60 20 165/105 97 07/02/24 11:29 98 F 55 L 18 164/104 98 Intake and Output 07/02/24 07/02/24 07/02/24 06:59 14:59 22:59 Other: Weight 115.212 kg Patient is a middle aged male, in no acute distress. Patient is alert awake oriented to time place and person. Speech and language functions are normal. Patient can name and repeat very well. No aphasia or dysarthria. Attention, concentration and fund of knowledge is adequate. On cranial nerve examination, pupils are equal, round and reacting to light, visual cortés are full on confrontation, with no neglect on double simultaneous stimulation. Extraocular muscles are intact with no nystagmus. Face is symmetric, tongue protrudes to the midline. Palatal elevation and sensation normal, hearing and shoulder shrug normal, facial sensation normal. On muscle strength testing, there is no pronator drift and the strength is normal in arms and legs distally and proximally, except left hip flexion, which is about 5-as compared to the right. Deep tendon reflexes are symmetric trace to 1 at the biceps, 1 brachioradialis, trace at the knee, 1+ ankles and plantars downgoing bilaterally. Sensory to touch is equal with no neglect on double simultaneous stimulation. Cerebellar function showed no ataxia for [id number] testing. No dysdiadoc hokinesia. No ataxia for [id number] testing on either side. Tone and bulk of muscles normal. Gait deferred.. On general examination, there is no carotid bruit or murmur, S1-S2 audible. Chest is clear on consultation. Abdomen is soft nontender. No organomegaly, bowel sounds present. Peripheral pulses are present. No peripheral edema. Results - Laboratory Findings CBC and BMP: 07/02/24 11:53 07/02/24 11:53 Abnormal Lab Findings: Abnormal Labs 07/02/24 11:53 Total Bilirubin 1.5 H Assessment and Plan Assessment: * Probable TIA, manifesting with left arm numbness and weakness, this seems to have mostly resolved. Still has some residual numbness of the fingertips of left hand. * Atrial fibrillation, on Eliquis * Hypertension * Chews tobacco Plan: Patient is not a candidate for TNK, as patient is on Eliquis and his current NIH stroke scale is 0. MRI of the brain without contrast, evaluate for acute CVA 2-D echo evaluate for embolic source CTA head and neck showed: Widely patent carotid and vertebral arteries of the neck. Anatomic variation with the dominant left vertebral artery. CTA of head showed anatomy variation with a hypoplastic V4 segment right vertebral artery. Also, persistent origin left BIOLOGICAL TECHNICIAN. No large vessel intracranial arterial occlusion, significant stenosis or aneurysmal change. Fasting a.m. lipid panel Hemoglobin A1c Permissive hypertension for next 24-48 hours, if no restriction from cardiac standpoint. Continue Eliquis 5 mg twice daily. Patient is mostly compliant with the medication. We will add aspirin 81 mg daily for now. Neuro checks every 4 hours. Telemetry monitoring rule out any arrhythmia PT, OT, speech therapy DVT prophylaxis: Continue Eliquis Neurology will continue to follow. Thank you for the consult.
[2024-07-03] MEDS: ACETAMINOPHEN TAB 325 MG TAB PO PRN (01:26)
[2024-07-03 08:02] VITALS: RESP 17
[2024-07-03] MEDS: PANTOPRAZOLE 40 MG TABLET PO SCH (08:33)
[2024-07-03] MEDS: METOPROLOL SUCCINATE (ER) 100 MG TAB.ER.24H PO SCH (08:33)
[2024-07-03] MEDS: TAMSULOSIN 0.4 MG CAP.ER.24H PO SCH (08:33)
[2024-07-03 10:30] LABS: Chol/HDL Ratio 3.34 Ratio; LDL Cholesterol,Calculated 119.4 mg/dL (0.0-131.0); VLDL Calculation 15.08 mg/dL (5.00-40.00)
--- NOTE | 2024-07-03 11:34 | CA ---
Transthoracic Echo Report Name: Gabriele Nolan Age: 58 Gender: M : 1965 Exam Date: 07/03/2024 07:59 Exam Location: [facility] Ht (in): 72 Wt (lb): 254 Ordering Physician: Jaiden Montes MD Attending/Referring Phys: [place] Burnisher Marion Garsia RDCS Procedure CPT: Indications: stroke/tia Cardiac Hx: Technical Quality: Good Contrast 1: Total Dose (mL): Contrast 2: Total Dose (mL): MEASUREMENTS (Male / Female) Normal Values 2D ECHO LV Diastolic Diameter PLAX 5.3 cm 4.2 - 5.9 / 3.9 - 5.3 cm LV Systolic Diameter PLAX 3.5 cm IVS Diastolic Thickness 1.3 cm 0.6 - 1.0 / 0.6 - 0.9 cm LVPW Diastolic Thickness 1.4 cm 0.6 - 1.0 / 0.6 - 0.9 cm LV Relative Wall Thickness 0.5 RV Internal Dim ED PLAX 2.9 cm LA Systolic Diameter LX 4.5 cm 3.0 - 4.0 / 2.7 - 3.8 cm LV Diastolic Volume MOD BP 149.4 cm??? 67 - 155 / 56 - 104 cm??? LV Systolic Volume MOD BP 62.4 cm??? 22 - 58 / 19 - 49 cm??? LV Ejection Fraction MOD BP 58.2 % >= 55 % LV Cardiac Index MOD BP 1700.1 cm???/min???m??? LV Diastolic Volume MOD 4C 168.7 cm??? LV Systolic Volume MOD 4C 61.5 cm??? LV Ejection Fraction MOD 4C 63.6 % LV Cardiac Index MOD 4C 2095.0 cm???/min???m??? LV Diastolic Length 4C 8.7 cm LV Systolic Length 4C 6.8 cm LV Diastolic Volume MOD 2C 130.2 cm??? LV Systolic Volume MOD 2C 62.7 cm??? LV Ejection Fraction MOD 2C 51.8 % LV Cardiac Index MOD 2C 1318.7 cm???/min???m??? LV Diastolic Length 2C 8.6 cm LV Systolic Length 2C 7.0 cm M-MODE Aortic Root Diameter MM 4.3 cm LA Systolic Diameter MM 4.1 cm LA Ao Ratio MM 0.9 AV Cusp Separation MM 2.3 cm DOPPLER Mitral E Point Velocity 78.4 cm/s Mitral A Point Velocity 69.4 cm/s Mitral E to A Ratio 1.1 MV Deceleration Time 256.4 ms MV E' Velocity 6.0 cm/s Mitral E to MV E' Ratio 13.1 FINDINGS Left Ventricle Left ventricular ejection fraction is estimated at 45-50 %. Mildly increased septal wall thickness. Mildly increased left ventricular systolic volume. Mildly reduced global left ventricular systolic function. Left ventricular wall thickness normal. Right Ventricle Normal right ventricular size and function. Unable to estimate the right ventricular systolic pressure. Right Atrium Mild right atrial dilatation. Left Atrium Mildly increased left atrial diameter. Mitral Valve Structurally normal mitral valve. Mild mitral regurgitation. No mitral stenosis. Aortic Valve Trileaflet aortic valve. No aortic valve stenosis or regurgitation. Tricuspid Valve Structurally normal tricuspid valve. Trace to mild tricuspid regurgitation. No tricuspid stenosis. Pulmonic Valve Structurally normal pulmonic valve. Trace pulmonic regurgitation. No pulmonic stenosis. Pericardium No pericardial or pleural effusion. Aorta Moderate aortic dilatation at the level of the sinuses of valsalva (root) 4.3cm. CONCLUSIONS Left ventricular ejection fraction 45 to 50% Mild increased left wall thickness Mild mitral regurgitation Trace to mild tricuspid regurgitation No pericardial effusion Previewed by: Dr. Satya Allen DO (Electronically Signed) Final Date: 03 July 2024 11:33
--- NOTE | 2024-07-03 14:48 | MR ---
EXAMINATION TYPE: MR brain wo con DATE OF EXAM: 07/03/2024 2:07 PM COMPARISON: None. CLINICAL INDICATION: Male, 58 years old with history of Stroke/tia, Left arm numbness, headache. TECHNIQUE: Multi planar multi sequence imaging of the brain. FINDINGS: The ventricles, basal cisterns and sulci overlying the cerebral convexities are mildly enlarged. There is evidence of mild to moderate periventricular white matter ischemic demyelination. Demyelina tion not excluded. Remote deep white matter insults are also noted. No acute edema is seen on diffusion weighted imaging. There is no evidence for midline shift or mass effect. Acute intracranial hemorrhage or extra-axial collection is not evident. The paranasal sinuses and mastoid air cells are well-aerated. IMPRESSION: Age-related atrophic and chronic small vessel ischemic change. No acute intracranial process at this time. [facility], , 07/03/2024 2:46 PM
[2024-07-03 15:47] VITALS: BP 111/68; PULSE 61; TEMP 98.1
[2024-07-03] MEDS ORDERED: ATORVASTATIN 40 MG TAB PO SCH (21:00)
--- NOTE | 2024-07-03 23:32 | P.DS ---
Providers Date of admission: 07/02/24 13:14 Attending physician: Bradford Chapman Consults: 07/02/24 13:13 Consult Physician Routine Consulting Provider: Jaiden Montes Consult Reason/Comments: code stroke Do you want consulting provider notified?: Yes Primary care physician: Edward Bahena Hospital Course: Diagnoses: Headache associated with left hand/upper extremity weakness and numbness suspicious for stroke/TIA. MRI of the brain was negative for acute stroke patient discharged on aspirin x 3 weeks 1 cm left parafalcine meningioma, stable A-fib with rate controlled on Eliquis at home GERD Sleep apnea Osteoarthritis Hospital course: This is a pleasant 58 years old male with past medical history of A-fib on Eliquis. Presents with headache and left upper extremity weakness. Patient evaluated by neurology service. Patient had MRI of the brain which was negative for acute infarction or mass. While echocardiogram showed mildly impaired cardiac function. Patient's symptoms resolved. Headache resolved. Patient denies any other new complaints. I discussed the case with c neurologist Dr. Montes today who cleared him for discharge to resume his home dose of Eliquis as well as Lipitor and aspirin only for 3 weeks and then stop aspirin. Patient informed and he agrees. Patient denies any other new complaints agreeable for discharge. Patient states he has his Eliquis at home. Problems and management plan were discussed with the patient and he verbalized understanding and acceptance Patient was found stable and can be discharged home in guarded prognosis however he needs follow-up as an outpatient. Patient was instructed to follow up with PCP Dr. Bahena within one week and patient agrees Patient was elected to follow-up with his neurologist or Dr. Carlisle later on 2 weeks after discharge and he agrees. Patient was instructed to follow-up with his mica miner blasting Dr. Edward in 1 week Physical exam Gen: patient is a AAOx3, no distress CVS: S1-S2, RRR, no murmur Lungs: B/L CTA, no wheezing Abdomen: soft, no distention, no tenderness, positive bowel sounds Extremity: no leg edema or induration Time spent more than 35 minutes Patient Condition at Discharge: Fair Plan - Discharge Summary Discharge Rx Participant: No New Discharge Prescriptions: New Aspirin 81 mg PO DAILY #21 tab Atorvastatin [Lipitor] 40 mg PO HS #30 tab Continue Cholecalciferol [Vitamin D3 (25 Mcg = 1000 Iu)] 50 mcg PO DAILY Apixaban [Eliquis] 5 mg PO BID #180 tab lisinopriL [Zestril] 2.5 mg PO DAILY Metoprolol Succinate [Toprol XL] 100 mg PO DAILY Fexofenadine HCl [Lorri Allergy] 180 mg PO DAILY Fluticasone Nasal [place] [Flonase Nasal [place]] 1 spray EA NOSTRIL DAILY Tamsulosin [Flomax] 0.4 mg PO DAILY #30 cap Multivitamins, Thera [Multivitamin (formulary)] 1 tab PO DAILY Pantoprazole Sodium [Protonix] 40 mg PO DAILY Discharge Medication List Cholecalciferol [Vitamin D3 (25 Mcg = 1000 Iu)] 50 mcg PO DAILY 01/13/22 [History] Fluticasone Nasal [place] [Flonase Nasal [place]] 1 spray EA NOSTRIL DAILY 01/13/22 [History] Apixaban [Eliquis] 5 mg PO BID #180 tab 01/12/23 [Rx] lisinopriL [Zestril] 2.5 mg PO DAILY 03/23/23 [History] Tamsulosin [Flomax] 0.4 mg PO DAILY #30 cap 03/23/24 [Rx] Fexofenadine HCl [Lorri Allergy] 180 mg PO DAILY 07/02/24 [History] Metoprolol Succinate [Toprol XL] 100 mg PO DAILY 07/02/24 [History] Multivitamins, Thera [Multivitamin (formulary)] 1 tab PO DAILY 07/02/24 [History] Pantoprazole Sodium [Protonix] 40 mg PO DAILY 07/02/24 [History] Aspirin 81 mg PO DAILY #21 tab 07/03/24 [Rx] Atorvastatin [Lipitor] 40 mg PO HS #30 tab 07/03/24 [Rx] Follow up Appointment(s)/Referral(s): Edward Bahena MD [Primary Care Provider] - 1-2 days Nick Kate MD [STAFF PHYSICIAN] - 1 Week Gabriel Malagon MD [Medical Doctor] - 2 Weeks Activity/Diet/Wound Care/Special Instructions: Heart healthy diet Activity is restricted till you see your doctor To continue aspirin for 21 days and then stop Continue with Eliquis Follow-up with your mica miner blasting Dr. Shaw in 1 weeks, please call to make appointment Discharge/Stand Alone Forms: Work/School Release, Work/Release Restrictions Form, Work/School Release / Restrict Discharge Disposition: HOME SELF-CARE
--- NOTE | 2024-07-04 09:58 | P.PN ---
Subjective Progress Note Date: 07/03/24 Patient was seen for follow-up. All symptoms resolved. No new concerns. Objective - Vital Signs Vital signs: Vital Signs Temp 98.1 F 07/03/24 15:00 Pulse 61 07/03/24 15:00 Resp 17 07/03/24 15:00 BP 111/68 07/03/24 15:00 Pulse Ox 96 07/03/24 15:00 FiO2 Intake & Output 07/02/24 07/03/24 07/03/24 18:59 06:59 18:59 Intake Total 240 958 Balance 240 958 Weight 115.212 kg 115.212 kg Intake: Oral 240 958 Other: # Voids 2 - Exam Normal, completely nonfocal. - Labs CBC & Chem 7: 07/02/24 11:53 07/02/24 11:53 Assessment and Plan Assessment: * Probable TIA, manifesting with left arm numbness and weakness, this seems to have mostly resolved. Still has some residual numbness of the fingertips of left hand. * Atrial fibrillation, on Eliquis * Hypertension * Chews tobacco Plan: MRI of the brain without contrast, revealed age-related atrophic and chronic small vessel ischemic change. No acute intracranial process seen at this time. I personally reviewed MRI agree with the findings. 2-D echo revealed LVEF 45 to 50%. Mildly increased left ventricular systolic volume. Mildly reduced global left ventricular systolic function. Mild right atrial dilation. Mildly increased left atrial diameter. CTA head and neck showed: Widely patent carotid and vertebral arteries of the neck. Anatomic variation with the dominant left vertebral artery. CTA of head showed anatomy variation with a hypoplastic V4 segment right vertebral artery. 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 No large vessel intracranial arterial occlusion, significant stenosis or aneurysmal change. Fasting a.m. lipid panel, with cholesterol 192, LDL 119, HDL 57 and triglycerides 75. Patient to be started on Lipitor 20 mg daily. Hemoglobin A1c pending. Optimize control of blood pressure. Continue Eliquis 5 mg twice daily. Patient is mostly compliant with the medication. Suggest adding aspirin 81 mg daily for 21 days then may stop it, as there is no significant cerebrovascular disease noted on CTA. Neurologically clear for discharge.
--- NOTE | 2024-07-04 11:25 | CDI ---
Documentation Clarification Form Date: 07/04/2024 11:12:53 AM From: Brenda Ashley Admit Date: 07/02/2024 01:14:00 PM Patient Name: Gabriele Nolan Visit Number: [id number] Discharge Date: 07/03/2024 05:09:00 PM ATTENTION: The Clinical Documentation Specialists (CDI) and [facility] Coding Staff appreciate your assistance in clarifying documentation. Please respond to the clarification below the line at the bottom and electronically sign. The CDI & [facility] Coding staff will review the response and follow-up if needed. Please note: Queries are made part of the Legal Health Record. If you have any questions, please contact the author of this message via ITS. Doctor/Provider: Jon E Sheet The patients principal diagnosis the diagnosis that was chiefly responsible for the admission - has not been clearly identified and clarification is requested. The patient presented with a headache and left upper extremity weakness and numbness. NIH 1, Per neuro consult Probably TIA. Per DCS suspicious for Stroke/TIA. History/Risk factors: Clinical Indicators: Echo showing mild impaired cardiac function. Lab findings: NIH 1 Radiology findings: MRI negative Vital Signs: 98F, 55 bmp, 18, 164/104, 98 RA Treatment: Aspirin, Continue with Eliquis, neuro checks, Neurology to follow Consults: In your professional opinion, can you please clarify which diagnosis, after study, was the reason chiefly responsible for the admission? [ ] Stroke CVA [x ] TIA [ ] Other, please specify [ ] Unable to determine MTDD
== END 2024-07-03 17:09 | disposition home or self-care (01) | DRG 69 ==
LOC: EC 11:23 → 6NMEDSUR 13:14
PROVIDERS: ADMIT Hospitalist; ATTEND Hospitalist
DX: G45.9 Transient cerebral ischemic attack, unspecified (principal); D32.0 Benign neoplasm of cerebral meninges; I48.91 Unspecified atrial fibrillation; G43.909 Migraine, unspecified, not intractable, without status migrainosus; F17.200 Nicotine dependence, unspecified, uncomplicated; G83.24 Monoplegia of upper limb affecting left nondominant side; I10 Essential (primary) hypertension; G47.30 Sleep apnea, unspecified; H91.90 Unspecified hearing loss, unspecified ear; K21.9 Gastro-esophageal reflux disease without esophagitis; M19.90 Unspecified osteoarthritis, unspecified site; Z79.01 Long term (current) use of anticoagulants; Z79.899 Other long term (current) drug therapy; R29.701 NIHSS score 1
CPT/HCPCS: 36415; 70450; 70496; 70498; 70551; 71046; 80053; 80061; 82550; 83036; 84484; 85025; 85610; 85730; 93005; 93306; 96361; 96374; 96375; 99291

== ENCOUNTER 2024-07-25 23:23 | Emergency (ER) | payer BC ==
--- NOTE | 2024-07-26 00:19 | ED ---
General Adult HPI - General Chief complaint: Extremity Injury, Lower Stated complaint: Possible bloot clot in left leg Time Seen by Provider: 07/25/24 23:33 Source: patient Mode of arrival: ambulatory - History of Present Illness Initial comments: Dictation was produced using [employer] dictation software. please excuse any grammatical, word or spelling errors. Chief Complaint: 58-year-old male with left leg bruise History of Present Illness: 58-year-old male on Eliquis presents with left leg bruise states that he was cutting grass when he tripped and struck his left anterior villeda. Started as a small bruise about the size of a quarter. Over the subsequent days bruising became more extensive. Denies any calf tenderness or popliteal pain. The ROS documented in this emergency department record has been reviewed and confirmed by me. Those systems with pertinent positive or negative responses have been documented in the HPI. All other systems are other negative and/or noncontributory. - Related Data Home Medications Medication Instructions Recorded Confirmed Cholecalciferol [Vitamin D3 (25 50 mcg PO DAILY 01/13/22 07/02/24 Mcg = 1000 Iu)] Fluticasone Nasal [place] [Flonase 1 spray EA NOSTRIL DAILY 01/13/22 07/02/24 Nasal [place]] lisinopriL [Zestril] 2.5 mg PO DAILY 03/23/23 07/02/24 Fexofenadine HCl [Lorri Allergy] 180 mg PO DAILY 07/02/24 07/02/24 Metoprolol Succinate [Toprol XL] 100 mg PO DAILY 07/02/24 07/02/24 Multivitamins, Thera [Multivitamin 1 tab PO DAILY 07/02/24 07/02/24 (formulary)] Pantoprazole Sodium [Protonix] 40 mg PO DAILY 07/02/24 07/02/24 Previous Rx's Medication Instructions Recorded Apixaban [Eliquis] 5 mg PO BID #180 tab 01/12/23 Tamsulosin [Flomax] 0.4 mg PO DAILY #30 cap 03/23/24 Aspirin 81 mg PO DAILY #21 tab 07/03/24 Atorvastatin [Lipitor] 40 mg PO HS #30 tab 07/03/24 Allergies Allergy/AdvReac Type Severity Reaction Status Date / Time environmental Allergy congestion Uncoded 07/25/24 23:29 Review of Systems ROS Statement: Those systems with pertinent positive or pertinent negative responses have been documented in the HPI. ROS Other: All systems not noted in ROS Statement are negative. Past Medical History Past Medical History: Atrial Fibrillation, GERD/Reflux, Hearing Disorder / Deafness, Osteoarthritis (OA), Sleep Apnea/CPAP/BIPAP Additional Past Medical History / Comment(s): PLEASE SEE DR. RUSS'S H&P. SOB with exertion, migraines, environmental allergies, CPAP use, some hearing loss. History of Any Multi-Drug Resistant Organisms: None Reported Past Surgical History: Heart Catheterization, Orthopedic Surgery Additional Past Surgical History / Comment(s): Sinus surgery, right knee arthroscopy,vasectomy, left plantar fascitis surgery, CVN with TABITHA Past Anesthesia/Blood Transfusion Reactions: No Reported Reaction Past Psychological History: No Psychological Hx Reported Smoking Status: Heavy tobacco smoker Past Alcohol Use History: Occasional Past Drug Use History: None Reported - Past Family History Father Family Medical History: AFIB, Myocardial Infarction (ME) Additional Family Medical History / Comment(s): Enlarged heart, silent ME. Mother Family Medical History: Osteoarthritis (OA) Additional Family Medical History / Comment(s): Depression. General Exam - General Exam Comments Initial Comments: General: Well-appearing, nontoxic, no acute distress. Head: Normocephalic, atraumatic Eyes: PERRLA, EOMI ENT: Airway patent Chest: Nonlabored breathing Skin: No visual rash, normal skin tone Neuro: Alert and oriented 3 Musculoskeletal: No gross abnormalities Left lower extremity: Ecchymoses to the left anterior villeda, compartments soft, no calf tenderness or popliteal tenderness Course Vital Signs 07/25/24 23:24 Temperature 97.3 F L Pulse Rate 73 Respiratory 18 Rate Blood Pressure 145/89 O2 Sat by Pulse 97 Oximetry Medical Decision Making - Medical Decision Making Was pt. sent in by a medical professional or institution (, PA, SEAT COVERER, urgent care, hospital, or fpc...) When possible be specific @ -No Did you speak to anyone other than the patient for history (EMS, parent, family, police, friend...)? What history was obtained from this source @ -No Did you review nursing and triage notes (agree or disagree)? Why? @ -I reviewed and agree with nursing and triage notes Were old charts reviewed (outside hosp., previous admission, EMS record, old EKG, old radiological studies, urgent care reports/EKG's, fpc records)? Report findings @ -No old charts were reviewed Differential Diagnosis (chest pain, altered mental status, abdominal pain women, abdominal pain men, vaginal bleeding, musculoskeletal, weakness, fever, dyspnea, syncope, headache, dizziness, GI bleed, back pain, seizure, CVA, palpatations, mental health)? @ -Not applicable EKG interpreted by me (3pts min.). @ -None done X-rays interpreted by me (1pt min.). @ -None done CT interpreted by me (1pt min.). @ -CT of the lower extremity shows small hematoma U/S interpreted by me (1pt. min.). @ -None done What testing was considered but not performed or refused? (CT, X-rays, U/S, labs)? Why? @ -None What meds were considered but not given or refused? Why? @ -None Was smoking cessation discussed for >3mins.? @ -No Were there social determinants of health that impacted care today? How? (Homelessness, low income, unemployed, alcoholism, drug addiction, transportation, low edu. Level, literacy, decrease access to med. care, prison, rehab)? @ -No Was there de-escalation of care discussed even if they declined (Discuss DNR or withdrawal of care, Hospice)? DNR status @ -No What co-morbidities impacted this encounter? (DM, HTN, Smoking, COPD, CAD, Cancer, CVA, ARF, Chemo, Hep., AIDS, mental health diagnosis, sleep apnea, morbid obesity)? @ -None Was patient admitted / discharged? Hospital course, mention meds given and route, prescriptions, significant lab abnormalities, going to OR and other pertinent info. @ -58-year-old male on anticoagulation medication presents to the emergency department with worsening leg ecchymoses after traumatic contusion to the left anterior villeda. Vital signs stable. CT ordered showing small hematoma. Patient stable for discharge advised follow-up with primary care doctor. Did you discuss the management of the patient with other professionals (professionals i.e. , PA, SEAT COVERER, lab, RT, psych nurse, certified social workers in health care, asphalt raker, teacher, parcel post officer, assistant case manager)? Give summary @ -No Was critical care preformed (if so, how long)? @ -No Undiagnosed new problem with uncertain prognosis? @ -No Drug Therapy requiring intensive monitoring for toxicity (Heparin, Nitro, Insulin, Cardizem)? @ -No Were any procedures done? @ -No Diagnosis/symptom? Acute, or Chronic, or Acute on Chronic? Uncomplicated (without systemic symptoms) or Complicated (systemic symptoms)? @ -Leg contusion complicated by leg hematoma Side effects of treatment? @ -No Exacerbation, Progression, or Severe Exacerbation? @ -No Poses a threat to life or bodily function? How? (Chest pain, [place], ME, pneumonia, PE, COPD, DKA, ARF, appy, cholecystitis, CVA, Diverticulitis, Homicidal, Suicidal, threat to staff... and all critical care pts) @ -No - Lab Data Result diagrams: 07/26/24 00:45 07/26/24 00:45 Lab Results 07/26/24 07/26/24 07/26/24 Range/Units 00:45 00:45 00:45 WBC 7.73 (4.50-10.00) 10*3/uL RBC 4.18 L (4.40-5.60) 10*6/uL Hgb 13.6 (13.0-17.0) g/dL Hct 38.8 L (39.6-50.0) % MCV 92.8 (80.0-97.0) fL MCH 32.5 H (27.0-32.0) pg MCHC 35.1 (32.0-37.0) g/dL Plt Count 233 (140-440) 10*3/uL MPV 10.2 (9.5-12.2) fL Immature Gran % (Auto) 0.4 % Neutrophils % 68.7 % Lymphocytes % 21.3 % Monocytes % 7.2 % Eosinophils % 2.1 % Basophils % 0.3 % Immature Gran # 0.03 (0.00-0.04) 10*3/uL Neutrophils # 5.31 (1.80-7.70) 10*3/uL Lymphocytes # 1.65 (0.90-5.00) 10*3/uL Monocytes # 0.56 (0.20-1.00) 10*3/uL Eosinophils # 0.16 (0.04-0.35) 10*3/uL Basophils # 0.02 (0.00-0.10) 10*3/uL PT 10.6 (10.0-12.5) sec INR 0.9 (<1.2) APTT 25.2 (22.0-30.0) sec Sodium 136 L (137-145) mmol/L Potassium 4.0 (3.5-5.1) mmol/L Chloride 103 (98-107) mmol/L Carbon Dioxide 26 (22-30) mmol/L Anion Gap 7 mmol/L BUN 20 (9-20) mg/dL Creatinine 0.86 (0.66-1.25) mg/dL Est GFR (CKD-EPI)AfAm >90 (>60 ml/min/1.73 sqM) Est GFR (CKD-EPI)NonAf >90 (>60 ml/min/1.73 sqM) Glucose 138 H (74-99) mg/dL Calcium 9.4 (8.4-10.2) mg/dL Disposition Clinical Impression: Contusion of leg Disposition: HOME SELF-CARE Condition: Good Instructions (If sedation given, give patient instructions): Hematoma (ED) Is patient prescribed a controlled substance at d/c from ED?: No Referrals: Edwrad Bahena MD [Primary Care Provider] - 1-2 days Time of Disposition: 03:14
[2024-07-26 00:51] LABS: Basophils # (A) 0.02 10*3/uL (0.00-0.10); Basophils % (A) 0.3 %; Eosinophils # (A) 0.16 10*3/uL (0.04-0.35); Eosinophils % (A) 2.1 %; HCT 38.8 % (39.6-50.0); HGB 13.6 g/dL (13.0-17.0); Lymphocytes # (A) 1.65 10*3/uL (0.90-5.00); Lymphocytes % (A) 21.3 %; MCH 32.5 pg (27.0-32.0); MCHC 35.1 g/dL (32.0-37.0); MCV 92.8 fL (80.0-97.0); Mean Platelet Volume 10.2 fL (9.5-12.2); Monocytes # (A) 0.56 10*3/uL (0.20-1.00); Monocytes % (A) 7.2 %; Neutrophils # (A) 5.31 10*3/uL (1.80-7.70); Neutrophils % (A) 68.7 %; Platelet Count 233 10*3/uL (140-440); RBC 4.18 10*6/uL (4.40-5.60); RDW 12.1 % (11.5-14.5); WBC 7.73 10*3/uL (4.50-10.00)
[2024-07-26 01:07] LABS: INR 0.9 (<1.2); Partial Thromboplastin Time 25.2 sec (22.0-30.0); Prothrombin Time 10.6 sec (10.0-12.5)
[2024-07-26 01:09] LABS: African American GFR (CKD) >90 (>60 ml/min/1.73 sqM); Anion Gap 7 mmol/L; Blood Urea Nitrogen 20 mg/dL (9-20); Calcium 9.4 mg/dL (8.4-10.2); Carbon Dioxide 26 mmol/L (22-30); Chloride 103 mmol/L (98-107); Glucose 138 mg/dL (74-99); Non-African American GFR(CKD) >90 (>60 ml/min/1.73 sqM); Sodium 136 mmol/L (137-145)
--- NOTE | 2024-07-26 03:09 | CT ---
EXAM: CT Left Lower Extremity Without Intravenous Contrast CLINICAL HISTORY: hematoma TECHNIQUE: Axial computed tomography images of the left lower extremity without intravenous contrast. This CT exam was performed using one or more of the following dose reduction techniques: automated exposure control, adjustment of the mA and/or kV according to patient size, and/or use of iterative reconstruction technique. 1028 images COMPARISON: Left knee radiograph from 01/12/24, CTA of left lower extremity from 04/11/23 FINDINGS: Bones/joints: Mild osteoarthritic changes of left knee. Mild lateral patellar shift and tilt. Soft tissues: Small subcutaneous hematoma over anterior mid shaft of left tibia surrounded by soft tissue swelling extending to ankle. No associated soft tissue gas. Small fat-containing left inguinal hernia, unchanged. Reproductive: Trace of bilateral hydrocele, unchanged. IMPRESSION: Small subcutaneous hematoma over anterior mid shaft of left tibia surrounded by soft tissue swelling extending to ankle. No associated soft tissue gas.
[2024-07-26 03:29] VITALS: BP 130/86; PULSE 78; RESP 19; TEMP 98.3
== END 2024-07-26 03:29 | disposition home or self-care (01) ==
LOC: EC 23:23
DX: S80.12XA Contusion of left lower leg, initial encounter (principal); F17.200 Nicotine dependence, unspecified, uncomplicated; Z91.09 Other allergy status, other than to drugs and biological substances; W18.40XA Slipping, tripping and stumbling without falling, unspecified, initial encounter
CPT/HCPCS: 36415; 80048; 85025; 85610; 85730; 99284